=== PATIENT | male | born 1970 | race Caucasian/White ===

== ENCOUNTER 2023-10-12 15:19 | Outpatient (OUT) | payer OTHER, SELFPAY ==
--- NOTE | 2023-10-12 | XR_ITS ---
The [address] [address] Patient Name: MARIA DE JESUS MEDLEY MRN: [id number] date: 1970 Sex: M Assigned Patient Location: [facility] Current Patient Location: [facility] Accession/Order Number: [id number] Exam Date: 10/12/2023 15:30 Report Date: 10/12/2023 21:51 At the request of: MORENA YA Procedure: XR foot RT min 3V EXAM: XR foot RT min 3V HISTORY: RIGHT FOOT PAIN COMPARISON: None. TECHNIQUE: 3 views the right foot were obtained. FINDINGS: Hallux valgus is noted, with mild narrowing of the first metatarsophalangeal joint. There is no evidence of an acute fracture or dislocation, and the joint space otherwise intact throughout the foot. Small osteophytes arise from the insertion site of the Achilles tendon and the origin of the plantar fascia. No abnormal soft tissue calcification or radiopaque foreign body is identified. XR/XR foot RT min 3V IMPRESSION: There is a hallux valgus deformity at the first metatarsophalangeal joint with narrowing of the joint space. There is no evidence of an acute fracture or dislocation. The joint space otherwise intact. Osteophytes arise from the posterior calcaneus. Direct comparison with a previous study may be helpful in determining the chronicity of these findings. Electronically authenticated by: MORENA MCALLISTER Date: 10/12/2023 21:51
== END 2023-10-12 15:20 | disposition home or self-care (01) ==
LOC: RAD 15:19
PROVIDERS: PCP Internal Medicine; Visit Provider Podiatrist Foot & Ankle Surgery
DX: M79.671 Pain in right foot (principal); M20.11 Hallux valgus (acquired), right foot
CPT/HCPCS: 73630

== ENCOUNTER 2023-11-11 14:14 | Outpatient (OUT) | payer OTHER, SELFPAY ==
--- OUTSIDE RECORDS SUMMARY | 2023-11-11 14:20 | XMS_ITS | CCD ---
Author Name Unknown Address [address] [facility] [address] [place] [address] Organization [facility] Care Team Providers Care Beverage Server Name Role Phone ZACHARY RODRIGUEZ Primary Care Physician Michael, Zachary Unavailable MICHAEL, DR TREVINO Admitting Unavailable MICHAEL, DR TREVINO Attending Unavailable BALL, DR TREVINO Primary Care Unavailable MICHAEL, DR TREVINO Consulting Unavailable DAUGHERTY ., DR GONZALEZ Admitting Unavailable DAUGHERTY ., DR GONZALEZ Attending Unavailable BALL, DR TREVINO Primary Care Unavailable MICHAEL, DR TREVINO Consulting Unavailable DAUGHERTY ., DR GONZALEZ Consulting Unavailable ZIEBER, DR CHARLY Valles Consulting Unavailable BALL, DR TREVINO Primary Care Unavailable MICHAEL, DR TREVINO Admitting Unavailable BALL, DR TREVINO Attending Unavailable BALL, DR TREVINO Consulting Unavailable ZIEBER, DR CHARLY Valles Consulting Unavailable BALL, DR TREVINO Admitting Unavailable BALL, DR TREVINO Attending Unavailable BALL, DR TREVINO Primary Care Unavailable MICHAEL, DR TREVINO Consulting Unavailable ZIEBER, DR CHARLY Valles Consulting Unavailable Medications Current Medications Medication Drug Class(es) Dates Sig (Normalized) Sig (Original) citric acid 75 mg/ml / magnesium oxide 21.9 mg/ml / picosulfate sodium 0.0625 mg/ml oral solution (2 sources) Calculi Dissolution Agent, Anti-coagulant Start: 09-02-2020 take 160 mL by mouth in the evening, then take 160 mL by mouth twice daily in the evening Clenpiq 10-3.5-12 MG-GM -GM/160ML 160 ML AT 3:00 PM AND 160 ML AT 9:00 PM Orally TWICE A DAY for 1 days PLEASE CHECK ALLERGIES Sep, Active Sulfamethoxazole / Trimethoprim (2 sources) Dihydrofolate Reductase Inhibitor Antibacterial, Sulfonamide Antimicrobial Start: 03-02-2022 sulfamethoxazol e-trimethoprim Refill(s) 0 Start Date: 03/02/22 Status: Ordered tamsulosin hydrochloride 0.4 mg oral capsule (3 sources) alpha-Adrenergic Steph Start: 03-02-2022 take 1 capsule by mouth twice daily tamsulosin 0.4 mg Cap 0.4 mg = 1 cap(s), Oral, BID, # 60 cap(s), Refills(s) 6, [id number], cm, 03/02/22 13:33:00 EDT, Height/Length Dosing, 86.1, kg, 03/02/22 13:33:00 EDT, Weight Dosing Start Date: 03/02/22 Status: Ordered Start: 11-20-2021 take 1 capsule by [facility] once daily Flomax 0.4 mg Cap 0.4 mg = 1 cap(s), Oral, Daily, # 30 cap(s), Refills(s) 6, [id number] 176, cm, 11/20/21 14:51:00 EST, Height/Length Dosing, 86, kg, 11/20/21 14:51:00 EST, Weight Dosing Start Date: 11/20/21 Status: Ordered Completed/Discontinued Medications Medication Drug Class(es) Dates Sig (Normalized) Sig (Original) ciprofloxacin 500 mg oral tablet (1 source) Quinolone Antimicrobial Start: 03-16-2022 take 1 tablet by mouth once daily Cipro 500 mg Tab 500 mg = 1 tab(s), Oral, Daily, Take 1 tablet the day before the procedure and 1 tablet after the procedure, # 2 tab(s), Refills(s) 0, [id number] 176, cm, 03/02/22 13:33:00 EDT, Height/Length Dosing, 86.1, kg, 03/02/22 13:33:00 EDT,... Start Date: 03/16/22 Status: Ordered Problems Problem Classification Problem Date Documented Da te Episodic/Chronic Calculus of urinary tract (1 source) Kidney stone; Translations: [Calculus of kidney] Onset: 03-31-2022 Episodic Genitourinary symptoms and ill-defined conditions (7 sources) Increased frequency of urination; Translations: [Nocturia] 12-29-2021 Episodic Hyperplasia of prostate (11 sources) Benign prostatic hypertrophy with outflow obstruction; Translations: [Benign prostatic hyperplasia with lower urinary tract symptoms] Onset: 03-02-2022 Chronic Inflammatory conditions of male genital organs (5 sources) Chronic prostatitis; Translations: [Chronic prostatitis] Onset: 03-02-2022 Chronic Inflammatory conditions of male genital organs (4 sources) Acute prostatitis; Translations: [Acute prostatitis] 11-20-2021 Episodic Neoplasms of unspecified nature or uncertain behavior (4 sources) Neoplasm of uncertain behavior of skin; Translations: [Neoplasm of uncertain behavior of skin] 11-20-2021 Episodic Other and unspecified benign neoplasm (5 sources) 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; Translations: [SHANE LIPOMATOUS CLAUDE SKIN SUBQ RT LEG] Onset: 12-18-2022 Episodic Other circulatory disease (2 sources) Elevated blood-pressure reading without diagnosis of hypertension; Translations: [Elevated blood-pressure reading, without diagnosis of hypertension] Episodic Other diseases of bladder and urethra (1 source) Male urethral stricture; Translations: [Unspecified urethral stricture, male, unspecified site] Onset: 03-31-2022 Episodic Other diseases of bladder and urethra (1 source) Urethral stricture 03-31-2022 Episodic Other diseases of kidney and ureters (2 sources) Urinary tract obstruction; Translations: [Other obstructive and reflux uropathy] Onset: 03-02-2022 Episodic Other nutritional; endocrine; and metabolic disorders (4 sources) Overweight; Translations: [Overweight] 11-20-2021 Episodic Other nutritional; endocrine; and metabolic disorders (1 source) Overweight Episodic Other screening for suspected conditions (not mental disorders or infectious disease) (2 sources) Encounter for screening for malignant neoplasm of prostate; Translations: [ENC SCREEN MALIG NEOPLASM PROSTATE] Onset: 12-20-2022 Episodic Other skin disorders (4 sources) Localized swelling, mass and lump, right lower limb; Translations: [LOC SWELL MASS LUMP RT LOWER LIMB] Onset: 01-08-2023 Episodic Unclassified (2 sources) Asymptomatic microscopic hematuria 12-29-2021 Results Test Name Value Interpretation Reference Range Facility US MUSC_SOFT TISSUE BXon US MUSC_SOFT TISSUE BX Begin Addendum #1 COLLECTED DATE/TIME: 01/08/2023 16:30 EST Final Diagnosis Report for [facility] [place] [place] ULTRASOUND-GUIDED CORE BIOPSY RIGHT LATERAL THIGH MASS: -FRAGMENTS OF FIBROUS AND ADIPOSE TISSUE (SEE COMMENT). COMMENT: Multiple sections reveal fragments of adipose and fibrous tissue without evidence of malignancy. Some vascular prominence is present. The differential diagnosis includes a lipoma or angio-lipoma and correlation with clinical findings is advised. 01/14/[address] Rodriguez. Verified with Samantha that report was present in office (BM). Original Report EXAMINATION: US MUSC_SOFT TISSUE BX HISTORY: Structure of right thigh COMPARISON: Ultrasound extremity 12/18/2022 TECHNIQUE: After obtaining informed consent, an ultrasound-guided biopsy was performed in the usual sterile manner. FINDINGS: IMAGING: Ultrasound guidance BIOPSY NEEDLE: 18-gauge spring-loaded core biopsy needle SPECIMEN TYPE, #, LOCATION: 3 core samples; lateral right mid thigh mass within subcutaneous fat. MEDICATION: 1% buffered lidocaine for local anesthesia. COMPLICATIONS: None. LABORATORY: Pathology results are pending OTHER: Negative. IMPRESSION: Uneventful ultrasound guided biopsy of the lateral right thigh subcutaneous mass/lipoma/liposarcoma . The patient was instructed to obtain follow up care and biopsy results from the referring physician. Normal [facility] US EXT NON VASC LIMITED RTon 12-22-2022 US EXT NON VASC LIMITED RT EXAMINATION: US EXT NON VASC LIMITED RT HISTORY: Lipoma of skin and subcutaneous tissue of limbs ; chronic right lateral mid thigh lump increasing in size COMPARISON: No relevant comparison available. FINDINGS: Within lateral mid right thigh corresponding to patient's palpable lump is a 2.8 x 2.8 x 0.5 cm area of slightly heterogeneous echogenicity with imperceptible margins and trace amount of internal blood flow, most suggestive of a lipoma. IMPRESSION: 1. Patient's palpable lump is most suggestive of a lipoma, but given the slightly heterogeneous echogenicity, a liposarcoma cannot be completely excluded. Consider ultrasound-guided tissue sampling. Electronically authenticated by: CHARLY POP Date: 2022-12-22 08:45 Normal [facility] CBC AUTO DIFFon 12-15-2022 BASO # 0.1 103/ul Normal 0.0-0.1 [facility] Comment on above: Performed By: #### C BC #### [facility] [address] [place] [address] Dr. Ashley Acosta Basophils/100 WBC (Bld) 0.9 % Normal 0.2-2.0 [facility] Comment on above: Performed By: #### C BC #### [facility] [address] [place] [address] Dr. Ashley Acosta EO # 0.2 103/ul Normal 0.0-0.7 [facility] Comment on above: Performed By: #### C BC #### [facility] [address] [place] [address] Dr. Ashley Acosta Eosinophils/100 WBC (Bld) 1.8 % Normal 0.9-7.0 [facility] Comment on above: Performed By: #### C BC #### [facility] [address] [place] [address] Dr. Ashley Acosta Erythrocyte distribution width (RBC) [Ratio] 11.8 % Normal 11.0-15.0 [facility] Comment on above: Performed By: #### C BC #### [facility] [address] [place] [address] Dr. Ashley Acosta Hematocrit (Bld) [Volume fraction] 43.3 % Normal 42.0-54.0 [facility] Comment on above: Performed By: #### C BC #### [facility] [address] [place] [address] Dr. Ashley Acosta Hemoglobin (Bld) [Mass/Vol] 15.1 g/dL Normal 14.0-18.0 [facility] Comment on above: Performed By: #### C BC #### [facility] [address] [place] [address] Dr. Ashley Acosta IG # 0.04 10e3/ul Critically high 0.00-0.03 [facility] Comment on above: Performed By: #### C BC #### [facility] [address] [place] [address] Dr. Ashley Acosta IG % 0.5 % Normal 0.0-0.5 [facility] Comment on above: Performed By: #### C BC #### [facility] [address] [place] [address] Dr. Ashley Acosta LYMPH # 2.5 103/ul Normal 1.2-3.8 [facility] Comment on above: Performed By: #### C BC #### [facility] [address] [place] [address] Dr. Ashley Acosta Lymphocytes/100 WBC (Bld) 29.5 % Normal 20.5-60.0 [facility] Comment on above: Performed By: #### C BC #### [facility] [address] [place] [address] Dr. Ashley Acosta MANUAL DIFF REQ NO Normal [facility] Comment on above: Performed By: #### C BC #### [facility] [address] [place] [address] Dr. Ashley Acosta MCH (RBC) [Entitic mass] 29.9 pg Normal 25.9-34.0 [facility] Comment on above: Performed By: #### C BC #### [facility] [address] [place] [address] Dr. Ashley Acosta MCHC (RBC) [Mass/Vol] 34.9 g/dL Normal 29.9-35.2 [facility] Comment on above: Performed By: #### C BC #### [facility] [address] [place] [address] Dr. Ashley Acosta MCV (RBC) [Entitic vol] 85.7 fL Normal 80.0-94.0 [facility] Comment on above: Performed By: #### C BC #### [facility] [address] [place] [address] Dr. Ashley Acosta MONO # 0.6 103/ul Normal 0.3-0.8 [facility] Comment on above: Performed By: #### C BC #### [facility] [address] [place] [address] Dr. Ashley Acosta Monocytes/100 WBC (Bld) 7.3 % Normal 1.7-12.0 [facility] Comment on above: Performed By: #### C BC #### [facility] [address] [place] [address] Dr. Ashley Acosta NEUT # 5.1 103/ul Normal 1.4-6.5 [facility] Comment on above: Performed By: #### C BC #### [facility] [address] [address] [address] Ashley Acosta Neutrophils/100 WBC (Bld) 60.0 % Normal 43.0-75.0 [facility] Comment on above: Performed By: #### C BC #### [facility] [address] [address] [address] Ashley Acosta Platelet mean volume (Bld) [Entitic vol] 9.7 fL Normal 9.5-13.5 [facility] Comment on above: Performed By: #### C BC #### [facility] [address] [address] [address] Ashley Acosta PLT 274 103/ul Normal 150-450 [facility] Comment on above: Performed By: #### C BC #### [facility] [address] [place] [address] Dr. Ashley Acosta RBC 5.05 106/ul Normal 4.70-6.10 [facility] Comment on above: Performed By: #### C BC #### [facility] [address] [place] [address] Dr. Ashley Acosta WBC 8.5 103/ul Normal 4.0-11.0 [facility] Comment on above: Performed By: #### C BC #### [facility] [address] [place] [address] Dr. Ashley Acosta Comprehensive Metabolic Pane robin 12-15-2022 Albumin [Mass/Vol] 4.224254 g/dL 3.4-5.0 g/dL N Code42 Other Albumin/Globulin [Mass ratio] 1.3 {ratio} Normal [employer] Other Comment on above: Performed By: #### C MP, LIPID #### [facility] [address] [place] [address] Dr. Ashley Acosta ALP [Catalytic activity/Vol] 57 U/L Normal 46-116 [employer] Other Comment on above: Performed By: #### C MP, LIPID #### [facility] [address] [address] [address] Ashley Acosta ALT [Catalytic activity/Vol] 31 U/L Normal 16-63 [employer] Other Comment on above: Performed By: #### C MP, LIPID #### [facility] [address] [address] [address] Ashley Acosta Anion gap [Moles/Vol] 12.2 mmol/L Normal [employer] [facility] [employer] Other Comment on above: Performed By: #### C MP, LIPID #### [facility] [address] [address] [address] Ashley Acosta AST [Catalytic activity/Vol] 25 U/L Normal 15-37 [employer] [facility] Other Comment on above: Performed By: #### C MP, LIPID #### [facility] [address] [address] [address] Ashley Acosta Calcium [Mass/Vol] 9.3850213 mg/dL 8.5-10 .1 mg/dL [employer] Other Chloride [Moles/Vol] 101 mmol/L Normal 98-107 [employer] Other Comment on above: Performed By: #### C MP, LIPID #### [facility] [address] [address] [address] Ashley Acosta CO2 [Moles/Vol] 27.60047989 mmol/L 21.0-3 2.0 mmol/L [employer] Other Creatinine [Mass/Vol] 0.07871749 mg/dL 0.70-1.30 mg/dL [employer] Other Potassium [Moles/Vol] 3.01801792 mmol/L 3.5-5.1 mmol/L [employer] Other Protein [Mass/Vol] 7.818738 g/dL 6.4-8.2 g/dL [facility] [employer] Other Urea nitrogen [Mass/Vol] 11.1854719 mg/dL 7.0-18.0 mg/dL [employer] Other Urea nitrogen/Creatinin e [Mass ratio] 11.7 mg/mg Normal [employer] Other Comment on above: Performed By: #### C MP, LIPID #### [facility] [address] [place], [place] [address] Dr. Ashley Acosta Comprehensive Metabolic Panel see note [employer] Other Comprehensive Metabolic Panel 137 mmol/L 136-145 mmol/L [employer] Other Comprehensive Metabolic Panel 85 mg/dL 74-106 mg/dL [employer] Other Comprehensive Metabolic Panel >60 mL/min/1.73m2 >=60 mL/min/1.73m2 [employer] Other Comprehensive Metabolic Panel 0.9 mg/dL 0.2-1.0 mg/dL [employer] Other Comprehensive Metabolic Panel 3.2 g/dL [employer] Other LIPID PROFILEon 12-15-2022 CHOL-HDL RATIO NORM SEE BELOW Normal [facility] Comment on above: Result Comment: 3.3 - 4.4 LOW RISK 4.4 - 7.1 AVERAGE RISK 7.1 - 11.0 MODERATE RISK >11.0 HIGH RISK Performed By: #### C MP, LIPID #### [facility] [address] [address] [address] Ashley Acosta Cholesterol in LDL [Mass/Vol] 120.2 mg/dL Normal [facility] Comment on above: Performed By: #### C MP, LIPID #### [facility] [address] [place], [place] [address] Dr. Ashley Acosta HDL NORMAL > or = 60 mg/dl - LO W CARDIOVASCULAR RISK <40 mg/dl - HIGH CARDIOVASCULAR RISK Normal [facility] Comment on above: Performed By: #### C MP, LIPID #### [facility] [address] [address] [address] Ashley Acosta LDL CALC NORMAL SEE BELOW Normal [facility] Comment on above: Result Comment: <100 mg/dl OPTIMAL 100 - 129 mg/dl NEAR OR ABOVE OPTIMAL 130 - 159 mg/dl BORDERLINE HIGH 160 - 189 mg/dl HIGH >190 mg/dl VERY HIGH Performed By: #### C MP, LIPID #### [facility] [address] [address] [address] Ashley Acosta VLDL CALC 17.8 mg/dL Normal [facility] Comment on above: Performed By: #### C MP, LIPID #### [facility] [address] [address] [address] Ashley Acosta Lipid Panelon 12-15-2022 Cholesterol [Mass/Vol] 194 mg/dL Normal <=200 [employer] Other Comment on above: Performed By: #### C MP, LIPID #### [facility] [address] [address] [address] Ashley Acosta Cholesterol in HDL [Mass/Vol] 56 mg/dL Normal 40-60 [employer] Other Comment on above: Performed By: #### C MP, LIPID #### [facility] [address] [address] [address] Ashley Acosta Cholesterol.total/ Cholesterol in HDL [Mass ratio] 3.5 {ratio} Normal [employer] Other Comment on above: Performed By: #### C MP, LIPID #### [facility] [address] [address] [address] Ashley Acosta Triglyceride [Mass/Vol] 89 mg/dL Normal <=150 [employer] Other Comment on above: Performed By: #### C MP, LIPID #### [facility] [address] [address] [address] Ashley Acosta Lipid Panel > or = 60 mg/dl - LO W CARDIOVASCULAR RISK <40 mg/dl - HIGH CARDIOVASCULAR RISK [employer] Other Lipid Panel SEE BELOW [employer] Other Lipid Panel 120.2 mg/dL [employer] Other Lipid Panel 17.8 mg/dL [employer] Other PROF 14(COMP METB)on 023 Albumin [Mass/Vol] 4.0 g/dL Normal 3.4-5.0 [facility] Comment on above: Performed By: #### C MP, LIPID #### [facility] [address] [place] [address] Dr. Ashley Acosta Bilirubin [Mass/Vol] 0.9 mg/dL Normal 0.2-1.0 [facility] Comment on above: Performed By: #### C MP, LIPID #### [facility] [address] [place] [address] Dr. Ashley Acosta Calcium [Mass/Vol] 9.0 mg/dL Normal 8.5-10.1 [facility] Comment on above: Performed By: #### C MP, LIPID #### [facility] [address] [place] [address] Dr. Ashley Acosta CO2 [Moles/Vol] 27.5 mmol/L Normal 21.0-32.0 [facility] Comment on above: Performed By: #### C MP, LIPID #### [facility] [address] [place] [address] Dr. Ashley Acosta Creatinine [Mass/Vol] 0.94 mg/dL Normal 0.70-1.30 [facility] Comment on above: Performed By: #### C MP, LIPID #### [facility] [address] [place] [address] Dr. Ashley Acosta EGFR-AF [place]LANDER >60 Normal >=60 [facility] Comment on above: Performed By: #### C MP, LIPID #### [facility] [address] [place] [address] Dr. Ashley Acosta EGFR-NON AF [place]ER >60 Normal >=60 [facility] Comment on above: Performed By: #### C MP, LIPID #### [facility] [address] [place] [address] Dr. Ashley Acosta Globulin (S) [Mass/Vol] 3.2 g/dL Normal [facility] Comment on above: Performed By: #### C MP, LIPID #### [facility] [address] [address] [address] Ashley Acosta Glucose [Mass/Vol] 85 mg/dL Normal 74-106 [facility] Comment on above: Performed By: #### C MP, LIPID #### [facility] [address] [address] [address] Ashley Acosta Potassium [Moles/Vol] 3.7 mmol/L Normal 3.5-5.1 [facility] Comment on above: Performed By: #### C MP, LIPID #### [facility] [address] [address] [address] Ashley Acosta Protein [Mass/Vol] 7.2 g/dL Normal 6.4-8.2 [facility] Comment on above: Performed By: #### C MP, LIPID #### [facility] [address] [address] [address] Ashley Acosta Sodium [Moles/Vol] 137 mmol/L Normal 136-145 [facility] Comment on above: Performed By: #### C MP, LIPID #### [facility] [address] [address] [address] Ashley Acosta Urea nitrogen [Mass/Vol] 11.0 mg/dL Normal 7.0-18.0 [facility] Comment on above: Performed By: #### C MP, LIPID #### [facility] [address] [address] [address] Ashley Acosta Coding Summaryon 04-30-2022 Coding Summary [employer]Base 64 QcujdwobQNx4yJp+PGhlYWQ +WO0URAUoM20sgBEvmU3HL3 jFEA4UBPWWIWNQHF2JNZ5sc SU9JAxzV0YabfTs FdnsxSOzBN29ASg4CHQ8sHb qHNeomB6srFIxK0t7AgUyEM 85iG01DGjlQMIdPlO7RgTcs jsgbWFy T5mzCjUlfSRfLuu+PHRhYmx lIHdpZHRoPScxMDAlJyBzdH jlKQ5cBd6wAWJaAVBmjZbqh HNlOiBj h6rvFYVuNRvoHP2qgPrsU5F guNP6XVUjk8l2Je36yRY+PH XjYTI0qOpcNNjob432CdKtm 5epNDY4 wCNvENdwGXS2U06iz9Q2ZBC eQSHyMAY0wVY3gP3unCusuz ymW0YewQQtFeB1OGR8vEQsh T9hrMir tkwmlP3gZzh+B17SRH1FLCM ASJ1VVxs2N7YeZpbkyLA+PC 29KPFkCU52cVXatBZiz0gti Vm4XfQu ROTdBEY5dQotPRvey6EgMTA cI63pbQMgd2E3EDBmsTptuB ZaKvHduGR2eF8mPPisfaajg 2hvdzsn Rnykb4ygjx43dR11Z28fPUq wWECuSKE0ZCLkFFVbhRjyco 4vzI3rNw1+FMhxk0osy2wbk Dl8HgQo GMLljbXinGnrPCX5t8XvIo2 2J0NpkZpvw7XpZwa5tj77zH Kir5F3wYW0QRdoUBLhkK6qK WxlZnQ6 GVXdNjGenH15vSLvDYezOc6 kjLspuSrkKC9hRUWpqyfmOD HcbU7mQYYwqOZljFhwDO0hT TBpbjtm z111HsTrNES5HCKxuDIfR5R dqG3hWvVuRCXnMHVvT1VzcR QrYJegJ280GCuwKuP4IYTjx eAaZ8Og ASCtiEhaFtG5j3G2Xg8Ah7B mkfjkQZF9HHuhWWL0QrSgFr FoLbN7L5TnLxt4OGEcxXzsS D4fN8Oy SFOlqrvcniineCH0JIZiCYZ fvG37sCZzIMvqJh0zu7G1j8 59UDTeACQyjO31Co2sfRouR TBwdCBU pP6hpglok5xvdfsbLdKlGYD vUYi8RHk6PSLuqPzlRqElYN J9IaK6LOR4bTDuyT9akScsj lzgpB0u Oyc+H41diJ4mFJQ1HGQ4wph gXGUmzyQtPR50EX62I7IbYm wvdGFibGU+PGRpdiBzdHlsZ E3qQeTj e7fgj1LtGHrbS0QsPACxFCv lFia8NBPkGWT8kRQ0bF6qER ZaZMucj7G3cRP9X5TtatLvs e1ra2hf VTOyTBliP57yeAYkj9Q0CWQ mvCR0XETofZdxXeDtoA87Vc c+GKTeiAwam7LdAkeok6pgb 6rqyZo7 ZsIoZAYfjvWgtScnPWT8e4G vKu15Y96iWZejUDYzELSkPH RwNPVltChosb8piB1jZs9+P GNvbCB3 hUN1yL5hZFMzVhJ3YJgjH04 2MiWyeLHuCbwkd4nnm0tlaA p5KjAsGHRdkaDyjRgxLWQ9h 3BbLp01 V08pYYdkBVNnMJQqBQTcQMO efPowvm1xlW5gSx0+PC9jb2 pivr04dF04gRB+WJBsKMN2p WxlPSdw YRIboA1lHRttFhM8KJLuTvO pfA59tMElVQjxVj0xiEeoaX bpEM5kQQUhzwbii974TqZjv 2xkIDEw pCUkLVrkUBK6U68ib2E3MWH kVCDlDHL8ePT8aW3crWzhdi ogbGVmdDsgdmVydGljYWwtY PsnN477 IHRvcDsnPlBhdGllbnQgTmF tIHm2D0OaKib9AOLsvGrrWL 9bbZVlKBcuAz2utCebnNvqY S2kLHTn rrwxf914RqJtp3vmHJEbxND vOFguDMR0R17pj0B6JVSjXW BdBND7oSP1qU3mbSjxkrfbo GVmdDsg amRujWrkNHcqHUkiZ508MFR zqDnzCyWamiPlLVRmrJO8MJ 62DX36ePXyt8P9iCZ0L4UnX GRpbmct wacxnVI4QLRsOYHzpX72Ar2 kuZylBa2eDSXaLYU1PLPyoS RwV5KpkO8oHjIxFNCvDOOqN 3RleHQt OQdxE740PVyjQtD1PMEwxmE lE2IkRFVayOceHeS6z7G5Sm 4IM1S2XI94YW77vXFvu3V9d IL1A0Yx PNXqsixwzqgrwJA3JHJlGPT ivD63Fq6hqAytVq4oYSTwYM W7ACBsuVUxD0CbyH1dAkUqQ DAwMDAw C8NveCXbMDknC245FGruTmF 6FAHdqbRrS7KgCQYouGgdNk R9c8O1Wv5UGHe4JE64DP58q IStw0P4 oRL6C7HrZEZdamsldytpoZW 3BBQhXJVrkV15Ha2kzUvcZb 0zQDYuJRH4PSEzuMZhY2Yak L8rLwPb THRwZXSxC3NudXThHPopO27 3KBssYrB7EPYlwbRgM6FjSC BxdNinGbS3h9L2Kh6YAYEeS D04NCT5 zRH3SL86CM71V1EvBazujRP ibGU+PHRhYmxlIHdpZHRoPS lvRWZyZeCmzCaeJR5eTl1dW GVyLWNv bRqcfHJgSwUmf3gdDUMgNVr cOF1sjJyoR3MftVW2TFTmt8 o2Tq40P80oJ9NscGH+PGNvb RE7xFK4 zU0qDrTpDcV4HAugE473OaF jtPYrKjhwg9anj7audWy8Yl K3USRlggDnxDclFJJ0j0VdA f69Y86j IHdpZHRoPSIxNSUiIHZhbGl ehu4lbQ9dZc8+PPPqzRJ3aT D7aC0lWjXjNfD7WFtaP808C nRvcCIv Cbzna2qzw3watZa1UtJoQOT smdNtjInqJIK5d3XbBa42C4 CrcWcet2MiTnp3jk45kLGsp 0A2hYF5 K7UnAXLetyvfxMMijNvgBU9 mEEPhaowcXAFqmR8oFDCuO6 y2DxHzCaR3XYyiH8MkpvO2I DEwcHQg BEumGRC5C73my7G4KUMxVCR lDAS9pQG6eH8klVfgcfqxmG VmdDsgdmVydGljYWwtYWxpZ 246IHRv fVfgUXLivS0lBDHhnPGppAu bDZ6fCRErzhkdWa2DXo9BEx gzH3mKDEUYZCHGIRTQBP07N C00hYBk d9T3mVH6Q2QuBJDllxgnrpj tsKQ2WCTgZTYhyS32jYOfTV cdAl6fm7W1g040DQGiMNXem Q03Hh5i aVhzLZGqnMGVxR5xehwbs8t dvuogApAkNXYbHFf3DLr8NQ UdmWxhSxSyCQO3IhH8DTH1z TCvsK6w fUlvmhiofI1hMmh+MDMvMjQ aVLd4IjvhpWA+DMLeSAS5vN coPKjxTYZjtF7mZFVrW7f0A iAwLjA1 RGnkS6PrOIVikylfKx13iX0 eIjOrCrA0UEehQ9RxekW2CU KohJMaKLczFLW0F90wa3X0W CMwMDAw HNU8kIA9iW6jzMyoqmedyZM mdDsgdmVydGljYWwtYWxpZ2 46IHRvcDsnPjUwIFllYXJzP C05AN20 pACmg9G5sHA1X6PfZWRqill szpsknFO2LSDtWWDuzB67dQ YfFDmlHj0qs5P0u160RZEgU DUwaW47 Fm0dhHfwSKRemBUHxA2zimg ee8oheixfFeMmYQYiJXo6JD z8RRUgtIvaKqTaQOC5ZnG5Y VA1yWQt oZ3njZeeukjnlR0lNma+TUF MRTwvdGQ+PYJeJFG8zMipBV qtRNEvuA9iIJJhI3n1MtVrY iA1LXyw T4PgPXMrbvmkCi08iI7sInF oLkW8KQoyZ8DfkxT3RCHpaM DfGBcaQCQ4Y18qa8C0BQIaT DAwMDA7 oJQ5tO1tqCrnxflemOFkbDr dsfTyeFlhQIwwOLovK204KK TscTugMdOazJWIrTAvZXE9B E79TZ45 U9ApXzztjQZvhPM+PHRhYmx lIHdpZHRoPScxMDAlJyBzdH ezTX8pSs7oWJDuKTZpbWcyt HNlOiBj c5rzODWsZGyfQY1aoEiiK6O alUK2PSFsa0n3Fj28Y92aZ2 JvdXA+EKBgmZL4mLN4sR1pD zAlIiB2 UJesL249LzBfyBPqSagur6o zw5xfaYf4LrNgFRLutgJjbH zqWUR5n0DhCs98Y81rBVjtY HRoPSIy HHVnVJDoeAmkfj5njS7eFd6 +ZGEgaKB7bNI1rG7gBeWtOm K6RCiuN576FvNjmUOoYbiaT 73gK0Kh dXA+LGCjYal9BDMxrIfyJX0 kpGYsMHoaQj0pEJX2KfIaWx AcIXffS9RqOSOfatjusuubi UP1QDRj EZOroZ47Sn1ffEsfXp1tUHR nAGC6EEEiqDLoQ7TgxC5xOi QaJKQpWIXxJ4UdzWUsYBwfC 246IGxl LvC2MHGmcuXfE5LvSSJdcPb zTqF8w1A9Oj6YtJxzuADzAA 5dEwGbASg0O2TdJej1JYIjl VunII0s aGEkVGfbWw6ehJjhdLhqBZ4 jOJIpvouxm443OnMoc2axVB LqrXWuSWhqPHU5R59lh5X5J CMwMDAw DRP1eTL0bJ2lwKllcrkvgFV mdDsgdmVydGljYWwtYWxpZ2 26LYRwqZmpQiCIBtz9X6SiN ui0JUCs rQwxAL9ghMIaQAwxFr9abBj hmQsiTY0vVHGfrrbyn562Ja Ftc4fcPDVknIPlCWkaDWX9T 26hj5Z3 FSZiJCYpTOI1cWH2tE2vjIh nbjogbGVmdDsgdmVydGljYW rzEXdpC479IJSbnOsqCh4LT us0F9Jf Ezs2HSAonOaoTD1jjNOeOZe yDl9roXrjaBrxJB9pDXNend eas123UaUdt5ppLLBvuWGoF GltZXM7 K51qj6Y4HLEgGRSxLEA4xNX 3zU3uyIdmwcqayVJblAenti XbiCgqVLmtEAdyP420TIJrx DsnPlBh eWVyOjwvdGQ+QG08uu73N4M tCjutCea0JBPdECU5sIF0eL 6aVTCcQTint1N4wIG9O6Iyg lCjrv3e b2x (more content not included)... [facility] Consent Formson 04-29-2022 Consent Forms [id number] TGTIFF [facility] MAGR Intraoperative Recordon 04-29-2022 MAGR Intraoperative Record MAGR Intra-Op Record Summary Primary Physician: Carlos Phelps MD Finalized Date/Time: 04/29/22 12:51:27 Pt. Name: MARIA DE JESUS MEDLEY LUPIS Schultz/Sex: 1970 MALE Med Rec #: [id number] Physician: Carlos Phelps MD Financial #: [id number] Pt. Type: D Room/Bed: / Admit/Disch: 04/28/22 09:37:00 - 04/28/22 11:50:00 Institution: Case Times MAGR Entry 1 Patient In Room Time 04/28/22 11:20:00 Out Room Time 04/28/22 11:37:00 Anesthesia Start Time 04/28/22 11:31:00 Stop Time 04/28/22 11:37:00 Surgery Start Time 04/28/22 11:31:00 Stop Time 04/28/22 11:34:00 Last Modified By: Shelby Melvin RN 04/28/22 11:43:01 Case Attendance MAGR Entry 1 Entry 2 Entry 3 Case Attendee Carlos Phelps MD, Diane RN Musselman CST, Brandi Role Performed Surgeon - Primary Stock Letterer Scrub Personnel Time In 04/28/22 11:20:00 04/28/22 11:20:00 04/28/22 11:20:00 Time Out 04/28/22 11:37:00 04/28/22 11:37:00 04/28/22 11:37:00 Procedure Cystoscopy Retrograde Cystoscopy Retrograde Cystoscopy Retrograde Pyelogram Pyelogram Pyelogram Last Modified By: Shelby Melvin RN, Diane RN Kokinda, Diane RN 04/28/22 11:43:07 04/28/22 11:43:07 04/28/22 11:43:07 Entry 4 Entry 5 Case Attendee Sudha Tran CST, CST, Luke T RT (R) BRIAN ARRRahat Role Performed Investigation Division Lieutenant Site Leasing Agent Time In 04/28/22 11:20:00 04/28/22 11:20:00 Time Out 04/28/22 11:37:00 04/28/22 11:37:00 Procedure Cystoscopy Retrograde Cystoscopy Retrograde Pyelogram Pyelogram Last Modified By: Shelby Melvin RN, Diane RN 04/28/22 11:43:07 04/28/22 11:43:07 Surgical Procedures MAGR Pre-Care Text: A.20 Verifies operative procedure, surgical site, and laterality Im.150 Develops individualized plan of care Entry 1 Procedure Cystoscopy Retrograde Primary Procedure Yes Pyelogram Primary Surgeon Lenin VALDOVINOS, Carlos Kilgore Surgeon Comment RETROGRADE URETHROGRAM - NO CYSTOSCOPE, YES TO FLUORO, CONTRAST DYE INJECTED WITH SYRINGE Start 04/28/22 11:31:00 Stop 04/28/22 11:34:00 Anesthesia Type Local Surgical Service Urology Wound Class Clean-Contaminated Technique Details Closure Technique N/A Entire procedure No was performed via laparoscope or robotic assistance Last Modified By: Shelby Melvin RN 04/28/22 11:43:17 Post-Care Text: O.730 The patient's care is consistent with the individualized perioperative plan of care General Case Data MAGR Pre-Care Text: A.350.1 Classifies surgical wound Entry 1 Case Information OR MAGR OR 02 Case Level Level 2 Wound Class Clean-Contaminated Specialty Urology ASA Class N/A Diagnosis Preop Diagnosis URETHRAL STRICTURE Postop Same As Preop Yes Postop Diagnosis URETHRAL STRICTURE Blunt or No Is the procedure No penetrating injury considered occured prior to Emergent/Urgent? the start of the procedure: Last Modified By: Graciela Hawkins RN 04/29/22 12:24:50 Post-Care Text: O.760 Patient receives consistent and comparable care regardless of the setting Time Out MAGR Entry 1 Time out date/time 04/28/22 11:30:00 All team members Yes have introduced themselves by name and role Surgeon, Yes Surgeon reviews Yes anesthesia, nurse critical or confirm patient, unexpected steps, site, procedure operative duration, anticipated blood loss Anesthesia team No Nursing team Yes reviews any reviews sterility patient-specific (including concerns indicator results) and equipment issues/concerns Antibiotic Antibiotic N/A prophylaxis given within the last 60 minutes Last Modified By: Shelby Melvin RN 04/28/22 11:43:46 Patient Positioning MAGR Pre-Care Text: A.280 Identifies baseline musculoskeletal status Im.40 Positions the patient Im.80 Applies safety devices Entry 1 Procedure Cystoscopy Retrograde Body Position Supine Pyelogram Left Arm Position Resting at Side Right Arm Position Resting at Side Left Leg Position Extended Right Leg Position Extended Feet Uncrossed? Yes Press Points Checked Yes Positioning Device Safety Strap, Stirrups Outcome Met (O.80) Yes Last Modified By: Shelby Melvin RN 04/28/22 11:46:53 Post-Care Text: E.290 Evaluates musculoskeletal status O.80 Patient is free from signs and symptoms of injury related to positioning General Comments: POSITIONED SLIGHTLY LEFT LATERAL Skin Prep MAGR Pre-Care Text: A.30 Verifies allergies Im.270 Performs skin preparation Im.270.1 Implements protective measures to prevent skin and tissue injury due to chemical sources Entry 1 Skin Prep Syntegrity Prep Agents (Im.270) Other Prep By Shelby Melvin RN Prep Area (Im.270) Perineum, Penis and Skin Prep Agent Dry Yes scrotum Without Pooling Hair Removal Syntegrity Hair Removal Methods No hair removal performed Outcome Met (O.100) Yes Last Modified By: Shelby Melvin RN 04/28/22 10:37:21 Post-Care Text: E.10 Evaluates for signs and symptoms of physical injur (more content not included)... [facility] Provider Orderson 04-29-2022 Provider Orders [id number] TGTIFF [facility] Inpatient Patient Summaryon 04-28-2022 [place] [address] Patient Discharge Instructions Name: MARIA DE JESUS MEDLEY : 1970 Patient Address: [address] [place] [address] Primary Care Provider: Name: Zachary Rodriguez After you are discharged if you find you have any questions, please, call [phone] ext [phone] to speak to a nurse. Discharge Diagnosis: Urethral stricture Prescription Information: If you have been given a prescription for narcotics, seek immediate medical attention if you have any difficulty breathing or any sudden status changes such as confusion and sleepiness. If you or anyone you know is experiencing suicidal thoughts, mental health, alcohol and/or drug addiction problems; contact the [facility] 24/05 Crisis Hotline -Text 4HMFL to 533829. If you received any narcotics, sedation, or any other medication that causes drowsiness for the next 24 hours, unless otherwise directed: ? Do not drive a car. ? Do not operate machinery such as power tools, lawn mowers, drills, sewing machines, or stoves ? Avoid alcoholic beverages and drugs for allergies, nerves, or sleep ? Do not make important personal or business decisions or sign any legal documents [facility] would like to thank you for allowing us to assist you with your healthcare needs. The following includes patient education materials and information regarding your injury/illness. MARIA DE JESUS MEDLEY has been given the following list of follow-up instructions, prescriptions, and patient education materials: Follow-up Instructions With: Address: When: Zachary Rodriguez [address] [place] [address] Business (1) Medications During the course of your visit, your medication list was updated with the most current information. The details of those changes are reflected below: Medications to Continue That Have Not Changed Other Medications ascorbic acid (Vitamin C 500 mg oral tablet) 1 tab(s) Oral every day. tamsulosin (Flomax 0.4 mg oral capsule) 1 cap(s) Oral every day. It is important to always keep an active list of medications available so that you can share with other providers and manage your medications appropriately. As an additional courtesy, we are also providing you with your final active medications list that you can keep with you. ascorbic acid (Vitamin C 500 mg oral tablet) 1 tab(s) Oral every day. tamsulosin (Flomax 0.4 mg oral capsule) 1 cap(s) Oral every day. Take only the medications listed above. Contact your doctor prior to taking any medications not on this list. Diet & Activity Patient Activity Level: As Tolerated Patient Diet: Regular Patient Activity Restrictions: Comment: Patient education materials, if any, will display below Viruses or Bacteria What?s got you sick? Antibiotics only treat bacterial infections. Viral illnesses cannot be treated with antibiotics. When an antibiotic is not prescribed, ask your healthcare professional for tips on how to relieve symptoms and feel better. Usual Cause Illness Viruses Bacteria Antibiotic Needed Cold/Runny Nose NO Bronchitis/Chest Cold (in otherwise healthy children and adults) NO Whooping Cough Yes Flu NO Strep Throat Yes Sore Throat (except strep) NO Fluid in the middle ear (otitis media with effusion) NO Urinary Tract Infection Yes Antibiotics Aren?t Always the Answer www.cdc.gov/getsmart GET SMART Know When Antibiotics Work U.S. Department of Health and Human Services Centers for Disease Control and Prevention July 2014 [facility] MAGR Preoperative Recordon 0 04-28-2022 MAGR Preoperative Record MAGR Pre-Op Record Summary Primary Physician: Carlos Phelps MD Finalized Date/Time: 04/28/22 11:50:49 Pt. Name: MARIA DE JESUS MEDLEY LUPIS Kimbrough./Sex: 1970 MALE Med Rec #: [id number] Physician: Carlos Phelps MD Financial #: [id number] Pt. Type: D Room/Bed: / Admit/Disch: 04/28/22 09:37:00 - Institution: Pre-Op Case Times MAGR Pre-Care Text: Patient will be optimally prepared for surgery. Patient is free from s/s of injury. Provide information to patient/family related to plan of care. Verify patient allergies. Confirm identity and verify consent before the operative or invasive procedure. Entry 1 Patient Arrival Time 04/28/22 10:05:00 Preop Departure 04/28/22 11:18:00 Last Modified By: Laura Crain RN 04/28/22 11:50:48 Post-Care Text: Patient is prepared mentally and physically and is ready for surgery. The patient remains free from s/s of injury. Patient/family express understanding of plan of care and participate in decisions affecting his or her perioperrative plan of care. Allergies documented appropriately. Patient identifiers and consent correct. General Comments: Pt arrives to psw ambulatory. PT denies pain, cp, sob, cough or flu like symptoms. Pt deneis pacemaker/defibillator or sleep apnea. Finalized By: Laura Crain RN Document Signatures Signed By: Laura Crain RN 04/28/22 11:50 [facility] Patient Handouton 04-28-2022 Patient Handout [facility] XR Urography Retrogradeon XR Urography Retrograde EXAMINATION: XR Urography Retrograde HISTORY: RETROGRADE URETHROGRAM COMPARISON: CT abdomen and CT pelvis studies dated 03/19/2022. FLUOROSCOPY TIME: Fluoro time measures 27.4 seconds and 4 spot film images were obtained. TECHNIQUE: Left double-J ureteral stent placement and retrograde urethrogram were performed. FINDINGS: 2 spot film images on the left were obtained demonstrating proximal and distal portions of left double-J ureteral stent which appear unremarkable. No other details are identified. 2 spot film images related to retrograde urethrogram study were obtained. Catheter is seen within the urethra with associated contrast in the bulbous urethra and penile urethra with a small amount of contrast suggested in the prosthetic urethra, no other details are identified. Procedure was performed by Dr. Phelps. IMPRESSION: Left double-J ureteral stent placement. Retrograde urethrogram study as noted. Fluoroscopy was utilized by the surgeon during this procedure. Final Dictated by: Bernardo Dia MD Dictated DT/TM: 04/29/22 7:30 Signed (Electronic Signature): Bernardo Dia MD 04/29/22 8:22 am Technologist: [facility] Consent for Procedure/[facility] 04-01-2022 Consent for Procedure/Surgery [id number] D:127 [facility] Ambulatory Visit Summaryon 0 03-31-2022 Ambulatory Visit Summary MARIA DE JESUS MEDLEY :1970 Visit Date:03/31/2022 Ambulatory Visit Instructions Your Diagnosis BPH with urinary obstruction Chronic prostatitis Kidney stone Urethral stricture Other obstructive and reflux uropathy Your Care Team Attending Physician - Jimmy DAUGHERTY MD Primary Care Physician - ZACHARY RODRIGUEZ DO This Is Your Medications List ciprofloxacin (Cipro 500 mg Tab) sulfamethoxazole-trimet hoprim tamsulosin (tamsulosin 0.4 mg Cap) Procedures Performed Cystoscopy (03/31/2022), Appendectomy, Colonoscopy. Discharge Vitals Heart Rate (Peripheral) 85 Respiratory Rate 16 Blood Pressure 135/82 Height 176.0 cm Height 176 cm Weight 86.0 kg Weight 86 kg BMI 27.76 What to do next Scheduled Follow-Up Appointments Wednesday 3:15 PM EDT With: Jimmy DAUGHERTY MD [facility] Patient Educationon 05-31-20 22 Patient Education Urology Benign Prostatic Hyperplasia Benign prostatic hyperplasia (BPH) is an enlarged prostate gland that is caused by the normal aging process and not by cancer. The prostate is a walnut-sized gland that is involved in the production of semen. It is located in front of the rectum and below the bladder. The bladder stores urine and the urethra is the tube that carries the urine out of the body. The prostate may get bigger as a man gets older. An enlarged prostate can press on the urethra. This can make it harder to pass urine. The build-up of urine in the bladder can cause infection. Back pressure and infection may progress to bladder damage and kidney (renal) failure. What are the causes? This condition is part of a normal aging process. However, not all men develop problems from this condition. If the prostate enlarges away from the urethra, urine flow will not be blocked. If it enlarges toward the urethra and compresses it, there will be problems passing urine. What increases the risk? This condition is more likely to develop in men over the age of 50 years. What are the signs or symptoms? Symptoms of this condition include: ? Getting up often during the night to urinate. ? Needing to urinate frequently during the day. ? Difficulty starting urine flow. ? Decrease in size and strength of your urine stream. ? Leaking (dribbling) after urinating. ? Inability to pass urine. This needs immediate treatment. ? Inability to completely empty your bladder. ? Pain when you pass urine. This is more common if there is also an infection. ? Urinary tract infection (UTI). How is this diagnosed? This condition is diagnosed based on your medical history, a physical exam, and your symptoms. Tests will also be done, such as: ? A post-void bladder scan. This measures any amount of urine that may remain in your bladder after you finish urinating. ? A digital rectal exam. In a rectal exam, your health care provider checks your prostate by putting a lubricated, gloved finger into your rectum to feel the back of your prostate gland. This exam detects the size of your gland and any abnormal lumps or growths. ? An exam of your urine (urinalysis). ? A prostate specific antigen (PSA) screening. This is a blood test used to screen for prostate cancer. ? An ultrasound. This test uses sound waves to electronically produce a picture of your prostate gland. Your health care provider may refer you to a specialist in kidney and prostate diseases (urologist). How is this treated? Once symptoms begin, your health care provider will monitor your condition (active surveillance or watchful waiting). Treatment for this condition will depend on the severity of your condition. Treatment may include: ? Observation and yearly exams. This may be the only treatment needed if your condition and symptoms are mild. ? Medicines to relieve your symptoms, including: ? Medicines to shrink the prostate. ? Medicines to relax the muscle of the prostate. ? Surgery in severe cases. Surgery may include: ? Prostatectomy. In this procedure, the prostate tissue is removed completely through an open incision or with a laparoscope or robotics. ? Transurethral resection of the prostate (TURP). In this procedure, a tool is inserted through the opening at the tip of the penis (urethra). It is used to cut away tissue of the inner core of the prostate. The pieces are removed through the same opening of the penis. This removes the blockage. ? Transurethral incision (TUIP). In this procedure, small cuts are made in the prostate. This lessens the prostate's pressure on the urethra. ? Transurethral microwave thermotherapy (TUMT). This procedure uses microwaves to create heat. The heat destroys and removes a small amount of prostate tissue. ? Transurethral needle ablation (TUNA). This procedure uses radio frequencies to destroy and remove a small amount of prostate tissue. ? Interstitial laser coagulation (ILC). This procedure uses a laser to destroy and remove a small amount of prostate tissue. ? Transurethral electrovaporization (TUVP). This procedure uses electrodes to destroy and remove a small amount of prostate tissue. ? Prostatic urethral lift. This procedure inserts an implant to push the lobes of the prostate away from the urethra. Follow these instructions at home: ? Take pxhv-ndj-iyxhvov and prescription medicines only as told by your health care provider. ? Monitor your symptoms for any changes. Contact your health care provider with any changes. ? Avoid drinking large amounts of liquid before going to bed or out in public. ? Avoid or reduce how much caffeine or alcohol you drink. ? Give yourself time when you urinate. ? Keep all follow-up visits as told by your health care provider. This is important. Contact a health care provider if: ? You have unexplained back pain. ? Your symptoms do not get better with treatment. ? You d (more content not included)... [facility] Urology Office/Clinic Noteon 03-31-2022 Urology Office/Clinic Note Chief Complaint Cystoscopy HPI Staff Cystoscopy. Abx taken. History of Present Illness I have reviewed and verified the staff HPI to be accurate for this encounter. Review of Systems PHQ Score Initial Depression Screen Score: 0 ROS - Provider Constitutional: denies weight loss, denies hot flashes. Eyes: denies eye problems. Gastrointestinal: denies nausea, denies vomiting. Cardiovascular: denies chest pain or angina. Integumentary: no dryness Musculoskeletal: denies musculoskeletal symptoms. ENMT: denies otolaryngeal symptoms. Respiratory: no shortness of breath. Heme/Lymph: denies easy bleeding tendency, denies easy bruising tendency. Psychiatric: no confusion, no anxiety. Genitourinary: denies dysuria, denies hematuria, denies discharge, denies urinary frequency, denies urinary hesitancy, denies nocturia, denies incontinence, denies genital sores, denies decreased libido, and denies erectile dysfunction. Physical Exam Vitals & Measurements HR: 85(Peripheral) RR: 16 BP: 135/82 HT: 176.0 cm HT: 176 cm WT: 86.0 kg WT: 86 kg BMI: 27.76 Procedure Operative Information Anesthesia Type: Local Procedure: Local Cystoscopy Complications: None Surgical risks, benefits, details of the procedure have been explained to the patient. Full informed consent has been obtained. Intraoperative Information Prepped: Patient is brought back to the endoscopy suite. Patient is placed in _ position. Patient prepped in the usual fashion with Betadine solution. 2% Xylocaine Jelly is placed per Urethra. After waiting several minutes, the Cystoscope is introduced. The Urethra is: Tight, Pt has 2 urethral strictures in penile urethra. Unable to get scope in. Patient will need OIU done. The Prostatic Urethra is: _ The Bladder: _, Trabeculated: _ The Ureteral orifices: Show efflux of clear urine The Urethra was dilated to: _ Guatemalan with sounds. Specimens Removed: None Removal: Cystoscope is removed. The patient tolerated it well. Postoperative Information Patient is discharged home with antibiotic coverage. Follow up arranged. Assessment/Plan 1. BPH with urinary obstruction (N40.1: Benign prostatic hyperplasia with lower urinary tract symptoms) Pt continues to take Tamsulosin 0.4mg bid daily to manage BPH. Patient previously had symptoms of burning with urination. Good stream and feels empty. Pt reports he voids every 2-3 hours, and does not wait to urinate. Denies hx of kidney stones. Cysto done today was unable to be done, pt has 2 distal penile strictures. He will need Cysto/OIU. Will schedule Cysto with OIU. The procedure, risks, benefits, details, and treatment alternatives have been discussed. These include bleeding, infection, recurrent scar formation in over 50%, urinary leakage, need for indwelling catheter, need for additional procedures, among others. Full informed consent has been obtained. Will order General anesthesia. Patient to continue Tamsulosin 0.4mg bid therapy. He will call if he needs refills. Will continue to monitor. All questions and concerns were answered today. 2. Chronic prostatitis (N41.1: Chronic prostatitis) Pt has had four rounds of antibiotic therapy. 3. Kidney stone (N20.0: Calculus of kidney) Ct scan done 03/19/22 shows 3mm nonobstructing left kidney stone. No ureteral stones. Other obstructive and reflux uropathy (N13.8: Other obstructive and reflux uropathy) I have reviewed the previous health history and record for this patient with Dr. Daugherty. Will schedule Cysto/OIU> f/u in Jul with PSA. Follow-up With When Contact Information SHANIKA VALDOVINOS, LUZ Haider In 104 days 07/13/2022 EDT [facility] [address] [place] [address]- [phone] Additional Instructions: f/u in Jul w PSA Patient Education Benign Prostatic Hyperplasia Kidney Stones, Rzwb-oh-Wrvh Libertad Munoz, personally scribed for Dr. Daugherty on 03/31/2022 08:06:45. . Documentation recorded by the scribejordan, accurately reflects the services(s) I performed and decisions made by me. Authenticated by Dr. Daugherty on 03/31/2022 08:08:16. Problem List/Past Medical History Ongoing Acute prostatitis Asymptomatic microscopic hematuria BPH with urinary obstruction Chronic prostatitis Neoplasm of uncertain behavior of skin Nocturia Overweight Urinary frequency Urinary urgency Historical No qualifying data Procedure/Surgical History Cystoscopy (03/31/2022), Appendectomy, Colonoscopy. Medications Cipro 500 mg Tab, 500 mg= 1 tab(s), Oral, Daily sulfamethoxazole-trimet hoprim tamsulosin 0.4 mg Cap, 0.4 mg= 1 cap(s), Oral, BID, 6 refills Allergies No Known Medication Allergies Social History Tobacco Never (less than 100 in lifetime) Tobacco Use:. Never Smokeless Tobacco Use:., 11/20/2021 Family History Diabetes clinic: Father. Immunizations Vaccine Date Status Comments SARS-CoV-2 (COV (more content not included)... [facility] Comment on above: Result Comment: Elec tronically Signed By: SHANIKA VALDOVINOS, Jimmy Valles\.judah\Date and Time Signed: 03/31/22 08:10 EDT Reminderson 03-24-2022 Reminders - From: [place] To: EU - Clinical; Sent: 03/16/2022 11:27:10 EDT Show up: 03/24/2022 11:27:00 EDT Subject: Ct scan Due Date/Time: 03/27/2022 11:26:00 EDT Reminder/Recall Hair- Ct scan Abd/Pelvis , Order faxed, they will call pt to schedule after auth approval Pt scheduled for Cysto 03/31/22 CT done will be reviewed at cysto 03/31/22 [facility] RAD - CT Reporton 03-23-2022 RAD - CT Report [id number] D:127 [facility] CT ABD/PELVIS WO CONon 03-19 CT ABD/PELVIS WO CON EXAMINATION: CT ABD/PELVIS WO CON HISTORY: Lower urinary tract symptoms due to benign prostatic hypertrophy COMPARISON: No relevant comparison available. TECHNIQUE: Axial, Coronal, and Sagittal images were created without IV contrast. Dose reduction techniques were achieved by using automated exposure control and/or adjustment of mA and/or kV according to patient size and/or use of iterative reconstruction technique. FINDINGS: LUNG BASES: No visible pulmonary or pleural disease. LIVER: No enlargement, atrophy, abnormal density, or significant focal lesion. BILIARY: No dilatation or calcification. PANCREAS: No lesion, fluid collection, ductal dilatation, or atrophy. SPLEEN: No enlargement or focal lesion. ADRENALS: No mass or enlargement. KIDNEYS: Nonobstructing 3 mm stone within left kidney. Unremarkable right kidney and bilateral ureters. BOWEL/MESENTERY: No visible mass, obstruction, or bowel wall thickening. AORTA/VASCULAR: No aneurysm or dissection. RETROPERITONEUM: No mass or adenopathy. LYMPH NODES: No adenopathy. URINARY BLADDER: No visible focal wall thickening, lesion, or calculus. PELVIC ORGANS: Prostate contains several calcifications. No significant enlargement, 4.5 x 3.0 x 3.3 cm. ABDOMINAL WALL: No mass or hernia. BONES: No bony lesion or fracture. OTHER: Negative. IMPRESSION: 1. No CT evidence of cystitis. 2. No significant enlargement or overtly suspicious findings of the prostate. 3. Nonobstructing left nephrolithiasis. Electronically authenticated by: CHARLY POP Date: 2022-03-19 19:[address] [facility] Pre-Certification Formon Pre-Certification Form [id number] D:127 Normal [facility] Ambulatory Visit Summaryon 0 03-02-2022 Ambulatory Visit Summary MARIA DE JESUS MEDLEY :1970 Visit Date:03/02/2022 Ambulatory Visit Instructions Your Diagnosis BPH with urinary obstruction Chronic prostatitis Other obstructive and reflux uropathy Tests Performed Urnls Dip Stick Auto w/o Microscopy POC [address]004 CT Abdomen/Pelvis w/o Contrast -- Results Pending -- Please visit your patient portal for your results or contact your primary care physician. Your Care Team Attending Physician - SHANIKA VALDOVINOS, Jimmy Valles Primary Care Physician - ZACHARY RODRIGUEZ DO This Is Your Medications List tamsulosin (Flomax 0.4 mg Cap) tamsulosin (tamsulosin 0.4 mg Cap) Contact prescribing physician if questions or concerns sulfamethoxazole-trimet hoprim Procedures Performed Appendectomy, Colonoscopy. Discharge Vitals Heart Rate (Peripheral) 83 Respiratory Rate 16 Blood Pressure 123/86 Height 176 cm Height 176.0 cm Weight 86.1 kg Weight 86.1 kg BMI 27.8 What to do next Scheduled Follow-Up Appointments Wednesday 3:15 PM EDT With: SHANIKA VALDOVINOS, Jimmy Valles Where: [facility] Hair Normal [facility] Patient Educationon 03-02-20 Patient Education Infectious Disease Prostatitis Prostatitis is swelling or inflammation of the prostate gland. The prostate is a walnut-sized gland that is involved in the production of semen. It is located below a man's bladder, in front of the rectum. There are four types of prostatitis: ? Chronic nonbacterial prostatitis. This is the most common type of prostatitis. It may be associated with a viral infection or autoimmune disorder. ? Acute bacterial prostatitis. This is the least common type of prostatitis. It starts quickly and is usually associated with a bladder infection, high fever, and shaking chills. It can occur at any age. ? Chronic bacterial prostatitis. This type usually results from acute bacterial prostatitis that happens repeatedly (is recurrent) or has not been treated properly. It can occur in men of any age but is most common among middle-aged men whose prostate has begun to get larger. The symptoms are not as severe as symptoms caused by acute bacterial prostatitis. ? Prostatodynia or chronic pelvic pain syndrome (CPPS). This type is also called pelvic floor disorder. It is associated with increased muscular tone in the pelvis surrounding the prostate. What are the causes? Bacterial prostatitis is caused by infection from bacteria. Chronic nonbacterial prostatitis may be caused by: ? Urinary tract infections (UTIs). ? Nerve damage. ? A response by the body?s disease-fighting system (autoimmune response). ? Chemicals in the urine. The causes of the other types of prostatitis are usually not known. What are the signs or symptoms? Symptoms of this condition vary depending upon the type of prostatitis. If you have acute bacterial prostatitis, you may experience: ? Urinary symptoms, such as: ? Painful urination. ? Burning during urination. ? Frequent and sudden urges to urinate. ? Inability to start urinating. ? A weak or interrupted stream of urine. ? Vomiting. ? Nausea. ? Fever. ? Chills. ? Inability to empty the bladder completely. ? Pain in the: ? Muscles or joints. ? Lower back. ? Lower abdomen. If you have any of the other types of prostatitis, you may experience: ? Urinary symptoms, such as: ? Sudden urges to urinate. ? Frequent urination. ? Difficulty starting urination. ? Weak urine stream. ? Dribbling after urination. ? Discharge from the urethra. The urethra is a tube that opens at the end of the penis. ? Pain in the: ? Testicles. ? Penis or tip of the penis. ? Rectum. ? Area in front of the rectum and below the scrotum (perineum). ? Problems with sexual function. ? Painful ejaculation. ? Bloody semen. How is this diagnosed? This condition may be diagnosed based on: ? A physical and medical exam. ? Your symptoms. ? A urine test to check for bacteria. ? An exam in which a health care provider uses a finger to feel the prostate (digital rectal exam). ? A test of a sample of semen. ? Blood tests. ? Ultrasound. ? Removal of prostate tissue to be examined under a microscope (biopsy). ? Tests to check how your body handles urine (urodynamic tests). ? A test to look inside your bladder or urethra (cystoscopy). How is this treated? Treatment for this condition depends on the type of prostatitis. Treatment may involve: ? Medicines to relieve pain or inflammation. ? Medicines to help relax your muscles. ? Physical therapy. ? Heat therapy. ? Techniques to help you control certain body functions (biofeedback). ? Relaxation exercises. ? Antibiotic medicine, if your condition is caused by bacteria. ? Warm water baths (sitz baths). Sitz baths help with relaxing your pelvic floor muscles, which helps to relieve pressure on the prostate. Follow these instructions at home: ? Take izzx-vae-ijzirqv and prescription medicines only as told by your health care provider. ? If you were prescribed an antibiotic, take it as told by your health care provider. Do not stop taking the antibiotic even if you start to feel better. ? If physical therapy, biofeedback, or relaxation exercises were prescribed, do exercises as instructed. ? Take sitz baths as directed by your health care provider. For a sitz bath, sit in warm water that is deep enough to cover your hips and buttocks. ? Keep all follow-up visits as told by your health care provider. This is important. Contact a health care provider if: ? Your symptoms get worse. ? You have a fever. Get help right away if: ? You have chills. ? You feel nauseous. ? You vomit. ? You feel light-headed or feel like you are going to faint. ? You are unable to urinate. ? You have blood or blood clots in your urine. This information is not intended to replace advice given to you by your health care provider. Make sure you discuss any questions you have with your health care provider. Document Released: 10/15/2001 Document Revised: 12/31/2018 Docum (more content not included)... Normal [facility] Urology Office/Clinic Noteon 03-02-2022 Urology Office/Clinic Note Chief Complaint F/u for prostatitis HPI Staff Pt is here for f/u to prostatitis. Previous dx of BPH with urinary obstruction, chronic prostatitis and nocturia. PSA done 12/24/21 was 0.81. Pt is currently on antibiotics from his PCP for UTI and he continues taking Tamsulosin 0.4mg 1x daily. Dysuria: no Incomplete bladder emptying: no Hematuria: no Frequency: no Urgency: no Nocturia: pt does not always get up Stream: good steady flow Leaking: no Post void dripping: no Wearing pads/ Depends: no Urge incontinence: no Stress incontinence: no Incontinence without Sensory Awareness: no Abdominal pain: no Flank pain: no Sexual complaints: no History of Present Illness I have reviewed and verified the staff HPI to be accurate for this encounter. Review of Systems PHQ Score Initial Depression Screen Score: 0 ROS - Provider Constitutional: denies weight loss, denies hot flashes. Eyes: denies eye problems. Gastrointestinal: denies nausea, denies vomiting. Cardiovascular: denies chest pain or angina. Integumentary: no dryness Musculoskeletal: denies musculoskeletal symptoms. ENMT: denies otolaryngeal symptoms. Respiratory: no shortness of breath. Heme/Lymph: denies easy bleeding tendency, denies easy bruising tendency. Psychiatric: no confusion, no anxiety. Genitourinary: denies dysuria, denies hematuria, denies discharge, denies urinary frequency, denies urinary hesitancy, denies nocturia, denies incontinence, denies genital sores, denies decreased libido, and denies erectile dysfunction. Physical Exam Vitals & Measurements HR: 83(Peripheral) RR: 16 BP: 123/86 HT: 176 cm HT: 176.0 cm WT: 86.1 kg WT: 86.1 kg BMI: 27.8 General Appearance: alert, no distress, well nourished, well developed male. Flank Pain: none. Bladder: nonpalpable. Assessment/Plan 1. BPH with urinary obstruction (N40.1: Benign prostatic hyperplasia with lower urinary tract symptoms) PVR today reads-59mL. Pt continues to take Tamsulosin 0.4mg bid daily to manage BPH. Will send new refill to pt's pharmacy if needed. Today in office pt reports no bothersome urinary sx, however previously had symptoms of burning with urination. Good stream and feels empty. Pt reports he voids every 2-3 hours, and does not wait to urinate. Denies hx of kidney stones. Will schedule Cysto and CT scan of the kidneys. The risks and benefits for cystoscopy have been discussed. The risks include bleeding, infection, and irritation of the bladder and urinary channel, among others. The patient, after being informed of procedural details and after questions have been answered, wishes to proceed. Full informed consent has been obtained. Will order Local anesthesia. 2. Chronic prostatitis (N41.1: Chronic prostatitis) Pt is currently on antibiotics from his PCP for UTI. UA today reads clear with no nitrates or leukocytes. Pt has had four rounds of antibiotic therapy. Other obstructive and reflux uropathy (N13.8: Other obstructive and reflux uropathy) I have reviewed the previous health history and records of this patient with Dr. Daugherty. Follow-up With When Contact Information SHANIKA VALDOVINOS, Jimmy Valles, URL [facility] [address], [place] [address]- Additional Instructions: Will schedule Cysto. Patient Education Calorie Counting for Weight Loss Prostatitis Izzy Munoz, personally scribed for Dr. Daugherty on 03/02/2022 14:19:02. . Documentation recorded by the scribeIzzy, accurately reflects the services(s) I performed and decisions made by me. Authenticated by Dr. Daugherty on 03/02/2022 14:23:20. Problem List/Past Medical History Ongoing Acute prostatitis Asymptomatic microscopic hematuria BPH with urinary obstruction Chronic prostatitis Neoplasm of uncertain behavior of skin Nocturia Overweight Urinary frequency Urinary urgency Historical No qualifying data Procedure/Surgical History Appendectomy, Colonoscopy. Medications Flomax 0.4 mg Cap, 0.4 mg= 1 cap(s), Oral, Daily, 6 refills sulfamethoxazole-trimet hoprim Allergies No Known Medication Allergies Social History Tobacco Never (less than 100 in lifetime) Tobacco Use:. Never Smokeless Tobacco Use:., 11/20/2021 Family History Diabetes clinic: Father. Immunizations Vaccine Date Status Comments SARS-CoV-2 (COVID-19) Ad26 vaccine - Not Given Postpone due to refusal Lab Results Ambulatory Point of Care Results Bilirubin Urine Dipstick: Negative (03/02/22 13:27:00) Blood Urine Dipstick: Trace-intact (03/02/22 13:27:00) Glucose Urine Dipstick: Negative (03/02/22 13:27:00) Ketones Urine Dipstick: Negative (03/02/22 13:27:00) Leukocytes Urine Dipstick: Negative (03/02/22 13:27:00) Nitrite Urine Dipstick: Negative (03/02/22 13:27:00) Protein Urine Dipstick: Negative (03/02/22 13:27:00) Specific [place] Urine Dipstick: 1.025 (03/02/22 13:27:00) Urine Appearance Urine (more content not included)... Normal [facility] Comment on above: Result Comment: Elec tronically Signed By: Jimmy DAUGHERTY MD\.br\Date and Time Signed: 03/02/22 14:23 EDT\.br\Electronically Co-Signed By: Izzy Stearns.br\Date and Time Co-Signed: 03/02/22 14:19 EDT Lab Reportson 12-30-2021 Lab Reports [id number] D:127 Normal [facility] Patient Educationon 12-29-19 22 Patient Education Infectious Disease Prostatitis Prostatitis is swelling or inflammation of the prostate gland. The prostate is a walnut-sized gland that is involved in the production of semen. It is located below a man's bladder, in front of the rectum. There are four types of prostatitis: ? Chronic nonbacterial prostatitis. This is the most common type of prostatitis. It may be associated with a viral infection or autoimmune disorder. ? Acute bacterial prostatitis. This is the least common type of prostatitis. It starts quickly and is usually associated with a bladder infection, high fever, and shaking chills. It can occur at any age. ? Chronic bacterial prostatitis. This type usually results from acute bacterial prostatitis that happens repeatedly (is recurrent) or has not been treated properly. It can occur in men of any age but is most common among middle-aged men whose prostate has begun to get larger. The symptoms are not as severe as symptoms caused by acute bacterial prostatitis. ? Prostatodynia or chronic pelvic pain syndrome (CPPS). This type is also called pelvic floor disorder. It is associated with increased muscular tone in the pelvis surrounding the prostate. What are the causes? Bacterial prostatitis is caused by infection from bacteria. Chronic nonbacterial prostatitis may be caused by: ? Urinary tract infections (UTIs). ? Nerve damage. ? A response by the body?s disease-fighting system (autoimmune response). ? Chemicals in the urine. The causes of the other types of prostatitis are usually not known. What are the signs or symptoms? Symptoms of this condition vary depending upon the type of prostatitis. If you have acute bacterial prostatitis, you may experience: ? Urinary symptoms, such as: ? Painful urination. ? Burning during urination. ? Frequent and sudden urges to urinate. ? Inability to start urinating. ? A weak or interrupted stream of urine. ? Vomiting. ? Nausea. ? Fever. ? Chills. ? Inability to empty the bladder completely. ? Pain in the: ? Muscles or joints. ? Lower back. ? Lower abdomen. If you have any of the other types of prostatitis, you may experience: ? Urinary symptoms, such as: ? Sudden urges to urinate. ? Frequent urination. ? Difficulty starting urination. ? Weak urine stream. ? Dribbling after urination. ? Discharge from the urethra. The urethra is a tube that opens at the end of the penis. ? Pain in the: ? Testicles. ? Penis or tip of the penis. ? Rectum. ? Area in front of the rectum and below the scrotum (perineum). ? Problems with sexual function. ? Painful ejaculation. ? Bloody semen. How is this diagnosed? This condition may be diagnosed based on: ? A physical and medical exam. ? Your symptoms. ? A urine test to check for bacteria. ? An exam in which a health care provider uses a finger to feel the prostate (digital rectal exam). ? A test of a sample of semen. ? Blood tests. ? Ultrasound. ? Removal of prostate tissue to be examined under a microscope (biopsy). ? Tests to check how your body handles urine (urodynamic tests). ? A test to look inside your bladder or urethra (cystoscopy). How is this treated? Treatment for this condition depends on the type of prostatitis. Treatment may involve: ? Medicines to relieve pain or inflammation. ? Medicines to help relax your muscles. ? Physical therapy. ? Heat therapy. ? Techniques to help you control certain body functions (biofeedback). ? Relaxation exercises. ? Antibiotic medicine, if your condition is caused by bacteria. ? Warm water baths (sitz baths). Sitz baths help with relaxing your pelvic floor muscles, which helps to relieve pressure on the prostate. Follow these instructions at home: ? Take rkjv-ddb-feinzjy and prescription medicines only as told by your health care provider. ? If you were prescribed an antibiotic, take it as told by your health care provider. Do not stop taking the antibiotic even if you start to feel better. ? If physical therapy, biofeedback, or relaxation exercises were prescribed, do exercises as instructed. ? Take sitz baths as directed by your health care provider. For a sitz bath, sit in warm water that is deep enough to cover your hips and buttocks. ? Keep all follow-up visits as told by your health care provider. This is important. Contact a health care provider if: ? Your symptoms get worse. ? You have a fever. Get help right away if: ? You have chills. ? You feel nauseous. ? You vomit. ? You feel light-headed or feel like you are going to faint. ? You are unable to urinate. ? You have blood or blood clots in your urine. This information is not intended to replace advice given to you by your health care provider. Make sure you discuss any questions you have with your health care provider. Document Released: 10/15/2001 Document Revised: 12/31/2018 Docum (more content not included)... Normal [facility] Urology Office/Clinic Noteon 12-29-2021 Urology Office/Clinic Note Chief Complaint 6 wee f/u with PSA HPI Staff Pt is here for 6 week f/u with PSA. Previous dx of nocturia, urinary frequency, urgency, asymptomatic microhematuria, BPH with urinary obstruction, elevated PSA and chronic prostatitis. Current PSA done 12/24/21 is 0.81 and previous done 11/03/21 was 1.5. Pt continues taking Tamsulosin 0.4mg 1x daily and Doxycycline 100mg BID. Dysuria: no Incomplete bladder emptying: no Hematuria: no Frequency: every couple of hours but states that he drinks a large amount of water Urgency: no Nocturia: pt states he gets up 1x but it is not because the urge is waking him. He just goes since he is awake Stream: strong steady Leaking: no Post void dripping: no Wearing pads/ Depends: no Urge incontinence: no Stress incontinence: no Incontinence without Sensory Awareness: no Abdominal pain: no Flank pain: no Sexual complaints: no History of Present Illness I have reviewed and verified the staff HPI to be accurate for this encounter. Review of Systems PHQ Score Initial Depression Screen Score: 0 ROS - Provider Constitutional: denies weight loss, denies hot flashes. Eyes: denies eye problems. Gastrointestinal: denies nausea, denies vomiting. Cardiovascular: denies chest pain or angina. Integumentary: no dryness Musculoskeletal: denies musculoskeletal symptoms. ENMT: denies otolaryngeal symptoms. Respiratory: no shortness of breath. Heme/Lymph: denies easy bleeding tendency, denies easy bruising tendency. Psychiatric: no confusion, no anxiety. Genitourinary: denies dysuria, denies hematuria, denies discharge, denies urinary frequency, denies urinary hesitancy, denies nocturia, denies incontinence, denies genital sores, denies decreased libido, and denies erectile dysfunction. Physical Exam Vitals & Measurements HR: 80(Peripheral) RR: 16 BP: 137/83 HT: 176.0 cm HT: 176 cm WT: 86.0 kg WT: 86 kg BMI: 27.76 General Appearance: alert, no distress, well nourished, well developed male. Genitourinary: normal scrotum, normal testes, normal urethra, normal epididymis, normal vas deferens/spermatic cord. Flank Pain: none. Bladder: nonpalpable. Prostate: normal prostate, estimated weight 35 gms, no hard nodule observed. Assessment/Plan 1. BPH with urinary obstruction (N40.1: Benign prostatic hyperplasia with lower urinary tract symptoms) Pt continues taking Tamsulosin 0.4mg 1x daily and Doxycycline 100mg BID. Overall pt states that he is doing much better. Frequency, urgency and nocturia have improved significantly, and pt is having no other urinary issues. Discussed with pt that even though he is doing better he needs to void every 3 hours regardless if he has the urge. Discussed staying on Flomax for the next 6 months to help avoid getting another infection. In 6 months if pt feels that he would no longer like to take Flomax that can be discussed at next appt. Pt will return in 6 months w/PSA. 3. Chronic prostatitis (N41.1: Chronic prostatitis) Pt was treated by Dr. Shane Rodriguez with Bactrim ds therapy, his symptoms returned right he finished the ABX Pt's prostatitis is under control with ABX. PSA dropped almost 50% from last visit. Current PSA done 12/24/21 is 0.81 and previous done 11/03/21 was 1.5. 4. Nocturia (R35.1: Nocturia) x1, improved from 11/20/2021 visit. Follow-up With When Contact Information SHANIKA VALDOVNIOS, LUZ Haider In 6 months 06/28/2022 EDT [facility] [address], [place] [address] [phone] Additional Instructions: PSA Patient Education Prostatitis I, Odilia Shah, personally scribed for Dr. Daugherty on 12/29/2021 16:37:25. . Documentation recorded by the scribe, Odilia Shah, accurately reflects the services(s) I performed and decisions made by me. Problem List/Past Medical History Ongoing Acute prostatitis Asymptomatic microscopic hematuria BPH with urinary obstruction Chronic prostatitis Neoplasm of uncertain behavior of skin Nocturia Overweight Urinary frequency Urinary urgency Historical No qualifying data Procedure/Surgical History Appendectomy, Colonoscopy. Medications doxycycline hyclate 100 mg Cap, 100 mg= 1 cap(s), Oral, BID, 1 refills Flomax 0.4 mg Cap, 0.4 mg= 1 cap(s), Oral, Daily, 6 refills Allergies No Known Medication Allergies Social History Tobacco Never (less than 100 in lifetime) Tobacco Use:. Never Smokeless Tobacco Use:., 11/20/2021 Family History Diabetes clinic: Father. Immunizations Vaccine Date Status Comments SARS-CoV-2 (COVID-19) Ad26 vaccine - Not Given Postpone due to refusal [facility] Comment on above: Result Comment: Elec tronically Signed By: Jimmy DAUGHERTY MD\.br\Date and Time Signed: 12/29/21 16:40 EST\.br\Electronically Co-Signed By: Odilia Shah MA\.br\Date and Time Co-Signed: 12/29/21 16:37 EST Lab Reportson 11-23-2021 Lab Reports [id number] D:127 [facility] Formson 11-21-2021 Forms [id number] D:127 [facility] Physician Referralon 022 Physician Referral [id number] D:127 [facility] Ambulatory Visit Summaryon 0 11-20-2021 Ambulatory Visit Summary MARIA DE JESUS MEDLEY :1970 Visit Date:11/20/2021 Ambulatory Visit Instructions Your Diagnosis Acute prostatitis Nocturia Urinary frequency Urinary urgency Asymptomatic microscopic hematuria BPH with urinary obstruction Elevated PSA, Elevated PSA Other obstructive and reflux uropathy Tests Performed Urnls Dip Stick Auto w/o Microscopy POC 44388 Your Care Team Attending Physician - Jimmy DAUGHERTY MD Primary Care Physician - ZACHARY RODRIGUEZ DO This Is Your Medications List doxycycline (doxycycline hyclate 100 mg Cap) tamsulosin (Flomax 0.4 mg Cap) Procedures Performed Appendectomy, Colonoscopy. Discharge Vitals Heart Rate (Peripheral) 77 Blood Pressure 122/82 Height 176 cm Height 176.0 cm Weight 86 kg Weight 86.0 kg BMI 27.76 What to do next You Need to Schedule the Following Appointments Follow Up with SHANIKA VALDOVINOS, Jimmy Valles, LUZ When: In 6 weeks 01/01/2022 EST Why: 6 week f/u w/PSA Where: [facility] [address] , [place] [address] [phone] Medications What How Much When Instructions New doxycycline (doxycycline hyclate 100 mg Cap) 1 Capsules By Mouth 2 times a day Refills: 1 Pickup at [facility]/pharmacy #[id number] New tamsulosin (Flomax 0.4 mg Cap) 1 Capsules By Mouth Every day Refills: 6 Pickup at [facility]/pharmacy #[id number] Pharmacy Information [facility]/pharmacy #[id number]: [address], [place] [phone] Test Results Urnls Dip Stick Auto w/o Microscopy POC 29596 (11/20/2021) Bilirubin Urine Dipstick - Negative Blood Urine Dipstick - 3+ Large Glucose Urine Dipstick - Negative Ketones Urine Dipstick - Negative Leukocytes Urine Dipstick - 3+ Large Nitrite Urine Dipstick - Negative Protein Urine Dipstick - 2+ (100 mg/dl) Specific [place] Urine Dipstick - 1.025 Urine Appearance Urine Dipstick - Clear Urine Color Urine Dipstick - Yellow Urobilinogen Urine Dipstick - Normal 0.2-1 EU/dl pH Urine Dipstick - 6 Allergies No Known Medication Allergies Problems Ongoing - Any problem that you are currently receiving treatment for. Acute prostatitis Neoplasm of uncertain behavior of skin Overweight Education Materials Prostatitis Prostatitis is swelling or inflammation of the prostate gland. The prostate is a walnut-sized gland that is involved in the production of semen. It is located below a man's bladder, in front of the rectum. There are four types of prostatitis: ? Chronic nonbacterial prostatitis. This is the most common type of prostatitis. It may be associated with a viral infection or autoimmune disorder. ? Acute bacterial prostatitis. This is the least common type of prostatitis. It starts quickly and is usually associated with a bladder infection, high fever, and shaking chills. It can occur at any age. ? Chronic bacterial prostatitis. This type usually results from acute bacterial prostatitis that happens repeatedly (is recurrent) or has not been treated properly. It can occur in men of any age but is most common among middle-aged men whose prostate has begun to get larger. The symptoms are not as severe as symptoms caused by acute bacterial prostatitis. ? Prostatodynia or chronic pelvic pain syndrome (CPPS). This type is also called pelvic floor disorder. It is associated with increased muscular tone in the pelvis surrounding the prostate. What are the causes? Bacterial prostatitis is caused by infection from bacteria. Chronic nonbacterial prostatitis may be caused by: ? Urinary tract infections (UTIs). ? Nerve damage. ? A response by the body?s disease-fighting system (autoimmune response). ? Chemicals in the urine. The causes of the other types of prostatitis are usually not known. What are the signs or symptoms? Symptoms of this condition vary depending upon the type of prostatitis. If you have acute bacterial prostatitis, you may experience: ? Urinary symptoms, such as: ? Painful urination. ? Burning during urination. ? Frequent and sudden urges to urinate. ? Inability to start urinating. ? A weak or interrupted stream of urine. ? Vomiting. ? Nausea. ? Fever. ? Chills. ? Inability to empty the bladder completely. ? Pain in the: ? Muscles or joints. ? Lower back. ? Lower abdomen. If you have any of the other types of prostatitis, you may experience: ? Urinary symptoms, such as: ? Sudden urges to urinate. ? Frequent urination. ? Difficulty starting urination. ? Weak urine stream. ? Dribbling after urination. ? Discharge from the urethra. The urethra is a tube that opens at the end of the penis. ? Pain in the: ? Testicles. ? Penis or tip of the penis. ? Rectum. ? Area in front of the rectum and below the scrotum (perineum). ? Problems with sexual function. ? Painful ejaculation. ? Bloody semen. How is this diagnosed? This (more content not included)... [facility] Ambulatory Visit Summary MARIA DE JESUS MEDLEY :1970 Visit Date:11/20/2021 Ambulatory Visit Instructions Your Diagnosis Acute prostatitis Nocturia Urinary frequency Urinary urgency Asymptomatic microscopic hematuria BPH with urinary obstruction Elevated PSA, Elevated PSA Other obstructive and reflux uropathy Tests Performed Urnls Dip Stick Auto w/o Microscopy POC 19437 Your Care Team Attending Physician - Jimmy DAUGHERTY MD Primary Care Physician - ZACHARY RODRIGUEZ DO This Is Your Medications List doxycycline (doxycycline hyclate 100 mg Cap) tamsulosin (Flomax 0.4 mg Cap) Procedures Performed Appendectomy, Colonoscopy. Discharge Vitals Heart Rate (Peripheral) 77 Blood Pressure 122/82 Height 176 cm Height 176.0 cm Weight 86 kg Weight 86.0 kg BMI 27.76 What to do next You Need to Schedule the Following Appointments Follow Up with SHANIKA VALDOVINOS, LUZ Haider When: In 6 weeks 01/01/2022 EST Why: 6 week f/u w/PSA Where: [facility] [address] , [place] [phone] Medications What How Much When Instructions New doxycycline (doxycycline hyclate 100 mg Cap) 1 Capsules By Mouth 2 times a day Refills: 1 Pickup at [facility]/pharmacy #[id number] New tamsulosin (Flomax 0.4 mg Cap) 1 Capsules By Mouth Every day Refills: 6 Pickup at [facility]/pharmacy #[id number] Pharmacy Information [facility]/pharmacy #[id number]: [address], [place] [phone] Test Results Urnls Dip Stick Auto w/o Microscopy POC 29305 (11/20/2021) Bilirubin Urine Dipstick - Negative Blood Urine Dipstick - 3+ Large Glucose Urine Dipstick - Negative Ketones Urine Dipstick - Negative Leukocytes Urine Dipstick - 3+ Large Nitrite Urine Dipstick - Negative Protein Urine Dipstick - 2+ (100 mg/dl) Specific [place] Urine Dipstick - 1.025 Urine Appearance Urine Dipstick - Clear Urine Color Urine Dipstick - Yellow Urobilinogen Urine Dipstick - Normal 0.2-1 EU/dl pH Urine Dipstick - 6 Allergies No Known Medication Allergies Problems Ongoing - Any problem that you are currently receiving treatment for. Acute prostatitis Neoplasm of uncertain behavior of skin Overweight [employer] Prostatitis Prostatitis is swelling or inflammation of the prostate gland. The prostate is a walnut-sized gland that is involved in the production of semen. It is located below a man's bladder, in front of the rectum. There are four types of prostatitis: ? Chronic nonbacterial prostatitis. This is the most common type of prostatitis. It may be associated with a viral infection or autoimmune disorder. ? Acute bacterial prostatitis. This is the least common type of prostatitis. It starts quickly and is usually associated with a bladder infection, high fever, and shaking chills. It can occur at any age. ? Chronic bacterial prostatitis. This type usually results from acute bacterial prostatitis that happens repeatedly (is recurrent) or has not been treated properly. It can occur in men of any age but is most common among middle-aged men whose prostate has begun to get larger. The symptoms are not as severe as symptoms caused by acute bacterial prostatitis. ? Prostatodynia or chronic pelvic pain syndrome (CPPS). This type is also called pelvic floor disorder. It is associated with increased muscular tone in the pelvis surrounding the prostate. What are the causes? Bacterial prostatitis is caused by infection from bacteria. Chronic nonbacterial prostatitis may be caused by: ? Urinary tract infections (UTIs). ? Nerve damage. ? A response by the body?s disease-fighting system (autoimmune response). ? Chemicals in the urine. The causes of the other types of prostatitis are usually not known. What are the signs or symptoms? Symptoms of this condition vary depending upon the type of prostatitis. If you have acute bacterial prostatitis, you may experience: ? Urinary symptoms, such as: ? Painful urination. ? Burning during urination. ? Frequent and sudden urges to urinate. ? Inability to start urinating. ? A weak or interrupted stream of urine. ? Vomiting. ? Nausea. ? Fever. ? Chills. ? Inability to empty the bladder completely. ? Pain in the: ? Muscles or joints. ? Lower back. ? Lower abdomen. If you have any of the other types of prostatitis, you may experience: ? Urinary symptoms, such as: ? Sudden urges to urinate. ? Frequent urination. ? Difficulty starting urination. ? Weak urine stream. ? Dribbling after urination. ? Discharge from the urethra. The urethra is a tube that opens at the end of the penis. ? Pain in the: ? Testicles. ? Penis or tip of the penis. ? Rectum. ? Area in front of the rectum and below the scrotum (perineum). ? Problems with sexual function. ? Painful ejaculation. ? Bloody semen. How is this diagnosed? This (more content not included)... [facility] Patient Educationon 11-20-19 Patient Education Infectious Disease Prostatitis Prostatitis is swelling or inflammation of the prostate gland. The prostate is a walnut-sized gland that is involved in the production of semen. It is located below a man's bladder, in front of the rectum. There are four types of prostatitis: ? Chronic nonbacterial prostatitis. This is the most common type of prostatitis. It may be associated with a viral infection or autoimmune disorder. ? Acute bacterial prostatitis. This is the least common type of prostatitis. It starts quickly and is usually associated with a bladder infection, high fever, and shaking chills. It can occur at any age. ? Chronic bacterial prostatitis. This type usually results from acute bacterial prostatitis that happens repeatedly (is recurrent) or has not been treated properly. It can occur in men of any age but is most common among middle-aged men whose prostate has begun to get larger. The symptoms are not as severe as symptoms caused by acute bacterial prostatitis. ? Prostatodynia or chronic pelvic pain syndrome (CPPS). This type is also called pelvic floor disorder. It is associated with increased muscular tone in the pelvis surrounding the prostate. What are the causes? Bacterial prostatitis is caused by infection from bacteria. Chronic nonbacterial prostatitis may be caused by: ? Urinary tract infections (UTIs). ? Nerve damage. ? A response by the body?s disease-fighting system (autoimmune response). ? Chemicals in the urine. The causes of the other types of prostatitis are usually not known. What are the signs or symptoms? Symptoms of this condition vary depending upon the type of prostatitis. If you have acute bacterial prostatitis, you may experience: ? Urinary symptoms, such as: ? Painful urination. ? Burning during urination. ? Frequent and sudden urges to urinate. ? Inability to start urinating. ? A weak or interrupted stream of urine. ? Vomiting. ? Nausea. ? Fever. ? Chills. ? Inability to empty the bladder completely. ? Pain in the: ? Muscles or joints. ? Lower back. ? Lower abdomen. If you have any of the other types of prostatitis, you may experience: ? Urinary symptoms, such as: ? Sudden urges to urinate. ? Frequent urination. ? Difficulty starting urination. ? Weak urine stream. ? Dribbling after urination. ? Discharge from the urethra. The urethra is a tube that opens at the end of the penis. ? Pain in the: ? Testicles. ? Penis or tip of the penis. ? Rectum. ? Area in front of the rectum and below the scrotum (perineum). ? Problems with sexual function. ? Painful ejaculation. ? Bloody semen. How is this diagnosed? This condition may be diagnosed based on: ? A physical and medical exam. ? Your symptoms. ? A urine test to check for bacteria. ? An exam in which a health care provider uses a finger to feel the prostate (digital rectal exam). ? A test of a sample of semen. ? Blood tests. ? Ultrasound. ? Removal of prostate tissue to be examined under a microscope (biopsy). ? Tests to check how your body handles urine (urodynamic tests). ? A test to look inside your bladder or urethra (cystoscopy). How is this treated? Treatment for this condition depends on the type of prostatitis. Treatment may involve: ? Medicines to relieve pain or inflammation. ? Medicines to help relax your muscles. ? Physical therapy. ? Heat therapy. ? Techniques to help you control certain body functions (biofeedback). ? Relaxation exercises. ? Antibiotic medicine, if your condition is caused by bacteria. ? Warm water baths (sitz baths). Sitz baths help with relaxing your pelvic floor muscles, which helps to relieve pressure on the prostate. Follow these instructions at home: ? Take [id number] and prescription medicines only as told by your health care provider. ? If you were prescribed an antibiotic, take it as told by your health care provider. Do not stop taking the antibiotic even if you start to feel better. ? If physical therapy, biofeedback, or relaxation exercises were prescribed, do exercises as instructed. ? Take sitz baths as directed by your health care provider. For a sitz bath, sit in warm water that is deep enough to cover your hips and buttocks. ? Keep all follow-up visits as told by your health care provider. This is important. Contact a health care provider if: ? Your symptoms get worse. ? You have a fever. Get help right away if: ? You have chills. ? You feel nauseous. ? You vomit. ? You feel light-headed or feel like you are going to faint. ? You are unable to urinate. ? You have blood or blood clots in your urine. This information is not intended to replace advice given to you by your health care provider. Make sure you discuss any questions you have with your health care provider. Document Released: 10/15/2001 Document Revised: 12/31/2018 Docum (more content not included)... [facility] Provider Letteron 11-20-2021 Provider Letter November 20, 2021 November 20, 2021 MARIA DE JESUS MEDLEY [address] [place] [phone] MARIA DE JESUS MEDLEY 1970 To Whom It May Concern, Please excuse above patient from work. Date of appointment From: 11/20/2021 To: May Return to Work On: 11/21/2021 Restrictions: _ Comments: _ Sincerely, [facility] Urology Office/Clinic Noteon 11-20-2021 Urology Office/Clinic Note Chief Complaint Pt is here for possible prostatitis HPI Staff Maria De Jesus is a 51 y.o. male new patient here for possible prostatitis. Referred by Dr. Shane Rodriguez. Current PSA 1.5 done on 11/03/21. Previous PSA 0.49 done on 01/30/20. Pt states Dr. Rodriguez treated him with a course of tamsulosin 0.4mg qd #14 and Bactrim DS 800-160 BID #28. Pt states these helped him but since jon sx have returned. Dysuria: denies Incomplete bladder emptying: denies Hematuria: denies Frequency: yes every 15 minutes today but usually not that often Urgency: yes Nocturia: 2x a night Stream: steady stream Leaking: denies Post void dripping: denies Wearing pads/ Depends: denies Urge incontinence: denies Stress incontinence: denies Incontinence without Sensory Awareness: denies Abdominal pain: denies Flank pain: denies Sexual complaints: _ History of Present Illness I have reviewed and verified the staff HPI to be accurate for this encounter. Review of Systems PHQ Score Initial Depression Screen Score: 0 ROS - Provider Constitutional: denies weight loss, denies hot flashes. Eyes: denies eye problems. Gastrointestinal: denies nausea, denies vomiting. Cardiovascular: denies chest pain or angina. Integumentary: no dryness Musculoskeletal: denies musculoskeletal symptoms. ENMT: denies otolaryngeal symptoms. Respiratory: no shortness of breath. Heme/Lymph: denies easy bleeding tendency, denies easy bruising tendency. Psychiatric: no confusion, no anxiety. Genitourinary: denies dysuria, denies hematuria, denies discharge, mild urinary frequency, denies urinary hesitancy, mild nocturia, denies incontinence, denies genital sores, denies decreased libido, and denies erectile dysfunction.,mild urgency Physical Exam Vitals & Measurements HR: 77(Peripheral) BP: 122/82 HT: 176 cm HT: 176.0 cm WT: 86 kg WT: 86.0 kg BMI: 27.76 General Appearance: alert, no distress, well nourished, well developed male. Head: normocephalic . Eyes: normal orbit and globe. ENMT: normal examination of external ears. Chest: Lungs CTA, respirations non labored. Cardiovascular: regular rate and rhythm. Abdomen: soft, non distended, no tenderness, no mass or organomegaly, no hernia. Flank Pain: none. Bladder: nonpalpable. Penis: normal shaft, normal glans. Lymph Nodes: unremarkable palpation of the cervical area. Skin: warm, dry, no bruising. Psychiatric: cooperative, affect appropriate for age, normal judgement, euthymic mood. Assessment/Plan 2. Nocturia (R35.1: Nocturia) Mild 2x 3. Urinary frequency (R35.0: Frequency of micturition) Mild, Every 15 minutes. 4. Urinary urgency (R39.15: Urgency of urination) Mild 5. Asymptomatic microscopic hematuria (R31.21: Asymptomatic microscopic hematuria) Large blood seen on UA today 6. BPH with urinary obstruction (N40.1: Benign prostatic hyperplasia with lower urinary tract symptoms) Good stream. unsure if he empties. PSA was done 11/03/2021 1.5. will repeat PSA and JUMA after completion of ABX at next f/u. Will start Flomax 0.4mg qd. Script will be sent today. Will get PSA prior to next appt. 7. Elevated PSA, (R97.20: Elevated prostate specific antigen [PSA])Elevated PSA PSA done 11/03/2021 1.5. ? is this a prostate infection will repeat PSA prior to next appt. Ordered: PSA Total 8. Chronic prostatitis (N41.1: Chronic prostatitis) pt was treated by Dr. Shane Rodriguez with Bactrim ds therapy, his symptoms returned right he finished the ABX. Large Leuk seen on UA today.Pt will start Doxy 100mg bid #60 with 1 refill. Script will be sent today. Other obstructive and reflux uropathy (N13.8: Other obstructive and reflux uropathy) Orders: doxycycline, 100 mg = 1 cap(s), Oral, BID, # 60 cap(s), Refills(s) 1, Pharmacy: [facility]/pharmacy #[id number], 176, cm, 11/20/21 14:51:00 EST, Height/Length Dosing, 86, kg, 11/20/21 14:51:00 EST, Weight Dosing tamsulosin, 0.4 mg = 1 cap(s), Oral, Daily, # 30 cap(s), Refills(s) 6, Pharmacy: [facility]/pharmacy #[id number], 176, cm, 11/20/21 14:51:00 EST, Height/Length Dosing, 86, kg, 11/20/21 14:51:00 EST, Weight Dosing I have reviewed the previous health history for this patient with Dr. Daugherty. f/u in 6 weeks w/PSA Follow-up With When Contact Information SHANIKA VALDOVINOS, Jimmy Valles, LUZ In 6 weeks 01/01/2022 EST [facility] [address], [place] [phone] Additional Instructions: 6 week f/u w/PSA Patient Education Prostatitis I, Libertad Celeste, personally scribed for Dr. Daugherty on 11/20/2021 15:47:22. . Documentation recorded by the scribjordan alvarado, accurately reflects the services(s) I performed and decisions made by me. Authenticated by Dr. Daugherty on 11/20/2021 15:53:34. Problem List/Past Medical History Ongoing Acute prostatitis Neoplasm of uncertain behavior of skin Overweight Historical No qualifying data Procedure/Surgical History Appendectomy, Col (more content not included)... [facility] Comment on above: Result Comment: Elec tronically Signed By: Jimmy DAUGHERTY MD\.br\Date and Time Signed: 11/20/21 15:53 EST\.br\Electronically Co-Signed By: Libertad Celeste\.br\Date and Time Co-Signed: 11/20/21 15:47 EST Vital Signs Date Time Vital Sign Value Performing Clinician Facility 12-15-2022 16:30-0500 Body height 175.26 cm [facility] [employer] Other 12-15-2022 16:30-0500 Body mass index (BMI) [Ratio] 29.24 kg/m2 [facility] [employer] Other 12-15-2022 16:30-0500 Body weight 89.81 kg [facility] [employer] Other 12-15-2022 16:30-0500 Diastolic blood pressure 80 mm[Hg] [facility] [employer] Other 12-15-2022 16:30-0500 Respiratory rate 12 /min [facility] [employer] Other 12-15-2022 16:30-0500 Systolic blood pressure 130 mm[Hg] [facility] [employer] Other 03-31-2022 07:40-0400 Blood Pressure Location Jimmy DAUGHERTY [facility] 03-31-2022 07:40-0400 Diastolic blood pressure 82 mm[Hg] Jimmy DAUGHERTY [facility] 03-31-2022 07:40-0400 Heart rate 85 /min Jimmy DAUGHERTY [facility] 03-31-2022 07:40-0400 Respiratory rate 16 /min Jimmy DAUGHERTY [facility] 03-31-2022 07:40-0400 Systolic blood pressure 135 mm[Hg] Jimmy DAUGHERTY [facility] 03-02-2022 13:30-0400 Blood Pressure Location Jimmy DAUGHERTY [facility] 03-02-2022 13:30-0400 Diastolic blood pressure 86 mm[Hg] Jimmy DAUGHERTY [facility] 03-02-2022 13:30-0400 Heart rate 83 /min Jimmy DAUGHERTY [facility] 03-02-2022 13:30-0400 Respiratory rate 16 /min [facility]UGHERTY [facility] 03-02-2022 13:30-0400 Systolic blood pressure 123 mm[Hg] Jimmy DAUGHERTY [facility] Encounters Encounter Date Encounter Type Care Provider Facility Start: 01-08-2023 End: 01-08-[address] ZACHARY RODRIGUEZ Facility:[facility] Start: 12-20-2022 Encounter for genera l adult medical examination without abnormal findings DR ZACHARY RODRIGUEZ [facility] Start: 12-18-2022 End: 12-19-[address] ZACHARY RODRIGUEZ Facility:[facility] Start: 12-16-2022 End: 12-16-2022 ambulatory Zachary Rodriguez Other [employer] Other Start: 12-16-2022 Telephone encounter Zachary Rodriguez [facility] Start: 12-15-2022 End: 12-16-[address] ZACHARY RODRIGUEZ [facility] [employer] Other Start: 12-15-2022 End: 12-16-2022 Encounter for general adult medical examination without abnormal findings Zachary Rodriguez [facility] Start: 12-15-2022 Periodic preventive med est patient 40-64yrs Zachary Rodriguez [facility] Start: 03-31-2022 End: 03-31-2022 Patient encounter procedure Jimmy DAUGHERTY [facility] Start: 03-19-2022 End: 03-20-[address] JIMMY DAUGHERTY . Facility:[facility] Start: 03-02-2022 End: 03-02-2022 Patient encounter procedure Jimmy DAUGHERTY [facility] Procedures Date Procedure Procedure Detail Performing Clinician Start: 12-15-[address] GONSALEZ IN [place] Comment on above: Performed By: #### P [facility] #### [facility] [address] [place] [address] Dr. Ashley Acosta Start: 03-31-2022 Cystoscopy Jimmy REESE Appendectomy Jimmy DAUGHERTY Colonoscopy Jimmy DAUGHERTY Immunizations Immunization Date Immunization Notes Care Provider Sharad lim NEGATED: Highlighted row has not occurred!12-29-2021 SARS-CoV-2 (COVID-19) Ad26 vaccine, recombinant Jimmy DAUGHERTY [facility] Payers Date Payer Category Payer Unknown [id number] 2.16.84 [id number] 1970 Unknown [id number] 2.16.84 [id number] 1970 Unknown [id number] 2.16.84 [id number] 1970 Unknown [id number] 2.16.84 [id number] 1957 Unknown [id number]. [id number] 1957 Unknown [id number] Unknown [id number] Social History Date Type Detail Facility Start: 11-20-2021 Tobacco smoking status Never s moked tobacco (finding) [facility] Tobacco smoking status Never [facility] Sex Assigned At Male [facility] 12-15-2022 Note Date & Type Note Facility 12-15-2022 Evaluation note Encounter Date Diagnosis Assessment Notes Dec, Wellness examination (ICD-10 - Z00.00) Healthy diet and exercise. Reviewed age-appropriat e preventive testing recommended. Dec, Nocturia (ICD-10 - R35.1) Dec, Benign prostatic hyperplasia with lower urinary tract symptoms (ICD-10 - N40.1) Yearly PSA Dec, Overweight (BMI 25.0-29.9) (ICD-10 - E66.3) This patient has been instructed on a low-fat, high-fiber diet. They are instructed to reduce calories, portion sizes and snacks. It is recommended that they exercise for 30 minutes, 3-5 times weekly. Dec, Lipoma of right lower extremity (ICD-10 - D17.23) Dec, Screening PSA (prostate specific antigen) (ICD-10 - Z12.5) Yearly JUMA and PSA [employer] Other History and physical note 04-29-2022 Note Date & Type Note Facility 04-29-2022 Note [id number] [facility] Clinical Note 04-28-2022 Note Date & Type Note Facility 04-28-2022 Note [facility] SURGERY Clinical Discharge Summary PERSON INFORMATION Name MARIA DE JESUS MEDLEY Age 52 Years 1970 Sex MALE Language German PCP Zachary Rodriguez Marital Status Med Service Ambulatory Surgery Acct# Arrival 04/28/2022 09:37:00 Visit Reason SURGERY - RETROGRADE URETHROGRAM - NO CYSTOSCOPE, NO FLUORO, NO CONTRAST DYE - JUST LOOKING PER RAGINI Bustos LOS 012 00:13 Address: [address] [place] [address] Comment: PROVIDER INFORMATION VITALS INFORMATION Vital Sign Triage Latest Temp Oral Temp Temporal Temp Intravascular Temp Axillary Temp Rectal 02 Sat 99 % 99 % Respiratory Rate Peripheral Pulse Rate Apical Heart Rate Blood Pressure / 100 mmHg / 100 mmHg Comment: MEDICAL INFORMATION Allergy Info: No known allergies Prescriptions Given: ascorbic acid (Vitamin C 500 mg oral tablet) 1 tab(s) Oral every day. tamsulosin (Flomax 0.4 mg oral capsule) 1 cap(s) Oral every day. Medication List: Medications to Continue That Have Not Changed Other Medications ascorbic acid (Vitamin C 500 mg oral tablet) 1 tab(s) Oral every day. tamsulosin (Flomax 0.4 mg oral capsule) 1 cap(s) Oral every day. Medications to Continue That Have Not Changed Other Medications ascorbic acid (Vitamin C 500 mg oral tablet) 1 tab(s) Oral every day. tamsulosin (Flomax 0.4 mg oral capsule) 1 cap(s) Oral every day. Medications to Continue That Have Not Changed Other Medications ascorbic acid (Vitamin C 500 mg oral tablet) 1 tab(s) Oral every day. tamsulosin (Flomax 0.4 mg oral capsule) 1 cap(s) Oral every day. Comment: Lab and Radiology Results Laboratory or Other Results This Visit (last charted value for your 04/28/2022 visit) No Laboratory or Other Results This Visit DIET & ACTIVITY Patient Activity Level: Patient Diet: Patient Activity Restrictions: DISCHARGE INFORMATION Discharge Disposition: Discharge Location: DEPART REASON INCOMPLETE INFORMATION PATIENT EDUCATION INFORMATION Instructions: Follow up: With: Address: When: Zachary Rodriguez [address] [place] [address] [facility] (1) DIAGNOSIS Urethral stricture Comment: PHYS DOC NOTES [facility] Discharge instructions 03-31-2022 Note Date & Type Note Facility 03-31-2022 Hospital Discharge instructions Patient Education 03/31/2022 07:56:55 Benign Prostatic Hyperplasia Benign Prostatic Hyperplasia Benign prostatic hyperplasia (BPH) is an enlarged prostate gland that is caused by the normal aging process and not by cancer. The prostate is a walnut-sized gland that is involved in the production of semen. It is located in front of the rectum and below the bladder. The bladder stores urine and the urethra is the tube that carries the urine out of the body. The prostate may get bigger as a man gets older. An enlarged prostate can press on the urethra. This can make it harder to pass urine. The build-up of urine in the bladder can cause infection. Back pressure and infection may progress to bladder damage and kidney (renal) failure. What are the causes? This condition is part of a normal aging process. However, not all men develop problems from this condition. If the prostate enlarges away from the urethra, urine flow will not be blocked. If it enlarges toward the urethra and compresses it, there will be problems passing urine. What increases the risk? This condition is more likely to develop in men over the age of 50 years. What are the signs or symptoms? Symptoms of this condition include: Getting up often during the night to urinate. Needing to urinate frequently during the day. Difficulty starting urine flow. Decrease in size and strength of your urine stream. Leaking (dribbling) after urinating. Inability to pass urine. This needs immediate treatment. Inability to completely empty your bladder. Pain when you pass urine. This is more common if there is also an infection. Urinary tract infection (UTI). How is this diagnosed? This condition is diagnosed based on your medical history, a physical exam, and your symptoms. Tests will also be done, such as: A post-void bladder scan. This measures any amount of urine that may remain in your bladder after you finish urinating. A digital rectal exam. In a rectal exam, your health care provider checks your prostate by putting a lubricated, gloved finger into your rectum to feel the back of your prostate gland. This exam detects the size of your gland and any abnormal lumps or growths. An exam of your urine (urinalysis). A prostate specific antigen (PSA) screening. This is a blood test used to screen for prostate cancer. An ultrasound. This test uses sound waves to electronically produce a picture of your prostate gland. Your health care provider may refer you to a specialist in kidney and prostate diseases (urologist). How is this treated? Once symptoms begin, your health care provider will monitor your condition (active surveillance or watchful waiting). Treatment for this condition will depend on the severity of your condition. Treatment may include: Observation and yearly exams. This may be the only treatment needed if your condition and symptoms are mild. Medicines to relieve your symptoms, including: ?Medicines to shrink the prostate. ?Medicines to relax the muscle of the prostate. Surgery in severe cases. Surgery may include: ?Prostatectomy. In this procedure, the prostate tissue is removed completely through an open incision or with a laparoscope or robotics. ?Transurethral resection of the prostate (TURP). In this procedure, a tool is inserted through the opening at the tip of the penis (urethra). It is used to cut away tissue of the inner core of the prostate. The pieces are removed through the same opening of the penis. This removes the blockage. ?Transurethral incision (TUIP). In this procedure, small cuts are made in the prostate. This lessens the prostate's pressure on the urethra. ?Transurethral microwave thermotherapy (TUMT). This procedure uses microwaves to create heat. The heat destroys and removes a small amount of prostate tissue. ?Transurethral needle ablation (TUNA). This procedure uses radio frequencies to destroy and remove a small amount of prostate tissue. ?Interstitial laser coagulation (ILC). This procedure uses a laser to destroy and remove a small amount of prostate tissue. ?Transurethral electrovaporization (TUVP). This procedure uses electrodes to destroy and remove a small amount of prostate tissue. ?Prostatic urethral lift. This procedure inserts an implant to push the lobes of the prostate away from the urethra. Follow these instructions at home: Take unyd-dcw-nlhlngh and prescription medicines only as told by your health care provider. Monitor your symptoms for any changes. Contact your health care provider with any changes. Avoid drinking large amounts of liquid before going to bed or out in public. Avoid or reduce how much caffeine or alcohol you drink. Give yourself time when you urinate. Keep all follow-up visits as told by your health care provider. This is important. Contact a health care provider if: You have unexplained back pain. Your symptoms do not get better with treatment. You develop side effects from the medicine you are taking. Your urine becomes very dark or has a bad smell. Your lower abdomen becomes distended and you have trouble passing your urine. Get help right away if: You have a fever or chills. You suddenly cannot urinate. You feel lightheaded, or very dizzy, or you faint. There are large amounts of blood or clots in the urine. Your urinary problems become hard to manage. You develop moderate to severe low back or flank pain. The flank is the side of your body between the ribs and the hip. These symptoms may represent a serious problem that is an emergency. Do not wait to see if the symptoms will go away. Get medical help right away. Call your local emergency services (911 in the [place] Do not drive yourself to the hospital. Summary Benign prostatic hyperplasia (BPH) is an enlarged prostate that is caused by the normal aging process and not by cancer. An enlarged prostate can press on the urethra. This can make it hard to pass urine. This condition is part of a normal aging process and is more likely to develop in men over the age of 50 years. Get help right away if you suddenly cannot urinate. This information is not intended to replace advice given to you by your health care provider. Make sure you discuss any questions you have with your health care provider. Document Released: 10/18/2006 Document Revised: 09/12/2019 Document Reviewed: 11/22/2017 [employer] Patient Education 2020 [email or web address] 03/31/2022 07:56:52 Kidney Stones, Azij-rm-Eqqm Kidney Stones Kidney stones are rock-like masses that form inside of the kidneys. Kidneys are organs that make pee (urine). A kidney stone may move into other parts of the urinary tract, including: The tubes that connect the kidneys to the bladder (ureters). The bladder. The tube that carries urine out of the body (urethra). Kidney stones can cause very bad pain and can block the flow of pee. The stone usually leaves your body (passes) through your pee. You may need to have a doctor take out the stone. What are the causes? Kidney stones may be caused by: A condition in which certain glands make too much parathyroid hormone (primary hyperparathyroidism). A buildup of a type of crystals in the bladder made of a chemical called uric acid. The body makes uric acid when you eat certain foods. Narrowing (stricture) of one or both of the ureters. A kidney blockage that you were born with. Past surgery on the kidney or the ureters, such as gastric bypass surgery. What increases the risk? You are more likely to develop this condition if: You have had a kidney stone in the past. You have a family history of kidney stones. You do not drink enough water. You eat a diet that is high in protein, salt (sodium), or sugar. You are overweight or very overweight (obese). What are the signs or symptoms? Symptoms of a kidney stone may include: Pain in the side of the belly, right below the ribs (flank pain). Pain usually spreads (radiates) to the groin. Needing to pee often or right away (urgently). Pain when going pee (urinating). Blood in your pee (hematuria). Feeling like you may vomit (nauseous). Vomiting. Fever and chills. How is this treated? Treatment depends on the size, location, and makeup of the kidney stones. The stones will often pass out of the body through peeing. You may need to: Drink more fluid to help pass the stone. In some cases, you may be given fluids through an IV tube put into one of your veins at the hospital. Take medicine for pain. Make changes in your diet to help keep kidney stones from coming back. Sometimes, medical procedures are needed to remove a kidney stone. This may involve: A procedure to break up kidney stones using a beam of light (laser) or shock waves. Surgery to remove the kidney stones. Follow these instructions at home: Medicines Take gkgu-azy-pqrmrkv and prescription medicines only as told by your doctor. Ask your doctor if the medicine prescribed to you requires you to avoid driving or using heavy machinery. Eating and drinking Drink enough fluid to keep your pee pale yellow. You may be told to drink at least 8 10 glasses of water each day. This will help you pass the stone. If told by your doctor, change your diet. This may include: ?Limiting how much salt you eat. ?Eating more fruits and vegetables. ?Limiting how much meat, poultry, fish, and eggs you eat. Follow instructions from your doctor about eating or drinking restrictions. General instructions Collect pee samples as told by your doctor. You may need to collect a pee sample: ?24 hours after a stone comes out. ?8 12 weeks after a stone comes out, and every 6 12 months after that. Strain your pee every time you pee (urinate), for as long as told. Use the strainer that your doctor recommends. Do not throw out the stone. Keep it so that it can be tested by your doctor. Keep all follow-up visits as told by your doctor. This is important. You may need follow-up tests. How is this prevented? To prevent another kidney stone: Drink enough fluid to keep your pee pale yellow. This is the best way to prevent kidney stones. Eat healthy foods. Avoid certain foods as told by your doctor. You may be told to eat less protein. Stay at a healthy weight. Where to find more information National Kidney Foundation (NKF): www.kidney.org [facility] (UCF): www.urologyhealth.org Contact a doctor if: You have pain that gets worse or does not get better with medicine. Get help right away if: You have a fever or chills. You get very bad pain. You get new pain in your belly (abdomen). You pass out (faint). You cannot pee. Summary Kidney stones are rock-like masses that form inside of the kidneys. Kidney stones can cause very bad pain and can block the flow of pee. The stones will often pass out of the body through peeing. Drink enough fluid to keep your pee pale yellow. This information is not intended to replace advice given to you by your health care provider. Make sure you discuss any questions you have with your health care provider. Document Released: 04/05/2009 Document Revised: 03/05/2020 Document Reviewed: 03/05/2020 [employer] Patient Education 2019 [email or web address] Follow Up Care 03/16/2022 11:12:01 With:SHANIKA VALDOVINOS, Jimmy Valles, URL Address: [facility] [address] , [place] [address]- [phone] When:07/13/2022 Comments:f/u in Jul PSA [facility] Hospital Discharge instructions 03-02-2022 Note Date & Type Note Facility 03-02-2022 Hospital Discharg e instructions Patient Education 03/02/2022 14:01:14 Calorie Counting for Weight Loss Calorie Counting for Weight Loss Calories are units of energy. Your body needs a certain amount of calories from food to keep you going throughout the day. When you eat more calories than your body needs, your body stores the extra calories as fat. When you eat fewer calories than your body needs, your body zhang fat to get the energy it needs. Calorie counting means keeping track of how many calories you eat and drink each day. Calorie counting can be helpful if you need to lose weight. If you make sure to eat fewer calories than your body needs, you should lose weight. Ask your health care provider what a healthy weight is for you. For calorie counting to work, you will need to eat the right number of calories in a day in order to lose a healthy amount of weight per week. A dietitian can help you determine how many calories you need in a day and will give you suggestions on how to reach your calorie goal. A healthy amount of weight to lose per week is usually 1 2 lb (0.5 0.9 kg). This usually means that your daily calorie intake should be reduced by 500 750 calories. Eating 1,200 1,500 calories per day can help most women lose weight. Eating 1,500 1,800 calories per day can help most men lose weight. What is my plan? My goal is to have calories per day. If I have this many calories per day, I should lose around pounds per week. What do I need to know about calorie counting? In order to meet your daily calorie goal, you will need to: Find out how many calories are in each food you would like to eat. Try to do this before you eat. Decide how much of the food you plan to eat. Write down what you ate and how many calories it had. Doing this is called keeping a food log. To successfully lose weight, it is important to balance calorie counting with a healthy lifestyle that includes regular activity. Aim for 150 minutes of moderate exercise (such as walking) or 75 minutes of vigorous exercise (such as running) each week. Where do I find calorie information? The number of calories in a food can be found on a Nutrition Facts label. If a food does not have a Nutrition Facts label, try to look up the calories online or ask your dietitian for help. Remember that calories are listed per serving. If you choose to have more than one serving of a food, you will have to multiply the calories per serving by the amount of servings you plan to eat. For example, the label on a package of bread might say that a serving size is 1 slice and that there are 90 calories in a serving. If you eat 1 slice, you will have eaten 90 calories. If you eat 2 slices, you will have eaten 180 calories. How do I keep a food log? Immediately after each meal, record the following information in your food log: What you ate. Don't forget to include toppings, sauces, and other extras on the food. How much you ate. This can be measured in cups, ounces, or number of items. How many calories each food and drink had. The total number of calories in the meal. Keep your food log near you, such as in a small notebook in your pocket, or use a mobile anushka or website. Some programs will calculate calories for you and show you how many calories you have left for the day to meet your goal. What are some calorie counting tips? Use your calories on foods and drinks that will fill you up and not leave you hungry: ?Some examples of foods that fill you up are nuts and nut butters, vegetables, lean proteins, and high-fiber foods like whole grains. High-fiber foods are foods with more than 5 g fiber per serving. ?Drinks such as sodas, specialty coffee drinks, alcohol, and juices have a lot of calories, yet do not fill you up. Eat nutritious foods and avoid empty calories. Empty calories are calories you get from foods or beverages that do not have many vitamins or protein, such as candy, sweets, and soda. It is better to have a nutritious high-calorie food (such as an avocado) than a food with few nutrients (such as a bag of chips). Know how many calories are in the foods you eat most often. This will help you calculate calorie counts faster. Pay attention to calories in drinks. Low-calorie drinks include water and unsweetened drinks. Pay attention to nutrition labels for low fat or fat free foods. These foods sometimes have the same amount of calories or more calories than the full fat versions. They also often have added sugar, starch, or salt, to make up for flavor that was removed with the fat. Find a way of tracking calories that works for you. Get creative. Try different apps or programs if writing down calories does not work for you. What are some portion control tips? Know how many calories are in a serving. This will help you know how many servings of a certain food you can have. Use a measuring cup to measure serving sizes. You could also try weighing out portions on a kitchen scale. With time, you will be able to estimate serving sizes for some foods. Take some time to put servings of different foods on your favorite plates, bowls, and cups so you know what a serving looks like. Try not to eat straight from a bag or box. Doing this can lead to overeating. Put the amount you would like to eat in a cup or on a plate to make sure you are eating the right portion. Use smaller plates, glasses, and bowls to prevent overeating. Try not to multitask (for example, watch TV or use your computer) while eating. If it is time to eat, sit down at a table and enjoy your food. This will help you to know when you are full. It will also help you to be aware of what you are eating and how much you are eating. What are tips for following this plan? Reading food labels Check the calorie count compared to the serving size. The serving size may be smaller than what you are used to eating. Check the source of the calories. Make sure the food you are eating is high in vitamins and protein and low in saturated and trans fats. Shopping Read nutrition labels while you shop. This will help you make healthy decisions before you decide to purchase your food. Make a grocery list and stick to it. Cooking Try to cook your favorite foods in a healthier way. For example, try baking instead of frying. Use low-fat dairy products. Meal planning Use more fruits and vegetables. Half of your plate should be fruits and vegetables. Include lean proteins like poultry and fish. How do I count calories when eating out? Ask for smaller portion sizes. Consider sharing an entree and sides instead of getting your own entree. If you get your own entree, eat only half. Ask for a box at the beginning of your meal and put the rest of your entree in it so you are not tempted to eat it. If calories are listed on the menu, choose the lower calorie options. Choose dishes that include vegetables, fruits, whole grains, low-fat dairy products, and lean protein. Choose items that are boiled, broiled, grilled, or steamed. Stay away from items that are buttered, battered, fried, or served with cream sauce. Items labeled crispy are usually fried, unless stated otherwise. Choose water, low-fat milk, unsweetened iced tea, or other drinks without added sugar. If you want an alcoholic beverage, choose a lower calorie option such as a glass of wine or light beer. Ask for dressings, sauces, and syrups on the side. These are usually high in calories, so you should limit the amount you eat. If you want a salad, choose a garden salad and ask for grilled meats. Avoid extra toppings like beckett, cheese, or fried items. Ask for the dressing on the side, or ask for olive oil and vinegar or lemon to use as dressing. Estimate how many servings of a food you are given. For example, a serving of cooked rice is cup or about the size of half a baseball. Knowing serving sizes will help you be aware of how much food you are eating at restaurants. The list below tells you how big or small some common portion sizes are based on everyday objects: ?1 oz 4 stacked dice. ?3 oz 1 deck of cards. ?1 tsp 1 . ?1 Tbsp a ping-pong ball. ?2 Tbsp 1 ping-pong ball. ? cup baseball. ?1 cup 1 baseball. Summary Calorie counting means keeping track of how many calories you eat and drink each day. If you eat fewer calories than your body needs, you should lose weight. A healthy amount of weight to lose per week is usually 1 2 lb (0.5 0.9 kg). This usually means reducing your daily calorie intake by 500 750 calories. The number of calories in a food can be found on a Nutrition Facts label. If a food does not have a Nutrition Facts label, try to look up the calories online or ask your dietitian for help. Use your calories on foods and drinks that will fill you up, and not on foods and drinks that will leave you hungry. Use smaller plates, glasses, and bowls to prevent overeating. This information is not intended to replace advice given to you by your health care provider. Make sure you discuss any questions you have with your health care provider. Document Released: 10/18/2006 Document Revised: 07/07/2019 Document Reviewed: 09/17/2017 [employer] Patient Education 2020 [email or web address]. 03/02/2022 14:01:11 Prostatitis Prostatitis Prostatitis is swelling or inflammation of the prostate gland. The prostate is a walnut-sized gland that is involved in the production of semen. It is located below a man's bladder, in front of the rectum. There are four types of prostatitis: Chronic nonbacterial prostatitis. This is the most common type of prostatitis. It may be associated with a viral infection or autoimmune disorder. Acute bacterial prostatitis. This is the least common type of prostatitis. It starts quickly and is usually associated with a bladder infection, high fever, and shaking chills. It can occur at any age. Chronic bacterial prostatitis. This type usually results from acute bacterial prostatitis that happens repeatedly (is recurrent) or has not been treated properly. It can occur in men of any age but is most common among middle-aged men whose prostate has begun to get larger. The symptoms are not as severe as symptoms caused by acute bacterial prostatitis. Prostatodynia or chronic pelvic pain syndrome (CPPS). This type is also called pelvic floor disorder. It is associated with increased muscular tone in the pelvis surrounding the prostate. What are the causes? Bacterial prostatitis is caused by infection from bacteria. Chronic nonbacterial prostatitis may be caused by: Urinary tract infections (UTIs). Nerve damage. A response by the body s disease-fighting system (autoimmune response). Chemicals in the urine. The causes of the other types of prostatitis are usually not known. What are the signs or symptoms? Symptoms of this condition vary depending upon the type of prostatitis. If you have acute bacterial prostatitis, you may experience: Urinary symptoms, such as: ?Painful urination. ?Burning during urination. ?Frequent and sudden urges to urinate. ?Inability to start urinating. ?A weak or interrupted stream of urine. Vomiting. Nausea. Fever. Chills. Inability to empty the bladder completely. Pain in the: ?Muscles or joints. ?Lower back. ?Lower abdomen. If you have any of the other types of prostatitis, you may experience: Urinary symptoms, such as: ?Sudden urges to urinate. ?Frequent urination. ?Difficulty starting urination. ?Weak urine stream. ?Dribbling after urination. Discharge from the urethra. The urethra is a tube that opens at the end of the penis. Pain in the: ?Testicles. ?Penis or tip of the penis. ?Rectum. ?Area in front of the rectum and below the scrotum (perineum). Problems with sexual function. Painful ejaculation. Bloody semen. How is this diagnosed? This condition may be diagnosed based on: A physical and medical exam. Your symptoms. A urine test to check for bacteria. An exam in which a health care provider uses a finger to feel the prostate (digital rectal exam). A test of a sample of semen. Blood tests. Ultrasound. Removal of prostate tissue to be examined under a microscope (biopsy). Tests to check how your body handles urine (urodynamic tests). A test to look inside your bladder or urethra (cystoscopy). How is this treated? Treatment for this condition depends on the type of prostatitis. Treatment may involve: Medicines to relieve pain or inflammation. Medicines to help relax your muscles. Physical therapy. Heat therapy. Techniques to help you control certain body functions (biofeedback). Relaxation exercises. Antibiotic medicine, if your condition is caused by bacteria. Warm water baths (sitz baths). Sitz baths help with relaxing your pelvic floor muscles, which helps to relieve pressure on the prostate. Follow these instructions at home: Take [id number]-izbveca and prescription medicines only as told by your health care provider. If you were prescribed an antibiotic, take it as told by your health care provider. Do not stop taking the antibiotic even if you start to feel better. If physical therapy, biofeedback, or relaxation exercises were prescribed, do exercises as instructed. Take sitz baths as directed by your health care provider. For a sitz bath, sit in warm water that is deep enough to cover your hips and buttocks. Keep all follow-up visits as told by your health care provider. This is important. Contact a health care provider if: Your symptoms get worse. You have a fever. Get help right away if: You have chills. You feel nauseous. You vomit. You feel light-headed or feel like you are going to faint. You are unable to urinate. You have blood or blood clots in your urine. This information is not intended to replace advice given to you by your health care provider. Make sure you discuss any questions you have with your health care provider. Document Released: 10/15/2001 Document Revised: 12/31/2018 Document Reviewed: 07/08/2017 [employer] Patient Education 2020 [email or web address]. Follow Up Care 02/04/2022 15:37:59 With:Jimmy DAUGHERTY MD, URL Address: [facility] [address] , [place] [address]- When: Unknown Comments:Will schedule Cysto. [facility] Evaluation + Plan note Note Date & Type Note Facility Evaluation + Plan note Future Appointments Appointment Date:07/13/2022 03:15:00 PM Scheduled Provider:Jimmy DAUGHERTY MD Location:[facility] Appointment Type:URO Office Visit [facility] Evaluation note Note Date & Type Note Facility Evaluation note No Information [facility] Other History general Narrative - Reported Note Date & Type Note Facility History general Narrative - Reported Type Medical History Elevated blood press ure (not hypertension) Medical History Overweight Medical History 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 Medical History Acute prostatitis with hematuria Surgical History COLONOSCOPY 2019 Hospitalization History SEE SURGICAL HX [employer] Other Hospital course Narrative Note Date & Type Note Facility Hospital course Narrative No data available for this section [facility] Summary Purpose Family History No Family History Records FoundNo Family History Records FoundNo Family History Records Found Advance Directives No Advanced Directives Records FoundNo Advanced Directives Records FoundNo Advanced Directives Records Found Additional Source Comments (unrecognized sect ion and content) No Status Records FoundNo Status Records FoundNo Status Records Found INFORMATION SOURCE (unrecogn ized section and content) DATE CREATED AUTHOR 04/14/2022 [facility] DATE CREATED AUTHOR AUTHOR'S ORGANIZ ATION [facility]20[facility] DATE CREATED AUTHOR AUTHOR'S ORGANIZ ATION 01/18/2023 [facility] pital REASON FOR VISIT (unrecogniz ed section and content) [facility] Results FOR RECORDS PERTAINING TO PATIENTS WHO ARE OR HAVE BEEN ENROLLED IN A CHEMICAL DEPENDENCY/SUBSTANCEABUSE PROGRAM, SOME INFORMATION MAY BE OMITTED. This clinical summary was aggregated from multiple sources. Caution should be exercised in using it in the provision of clinical care. This summary normalizes information from multiple sources, and as a consequence, information in this document may materially change the coding, format and clinical context of patient data. In addition, data may be omitted in some cases. CLINICAL DECISIONS SHOULD BE BASED ON THE PRIMARY CLINICAL RECORDS. [employer] provides no warranty or guarantee of the accuracy or completeness of information in this document.
--- NOTE | 2023-11-11 14:26 | ECG_ITS ---
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
--- NOTE | 2023-11-11 15:03 | PM.PRESUREVA ---
History of Present Illness History of Present Illness Chief complaint: right foot hallux valgus Narrative: Patient presents for preadmission testing. The patient reports right foot pain for many years with a bunion deformity which has been worse over the past year or so. He states he does quite a bit of walking and notices the pain is worse after activities. He currently does not take any medications to help with his discomfort. He denies numbness, tingling, weakness, or any other complaints. Review of Systems ROS Narrative REVIEW OF SYSTEMS: Negative except as stated in HPI, ten or more systems reviewed. Constitutional: No fever , chills, weakness ENT: No sore throat or epistaxis Cardiovascular: No edema, chest pain, palpitations, or activity intolerance Respiratory: No shortness of breath, cough, or wheezing Gastrointestinal: No abdominal pain, constipation, diarrhea, or vomiting Genitourinary: No dysuria or hematuria Neurological: No numbness, tingling, weakness, or headache Psychiatric: No mood changes PFSH [facility] Medical History (Updated 11/11/23 @ 15:07 by Georgette Izaguirre NP) Right foot pain ?M79.671 - Pain in right foot (ICD-10) Hallux rigidus ?M20.20 - Hallux rigidus, unspecified foot (ICD-10) Hallux valgus ?M20.10 - Hallux valgus (acquired), unspecified foot (ICD-10) H/O reduction of closed fracture ?Z87.81 - Personal history of (healed) traumatic fracture (ICD-10) Urethral stricture ?N35.919 - Unspecified urethral stricture, male, unspecified site (ICD-10) Kidney stones ?N20.0 - Calculus of kidney (ICD-10) Prostatitis ?N41.9 - Inflammatory disease of prostate, unspecified (ICD-10) COVID-19 ?U07.1 - COVID-19 (ICD-10) Surgical History (Updated 11/11/23 @ 14:44 by Georgette Izaguirre NP) History of colonoscopy ?Z98.890 - Other specified postprocedural states (ICD-10) History of appendectomy ?Z90.49 - Acquired absence of other specified parts of digestive tract (ICD-10) Family History (Updated 11/11/23 @ 14:44 by Georgette Izaguirre NP) Other Family history of hypertension Family history of myocardial infarction Social History (Updated 11/11/23 @ 14:39 by Georgette Izaguirre NP) Within the past year, how often did you have a drink containing alcohol: 2-3 times a week Smoking status: Never smoker Non-prescribed substance use: denies use Previous occupational history: Factory Work Highest level of school completed/degree received: high school graduate Meds Home Medications and Allergies Allergies Allergy/AdvReac Type Severity Reaction Status Date / Time No Known Drug Allergies Allergy Verified 11/11/23 14:38 Exam Narrative Exam Narrative: Constitutional: Awake, alert, comfortable, well-appearing, nontoxic, interactive, vital signs as charted Head: Normocephalic, atraumatic Neck: Supple, normal appearance, normal range of motion, no meningeal signs, no lymphadenopathy Respiratory: No respiratory distress, breath sounds clear Cardiovascular: Regular rate and rhythm, strong and regular heart tones Musculoskeletal: Right foot with obvious hallux valgus deformity, tenderness over the 1st metatarsal head, good capillary refill, sensation intact Skin: No rashes or induration, no lesions, only visible skin inspected Neuro: No neurological deficits, normal sensation Psychiatric: Oriented ?3, normal affect Assessment and Plan Assessment and Plan (1) Hallux valgus: (2) Hallux rigidus: (3) Right foot pain: Plan Right 1st MPJ fusion with bone graft as needed scheduled with Dr. Palomino 11/25/2023.
== END 2023-11-11 14:15 | disposition home or self-care (01) ==
LOC: PST 14:17
PROVIDERS: PCP Internal Medicine; Visit Provider Podiatrist Foot & Ankle Surgery
DX: Z01.810 Encounter for preprocedural cardiovascular examination (principal); Z01.818 Encounter for other preprocedural examination; M20.11 Hallux valgus (acquired), right foot
CPT/HCPCS: 93005; G0463

== ENCOUNTER 2023-11-16 15:21 | Outpatient (OUT) | payer OTHER, SELFPAY ==
--- NOTE | 2023-11-16 | XR_ITS ---
The [address] [address] Patient Name: MARIA DE JESUS MEDLEY MRN: [id number] date: 1970 Sex: M Assigned Patient Location: [facility] Current Patient Location: [facility] Accession/Order Number: [id number] Exam Date: 11/16/2023 15:29 Report Date: 11/16/2023 15:55 At the request of: MORENA YA Procedure: XR ankle RT min 3V PROCEDURE: XR ankle RT min 3V COMPARISON: Foot x-ray 10/12/2023. HISTORY: RIGHT ANKLE PAIN FINDINGS: BONES:Stable remote healed diaphyseal fractures of the mid to distal tibia and distal fibula. No acute fracture or dislocation. Mild degenerative changes most significant along the medial tibiotalar joint with marginal osteophyte formation. Mild enthesopathic spurring of the calcaneus SOFT TISSUES:Negative. No visible soft tissue swelling. EFFUSION:None visible. OTHER: Negative. XR/XR ankle RT min 3V IMPRESSION: Degenerative and posttraumatic changes Electronically authenticated by: ARMANDO ALEXANDER Date: 11/16/2023 15:55
--- OUTSIDE RECORDS SUMMARY | 2023-11-16 15:27 | XMS_ITS | CCD ---
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 [facility]/pharmacy #[id number] New tamsulosin (Flomax 0.4 mg Cap) 1 Capsules By Mouth Every day Refills: 6 Pickup at [facility]/pharmacy #[id number] Pharmacy Information [facility]/pharmacy #[id number]: [address], [place] [phone] Test Results Urnls Dip Stick Auto w/o Microscopy POC 56020 (11/20/2021) Bilirubin Urine Dipstick - Negative Blood Urine Dipstick - 3+ Large Glucose Urine Dipstick - Negative Ketones Urine Dipstick - Negative Leukocytes Urine Dipstick - 3+ Large Nitrite Urine Dipstick - Negative Protein Urine Dipstick - 2+ (100 mg/dl) Specific [place] Urine Dipstick - 1.025 Urine Appearance Urine [...] diagnosed? This (more content not included)... Normal [facility] Ambulatory Visit Summary MARIA DE JESUS MEDLEY :1970 Visit Date:11/20/2021 Ambulatory Visit Instructions Your Diagnosis Acute prostatitis Nocturia Urinary frequency Urinary urgency Asymptomatic microscopic hematuria BPH with urinary obstruction Elevated PSA, Elevated PSA Other obstructive and reflux uropathy Tests Performed Urnls Dip Stick Auto w/o Microscopy POC 28258 Your Care Team Attending Physician - Jimmy [...] w/PSA Where: [facility] [address] , [place] [address]- [phone] Medications What How Much When Instructions New doxycycline (doxycycline hyclate 100 mg Cap) 1 Capsules By Mouth 2 times a day Refills: 1 Pickup at [facility]/pharmacy #6139 New tamsulosin (Flomax 0.4 mg Cap) 1 Capsules By Mouth Every day Refills: 6 Pickup at [facility]/pharmacy #6129 Pharmacy Information [facility]/pharmacy #[id number]: [address], [place] [phone] Test Results Urnls Dip Stick Auto w/o Microscopy POC 26666 (11/20/2021) Bilirubin Urine Dipstick - Negative Blood Urine Dipstick - 3+ Large Glucose Urine Dipstick - Negative Ketones Urine Dipstick - Negative Leukocytes Urine Dipstick - 3+ Large Nitrite Urine Dipstick - Negative Protein Urine Dipstick - 2+ (100 mg/dl) Specific [place] Urine Dipstick - 1.025 Urine Appearance Urine [...] diagnosed? This (more content not included)... Normal [facility] Patient Educationon 11-20-19 Patient Education Infectious Disease [...] Follow these instructions at home: ? Take otla-jpz-rmdlfjq and prescription medicines only as told by [...] 12/31/2018 Docum (more content not included)... Normal [facility] Provider Letteron 11-20-2021 Provider Letter November 20, 2021 November 20, 2021 MARIA DE JESUS MEDLEY [address] [place] [id number] MARIA DE JESUS MEDLEY 1970 To Whom It May Concern, Please excuse above patient from work. Date of appointment From: 11/20/2021 To: May Return to Work On: 11/21/2021 Restrictions: _ Comments: _ Sincerely, Normal [facility] Urology Office/Clinic Noteon 11-20-2021 Urology Office/Clinic Note [...] BID, # 60 cap(s), Refills(s) 1, Pharmacy: [facility]/pharmacy #[id number], 176, cm, 11/20/21 14:51:00 EST, Height/Length Dosing, 86, kg, 11/20/21 14:51:00 EST, Weight Dosing tamsulosin, 0.4 mg = 1 cap(s), Oral, Daily, # 30 cap(s), Refills(s) 6, Pharmacy: [facility]/pharmacy #[id number], 176, cm, 11/20/21 14:51:00 EST, Height/Length Dosing, 86, kg, 11/20/21 14:51:00 EST, Weight Dosing I have reviewed the previous health history for this patient with Dr. Daugherty. f/u in 6 weeks w/PSA Follow-up With When Contact Information SHANIKA VALDOVINOS, Jimmy Valles, LUZ In 6 weeks 01/01/2022 EST [facility] [address], [place] [phone] Additional Instructions: 6 week f/u w/PSA Patient Education Prostatitis I, Libertad Celeste, personally scribed for Dr. Daugherty on 11/20/2021 15:47:22. . Documentation recorded by the scribjordan alvarado, accurately reflects the services(s) I performed and decisions made by me. Authenticated by Dr. Duagherty on 11/20/2021 15:53:34. Problem List/Past Medical History Ongoing Acute prostatitis Neoplasm of uncertain behavior of skin Overweight Historical No qualifying data Procedure/Surgical History Appendectomy, Col (more content not included)... Normal [facility] Comment on above: Result Comment: Elec tronically Signed By: Jimmy DAUGHERTY MD\.br\Date and Time Signed: 11/20/21 15:53 EST\.br\Electronically Co-Signed By: Libertad Celeste\.br\Date and Time Co-Signed: 11/20/21 15:47 EST Vital Signs Date Time Vital Sign Value Performing Clinician Facility 12-15-2022 16:30-0500 Body height 175.26 cm 79 [facility] Other [facility] Other 12-15-2022 16:30-0500 Body mass index (BMI) [Ratio] 29.24 kg/m2 [facility] Other [facility] Other 12-15-2022 16:30-0500 Body weight 89.81 kg 79 [facility] Other [facility] Other 12-15-2022 16:30-0500 Diastolic blood pressure 80 mm[Hg] 79 [facility] Other [facility] Other 12-15-2022 16:30-0500 Respiratory rate 12 /min [facility] Other [facility] Other 12-15-2022 16:30-0500 Systolic blood pressure 130 mm[Hg] 79 [facility] Other [facility] Other 03-31-2022 07:40-0400 Blood Pressure Location Jimmy DAUGHERTY [facility] 03-31-2022 07:40-0400 Diastolic blood pressure 82 mm[Hg] Jimmy DAUGHERTY [facility] 03-31-2022 07:40-0400 Heart rate 85 /min Jimmy DAUGHERTY [facility] 03-31-2022 07:40-0400 Respiratory rate 16 /min Jimmy DAUGHERTY [facility] 03-31-2022 07:40-0400 Systolic blood pressure 135 mm[Hg] Jimmy DAUGHERTY [facility] 03-02-2022 13:30-0400 Blood Pressure Location Jimmy DAUGHERTY [facility] 03-02-2022 13:30-0400 Diastolic blood pressure 86 mm[Hg] Jimmy DAUGHERTY [facility] 03-02-2022 13:30-0400 Heart rate 83 /min Jimmy DAUGHERTY [facility] 03-02-2022 13:30-0400 Respiratory rate 16 /min Jimmy DAUGHERTY [facility] 03-02-2022 13:30-0400 Systolic blood pressure 123 mm[Hg] Jimmy DAUGHERTY [facility] Encounters Encounter Date Encounter Type Care Provider Facility Start: 01-08-2023 End: 01-08-[address] ZACHARY RODRIGUEZ Facility:[facility] Start: 12-20-2022 Encounter for genera l adult medical examination without abnormal findings DR ZACHARY RODRIGUEZ [facility] Start: 12-18-2022 End: 12-19-[address] ZACHARY RODRIGUEZ Facility:[facility] Start: 12-16-2022 End: 12-16-2022 ambulatory Zachary Rodriguez Other [facility] Other Start: 12-16-2022 Telephone encounter Zachary Rodriguez [facility] Start: 12-15-2022 End: 12-16-[address] ZACHARY RODRIGUEZ [facility] Other Start: 12-15-2022 End: 12-16-2022 Encounter for general adult medical examination without abnormal findings Zachary Rodriguez [facility] Start: 12-15-2022 Periodic preventive med est patient 40-64yrs Zachary Rodriguez [facility] Start: 03-31-2022 End: 03-31-2022 Patient encounter procedure Jimmy DAUGHERTY [facility] Start: 03-19-2022 End: 03-20-[address] JIMMY DAUGHERTY . Facility:[facility] Start: 03-02-2022 End: 03-02-2022 Patient encounter procedure Jimmy DAUGHERTY [facility] Procedures Date Procedure Procedure Detail Performing Clinician Start: 12-15-[address] GONSALEZ [place] [employer] Comment on above: Performed By: #### P [facility] #### [facility] [address] [place] [address] Dr. Ashley Acosta Start: 03-31-2022 Cystoscopy Jimmy REESE Appendectomy Jimmy DAUGHERTY Colonoscopy Jimmy DAUGHERTY Immunizations Immunization Date Immunization Notes Care Provider Sharad lim NEGATED: Highlighted row has not occurred!12-29-2021 SARS-CoV-2 (COVID-19) Ad26 vaccine, recombinant Jimmy DAUGHERTY [facility] Payers Date Payer Category Payer Unknown [id number] 2.16.84 [id number] 1970 Unknown [id number] 2.16.84 [id number] 1970 Unknown [id number] 2.16.84 [id number] 1970 Unknown [id number] 2.16.84 [id number] 1957 Unknown [id number] 1957 Unknown [id number] Unknown [id number] Social History Date Type Detail Facility Start: 11-20-2021 Tobacco smoking status Never s moked tobacco (finding) [facility] Tobacco smoking status Never [facility] Sex Assigned At Male [facility] 12-15-2022 Note Date & Type [...] (ICD-10 - Z12.5) Yearly JUMA and PSA [facility] Other History and physical note 04-29-2022 Note Date & Type Note Facility 04-29-2022 Note [id number] [facility] Clinical Note 04-28-2022 Note Date & Type Note Facility 04-28-2022 Note [facility] SURGERY Clinical Discharge Summary PERSON INFORMATION Name MARIA DE JESUS MEDLEY Age 52 Years 1970 Sex MALE Language Japanese PCP Zachary Rodriguez Marital Status Med Service Ambulatory Surgery Acct# Arrival 04/28/2022 09:37:00 Visit Reason SURGERY - RETROGRADE URETHROGRAM - NO CYSTOSCOPE, NO FLUORO, NO CONTRAST DYE - JUST LOOKING PER RAGINI Bustos LOS 012 00:13 Address: [address] [place] [address] Comment: PROVIDER INFORMATION VITALS INFORMATION Vital Sign [...] Follow up: With: Address: When: Zachary Rodriguez [address] [place] [address] [facility] (1) DIAGNOSIS Urethral stricture Comment: PHYS DOC NOTES [facility] Discharge instructions 03-31-2022 Note Date & [...] urethra. Follow these instructions at home: Take floe-zvd-qormumg and prescription medicines only as told by [...] 10/18/2006 Document Revised: 09/12/2019 Document Reviewed: 11/22/2017 [employer] Patient Education 2020 5o9. 03/31/2022 07:56:52 Kidney Stones, Inbl-wf-Btfd Kidney Stones Kidney stones are rock-like masses [...] Follow these instructions at home: Medicines Take jrhv-oxn-pdduilh and prescription medicines only as told by [...] 04/05/2009 Document Revised: 03/05/2020 Document Reviewed: 03/05/2020 [employer] Patient Education 2019 5o9. Follow Up Care 03/16/2022 11:12:01 With:SHANIKA VALDOVINOS, Jimmy Valles, URL Address: [facility] [address] , [place] [address]- [phone] When:07/13/2022 Comments:f/u in Jul PSA [facility] Discharge instructions 03-02-2022 Note [...] 10/18/2006 Document Revised: 07/07/2019 Document Reviewed: 09/17/2017 [employer] Patient Education 2020 5o9. 03/02/2022 14:01:11 Prostatitis Prostatitis Prostatitis is swelling [...] prostate. Follow these instructions at home: Take yrke-bfk-kaoscpo and prescription medicines only as told by [...] 10/15/2001 Document Revised: 12/31/2018 Document Reviewed: 07/08/2017 [facility] Patient Education 2020 5o9. Follow Up Care 02/04/2022 15:37:59 With:Jimmy DAUGHERTY MD, URL Address: [facility] [address] , [place] [address]- When: Unknown Comments:Will schedule Cysto. [facility] Evaluation + Plan note Note Date & Type Note Facility Evaluation + Plan note Future Appointments Appointment Date:07/13/2022 03:15:00 PM Scheduled Provider:Jimmy DAUGHERTY MD Location:[facility] Appointment Type:URO Office Visit [facility] Evaluation note Note Date & Type Note Facility Evaluation note No Information [facility] Headroom Other History general Narrative - Reported Note Date & Type Note Facility History general Narrative - Reported Type Medical History Elevated blood press ure (not hypertension) Medical History Overweight Medical History 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 Medical History Acute prostatitis with hematuria Surgical History COLONOSCOPY 2019 Hospitalization History SEE SURGICAL HX [facility] Other Hospital course Narrative Note Date & Type Note Facility Hospital course Narrative No data available for this section [facility] Summary Purpose Family History No Family History Records FoundNo Family History Records FoundNo Family History Records Found Advance Directives No Advanced Directives Records FoundNo Advanced Directives Records FoundNo Advanced Directives Records Found Additional Source Comments (unrecognized sect ion and content) No Status Records FoundNo Status Records FoundNo Status Records Found INFORMATION SOURCE (unrecogn ized section and content) DATE CREATED AUTHOR 04/14/2022 [facility] DATE CREATED AUTHOR AUTHOR'S ORGANIZ ATION 05/01/2022 [facility] DATE CREATED AUTHOR AUTHOR'S ORGANIZ ATION 01/18/2023 [facility] pital REASON FOR VISIT (unrecogniz ed [...] BE BASED ON THE PRIMARY CLINICAL RECORDS. [employer] provides no warranty or guarantee of the accuracy or completeness of information in this document.
== END 2023-11-16 15:22 | disposition home or self-care (01) ==
LOC: RAD 15:22
PROVIDERS: PCP Internal Medicine; Visit Provider Podiatrist Foot & Ankle Surgery
DX: G89.29 Other chronic pain (principal); M25.571 Pain in right ankle and joints of right foot
CPT/HCPCS: 73610

== ENCOUNTER 2023-11-25 06:03 | Day surgery (SDC) | payer OTHER, SELFPAY ==
[2023-11-11 14:59] VITALS: BP 154/80; PULSE 74; RESP 14; TEMP 36.5; O2SAT 97; BMI 29.4
[2023-11-25] VITALS (8 sets, daily range): BP systolic 121–149; BP diastolic 45–85; PULSE 81–100; RESP 13–20; TEMP 36.4; O2SAT 92–99; BMI 28.7
--- NOTE | 2023-11-25 | FL_ITS ---
[address] [address] Patient Name: MARIA DE JESUS MEDLEY MRN: [id number] date: 1970 Sex: M Assigned Patient Location: [facility] Current Patient Location: Accession/Order Number: [id number] Exam Date: 11/25/2023 08:10 Report Date: 11/26/2023 13:48 At the request of: MORENA YA Procedure: FL fluoroscopy <1hr NON-READ EXAM: FL fluoroscopy <1hr NON-READ HISTORY: TECHNIQUE: FINDINGS: Please see Operative Report. Electronically authenticated by: RADIOLOGIST NO Date: 11/26/2023 13:48
--- OUTSIDE RECORDS SUMMARY | 2023-11-25 06:06 | XMS_ITS | CCD ---
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 Education Prostatitis I, Odilia Shah, personally scribed for Dr. Daugherty on 12/29/2021 16:37:25. . Documentation recorded by the Odilia patel, accurately reflects the services(s) I performed and [...] - Not Given Postpone due to refusal [facility] Comment on above: Result Comment: Elec tronically Signed By: Jimmy DAUGHERTY MD\.br\Date and Time Signed: 12/29/21 16:40 EST\.br\Electronically Co-Signed By: Odilia Shah MA\.br\Date and Time Co-Signed: 12/29/21 16:37 EST Lab Report[facility] 11-23-2021 Lab Reports [id number] D:127 [facility] Formson 11-21-2021 Forms [id number] D:127 [facility] Physician Referralon 022 Physician Referral [id number] D:127 [facility] Ambulatory Visit Summaryon 0 11-20-2021 Ambulatory Visit Summary NEO MEDLEYD :1970 Visit Date:11/20/2021 Ambulatory Visit Instructions Your Diagnosis Acute prostatitis Nocturia Urinary frequency Urinary urgency Asymptomatic microscopic hematuria BPH with urinary obstruction Elevated PSA, Elevated PSA Other obstructive and reflux uropathy Tests Performed Urnls Dip Stick Auto w/o Microscopy POC 51043 Your Care Team Attending Physician - Jimmy [...] w/PSA Where: [facility] [address] , [place] [address]- [phone] Medications What How Much When Instructions New doxycycline (doxycycline hyclate 100 mg Cap) 1 Capsules By Mouth 2 times a day Refills: 1 Pickup at [facility]/pharmacy #[id number] New tamsulosin (Flomax 0.4 mg Cap) 1 Capsules By Mouth Every day Refills: 6 Pickup at [facility]/pharmacy #[id number] Pharmacy Information [facility]/pharmacy #[id number]: [address] [place], [place] [phone] Test Results Urnls Dip Stick Auto w/o Microscopy POC 75508 (11/20/2021) Bilirubin Urine Dipstick - Negative Blood Urine Dipstick - 3+ Large Glucose Urine Dipstick - Negative Ketones Urine Dipstick - Negative Leukocytes Urine Dipstick - 3+ Large Nitrite Urine Dipstick - Negative Protein Urine Dipstick - 2+ (100 mg/dl) Specific [place] Urine Dipstick - 1.025 Urine Appearance Urine [...] diagnosed? This (more content not included)... Normal [facility] Ambulatory Visit Summary MARIA DE JESUS MEDLEY :1970 Visit Date:11/20/2021 Ambulatory Visit Instructions Your Diagnosis Acute prostatitis Nocturia Urinary frequency Urinary urgency Asymptomatic microscopic hematuria BPH with urinary obstruction Elevated PSA, Elevated PSA Other obstructive and reflux uropathy Tests Performed Urnls Dip Stick Auto w/o Microscopy POC 53330 Your Care Team Attending Physician - SHANIKA [...] w/PSA Where: [facility] [address] , [place] [address]- [phone] Medications What How Much When Instructions New doxycycline (doxycycline hyclate 100 mg Cap) 1 Capsules By Mouth 2 times a day Refills: 1 Pickup at [facility]/pharmacy #[id number] New tamsulosin (Flomax 0.4 mg Cap) 1 Capsules By Mouth Every day Refills: 6 Pickup at [facility]/pharmacy #[id number] Pharmacy Information [facility]/pharmacy #[id number]: [address] [place], [place] [phone] Test Results Urnls Dip Stick Auto w/o Microscopy POC 87339 (11/20/2021) Bilirubin Urine Dipstick - Negative Blood Urine Dipstick - 3+ Large Glucose Urine Dipstick - Negative Ketones Urine Dipstick - Negative Leukocytes Urine Dipstick - 3+ Large Nitrite Urine Dipstick - Negative Protein Urine Dipstick - 2+ (100 mg/dl) Specific [place] Urine Dipstick - 1.025 Urine Appearance Urine [...] diagnosed? This (more content not included)... Normal [facility] Patient Educationon 11-20-19 Patient Education [...] Follow these instructions at home: ? Take mciy-zov-twlyzck and prescription medicines only as told by [...] 12/31/2018 Docum (more content not included)... Normal [facility] Provider Letteron 11-20-2021 Provider Letter November 20, 2021 November 20, 2021 MARIA DE JESUS MEDLEY [address] [place] [id number] MARIA DE JESUS MEDLEY 1970 To Whom It May Concern, Please excuse above patient from work. Date of appointment From: 11/20/2021 To: May Return to Work On: 11/21/2021 Restrictions: _ Comments: _ Sincerely, Normal [facility] Urology Office/Clinic Noteon 11-20-2021 Urology [...] BID, # 60 cap(s), Refills(s) 1, Pharmacy: [facility]/pharmacy #[id number], 176, cm, 11/20/21 14:51:00 EST, Height/Length Dosing, 86, kg, 11/20/21 14:51:00 EST, Weight Dosing tamsulosin, 0.4 mg = 1 cap(s), Oral, Daily, # 30 cap(s), Refills(s) 6, Pharmacy: [facility]/pharmacy #[id number], 176, cm, 11/20/21 14:51:00 EST, Height/Length Dosing, 86, kg, 11/20/21 14:51:00 EST, Weight Dosing I have reviewed the previous health history for this patient with Dr. Daugherty. f/u in 6 weeks w/PSA Follow-up With When Contact Information SHANIKA VALDOVINOS, Jimmy Valles, LUZ In 6 weeks 01/01/2022 EST [facility] [address], [place] [phone] Additional Instructions: 6 week f/u w/PSA Patient Education Prostatitis I, Libertad Celeste, personally scribed for Dr. Daugherty on 11/20/2021 15:47:22. . Documentation recorded by the jordan patel, accurately reflects the services(s) I performed and decisions made by me. Authenticated by Dr. Daugherty on 11/20/2021 15:53:34. Problem List/Past Medical History Ongoing Acute prostatitis Neoplasm of uncertain behavior of skin Overweight Historical No qualifying data Procedure/Surgical History Appendectomy, Col (more content not included)... Normal [facility] Comment on above: Result Comment: Elec tronically Signed By: Jimmy DAUGHERTY MD\.br\Date and Time Signed: 11/20/21 15:53 EST\.br\Electronically Co-Signed By: Libertad Celeste\.br\Date and Time Co-Signed: 11/20/21 15:47 EST Vital Signs Date Time Vital Sign Value Performing Clinician Facility 12-15-2022 16:30-0500 Body height 175.26 cm [facility] Other [facility] Other 12-15-2022 16:30-0500 Body mass index (BMI) [Ratio] 29.24 kg/m2 [facility] Other [facility] Other 12-15-2022 16:30-0500 Body weight 89.81 kg [facility] Other [facility] Other 12-15-2022 16:30-0500 Diastolic blood pressure 80 mm[Hg] [facility] Other [facility] Other 12-15-2022 16:30-0500 Respiratory rate 12 /min [facility] Other [facility] Other 12-15-2022 16:30-0500 Systolic blood pressure 130 mm[Hg] [facility] Other [facility] Other 03-31-2022 07:40-0400 Blood Pressure Location Jimmy DAUGHERTY [facility] [place] 03-31-2022 07:40-0400 Diastolic blood pressure 82 mm[Hg] Jimmy DAUGHERTY [facility] [place] 03-31-2022 07:40-0400 Heart rate 85 /min Jimmy DAUGHERTY [facility] [place] 03-31-2022 07:40-0400 Respiratory rate 16 /min Jimmy DAUGHERTY [facility] [place] 03-31-2022 07:40-0400 Systolic blood pressure 135 mm[Hg] Jimmy DAUGHERTY [facility] [place] 03-02-2022 13:30-0400 Blood Pressure Location Jimmy DAUGHERTY [facility] [place] 03-02-2022 13:30-0400 Diastolic blood pressure 86 mm[Hg] Jimmy DAUGHERTY [facility] [place] 03-02-2022 13:30-0400 Heart rate 83 /min Jimmy DAUGHERTY [facility] [place] 03-02-2022 13:30-0400 Respiratory rate 16 /min [facility] DAUGHERTY [facility] 03-02-2022 13:30-0400 Systolic blood pressure 123 mm[Hg] Jimmy DAUGHERTY [facility] Encounters Encounter Date Encounter Type Care Provider Facility Start: 01-08-2023 End: 01-08-[address] ZACHARY RODRIGUEZ Facility:[facility] Start: 12-20-2022 Encounter for genera l adult medical examination without abnormal findings DR ZACHARY RODRIGUEZ [facility] Start: 12-18-2022 End: 12-19-[address] ZACHARY RODRIGUEZ Facility:[facility] Start: 12-16-2022 End: 12-16-2022 ambulatory Zachary Rodriguez Other [facility] Other Start: 12-16-2022 Telephone encounter Zachary Rodriguez [facility] Start: 12-15-2022 End: 12-16-[address] ZACHARY RODRIGUEZ [facility] Other Start: 12-15-2022 End: 12-16-2022 Encounter for general adult medical examination without abnormal findings Zachary Rodriguez [facility] Start: 12-15-2022 Periodic preventive med est patient 40-64yrs Zachary Rodriguez [facility] Start: 03-31-2022 End: 03-31-2022 Patient encounter procedure Jimmy DAUGHERTY [facility] Start: 03-19-2022 End: 03-20-[address] JIMMY DAUGHERTY . Facility:[facility] Start: 03-02-2022 End: 03-02-2022 Patient encounter procedure Jimmy DAUGHERTY [facility] Procedures Date Procedure Procedure Detail Performing Clinician Start: 12-15-[address] GONSALEZ [place] Comment on above: Performed By: #### P [facility] #### [facility] [address] [place] [address] Dr. Ashley Acosta Start: 03-31-2022 Cystoscopy Jimmy REESE Appendectomy Jimmy DAUGHERTY Colonoscopy Jimmy DAUGHERTY Immunizations Immunization Date Immunization Notes Care Provider Sharad lim NEGATED: Highlighted row has not occurred!12-29-2021 SARS-CoV-2 (COVID-19) Ad26 vaccine, recombinant Jimmy DAUGHERTY [facility] Payers Date Payer Category Payer Unknown [id number] 2.16.84 [id number] 1970 Unknown [id number] 2.16.84 [id number] 1970 Unknown [id number] 2.16.84 [id number] 1970 Unknown [id number] 2.16.84 [id number] 1957 Unknown [id number] 2. [id number] 1957 Unknown [id number] Unknown [id number] Social History Date Type Detail Facility Start: 11-20-2021 Tobacco smoking status Never s moked tobacco (finding) [facility] Tobacco smoking status Never [facility] Sex Assigned At Male [facility] Evaluation note 12-15-2022 Note Date & Type [...] (ICD-10 - Z12.5) Yearly JUMA and PSA [facility] Other History and physical note 04-29-2022 Note Date & Type Note Facility 04-29-2022 Note [id number] [facility] Clinical Note 04-28-2022 Note Date & Type Note Facility 04-28-2022 Note [facility] SURGERY Clinical Discharge Summary PERSON INFORMATION Name MARIA DE JESUS MEDLEY Age 52 Years 1970 Sex MALE Language [place] PCP Zachary Rodriguez Marital Status Med Service Ambulatory Surgery Acct# Arrival 04/28/2022 09:37:00 Visit Reason SURGERY - RETROGRADE URETHROGRAM - NO CYSTOSCOPE, NO FLUORO, NO CONTRAST DYE - JUST LOOKING PER RAGINI Bustos LOS 012 00:13 Address: [address] [place] [address] Comment: PROVIDER INFORMATION VITALS INFORMATION Vital Sign [...] Follow up: With: Address: When: Zachary Rodriguez [address] [place] [address] [facility] (1) DIAGNOSIS Urethral stricture Comment: PHYS DOC NOTES [facility] Discharge instructions 03-31-2022 Note Date & [...] urethra. Follow these instructions at home: Take iyjr-xle-mpdcygv and prescription medicines only as told by [...] 10/18/2006 Document Revised: 09/12/2019 Document Reviewed: 11/22/2017 [employer] Patient Education 2020 [employer]. 03/31/2022 07:56:52 Kidney Stones, Fjik-vm-Fiqr Kidney Stones Kidney stones are rock-like masses [...] Follow these instructions at home: Medicines Take bitv-umd-romiqxx and prescription medicines only as told by [...] 04/05/2009 Document Revised: 03/05/2020 Document Reviewed: 03/05/2020 [employer] Patient Education 2019 [employer]. Follow Up Care 03/16/2022 11:12:01 With:SHANIKA VALDOVINOS, Jimmy Valles, URL Address: [facility] [address] , [place] [address]- [phone] When:07/13/2022 Comments:f/u in Jul PSA [facility] Discharge instructions 03-02-2022 Note Date & [...] 10/18/2006 Document Revised: 07/07/2019 Document Reviewed: 09/17/2017 [employer] Patient Education 2020 [employer]. 03/02/2022 14:01:11 Prostatitis Prostatitis Prostatitis is swelling [...] prostate. Follow these instructions at home: Take cvvz-zot-sqyhogy and prescription medicines only as told by [...] 10/15/2001 Document Revised: 12/31/2018 Document Reviewed: 07/08/2017 [employer] Patient Education 2020 [employer]. Follow Up Care 02/04/2022 15:37:59 With:Jimmy DAUGHERTY MD, URL Address: [facility] [address] , [place] [address]- When: Unknown Comments:Will schedule Cysto. [facility] Evaluation + Plan note Note Date & Type Note Facility Evaluation + Plan note Future Appointments Appointment Date:07/13/2022 03:15:00 PM Scheduled Provider:Jimmy DAUGHERTY MD Location:[facility] Appointment Type:URO Office Visit [facility] Evaluation note Note Date & Type Note Facility Evaluation note No Information [facility] [employer] Other History general Narrative - Reported Note Date & Type Note Facility History general Narrative - Reported Type Medical History Elevated blood press ure (not hypertension) Medical History Overweight Medical History 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 Medical History Acute prostatitis with hematuria Surgical History COLONOSCOPY 2019 Hospitalization History SEE SURGICAL HX [place] [facility] [facility] Other Hospital course Narrative Note Date & Type Note Facility Hospital course Narrative No data available for this section [facility] Summary Purpose Family History No Family History Records FoundNo Family History Records FoundNo Family History Records Found Advance Directives No Advanced Directives Records FoundNo Advanced Directives Records FoundNo Advanced Directives Records Found Additional Source Comments (unrecognized sect ion and content) No Status Records FoundNo Status Records FoundNo Status Records Found INFORMATION SOURCE (unrecogn ized section and content) DATE CREATED AUTHOR 04/14/2022 [facility] DATE CREATED AUTHOR AUTHOR'S ORGANIZ ATION 05/01/2022 [facility] DATE CREATED AUTHOR AUTHOR'S ORGANIZ ATION 01/18/2023 [facility] REASON FOR VISIT (unrecogniz ed section [...] BE BASED ON THE PRIMARY CLINICAL RECORDS. [employer] provides no warranty or guarantee of the accuracy or completeness of information in this document.
[2023-11-25 06:21] LABS: Basophils Absolute Auto 0.1 10^3/uL (0.0-0.1); Basophils Percent Auto 0.7 % (0.2-2.0); Eosinophils Absolute Auto 0.1 10^3/uL (0.0-0.7); Eosinophils Percent Auto 1.1 % (0.9-7.0); Hemoglobin 15.6 g/dL (14.0-18.0); Immature Granulocytes Abs Auto 0.03 10^3/uL (0.00-0.03); Immature Granulocytes Pct Auto 0.4 % (0.0-0.5); Lymphocytes Absolute Auto 2.4 10^3/uL (1.2-3.8); Mean Corpuscular HGB Conc 33.9 g/dL (29.9-35.2); Mean Corpuscular Hemoglobin 29.7 pg (25.9-34.0); Mean Corpuscular Volume 87.5 fL (80.0-94.0); Mean Platelet Volume 9.3 fL (9.5-13.5); Monocytes Absolute Auto 0.7 10^3/uL (0.3-0.8); Monocytes Percent Auto 9.1 % (1.7-12.0); Neutrophils Percent Auto 55.7 % (43.0-75.0); Platelet Count 289 10^3/uL (150-450); Red Blood Count 5.26 10^6/uL (4.70-6.10); Red Cell Distribution Width 11.4 % (11.0-15.0); White Blood Count 7.1 10^3/uL (4.0-11.0)
[2023-11-25 06:33] LABS: Glucometer 106 mg/dL (74-106)
[2023-11-25] MEDS: LACTATED RINGER'S SOLUTION 1,000 ML 50 ML IV ×2 (06:45→08:25)
[2023-11-25] MEDS: CEFAZOLIN SODIUM/DEXTROSE,ISO 2 GM/50 ML PIGGYBACK IV (07:39)
--- NOTE | 2023-11-25 08:03 | PC.NURSE ---
11/25/2022 (0722) Final timeout completed. Patient supine. Right leg draped in sterile technique per Dr. Murphy. O2 applied at 2l/min via nc. Patient placed on monitor. 0725- Right saphenous block initiated. 0727- Right saphenous block completed. Patient tolerated it well. 0729- Pain positioned on left side and right leg draped in sterile technique. Right poplilteal block initiated. 0731- Right popliteal block completed. Patient tolerated it well. See posted vital signs.
--- NOTE | 2023-11-25 08:52 | P.ORON_ITS ---
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 First metatarsal phalangeal joint fusion 2. ankle arthroscopy 3. ankle arthrotomy with anterior tibial cheilectomy 4. application of short leg splint 5. Intraoperative fluoroscopy with stress examination *All procedures were performed on the RIGHT foot INDICATION FOR PROCEDURE: patient is a 53-year-old male who presents to my office primarily for painful right bunion which has been worsening over the last year despite nonsurgical treatment which included shoe modification, NSAIDs, activity modification. In addition he relates to ankle pain primarily over the central and lateral aspects which is exacerbated with dorsiflexion. Radiographs revealed osteophyte from the anterior tibia. Due to failure to respond to nonsurgical care patient wished to proceed with surgical intervention and I recommended the above procedures. Patient education was provided and all questions were answered to satisfaction. I discussed all potential risks and benefits. INTRAOPERATIVE FINDINGS: Ankle arthroscopy revealed mild to moderate arthritic changes to the central aspect of the tibiotalar joint with a large osteophyte noted on the lateral aspect of the tibia but extended across to the medial aspect. Chronic synovitis was also noted on arthroscopy and went placed through range of motion there was obvious impingement from both soft tissue and bone. arthrotomy was performed due to the size of the osteophyte and once removed the ankle had fluid range of motion without impingement from soft tissue or bone. 1st metatarsophalangeal joint had synovitis with moderate arthritic changes to the lateral 1st metatarsal head and significant valgus deformity of the great toe which was abutting the 2nd toe. Bone quality was within normal limits PROCEDURE IN DETAIL: Patient was identified in pre op and consent was reviewed. Correct side and site were identified and marked. Pre-op antibiotics were started. Patient was brought to OR suite and place on table in a supine position. General anesthesia was administered. A tourniquet was applied. Operative extremity was prepped and drap ed in usual sterile fashion. Formal time-out was performed and the foot/ankle were exsanguinated and tourniquet inflated. Standard anterior medial ankle portal was created with a scalpel. Blunt diss ection was performed then the trochar and cannula were inserted with the ankle held in maximum dorsiflexion. Inspection of the ankle demonstrated significant acute and chronic synovitis with impingement. A needle was inserted into the anterior lateral ankle in standard safe zone and was identified then removed. A second 1 cm incision was created over anterior lateral ankle followed by blunt dissection to ensure the intermediate dorsal cutaneous nerve was protected. A 3.5 mm aggressive shaver was inserted into this portal and used to resect all soft tissue impingement and synovitic tissue. however due to the size of the osteophyte decision was made to perform arthrotomy so the medial portal was extended proximally by 2 cm. Comminution sharp and blunt dissection gained access to the anterior tibia. Under fluoroscopic guidance osteotomes and rongeurs were used to remove the osteophyte which was passed the back table and sent as specimen. Then a rasp was used to contour the anterior distal tibia. The ankle was then stressed and was notably stable in anterior drawer as well as varus and valgus. Range of motion under fluoroscopy revealed no osseous impingement from the distal tibia to the talar neck. Surgical site was irrigated with copious saline Incision created over dorsal aspect of the 1st MPJ. Bleeders coagulated. EHL protected throughout the procedure. Capsulotomy performed and McGlammry elevator inserted into 1st MPJ. Guide Pin place in 1st metatarsal head. Conical reamers used on 1st metatarsal head to remove cartilage and subchondral bone. Guide pin removed. Conical reamers used on proximal phalanx in a similar manner. 2.0 mm drill used to on each side of the joint. The site was irrigated. 1 cc of bone allograft was then packed into the fusion site. A stab incision was placed on the medial aspect of the hallux and blunt dissection down to the proximal phalanx base was performed. A guide wire was then used to pin the MPJ in a rectus position under fluoroscopic guidance. Position was checked both on the table and under fluoroscopy. A saw was used to contour the dorsal aspect of the 1st metatarsal and proximal phalanx to accommodate plate fixation. A 3.[address] was [address] over the fusion site and temporarily fixed. Then commercial airline pilot holes were drilled for locking 3.5 mm screws which were measured and placed according to the manufactor's standard directions. Again position was checked under fluoroscopy as well as on the table. Temporary fixation was removed and additional screws were placed. A 4.0 mm cannulated headed screw was inserted over the previously placed guide wire accordingly. Again position of the great toe and hardware placement were checked on the table and under fluoroscopy. sagittal saw was used to resect the medial eminence which had not been resected from the reamers. A rasp was used to contour the medial aspect of the 1st metatarsal head. The surgical site was irrigated with copious amounts of sterile saline. The incisions were then closed in layers. The tourniquet was deflated and a prompt hyperemic response was noted. A dry sterile dressing consisting of Xeroform on the incisions followed by 4 x 4 gauze, ABDs, and Kerlix were applied. Multiple layers of cast padding were then applied to ensure all bony prominences were well-padded. A plaster posterior splint was then applied which was held in place by Vazquez wraps. Capillary refill time to all digits was evaluated and had appropriate response. POSTOPERATIVE PLAN: Discharge home under family's care Post op instructions provided verbally and written prescription(s) were placed in chart [facility] operative foot/ankle x1 wk Follow-up in 1 week Implants: Vilex 1st MTPJ plate & 4.0 mm interfrag screw Anesthesia: regional and General-LMA Surgeon: Jose Palomino Mesh Cutter: Gordon Talbert Estimated blood loss (mL): 10 Pathology: other (ankle osteophyte) Condition: stable Disposition: PACU
--- NOTE | 2023-11-25 10:27 | XR_ITS ---
The [address] [address] Patient Name: MARIA DE JESUS MEDLEY MRN: [id number] date: 1970 Sex: M Assigned Patient Location: [facility] Current Patient Location: [facility] Accession/Order Number: [id number] Exam Date: 11/25/2023 11:10 Report Date: 11/25/2023 11:28 At the request of: ERNIE ARCE Procedure: XR foot RT min 3V PROCEDURE: XR ankle RT min 3V, XR foot RT min 3V COMPARISON: None. HISTORY: Postop x-ray FINDINGS: BONES:Contour deformity of the distal tibia and fibular diaphyses, remote healed fracture. Interval reduction in hallux valgus with first metatarsal-phalangeal joint fusion utilizing a dorsal plate and screws. Anatomic alignment with no acute fracture, dislocation or mechanical failure SOFT TISSUES:Postoperative swelling and subcutaneous emphysema dorsal foot and ankle. EFFUSION:None visible. OTHER: Negative. XR/XR foot RT min 3V IMPRESSION: First metatarsal-phalangeal joint fusion Electronically authenticated by: ARMANDO ALEXANDER Date: 11/25/2023 11:28
--- NOTE | 2023-11-25 10:27 | XR_ITS ---
The [address] [address] Patient Name: MARIA DE JESUS MEDLEY MRN: [id number] date: 1970 Sex: M Assigned Patient Location: [facility] Current Patient Location: [facility] Accession/Order Number: [id number] Exam Date: 11/25/2023 11:10 Report Date: 11/25/2023 11:28 At the request of: ERNIE ARCE Procedure: XR ankle RT min 3V PROCEDURE: XR ankle RT min 3V, XR foot RT min 3V COMPARISON: None. HISTORY: Postop x-ray FINDINGS: BONES:Contour deformity of the distal tibia and fibular diaphyses, remote healed fracture. Interval reduction in hallux valgus with first metatarsal-phalangeal joint fusion utilizing a dorsal plate and screws. Anatomic alignment with no acute fracture, dislocation or mechanical failure SOFT TISSUES:Postoperative swelling and subcutaneous emphysema dorsal foot and ankle. EFFUSION:None visible. OTHER: Negative. XR/XR ankle RT min 3V IMPRESSION: First metatarsal-phalangeal joint fusion Electronically authenticated by: ARMANDO ALEXANDER Date: 11/25/2023 11:28
[2023-11-25 10:49] LABS: Glucometer 134 mg/dL (74-106)
== END 2023-11-25 11:35 | disposition home or self-care (01) ==
PROVIDERS: Anesthesiology; PCP Internal Medicine; Visit Provider Podiatrist Foot & Ankle Surgery
PROC: (CPT 1464; principal; 2023-11-25 07:30)
DX: M20.11 Hallux valgus (acquired), right foot (principal); M25.771 Osteophyte, right ankle; Z86.16 Personal history of COVID-19; Z87.442 Personal history of urinary calculi; Z90.49 Acquired absence of other specified parts of digestive tract; M20.21 Hallux rigidus, right foot; L84 Corns and callosities
CPT/HCPCS: 20900; 27625; 28750; 29898; 36415; 64445; 64450; 73610; 73630; 76000; 76942; 82948; 85025; 88305; 88311; C1713; J0690; J1100; J1170; J1885; J2250; J2405; J2704; J2795; J3010

== ENCOUNTER 2023-12-14 10:45 | Outpatient (OUT) | payer OTHER, SELFPAY ==
--- NOTE | 2023-12-14 | XR_ITS ---
The [address] [address] Patient Name: MARIA DE JESUS MEDLEY MRN: [id number] date: 1970 Sex: M Assigned Patient Location: [facility] Current Patient Location: [facility] Accession/Order Number: [id number] Exam Date: 12/14/2023 11:01 Report Date: 12/14/2023 12:17 At the request of: MORENA YA Procedure: XR foot RT min 3V PROCEDURE: XR foot RT min 3V DATE: 12/14/2023 10:01 AM LINE SERVICER COMPARISONS: 11/25/2023 CLINICAL INDICATION: RIGHT FOOT PAIN FINDINGS: There is no evidence of fractures or other acute osseous abnormalities. Evidence of postop fusion of the first metatarsal phalangeal joint. Similar findings are seen on 11/25/2023. Fusion hardware appears to be intact There is a small spur off the posterior inferior os calcis. There is some mild interphalangeal degenerative changes best seen distal second interphalangeal joint. No evidence of erosive osseous lesion or destructive osseous process. XR/XR foot RT min 3V IMPRESSION: Right foot radiographs show no evidence of acute abnormalities. Stable postop changes. Electronically authenticated by: CIERA HITCHCOCK Date: 12/14/2023 12:17
--- OUTSIDE RECORDS SUMMARY | 2023-12-14 10:48 | XMS_ITS | CCD ---
Author Name Unknown Address [address] [place] [address] Organization [facility] Care Team Providers Care Health Insurance Adjuster Name Role Phone ZACHARY RODRIGUEZ Primary Care Physician Zachary Rodriguez Unavailable MICHAEL, DR SHARMA Admitting Unavailable MICHAEL, DR SHARMA Attending Unavailable MICHAEL, DR SHARMA Primary Care Unavailable MICHAEL, DR SHARMA Consulting Unavailable DAUGHERTY ., DR GONZALEZ Admitting Unavailable DAUGHERTY ., DR GONZALEZ Attending Unavailable BALL, DR SHARMA Primary Care Unavailable MICHAEL, DR SHARMA Consulting Unavailable DAUGHERTY ., DR GONZALEZ Consulting Unavailable DONN, DR CHARLY Valles Consulting Unavailable MICHAEL, DR SHARMA Primary Care Unavailable MICHAEL, DR SHARMA Admitting Unavailable MICHAEL, DR SHARMA Attending Unavailable BALL, DR SHARMA Consulting Unavailable DONN, DR CHARLY Valles Consulting Unavailable MICHAEL, DR SHARMA Admitting Unavailable MICHAEL, DR SHARMA Attending Unavailable MICHAEL, DR SHARMA Primary Care Unavailable MICHAEL, DR SHARMA Consulting Unavailable DONN, DR CHARLY Valles Consulting Keron Rodriguez, DO Sharma Primary Care Provider DARA Palomino Attending Provider Zachary Rodriguez Primary Care Jose Cornelius Attending Jose Cornelius Admitting Unavailable Medications Current Medications Medication Drug Class(es) [...] BID, # 60 cap(s), Refills(s) 6, [id number] 176, cm, 03/02/22 13:33:00 EDT, Height/Length Dosing, 86.1, kg, 03/02/22 13:33:00 EDT, Weight Dosing Start Date: 03/02/22 Status: Ordered Start: 11-20-2021 take 1 capsule by [facility] once daily Flomax 0.4 mg Cap 0.4 mg = 1 cap(s), Oral, Daily, # 30 cap(s), Refills(s) 6, Pharmacy: [facility]/pharmacy #[id number], 176, cm, 11/20/21 14:51:00 EST, Height/Length [...] procedure, # 2 tab(s), Refills(s) 0, Pharmacy: [facility]/pharmacy #[id number], 176, cm, 03/02/22 13:33:00 EDT, Height/Length [...] conditions (not mental disorders or infectious disease) (3 sources) Encounter for screening for malignant neoplasm of prostate; Translations: [Patient encounter status] Onset: 12-20-2022 Episodic Other skin disorders (4 sources) Localized swelling, mass and lump, right lower limb; Translations: [LOC SWELL MASS LUMP RT LOWER LIMB] Onset: 01-08-2023 Episodic Unclassified (2 sources) Asymptomatic microscopic hematuria 12-29-2021 Results Test Name Value Interpretation Reference Range Facility Jose Antonio 11-25-2023 L Specimen: [id number] Received: 11/25/23 Status: JONO Villa Num: [id number] Spec Type: Surgical Subm Dr: Jose Palomino DPM, MS Tissues: A Bone Fragments - Other than Path Fracture (RT TIBIAL OSTEOPHYTE) Procedures: HE, Gross/Micro L3, Decalcification Age/ Patient Sex Location Account Attending Physician Maria De Jesus Medley M 53/M LABELL [id number] Jose Palomino DPM, MS SPEC NUM: [id number] RECD: 11/25/23 STATUS: JONO BEJARANOWhitley NUM: [id number] STANISLAV: 11/25/[address]: Jose Palomino DPM, MS ENTERED: 11/25/23 [facility] DR: Jared Arndt SPEC TYPE: Surgical DEPT: STEFANO NICOLAS ORDERED: HE, Gross/Micro L3, Decalcification ORDERED: HE, Gross/Micro L3, Decalcification Pathological Diagnosis Right tibial osteophyte, resection: Features consistent with osteophyte. Clinical Information Right foot hallux valgus Gross Description Received in formalin labeled with the patient's name, date of and right tibial osteophyte is a 2.5 x 2.2 x 0.6 cm aggregate of pink-yepez bony fragments, with no areas of softening identified. [employer] Professional sections are submitted in one cassette labeled A1. CPT Codes 03090, 62496 Specimen: [id number] Received: 11/25/23 Status: JONO Villa Num: [id number] Spec Type: Surgical Subm Dr: Jose Palomino,DPM, MS Tissues: A Bone Fragments - Other than Path Fracture (RT TIBIAL OSTEOPHYTE) Procedures: HE, Gross/Micro L3, Decalcification Patient: Maria De Jesus Medley [id number] (Continued) Signed (signature on file) Isacc Beard MD 11/27/23 1132 [facility]_SOFT TISSUE BXon [facility]_SOFT TISSUE BX Begin Addendum #1 COLLECTED DATE/TIME: 01/08/2023 16:30 EST Final Diagnosis Report for [facility] [place] ULTRASOUND-GUIDED CORE BIOPSY RIGHT LATERAL THIGH [...] results from the referring physician. Normal [facility] US EXT NON VASC LIMITED RTon [...] CHARLY POP Date: 2022-12-22 08:45 Normal [facility] CBC AUTO DIFFon 12-15-2022 BASO # 0.1 103/ul Normal 0.0-0.1 [facility] Comment on above: Performed By: #### C BC #### [facility] [address] [place] [address] Dr. Ashley Acosta Basophils/100 WBC (Bld) 0.9 % Normal 0.2-2.0 [facility] Comment on above: Performed By: #### C BC #### [facility] [address] [address] [address] Ashley Acosta EO # 0.2 103/ul Normal 0.0-0.7 [facility] Comment on above: Performed By: #### C BC #### [facility] [address] [address] [address] Ashley Acosta Eosinophils/100 WBC (Bld) 1.8 % Normal 0.9-7.0 [facility] Comment on above: Performed By: #### C BC #### [facility] [address] [place] [address] Dr. Ashley Acosta Erythrocyte distribution width (RBC) [Ratio] 11.8 % Normal 11.0-15.0 [facility] Comment on above: Performed By: #### C BC #### [facility] [address] [place] [address] Dr. Ashley Acosta Hematocrit (Bld) [Volume fraction] 43.3 % Normal 42.0-54.0 [facility] Comment on above: Performed By: #### C BC #### [facility] [address] [place] [address] Dr. Ashley Acosta Hemoglobin (Bld) [Mass/Vol] 15.1 g/dL Normal 14.0-18.0 [facility] Comment on above: Performed By: #### C BC #### [facility] [address] [place] [address] Dr. Ashley Acosta IG # 0.04 10e3/ul Critically high 0.00-0.03 [facility] Comment on above: Performed By: #### C BC #### [facility] [address] [place] [address] Dr. Ashley Acosta IG % 0.5 % Normal 0.0-0.5 [facility] Comment on above: Performed By: #### C BC #### [facility] [address] [place] [address] Dr. Ashley Acosta LYMPH # 2.5 103/ul Normal 1.2-3.8 [facility] Comment on above: Performed By: #### C BC #### [facility] [address] [place] [address] Dr. Ashley Acosta Lymphocytes/100 WBC (Bld) 29.5 % Normal 20.5-60.0 [facility] Comment on above: Performed By: #### C BC #### [facility] [address] [place] [address] Dr. Ashley Acosta MANUAL DIFF REQ NO Normal [facility] Comment on above: Performed By: #### C BC #### [facility] [address] [address] [address] Ashley Acosta MCH (RBC) [Entitic mass] 29.9 pg Normal 25.9-34.0 [facility] Comment on above: Performed By: #### C BC #### [facility] [address] [address] [address] Ashley Acosta MCHC (RBC) [Mass/Vol] 34.9 g/dL Normal 29.9-35.2 [facility] Comment on above: Performed By: #### C BC #### [facility] [address] [address] [address] Ashley Acosta MCV (RBC) [Entitic vol] 85.7 fL Normal 80.0-94.0 [facility] Comment on above: Performed By: #### C BC #### [facility] [address] [place] [address] Dr. Ashley Acosta MONO # 0.6 103/ul Normal 0.3-0.8 [facility] Comment on above: Performed By: #### C BC #### [facility] [address] [place] [address] Dr. Ashley Acosta Monocytes/100 WBC (Bld) 7.3 % Normal 1.7-12.0 [facility] Comment on above: Performed By: #### C BC #### [facility] [address] [place] [address] Dr. Ashley Acosta NEUT # 5.1 103/ul Normal 1.4-6.5 [facility] Comment on above: Performed By: #### C BC #### [facility] [address] [place] [address] Dr. Ashley Acosta Neutrophils/100 WBC (Bld) 60.0 % Normal 43.0-75.0 [facility] Comment on above: Performed By: #### C BC #### [facility] [address] [place] [address] Dr. Ashley Acosta Platelet mean volume (Bld) [Entitic vol] 9.7 fL Normal 9.5-13.5 [facility] Comment on above: Performed By: #### C BC #### [facility] [address] [address] [address] Ashley Acosta PLT 274 103/ul Normal 150-450 [facility] Comment on above: Performed By: #### C BC #### [facility] [address] [address] [address] Ashley Acosta RBC 5.05 106/ul Normal 4.70-6.10 [facility] Comment on above: Performed By: #### C BC #### [facility] [address] [address] [address] Ashley Acosta WBC 8.5 103/ul Normal 4.0-11.0 [facility] Comment on above: Performed By: #### C BC #### [facility] [address] [place] [address] Dr. Ashley Acosta Comprehensive Metabolic Pane jose antonio 12-15-2022 Albumin [Mass/Vol] 4.021412 g/dL 3.4-5.0 g/dL N [place] Other Albumin/Globulin [Mass ratio] 1.3 {ratio} [employer] Other Comment on above: Performed By: #### C MP, LIPID #### [facility] [address] [place] [address] Dr. Ashley Acosta ALP [Catalytic activity/Vol] 57 U/L Normal 46-116 [employer] Other Comment on above: Performed By: #### C MP, LIPID #### [facility] [address] [address] [address] Ashley Acosta ALT [Catalytic activity/Vol] 31 U/L Normal 16-63 [employer] Other Comment on above: Performed By: #### C MP, LIPID #### [facility] [address] [place] [address] Dr. Ashley Acosta Anion gap [Moles/Vol] 12.2 mmol/L Normal [employer] Other Comment on above: Performed By: #### C MP, LIPID #### [facility] [address] [address] [address] Ashley Acosta AST [Catalytic activity/Vol] 25 U/L Normal 15-37 [employer] Other Comment on above: Performed By: #### C MP, LIPID #### [facility] [address] [address] [address] Ashley Acosta Calcium [Mass/Vol] 9.9210890 mg/dL 8.5-10 .1 mg/dL [employer] Other Chloride [Moles/Vol] 101 mmol/L Normal 98-107 [employer] Other Comment on above: Performed By: #### C MP, LIPID #### [facility] [id number] [address] Ashley Acosta CO2 [Moles/Vol] 27.16634277 mmol/L 21.0-3 2.0 mmol/L [employer] Other Creatinine [Mass/Vol] 0.28992768 mg/dL 0.70-1.30 mg/dL [employer] Other Potassium [Moles/Vol] 3.99085920 mmol/L 3.5-5.1 mmol/L [employer] Other Protein [Mass/Vol] 7.660875 g/dL 6.4-8.2 g/dL [facility] [employer] Other Urea nitrogen [Mass/Vol] 11.1292777 mg/dL 7.0-18.0 mg/dL [employer] Other Urea nitrogen/Creatinin e [Mass ratio] 11.7 mg/mg Normal [employer] Other Comment on above: Performed By: #### C MP, LIPID #### [facility] [address] [address] [address] Ashley Acosta Comprehensive Metabolic Panel see note [employer] Other Comprehensive Metabolic Panel 137 mmol/L 136-145 mmol/L [employer] Other Comprehensive Metabolic Panel 85 mg/dL 74-106 mg/dL [employer] Other Comprehensive Metabolic Panel >60 mL/min/1.73m2 >=60 mL/min/1.73m2 [employer] Other Comprehensive Metabolic Panel 0.9 mg/dL 0.2-1.0 mg/dL [employer] Other Comprehensive Metabolic Panel 3.2 g/dL [employer] Other LIPID PROFILEon 12-15-2022 CHOL-HDL RATIO NORM SEE BELOW Normal [facility] Comment on above: Result Comment: 3.3 - 4.4 LOW RISK 4.4 - 7.1 AVERAGE RISK 7.1 - 11.0 MODERATE RISK >11.0 HIGH RISK Performed By: #### C MP, LIPID #### [facility] [address] [place] [address] Dr. Ashley Acosta Cholesterol in LDL [Mass/Vol] 120.2 mg/dL Normal [facility] Comment on above: Performed By: #### C MP, LIPID #### [facility] [address] [place] [address] Dr. Ashley Acosta HDL NORMAL > or = 60 mg/dl - LO W CARDIOVASCULAR RISK <40 mg/dl - HIGH CARDIOVASCULAR RISK Normal [facility] Comment on above: Performed By: #### C MP, LIPID #### [facility] [address] [place] [address] Dr. Ashley Acosta LDL CALC NORMAL SEE BELOW Normal [facility] Comment on above: Result Comment: <100 mg/dl OPTIMAL 100 - 129 mg/dl NEAR OR ABOVE OPTIMAL 130 - 159 mg/dl BORDERLINE HIGH 160 - 189 mg/dl HIGH >190 mg/dl VERY HIGH Performed By: #### C MP, LIPID #### [facility] [address] [place] [address] Dr. Ashley Acosta VLDL CALC 17.8 mg/dL Normal [facility] Comment on above: Performed By: #### C MP, LIPID #### [facility] [address] [address] [address] Ashley Acosta Lipid Panelon 12-15-2022 Cholesterol [Mass/Vol] 194 mg/dL Normal <=[address] [facility] [employer] Other Comment on above: Performed By: #### C MP, LIPID #### [facility] [address] [address] [address] Ashley Acosta Cholesterol in HDL [Mass/Vol] 56 mg/dL Normal 40-[address] [facility] [employer] Other Comment on above: Performed By: #### C MP, LIPID #### [facility] [address] [address] [address] Ashley Acosta Cholesterol.total/ Cholesterol in HDL [Mass ratio] 3.5 {ratio} Normal [facility] [employer] Other Comment on above: Performed By: #### C MP, LIPID #### [facility] [address] [address] [address] Ashley Acosta Triglyceride [Mass/Vol] 89 mg/dL Normal <=150 [employer] Other Comment on above: Performed By: #### C MP, LIPID #### [facility] [address] [place] [address] Dr. Ashley Acosta Lipid Panel > or = 60 mg/dl - LO W CARDIOVASCULAR RISK <40 mg/dl - HIGH CARDIOVASCULAR RISK [employer] [facility] [employer] Other Lipid Panel SEE BELOW [employer] Other Lipid Panel 120.2 mg/dL [employer] Other Lipid Panel 17.8 mg/dL [employer] Other PROF 14(COMP METB)on 023 Albumin [Mass/Vol] 4.0 g/dL Normal 3.4-5.0 [facility] Comment on above: Performed By: #### C MP, LIPID #### [facility] [address] [place] [address] Dr. Ashley Acosta Bilirubin [Mass/Vol] 0.9 mg/dL Normal 0.2-1.0 [facility] Comment on above: Performed By: #### C MP, LIPID #### [facility] [address] [address] [address] Ashley Acosta Calcium [Mass/Vol] 9.0 mg/dL Normal 8.5-10.1 [facility] Comment on above: Performed By: #### C MP, LIPID #### [facility] [address] [address] [address] Ashley Acosta CO2 [Moles/Vol] 27.5 mmol/L Normal 21.0-32.0 [facility] [place] Comment on above: Performed By: #### C MP, LIPID #### [facility] [address] [address] [address] Ashley Acosta Creatinine [Mass/Vol] 0.94 mg/dL Normal 0.70-1.30 [facility] Comment on above: Performed By: #### C MP, LIPID #### [facility] [address] [place] [address] Dr. Ashley Acosta EGFR-AF SOUTH AFRICAN >60 Normal >=60 [facility] [place] Comment on above: Performed By: #### C MP, LIPID #### [facility] [address] [place] [address] Dr. Ashley Acosta EGFR-NON AF [place] AFRICAN >60 Normal >=60 [facility] Comment on above: Performed By: #### C MP, LIPID #### [facility] [address] [address] [address] Ashley Acosta Globulin (S) [Mass/Vol] 3.2 g/dL Normal [facility] Comment on above: Performed By: #### C MP, LIPID #### [facility] [address] [address] [address] Ashley Acosta Glucose [Mass/Vol] 85 mg/dL Normal 74-106 [facility] Comment on above: Performed By: #### C MP, LIPID #### [facility] [address] [address] [address] Ashley Acosta Potassium [Moles/Vol] 3.7 mmol/L Normal 3.5-5.1 [facility] Comment on above: Performed By: #### C MP, LIPID #### [facility] [address] [place], [place] [address] Dr. Ashley Acosta Protein [Mass/Vol] 7.2 g/dL Normal 6.4-8.2 [facility] Comment on above: Performed By: #### C MP, LIPID #### [facility] [id number] [address] Ashley Acosta Sodium [Moles/Vol] 137 mmol/L Normal 136-145 [facility] Comment on above: Performed By: #### C MP, LIPID #### [facility] [id number] [address] Ashley Acosta Urea nitrogen [Mass/Vol] 11.0 mg/dL Normal 7.0-18.0 [facility] Comment on above: Performed By: #### C MP, LIPID #### [facility] [address] [address] [address] Ashley Acosta Coding Summaryon 04-30-2022 Coding Summary [employer]Base 64 NqbrwgmwBLf8gQx+PGhlYWQ +QC5TCVUeA52ssVDqgN2VS5 vPLP6IKDODAKTSCR8VYX7hm PF8SWwbG7MuduMm VujstDXnZZ18KVl7XYM8qGm uFHihaL3coCCuX9w2MsXkCD 99aF32AUxfCINeJiF8WgXrs jsgbWFy W1owYbOctURxVue+PHRhYmx lIHdpZHRoPScxMDAlJyBzdH veMP9lPx1fOQWsQGGepZeuo HNlOiBj p1gjBQLeCExeQT6pwCebJ7G uvPO9GRFye8u9Fq14kUR+PH TxFZM1tXxiYEevo492GzKof 9xzFBE3 uQScALbzHMR4Z22pu9D3MMK aOZFyMAW4iPU4zV8qzSwaqg xhH4HbxNOoOiW2BWO5lWYna L9huLsh vokrpB1fYck+F41ZRB2VKAB MGV8RQcf1V5WoWqslrVZ+PC 05LAWcEH27pJPomIKzd7rhf Hb1BbUp JAKjDQL3gGjoMIetq6MfXPP hO60ikZMmq0U0SIUlcGvixR AxZbSsqSI0fC1dVIhnydyeo 2hvdzsn Pyuww4wpwh70iW99B31qWJz gPTQeIVB4OYXiIJUpjYikxp 1rxF6pAc4+VSndo1gpb3oyn Nv4XlDc GXEpmrCyjQetACP5f4FwOo7 2M9IriIxjx5GvWwq4hx86wU Ent5G1fYK4TMmfJXOuzM5pP WxlZnQ6 JRExRlFvwD49wAMzKUyxJw2 xiSionHivTL0pZULalakiFJ PfeE5fTXVyjUBhpDrmZM6dM TBpbjtm c547BlQlLVQ2VCOmjONgE5J zfI7jIcGvOKVnNSLcU8PaxF QrVXvfQ841VDpwHkT3WZRnt iMkG2Sk TUSbqUjkTkO1v7P9Pn0Lb4X qkpjiSQQ0QAfnKNI1RnBcMe HtLiL7S7SkSaq5FBBbgXweX W6rT5Yk BBIbtbshtenuhPR6SPIpKUV zeP18kWVtNDuxVw7cn8J9s2 45AOJpJIHhiR72Rn4epEraL TBwdCBU oP0plpixd6ppeegvPuEpITL nLWz9YLx5SQVmaIygIkDxAV E4IuT4YSB1bJGjbD7qiRwih jkzeF1k Oyc+O08wwD9cPGP5YOO2rrc oULKpbgLjJY57HM14E0ZbRt wvdGFibGU+PGRpdiBzdHlsZ H1wPtOf o9zur8HsYEyrE0WhNVYcHRa tGyt7WFFmHOB8mIB0tP4cFR JuOFaoc2W2jAI3F2VordDjp s9vj2sj XINcXGrfK58gwJUhj0P3HTE voLX6UXZejLoiRjFpoE10Fq c+WLQncJqot2ZcGduen5knz 4cqfLr0 OvPvVRHzfqJmjAnkZGS6t9H sXz02G21dFSmkBTKxYYXvNQ JmOTUheYhqqb0iuC4iCb7+P GNvbCB3 rOP1iR0uORSgFjW1PEpsI89 2KwLrpSRtSduqy7eln9ajjB k5DdOxSSWkmqCakSrsRVA1s 0UnHe13 X20fWThmDXEwNHMrHIMuOXF jwJpslx5msM4wMa4+PC9jb2 phel24pI80dPW+ZSIpGEM1o WxlPSdw EGLlnY5cDRqeCoH5CRLcJyP riH12jCTlVGyeDu6nvEmraD zoBZ7hJFZbqmqrm257FbYml 2xkIDEw uHZmWVtaLNC0B72mr8J9BQJ rDVSpIFH8cWZ1vJ8bhFzeee ogbGVmdDsgdmVydGljYWwtY FjgM621 IHRvcDsnPlBhdGllbnQgTmF tGZi9V0XjSpf6AEMwdIfrQS 9hnCLkUXgwAy5pgSlhfFisT P6nLSSg spwkq732DiWlr8beJOGegTY eNWolXZT4N69ck5U5XMNcYR NaKXU1uYV7jQ2qxBuhbsfps GVmdDsg myAkpQanRJhlFUxeU444VEA euUchKcEibtZxNPVanLJ4ZI 49ZB99wTBdb0J8fED5X8OwE GRpbmct aqmboLW3KNYxUXMtkF87Ur5 tcLahTl7dHAEwBIM2ZSUqaJ XhW4IxvM0mTgMxNPFgSTPhK 3RleHQt UMbnJ528CFimEmE6EIRkckK yX5FsQNLlaDfcNoZ4q9S2Rk 1OU2B5WC76KK27rAPog2O1l QA1T2Ls RZDaibhznvnaxLX3AVRaUOL vsF96Aj1vsQezEl7vLLEbYU C8EHRihQRmJ5VvcR2iZkLmD DAwMDAw I9DeqAPyRLicM633RKhcCiP 2UNRsbvMqC6RqPACnvQlqZs T8v9M6Au2CLIk4ZQ14FF82e PLkv6T7 cIY5X2GjMZBghrlswhmxxTO 2YBGyGEXcfL06Kx3qpNglCs 4gOZSpBJY5CXUxdQCsD0Qoz W2uBqFd IYWhMXClH8JryTRxMNuuX77 5OMkpWhY6RUAdjwGpD1EyNT HbvYggSkN1y6W9Bj4SCGTtR T32FHH4 gYM6NS74LO78M4LzGapajMV ibGU+PHRhYmxlIHdpZHRoPS mdBDVyDcEruThkYG8jUh5eU GVyLWNv oUyexRYcFaEaa1vxWDWsPFl rHN4cfHfxO8GkySH4CFVxt2 s4Xi57Q46cP3LfkPQ+PGNvb IJ4pTJ5 eK8iDjJsEwH0CRdtO740PtB rcKBhPicng6xmb4cxmGm8Gq H7LNNkdnVnrApbQUE2i5HvO v32A47e IHdpZHRoPSIxNSUiIHZhbGl qpw4qrH0hSa8+REJgdBD9oY Q5sI3mBdUwTlO2RAmvL332I nRvcCIv Rgsiq5wpe5knhUx8RuYpMZS kxjTdlLauKFR3s0IiTj82Q7 KptLkxb7UaKrg1mh24tTJfg 0X2wSJ4 X2HaQWUscvlnnJHzfYnmIU1 xDDVcuhftAYNdjA9yYVGmY5 z2XnIuNaP5GXqmR6BiamQ9W DEwcHQg RLlwZJM1T53uu6N7LGUmMSQ eFVB0vXF7iZ0gvRcnegquiQ VmdDsgdmVydGljYWwtYWxpZ 246IHRv wZpmGOXxgW9cDKQxgXHpyZm oOS9sXOEccmjhWu6ISt1FIy zxD0yUCTGDKNHAJQVTPY54L K27bFGf c9V3mRL1T6DxEDPmcrfagze ukMN3ABRxOMNdqO97nPLiAA ypHt3ax5M2g055TOAbIKHwr J17Rw4b iQzvWCBfoEWEqY0alyrvu8y grwbkNiXjSSCrGMd9UYe5XM IkxOkpYhVlIJI7LfP3NGU4n DNtaR3k sErskvnxeP6oZya+MDMvMjQ rUMv4QtwwbXS+UGEsKWW7wE ayWVomHBDbsW8lLNDeY7w4I iAwLjA1 FXlaP0WfAAYancbzBx17pL4 fWqPqZbF3HIdqP6ZdgdJ0NA GvaVWdCZwvFDO7C71ca8V3T CMwMDAw NKP3tRI7vZ9scWzoowgtgXL mdDsgdmVydGljYWwtYWxpZ2 46IHRvcDsnPjUwIFllYXJzP A35WE51 fFWcu2S6lZA5K7OvDVOcmxu mbodyzAK6SZFaXYWamF05fX MlEBekZj2hk5B3k409EFYqX DUwaW47 Ge9snBegATFfoIMPeR2isym qc0aomwutBrJoCOUzAOi4DI w1KMLefWcaFuQiSTI5GpO1Y WE1mNOr bN3pmLgbwazgyT1sPgj+TUF MRTwvdGQ+YRHjZFW8tCstYD osPJWgqH7pHUWwK1e3JjGlE yP5HMsn Q7PaYBGahqbmEm38qB4zFkR mZoT5BSiaY0EkliN3WLDymX WrWFchEVQ4U38dq8Z4MATmD DAwMDA7 nJS5tQ4wjRwvuszaqTPmyGr yinNibKtiILkoYXqiU050EX UcqAkfHzVyxQJPbHTcDKV3Q G25SB78 I7UxDuycfSKlsWP+PHRhYmx lIHdpZHRoPScxMDAlJyBzdH ptTV7gFn1hEPDcIYKnuLeli HNlOiBj r5ueTNPbOYmmCH7omBtmO4F wnHK8SHXmx1s7Qx72P81eE0 JvdXA+SLUibRT3bAM4pJ0gD zAlIiB2 WLkqW688PlQucHKaNfbuu6c vn3dxwKk6AiDzWKCcooUirG qyMUL4y9WgMm57F73nNXbiR HRoPSIy MQRiOFZtrSzqpl9puL9xYp9 +QHDnlSA5kOT2fC1bNhBzDg R6RMptU784OnFosLDyCcqtN 15oD2Sr dXA+USKoKcf0BQPoiWbuZU6 ovKKsMQwjGk4xKLC5QbLeZv XkCNmzM1YlSPOetubgcxnwj CN6YHNt FQHlaG45Mg4uiLbbPl8zFER yUPV9MMBebRYkE7OaoB1sEs BzVJCoACFlA5AizALhERdxZ 246IGxl IfL2UDIvbaRxV4QeUKCssBk lQbD4y1I0Cq6RqKowkROtNT 7zBmLrGUr6J4CfPra7GITml CrkPN8t jJWiNBowHn7arAcotKxcYW1 xERHhsofig458FjRik6ceDG GxzNPvMJkkHZV1S77rx2D3F CMwMDAw BYI4fPB8gU5qjFfneotnwXB mdDsgdmVydGljYWwtYWxpZ2 56YJSgsYjoOnZFVnt9R8YoR ud1TLFr nDbdMU1xcIOsNNupGn3thPr szVthUG6sUBEdodand790Zk Wcu7ksEDQviAVoLAvrLLD2M 05pg7P1 QAYuVTNoJGI6jPK2yX8siSx nbjogbGVmdDsgdmVydGljYW zbYGucF449ZBSwdBabMd0XI wh5G1Tc Qlx8TUFpyNlsFV5elCKkWBl jZy2xeKpvdYuaSR9hJSSfsi qlz578UdItr0bgWJAegDRwV GltZXM7 V86ee6C2HZDhGSBsXRQ7kXM 8qB4zvBuzncqszXXsqMzkzv LgbIscNQxxPSzvE538FTLwc DsnPlBh eWVyOjwvdGQ+XS73gh02D5G eHssbVnc7ZAWwZIJ8wXA3eW 0wNHDmOXyxj9C2vNY3N8Btg rHzph5a b2x (more content not included)... [facility] Consent Formson 04-29-2022 Consent Forms [id number] TGTIFF [facility] MAGR Intraoperative Recordon 04-29-2022 [facility] [place] Intraoperative Record MAGR Intra-Op Record Summary Primary Physician: Carlos Phelps MD Finalized Date/Time: 04/29/22 12:51:27 Pt. Name: MARIA DE JESUS MEDLEY/Sex: 1970 MALE Med Rec #: [id number] Physician: Carlos Phelps MD Financial #: [id number] Pt. Type: D Room/Bed: / Admit/Disch: 04/28/22 [...] 1 Entry 2 Entry 3 Case Attendee Lenin VALDOVINOS, Shelby Goss RN, CST, Brandi Role Performed Surgeon - Primary Tube Turner Scrub Personnel Time In 04/28/22 11:20:00 04/28/22 11:20:00 04/28/22 11:20:00 Time Out 04/28/22 11:37:00 04/28/22 11:37:00 04/28/22 11:37:00 Procedure Cystoscopy Retrograde Cystoscopy Retrograde Cystoscopy Retrograde Pyelogram Pyelogram Pyelogram Last Modified By: Shelby Melvin RN, Diane RN Kokinda, Diane RN 04/28/22 11:43:07 04/28/22 11:43:07 04/28/22 11:43:07 Entry 4 Entry 5 Case Attendee Sudha Tran CST, CST, Luke T RT (R) CSFA ARRT Role Performed Pail Bailer Horticultural Farmworker Time In 04/28/22 11:20:00 04/28/22 11:20:00 Time [...] of physical injur (more content not included)... [facility] Provider Orderson 04-29-2022 Provider Orders [id number]#1.00O TGTIFF [facility] Inpatient Patient Summaryon 04-28-2022 [place] [address] Patient Discharge Instructions Name: MARIA DE JESUS MEDLEY : 1970 Patient Address: [address] [place] [address] Primary Care Provider: Name: Zachary Rodriguez After you are discharged if you find you have any questions, please, call [phone] ext [phone] to speak to a nurse. Discharge Diagnosis: Urethral stricture Prescription Information: If you have been given a prescription for narcotics, seek immediate medical attention if you have any difficulty breathing or any sudden status changes such as confusion and sleepiness. If you or anyone you know is experiencing suicidal thoughts, mental health, alcohol and/or drug addiction problems; contact the [facility] 24/05 Crisis Hotline -Text 1FOYF pg [phone]. If you received any narcotics, sedation, or [...] business decisions or sign any legal documents [facility] would like to thank you for allowing us to assist you with your healthcare needs. The following includes patient education materials and information regarding your injury/illness. MARIA DE JESUS MEDLEY has been given the following list of follow-up instructions, prescriptions, and patient education materials: Follow-up Instructions With: Address: When: Zachary Rodriguez [facility] [place], [place] [id number] Business (1) Medications During the course of [...] for Disease Control and Prevention July 2014 [facility] 0 04-28-2022 MAGR Preoperative Record MAGR Pre-Op Record Summary Primary Physician: Carlos Phelps MD Finalized Date/Time: 04/28/22 11:50:49 Pt. Name: MARIA DE JESUS MEDLEY /Sex: 1970 MALE Med Rec #: [id number] Physician: Carlos Phelps MD Financial #: [id number] Pt. Type: D Room/Bed: / Admit/Disch: 04/28/22 [...] Signed By: Laura Crain RN 04/28/22 11:50 Normal [facility] Patient Handouton 04-28-2022 Patient Handout Normal [facility] XR Urography Retrogradeon XR Urography Retrograde [...] Bernardo Dia MD 04/29/22 8:22 am Technologist: [facility] Consent for Procedure/Surger yon 04-01-2022 Consent for Procedure/Surgery [id number] D:127 [facility] Ambulatory Visit Summaryon 0 03-31-2022 [...] Jimmy DAUGHERTY MD Where: [facility] Patient Educationon 03-31-20 Patient Education Urology Benign Prostatic Hyperplasia Benign [...] Follow these instructions at home: ? Take btoc-xer-jauzubd and prescription medicines only as told by [...] You d (more content not included)... Normal [facility] Urology Office/Clinic Noteon 03-31-2022 Urology Office/Clinic [...] urine The Urethra was dilated to: _ Bahraini with sounds. Specimens Removed: None Removal: Cystoscope [...] days 07/13/2022 EDT [facility] [address], [place] [phone] Additional Instructions: f/u in Jul w PSA Patient Education Benign Prostatic Hyperplasia Kidney Stones, Vwsi-af-Vcef Libertad Munoz, personally scribed for Dr. Daugherty on 03/31/2022 08:06:45. . Documentation recorded by the scribe, jordan Celeste, accurately reflects the services(s) I performed and [...] Comments SARS-CoV-2 (COV (more content not included)... [facility] Comment on above: Result Comment: Elec tronically Signed By: SHANIKA VALDOVINOS, Jimmy Miller\Date and Time Signed: 03/31/22 08:10 EDT Reminderson 03-24-2022 Reminders - From: Libertad Celeste To: [facility] - Clinical; Sent: 03/16/2022 11:27:10 EDT Show up: 03/24/2022 11:27:00 EDT Subject: Ct scan Due Date/Time: 03/27/2022 11:26:00 EDT Reminder/Recall [place]- Ct scan Abd/Pelvis , Order faxed, they will call pt to schedule after auth approval Pt scheduled for Cysto 03/31/22 CT done will be reviewed at cysto 03/31/22 [facility] RAD - CT Reporton 03-23-2022 RAD - CT Report [id number] D:127 [facility] CT ABD/PELVIS WO CONon 03-19 [...] by: CHARLY POP Date: 2022-03-19 19:21 Normal [facility] Pre-Certification Formon Pre-Certification Form [id number] D:127 Normal [facility] Ambulatory Visit Summaryon 0 03-02-2022 Ambulatory Visit Summary MARIA DE JESUS MEDLEY :1970 Visit Date:03/02/2022 Ambulatory Visit Instructions Your Diagnosis BPH with urinary obstruction Chronic prostatitis Other obstructive and reflux uropathy Tests Performed Urnls Dip Stick Auto w/o Microscopy POC [address]32 CT Abdomen/Pelvis w/o Contrast -- Results Pending -- Please visit your patient portal for your results or contact your primary care physician. Your Care Team Attending Physician - Jimmy DAUGHERTY MD Primary Care Physician - ZACHARY RODRIGUEZ DO This Is Your Medications List tamsulosin (Flomax 0.4 mg Cap) tamsulosin (tamsulosin 0.4 mg Cap) Contact prescribing physician if questions or concerns sulfamethoxazole-trimet hopri Procedures Performed Appendectomy, Colonoscopy. Discharge Vitals Heart Rate (Peripheral) 83 Respiratory Rate 16 Blood Pressure 123/86 Height 176 cm Height 176.0 cm Weight 86.1 kg Weight 86.1 kg BMI 27.8 What to do next Scheduled Follow-Up Appointments Wednesday 3:15 PM EDT With: Jimmy DAUGHERTY MD Where: [facility] Patient Educationon 03-02-20 22 Patient Education Infectious Disease Prostatitis Prostatitis [...] Follow these instructions at home: ? Take cqyo-suc-wkjmopt and prescription medicines only as told by [...] 12/31/2018 Docum (more content not included)... Normal [facility] Urology Office/Clinic Noteon 03-02-2022 Urology Office/Clinic Note [...] When Contact Information SHANIKA VALDOVINOS, Jimmy Valles, UR [facility] [address], [place] [address]- Additional Instructions: Will schedule Cysto. Patient Education Calorie Counting for Weight Loss Prostatitis Izzy Munoz, personally scribed for Dr. Daugherty on 03/02/2022 14:19:02. . Documentation recorded by the Izzy patel, accurately reflects the services(s) I performed [...] Protein Urine Dipstick: Negative (03/02/22 13:27:00) Specific Eden Urine Dipstick: 1.025 (03/02/22 13:27:00) Urine Appearance Urine (more content not included)... Normal [facility] Comment on above: Result Comment: Elec tronically Signed By: Jimmy DAUGHERTY MD\.br\Date and Time Signed: 03/02/22 14:23 EDT\.br\Electronically Co-Signed By: Izzy Stearns\.br\Date and Time Co-Signed: 03/02/22 14:19 EDT Lab Reportson 12-30-2021 Lab Reports [id number] D:127 Normal [facility] Patient Educationon 12-29-19 Patient Education Infectious Disease Prostatitis Prostatitis is [...] Follow these instructions at home: ? Take wskh-htc-wxyinhz and prescription medicines only as told by [...] Docum (more content not included)... Normal [facility] Urology Office/Clinic Noteon 12-29-2021 Urology Office/Clinic [...] months 06/28/2022 EDT [facility] [address] [place] [address] [phone] Additional Instructions: PSA Patient Education Prostatitis I, [...] - Not Given Postpone due to refusal [facility] Comment on above: Result Comment: Elec tronically Signed By: Jimmy DAUGHERTY MD\.br\Date and Time Signed: 12/29/21 16:40 EST\.br\Electronically Co-Signed By: Odilia Shah MA\.br\Date and Time Co-Signed: 12/29/21 16:37 EST [facility] 11-23-2021 Lab Reports [id number] D:127 [facility] Formson 11-21-2021 Forms [id number] D:127 [facility] Physician Referralon 022 Physician Referral [id number] D:127 [facility] Ambulatory Visit Summaryon 0 11-20-2021 Ambulatory Visit Summary MARIA DE JESUS MEDLEY :1970 Visit Date:11/20/2021 Ambulatory Visit Instructions Your Diagnosis Acute prostatitis Nocturia Urinary frequency Urinary urgency Asymptomatic microscopic hematuria BPH with urinary obstruction Elevated PSA, Elevated PSA Other obstructive and reflux uropathy Tests Performed Urnls Dip Stick Auto w/o Microscopy POC 47088 Your Care Team Attending Physician - Jimmy [...] Schedule the Following Appointments Follow Up with Jimmy DAUGHERTY MD, URL When: In 6 weeks 01/01/2022 EST Why: 6 week f/u w/PSA Where: [facility] [address], [place] [phone] Medications What How Much When Instructions New doxycycline (doxycycline hyclate 100 mg Cap) 1 Capsules By Mouth 2 times a day Refills: 1 Pickup at [facility]/pharmacy #[id number] New tamsulosin (Flomax 0.4 mg Cap) 1 Capsules By Mouth Every day [facility]ills: 6 [id number] Information [facility] #[id number]: [address] [place], [place] [phone] Test Results Urnls Dip Stick Auto w/o Microscopy POC 32619 (11/20/2021) Bilirubin Urine Dipstick - Negative Blood Urine Dipstick - 3+ Large Glucose Urine Dipstick - Negative Ketones Urine Dipstick - Negative Leukocytes Urine Dipstick - 3+ Large Nitrite Urine Dipstick - Negative Protein Urine Dipstick - 2+ (100 mg/dl) Specific Eden Urine Dipstick - 1.025 Urine Appearance Urine [...] diagnosed? This (more content not included)... Normal [facility] Ambulatory Visit Summary MARIA DE JESUS MEDLEY :1970 Visit Date:11/20/2021 Ambulatory Visit Instructions Your Diagnosis Acute prostatitis Nocturia Urinary frequency Urinary urgency Asymptomatic microscopic hematuria BPH with urinary obstruction Elevated PSA, Elevated PSA Other obstructive and reflux uropathy Tests Performed Urnls Dip Stick Auto w/o Microscopy POC 88763 Your Care Team Attending Physician - SHANIKA [...] f/u w/PSA Where: [facility] [address], [place] [phone] Medications What How Much When Instructions New doxycycline (doxycycline hyclate 100 mg Cap) 1 Capsules By Mouth 2 times a day Refills: 1 Pickup at [facility]/pharmacy #[id number] New tamsulosin (Flomax 0.4 mg Cap) 1 Capsules By Mouth Every day Refills: 6 Pickup at [facility]/pharmacy #[id number] Pharmacy Information [facility]/pharmacy #[id number]: [address], [place] [phone] Test Results Urnls Dip Stick Auto w/o Microscopy POC 90255 (11/20/2021) Bilirubin Urine Dipstick - Negative Blood Urine Dipstick - 3+ Large Glucose Urine Dipstick - Negative Ketones Urine Dipstick - Negative Leukocytes Urine Dipstick - 3+ Large Nitrite Urine Dipstick - Negative Protein Urine Dipstick - 2+ (100 mg/dl) Specific Eden Urine Dipstick - 1.025 Urine Appearance Urine [...] diagnosed? This (more content not included)... Normal [facility] Patient Educationon 11-20-19 Patient Education [...] Follow these instructions at home: ? Take qysv-huq-xhintlt and prescription medicines only as told by [...] Revised: 12/31/2018 Docum (more content not included)... [facility] Provider Letteron 11-20-2021 Provider Letter November 20, 2021 November 20, 2021 HOLLI MED[address]D [address] [place] [phone] HOLLI MEDLEYD 1970 To Whom It May Concern, Please excuse above patient from work. Date of appointment From: 11/20/2021 To: May Return to Work On: 11/21/2021 Restrictions: _ Comments: _ Sincerely, Normal [facility] Urology Office/Clinic Noteon 11-20-2021 Urology [...] prostatitis) pt was treated by Dr. Shane Rodrgiuez with Bactrim ds therapy, his symptoms returned right he finished the ABX. Large Leuk seen on UA today.Pt will start Doxy 100mg bid #60 with 1 refill. Script will be sent today. Other obstructive and reflux uropathy (N13.8: Other obstructive and reflux uropathy) Orders: doxycycline, 100 mg = 1 cap(s), Oral, BID, # 60 cap(s), Refills(s) 1, Pharmacy: [facility]/pharmacy #[id number], 176, cm, 11/20/21 14:51:00 EST, Height/Length Dosing, 86, kg, 11/20/21 14:51:00 EST, Weight Dosing tamsulosin, 0.4 mg = 1 cap(s), Oral, Daily, # 30 cap(s), Refills(s) 6, Pharmacy: [facility]/pharmacy #[id number], 176, cm, 11/20/21 14:51:00 EST, Height/Length Dosing, 86, kg, 11/20/21 14:51:00 EST, Weight Dosing I have reviewed the previous health history for this patient with Dr. Daugherty. f/u in 6 weeks w/PSA Follow-up With When Contact Information SHANIKA VALDOVINOS, Jimmy Valles, URL In 6 weeks 01/01/2022 EST [facility] [address], [place] [phone] Additional Instructions: 6 week f/u w/PSA Patient Education Prostatitis ILibertad, personally scribed for Dr. Duagherty on 11/20/2021 15:47:22. . Documentation recorded by the jordan patel, accurately reflects the services(s) I performed and decisions made by me. Authenticated by Dr. Daugherty on 11/20/2021 15:53:34. Problem List/Past Medical History Ongoing Acute prostatitis Neoplasm of uncertain behavior of skin Overweight Historical No qualifying data Procedure/Surgical History Appendectomy, Col (more content not included)... Normal [facility] Comment on above: Result Comment: Elec tronically Signed By: Jimmy DAUGHERTY MD\.br\Date and Time Signed: 11/20/21 15:53 EST\.br\Electronically Co-Signed By: Libertad Celeste.br\Date and Time Co-Signed: 11/20/21 15:47 EST Vital Signs Date Time Vital Sign Value Performing Clinician Facility 12-15-2022 16:30-0500 Body height 175.26 cm Zachary [facility] Other [facility] Other 12-15-2022 16:30-0500 Body mass index (BMI) [Ratio] 29.24 kg/m2 Zachary [facility] Other 12-15-2022 16:30-0500 Body weight 89.81 kg Zachary [employer] Other [facility] Other 12-15-2022 16:30-0500 Diastolic blood pressure 80 mm[Hg] Zachary [employer] [facility] Other 12-15-2022 16:30-0500 Respiratory rate 12 /min Zachary [employer] Other [facility] Other 12-15-2022 16:30-0500 Systolic blood pressure 130 mm[Hg] Zachary [employer] [facility] Other 03-31-2022 07:40-0400 Blood Pressure Location Jimmy DAUGHERTY [facility] 03-31-2022 07:40-0400 Diastolic blood pressure 82 mm[Hg] Jimmy DAUGHERTY [facility] 03-31-2022 07:40-0400 Heart rate 85 /min Jimmy DAUGHERTY [facility] 03-31-2022 07:40-0400 Respiratory rate 16 /min Jimmy DAUGHERTY [facility] 03-31-2022 07:40-0400 Systolic blood pressure 135 mm[Hg] Jimmy DAUGHERTY [facility] 03-02-2022 13:30-0400 Blood Pressure Location Jimmy DAUGHERTY [facility] 03-02-2022 13:30-0400 Diastolic blood pressure 86 mm[Hg] Jimmy DAUGHERTY [facility] 03-02-2022 13:30-0400 Heart rate 83 /min Jimmy DAUGHERTY [facility] 03-02-2022 13:30-0400 Respiratory rate 16 /min Jimmycorazon DAUGHERTY [facility] 03-02-2022 13:30-0400 Systolic blood pressure 123 mm[Hg] Jimmy DAUGHERTY [facility] En[facility]ters Encounter Date Encounter Type Care Provider Facility Start: 11-25-2023 End: 11-25-2023 ambulatory Zachary Rodriguez Facility:[facility] Start: 11-25-2023 End: 11-25-2023 ambulatory DO Zachary Rodriguez Work Phone: [facility] Work Phone: Start: 11-25-2023 End: 11-25-2023 Departed Referred DO Zachary Rodriguez Work Phone: [facility] Start: 01-08-2023 End: 01-08-[address] ZACHARY RODRIGUEZ Facility:[facility] Start: 12-20-2022 Encounter for genera l adult medical examination without abnormal findings DR ZACHARY RODRIGUEZ [facility] Start: 12-18-2022 End: 12-19-[address] ZACHARY RODRIGUEZ Facility:[facility] Start: 12-16-2022 End: 12-16-2022 ambulatory Zachary Rodriguez Other [facility] Other Start: 12-16-2022 Telephone encounter Zachary Rodriguez [facility] Start: 12-15-2022 End: 12-16-[address] ZACHARY RODRIGUEZ [facility] [employer] Other Start: 12-15-2022 End: 12-16-2022 Encounter for general adult medical examination without abnormal findings Zachary Rodriguez [facility] Start: 12-15-2022 Periodic preventive med est patient 40-64yrs Zachary Rodriguez [facility] Start: 03-31-2022 End: 03-31-2022 Patient encounter procedure Jimmy DAUGHERTY [facility] Start: 03-19-2022 End: 03-20-[address] JIMMY DAUGHERTY . Facility:[facility] Start: 03-02-2022 End: 03-02-2022 Patient encounter procedure Jimmy DAUGHERTY [facility] Procedures Date Procedure Procedure Detail Performing Clinician Start: 12-15-[address] GONSALEZ IN [place] Comment on above: Performed By: #### P [facility] #### [facility] [address] [place] [address] Dr. Ashley Acosta Start: 03-31-2022 Cystoscopy Jimmy REESE Appendectomy Jimmy DAUGHERTY Colonoscopy Jimmy DAUGHERTY Immunizations Immunization Date Immunization Notes Care Provider Fa cility NEGATED: Highlighted row has not occurred!12-29-2021 SARS-CoV-2 (COVID-19) Ad26 vaccine, recombinant Jimmy DAUGHERTY [facility] Payers Date Payer Category Payer Self-pay [id number] 1970 Unknown [id number] 2.16.84 [id number] 1970 Unknown [id number] 2.16.84 [id number] 1970 Unknown [id number] 2.16.84 [id number] 1970 Unknown [id number] 2.16.84 [id number] 1957 Unknown [id number] 2. [id number] 1957 Unknown [id number] Unknown [id number] Unknown [id number] 2.16.8 [id number] Social History Date Type Detail Facility Start: 11-20-2021 Tobacco smoking status Never s moked tobacco (finding) [facility] Tobacco smoking status Never [facility] Sex Assigned At Male [facility] Start: 1970 Sex Assigned At Male [facility] Evaluation note 12-15-2022 Note Date & Type [...] (ICD-10 - Z12.5) Yearly JUMA and PSA [facility] Other History and physical note 04-29-2022 Note Date & Type Note Facility 04-29-2022 Note [id number] [facility] Clinical Note 04-28-2022 Note Date & Type Note Facility 04-28-2022 Note [facility] SURGERY Clinical Discharge Summary PERSON INFORMATION Name MARIA DE JESUS MEDLEY Age 52 Years 1970 Sex MALE Language Urdu PCP Zachary Rodriguez Marital Status Med Service Ambulatory Surgery Acct# Arrival 04/28/2022 09:37:00 Visit Reason SURGERY - RETROGRADE URETHROGRAM - NO CYSTOSCOPE, NO FLUORO, NO CONTRAST DYE - JUST LOOKING PER RAGINI [facility] LOS 012 00:13 Address: [address] [place] [address] Comment: PROVIDER INFORMATION VITALS INFORMATION Vital Sign [...] Instructions: Follow up: With: Address: When: Zachary iMchael [address] [place] [address] inTarvo (1) DIAGNOSIS Urethral stricture Comment: PHYS DOC NOTES [facility] Discharge instructions 03-31-2022 Note Date & [...] urethra. Follow these instructions at home: Take exhu-gwr-ytwjezn and prescription medicines only as told by [...] 10/18/2006 Document Revised: 09/12/2019 Document Reviewed: 11/22/2017 [employer] Patient Education 2020 [employer]. 03/31/2022 07:56:52 Kidney Stones, Mtkh-jt-Nlmh Kidney Stones Kidney stones are rock-like masses [...] Follow these instructions at home: Medicines Take bnzk-hoh-gcodzfv and prescription medicines only as told by [...] 04/05/2009 Document Revised: 03/05/2020 Document Reviewed: 03/05/2020 [employer] Patient Education 2019 [employer]. Follow Up Care 03/16/2022 11:12:01 With:SHANIKA VALDOVINOS, Jimmy Valles, URL Address: [facility] [address] [place] [address]- [phone] When:07/13/2022 Comments:f/u in Jul PSA [facility] Discharge instructions 03-02-2022 Note Date & [...] 10/18/2006 Document Revised: 07/07/2019 Document Reviewed: 09/17/2017 [employer] Patient Education 2020 [employer]. 03/02/2022 14:01:11 Prostatitis Prostatitis Prostatitis is swelling [...] prostate. Follow these instructions at home: Take bvmq-lgz-zxwnyyl and prescription medicines only as told by [...] 10/15/2001 Document Revised: 12/31/2018 Document Reviewed: 07/08/2017 [employer] Patient Education 2020 [employer]. Follow Up Care 02/04/2022 15:37:59 With:Jimmy DAUGHERTY MD, URL Address: [facility] [address] , [place] [address]- When: Unknown Comments:Will schedule Cysto. [facility] Evaluation + Plan note Note Date & Type Note Facility Evaluation + Plan note Future Appointments Appointment Date:07/13/2022 03:15:00 PM Scheduled Provider:Jimmy DAUGHERTY MD Location:[facility] Appointment Type:URO Office Visit [facility] Evaluation note Note Date & Type Note Facility Evaluation note No Information [facility] [employer] Other Evaluation note Note Date & Type Note Facility Evaluation note No assessment information availa [facility] Work Phone: History general Narrative - Reported Note Date & Type Note Facility History general Narrative - Reported Type Medical History Elevated blood press ure (not hypertension) Medical History Overweight Medical History 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 Medical History Acute prostatitis with hematuria Surgical History COLONOSCOPY 2019 Hospitalization History SEE SURGICAL HX [facility] [employer] Other Hospital course Narrative Note Date & Type Note Facility Hospital course Narrative No data available for this section [facility] Summary Purpose Family History No Family History Records Found Relationship Condition Age at Onset Recorded Date/T bekah Not Specified No pertinent family history Unknown Advance Directives No Advanced Directives Records Found Advance Directive Response Recorded Date/ Time Advance Directives No September 4:10pm Additional Source Comments (unrecognized sect ion and content) No Status Records FoundNo Status Records FoundNo Status Records FoundNo Status Records Found INFORMATION SOURCE (unrecogn ized section and content) DATE CREATED AUTHOR 04/14/2022 [facility] DATE CREATED AUTHOR AUTHOR'S ORGANIZ ATION 05/01/2022 [facility] DATE CREATED AUTHOR AUTHOR'S ORGANIZ ATION 01/18/2023 [facility] [place] [facility] DATE CREATED AUTHOR AUTHOR'S ORGANIZ ATION 11/28/2023 [facility] REASON FOR VISIT (unrecogniz ed section and content) [facility]Lab Results Care Teams (unrecognized sec tion and content) Team Status: Active Member Role Status Dates Zachary Rodriguez DO Primary Care Provider Active Team Status: Inactive Member Role Status Dates Zachary Rodriguez DO Primary Care Provider Active Start: November 25, 2023 End: November 25, 2023 Jose Palomino DPM MS Attending Provider Active Start: November 25, 2023 End: November 25, 2023 Goals (unrecognized section and content) Goals may be documented in a n alternate section FOR RECORDS PERTAINING TO PATIENTS WHO ARE [...] BE BASED ON THE PRIMARY CLINICAL RECORDS. [employer] [facility]. provides no warranty or guarantee of the accuracy or completeness of information in this document.
== END 2023-12-14 10:46 | disposition home or self-care (01) ==
LOC: RAD 10:46
PROVIDERS: PCP Internal Medicine; Visit Provider Podiatrist Foot & Ankle Surgery
DX: M79.671 Pain in right foot (principal)
CPT/HCPCS: 73630

== ENCOUNTER 2024-01-05 09:10 | Outpatient (OUT) | payer OTHER, SELFPAY ==
--- NOTE | 2024-01-05 | XR_ITS ---
[address] [address] Patient Name: MARIA DE JESUS MEDLEY MRN: [id number] date: 1970 Sex: M Assigned Patient Location: Current Patient Location: Accession/Order Number: [id number] Exam Date: 01/05/2024 09:20 Report Date: 01/05/2024 10:10 At the request of: MORENA YA Procedure: XR foot RT min 3V PROCEDURE: XR foot RT min 3V COMPARISON: 12/14/2023 HISTORY: RIGHT FOOT PAIN FINDINGS: BONES:No acute fracture or dislocation. Stable fusion first metatarsal-phalangeal joint with a dorsal plate and multiple screws. SOFT TISSUES:Negative. No visible soft tissue swelling. EFFUSION:None visible. OTHER: Negative. XR/XR foot RT min 3V IMPRESSION: Stable fusion first metatarsal-phalangeal Electronically authenticated by: ARMANDO ALEXANDER Date: 01/05/2024 10:10
--- OUTSIDE RECORDS SUMMARY | 2024-01-05 09:27 | XMS_ITS | CCD ---
Author Name Unknown Address [address] [place] [address] Organization [facility] Care Team Providers Care Mower Mechanic Name Role Phone ZACHARY RODRIGUEZ Primary Care [...] Keron Rodriguez, DO Sharma Primary Care Provider [phone] DARA Palomino Attending Provider [phone] Zachary Rodriguez Primary Care Jose Cornelius Attending [...] BID, # 60 cap(s), Refills(s) 6, [id number], cm, 03/02/22 13:33:00 EDT, Height/Length Dosing, 86.1, kg, 03/02/22 13:33:00 EDT, Weight Dosing Start Date: 03/02/22 Status: Ordered Start: 11-20-2021 take 1 capsule by [facility] once daily Flomax 0.4 mg Cap 0.4 mg = 1 cap(s), Oral, Daily, # 30 cap(s), Refills(s) 6, Pharmacy: [facility]/pharmacy #[id number], 176, cm, 11/20/21 14:51:00 EST, [...] procedure, # 2 tab(s), Refills(s) 0, Pharmacy: [facility]/pharm[facility] #[id number], 176, cm, 03/02/22 13:33:00 EDT, Height/Length [...] [id number] Received: 11/25/23 Status: JONO Villa Num: [id number] Spec Type: Surgical Subm Dr: Jose Palomino DPM, MS Tissues: A Bone Fragments - Other than Path Fracture (RT TIBIAL OSTEOPHYTE) Procedures: HE, Gross/Micro L3, Decalcification Age/ Patient Sex Location Account Attending Physician Maria De Jesus Medley M 53/M LABELL [id number] Jose Palomino DPM, MS SPEC NUM: [id number] RECD: 11/25/23 STATUS: JONO BEJARANOWhitley NUM: [id number] STANISLAV: 11/25/[address]: Jose Palomino DPM, MS ENTERED: 11/25/[address] [facility] [address]: Jared Arndt SPEC TYPE: Surgical DEPT: [...] fragments, with no areas of softening identified. Network Technician sections are submitted in one cassette labeled A1. CPT Codes 75658, 36852 Specimen: [id number] Received: 11/25/23 Status: JONO Villa Num: [id number] Spec Type: Surgical Subm Dr: Jose Palomino,DPM, MS Tissues: A Bone Fragments - Other than Path Fracture (RT TIBIAL OSTEOPHYTE) Procedures: HE, Gross/Micro L3, Decalcification Patient: Maria De Jesus Medley [id number] (Continued) Signed (signature on file) Iascc Beard MD 11/27/23 1132 [facility]_SOFT TISSUE BXon [facility]_SOFT TISSUE BX Begin Addendum #1 COLLECTED DATE/TIME: 01/08/2023 16:30 EST Final Diagnosis Report for [place] ULTRASOUND-GUIDED CORE BIOPSY RIGHT LATERAL THIGH [...] results from the referring physician. Normal [facility] US EXT NON VASC LIMITED RTon 12-22-2022 [...] CHARLY POP Date: 2022-12-22 08:45 Normal [facility] CBC AUTO DIFFon 12-15-2022 BASO # 0.1 103/ul Normal 0.0-0.1 [facility] Comment on above: Performed By: #### C BC #### [facility] [address] [place] [address] Dr. Ashley Acosta Basophils/100 WBC (Bld) 0.9 % Normal 0.2-2.0 [facility] Comment on above: Performed By: #### C BC #### [facility] [address] [address] [address] Ashley Acosta EO # 0.2 103/ul Normal 0.0-0.7 [facility] Comment on above: Performed By: #### C BC #### [facility] [address] [address] [address] Ashley Acosta Eosinophils/100 WBC (Bld) 1.8 % Normal 0.9-7.0 [facility] Comment on above: Performed By: #### C BC #### [facility] [address] [place] [address] Dr. Ashley Acosta Erythrocyte distribution width (RBC) [Ratio] 11.8 % Normal 11.0-15.0 [facility] Comment on above: Performed By: #### C BC #### [facility] [address] [place] [address] Dr. Ashley Acosta Hematocrit (Bld) [Volume fraction] 43.3 % Normal 42.0-54.0 [facility] Comment on above: Performed By: #### C BC #### [facility] [address] [place] [address] Dr. Ashley Acosta Hemoglobin (Bld) [Mass/Vol] 15.1 g/dL Normal 14.0-18.0 [facility] Comment on above: Performed By: #### C BC #### [facility] [address] [place] [address] Dr. Ashley Acosta IG # 0.04 10e3/ul Critically high 0.00-0.03 [facility] Comment on above: Performed By: #### C BC #### [facility] [address] [place] [address] Dr. Ashley Acosta IG % 0.5 % Normal 0.0-0.5 [facility] Comment on above: Performed By: #### C BC #### [facility] [address] [place] [address] Dr. Ashley Acosta LYMPH # 2.5 103/ul Normal 1.2-3.8 [facility] Comment on above: Performed By: #### C BC #### [facility] [address] [place] [address] Dr. Ashley Acosta Lymphocytes/100 WBC (Bld) 29.5 % Normal 20.5-60.0 [facility] Comment on above: Performed By: #### C BC #### [facility] [address] [place] [address] Dr. Ashley Acosta MANUAL DIFF REQ NO Normal [facility] Comment on above: Performed By: #### C BC #### [facility] [address] [address] [address] Ashley Acosta MCH (RBC) [Entitic mass] 29.9 pg Normal 25.9-34.0 [facility] Comment on above: Performed By: #### C BC #### [facility] [address] [address] [address] Ashley Acosta MCHC (RBC) [Mass/Vol] 34.9 g/dL Normal 29.9-35.2 [facility] Comment on above: Performed By: #### C BC #### [facility] [address] [address] [address] Ashley Acosta MCV (RBC) [Entitic vol] 85.7 fL Normal 80.0-94.0 [facility] Comment on above: Performed By: #### C BC #### [facility] [address] [place] [address] Dr. Ashley Acosta MONO # 0.6 103/ul Normal 0.3-0.8 [facility] Comment on above: Performed By: #### C BC #### [facility] [address] [place] [address] Dr. Ashley Acosta Monocytes/100 WBC (Bld) 7.3 % Normal 1.7-12.0 [facility] Comment on above: Performed By: #### C BC #### [facility] [address] [place] [address] Dr. Ashley Acosta NEUT # 5.1 103/ul Normal 1.4-6.5 [facility] Comment on above: Performed By: #### C BC #### [facility] [address] [place] [address] Dr. Ashley Acosta Neutrophils/100 WBC (Bld) 60.0 % Normal 43.0-75.0 [facility] Comment on above: Performed By: #### C BC #### [facility] [address] [place] [address] Dr. Ashley Acosta Platelet mean volume (Bld) [Entitic vol] 9.7 fL Normal 9.5-13.5 [facility] Comment on above: Performed By: #### C BC #### [facility] [address] [address] [address] Ashley Acosta PLT 274 103/ul Normal 150-450 [facility] Comment on above: Performed By: #### C BC #### [facility] [address] [address] [address] Ashley Acosta RBC 5.05 106/ul Normal 4.70-6.10 [facility] Comment on above: Performed By: #### C BC #### [facility] [address] [address] [address] Ashley Acosta WBC 8.5 103/ul Normal 4.0-11.0 [facility] Comment on above: Performed By: #### C BC #### [facility] [address] [place] [address] Dr. Ashley Acosta Comprehensive Metabolic Pane jose antonio 12-15-2022 Albumin [Mass/Vol] 4.432318 g/dL 3.4-5.0 g/dL N [employer] Other Albumin/Globulin [Mass ratio] 1.3 {ratio} [employer] Other Comment on above: Performed By: #### C MP, LIPID #### [facility] [address] [place] [address] Dr. Ashley Acosta ALP [Catalytic activity/Vol] 57 U/L Normal 46-116 [employer] Other Comment on above: Performed By: #### C MP, LIPID #### [facility] [address] [address] [address] Ashley Acosta ALT [Catalytic activity/Vol] 31 U/L Normal 16-63 [employer] Other Comment on above: Performed By: #### C MP, LIPID #### [facility] [address] [place] [address] Dr. sAhley Acosta Anion gap [Moles/Vol] 12.2 mmol/L Normal [employer] Other Comment on above: Performed By: #### C MP, LIPID #### [facility] [address] [address] [address] Ashley Acosta AST [Catalytic activity/Vol] 25 U/L Normal 15-37 [employer] Other Comment on above: Performed By: #### C MP, LIPID #### [facility] [address] [address] [address] Ashley Acosta Calcium [Mass/Vol] 9.7722749 mg/dL 8.5-10 .1 mg/dL [employer] Other Chloride [Moles/Vol] 101 mmol/L Normal 98-107 [employer] Other Comment on above: Performed By: #### C MP, LIPID #### [facility] [id number] Ashley Acosta CO2 [Moles/Vol] 27.23737770 mmol/L 21.0-3 2.0 mmol/L [employer] Other Creatinine [Mass/Vol] 0.48151401 mg/dL 0.70-1.30 mg/dL [employer] Other Potassium [Moles/Vol] 3.45636698 mmol/L 3.5-5.1 mmol/L [employer] Other Protein [Mass/Vol] 7.772990 g/dL 6.4-8.2 g/dL [facility] [employer] Other Urea nitrogen [Mass/Vol] 11.6867859 mg/dL 7.0-18.0 mg/dL [employer] Other Urea nitrogen/Creatinin e [Mass ratio] 11.7 mg/mg Normal [employer] Other Comment on above: Performed By: #### C MP, LIPID #### [facility] [address] [address] [address] Ashley Acosta Comprehensive Metabolic Panel see note [employer] Other Comprehensive Metabolic Panel 137 mmol/L 136-145 mmol/L [employer] Other Comprehensive Metabolic Panel 85 mg/dL 74-106 mg/dL [employer] Other Comprehensive Metabolic Panel >60 mL/min/1.73m2 >=60 mL/min/1.73m2 [employer] Other Comprehensive Metabolic Panel 0.9 mg/dL 0.2-1.0 mg/dL [employer] Other Comprehensive Metabolic Panel 3.2 g/dL [employer] Other LIPID PROFILEon 12-15-2022 CHOL-HDL RATIO NORM SEE BELOW Normal [facility] Comment on above: Result Comment: 3.3 - 4.4 LOW RISK 4.4 - 7.1 AVERAGE RISK 7.1 - 11.0 MODERATE RISK >11.0 HIGH RISK Performed By: #### C MP, LIPID #### [facility] [address] [place] [address] Dr. Ashley Acosta Cholesterol in LDL [Mass/Vol] 120.2 mg/dL Normal [facility] Comment on above: Performed By: #### C MP, LIPID #### [facility] [address] [place] [address] Dr. Ashley Acosta HDL NORMAL > or = 60 mg/dl - LO W CARDIOVASCULAR RISK <40 mg/dl - HIGH CARDIOVASCULAR RISK Normal [facility] Comment on above: Performed By: #### C MP, LIPID #### [facility] [address] [place] [address] Dr. Ashley Acosta LDL CALC NORMAL SEE BELOW Normal [facility] Comment on above: Result Comment: <100 mg/dl OPTIMAL 100 - 129 mg/dl NEAR OR ABOVE OPTIMAL 130 - 159 mg/dl BORDERLINE HIGH 160 - 189 mg/dl HIGH >190 mg/dl VERY HIGH Performed By: #### C MP, LIPID #### [facility] [address] [place] [address] Dr. Ashley Acosta VLDL CALC 17.8 mg/dL Normal [facility] Comment on above: Performed By: #### C MP, LIPID #### [facility] [address] [address] [address] Ashley Acosta Lipid Panelon 12-15-2022 Cholesterol [Mass/Vol] 194 mg/dL Normal <=200 [facility] [employer] Other Comment on above: Performed By: #### C MP, LIPID #### [facility] [address] [address] [address] Ashley Acosta Cholesterol in HDL [Mass/Vol] 56 mg/dL Normal 40-60 [facility] [employer] Other Comment on above: Performed By: #### C MP, LIPID #### [facility] [address] [address] [address] Ashley Acosta Cholesterol.total/ Cholesterol in HDL [Mass ratio] 3.5 {ratio} Normal [facility] [employer] Other Comment on above: Performed By: #### C MP, LIPID #### [facility] [address] [address] [address] Ashley Acosta Triglyceride [Mass/Vol] 89 mg/dL Normal <=150 [employer] Other Comment on above: Performed By: #### C MP, LIPID #### [facility] [address] [place] [address] Dr. Ashley Acosta Lipid Panel > or = 60 mg/dl - LO W CARDIOVASCULAR RISK <40 mg/dl - HIGH CARDIOVASCULAR RISK [facility] [employer] Other Lipid Panel SEE BELOW [employer] Other Lipid Panel 120.2 mg/dL [employer] Other Lipid Panel 17.8 mg/dL [employer] Other PROF 14(COMP METB)on 023 Albumin [Mass/Vol] 4.0 g/dL Normal 3.4-5.0 [facility] Comment on above: Performed By: #### C MP, LIPID #### [facility] [address] [place] [address] Dr. Ashley Acosta Bilirubin [Mass/Vol] 0.9 mg/dL Normal 0.2-1.0 [facility] Comment on above: Performed By: #### C MP, LIPID #### [facility] [address] [address] [address] Ashley Acosta Calcium [Mass/Vol] 9.0 mg/dL Normal 8.5-10.1 [facility] Comment on above: Performed By: #### C MP, LIPID #### [facility] [address] [address] [address] Ashley Acosta CO2 [Moles/Vol] 27.5 mmol/L Normal 21.0-32.0 [facility] Comment on above: Performed By: #### C MP, LIPID #### [facility] [address] [address] [address] Ashley Acosta Creatinine [Mass/Vol] 0.94 mg/dL Normal 0.70-1.30 [facility] Comment on above: Performed By: #### C MP, LIPID #### [facility] [address] [place] [address] Dr. Ashley Acosta EGFR-AF CUBAN >60 Normal >=60 [facility] Comment on above: Performed By: #### C MP, LIPID #### [facility] [address] [place] [address] Dr. Ashley Acosta EGFR-NON AF CUBAN >60 Normal >=60 [facility] Comment on above: Performed By: #### C MP, LIPID #### [facility] [address] [address] [address] Ashley Acosta Globulin (S) [Mass/Vol] 3.2 g/dL Normal [facility] Comment on above: Performed By: #### C MP, LIPID #### [facility] [address] [address] [address] Ashley Acosta Glucose [Mass/Vol] 85 mg/dL Normal 74-106 [facility] Comment on above: Performed By: #### C MP, LIPID #### [facility] [address] [address] [address] Ashley Acosta Potassium [Moles/Vol] 3.7 mmol/L Normal 3.5-5.1 [facility] Comment on above: Performed By: #### C MP, LIPID #### [facility] [address] [place], [place] [address] Dr. Ashley Acosta Protein [Mass/Vol] 7.2 g/dL Normal 6.4-8.2 [facility] Comment on above: Performed By: #### C MP, LIPID #### [facility] [id number] Ashley Acosta Sodium [Moles/Vol] 137 mmol/L Normal 136-145 [facility] Comment on above: Performed By: #### C MP, LIPID #### [facility] [id number] Ashley Acosta Urea nitrogen [Mass/Vol] 11.0 mg/dL Normal 7.0-18.0 [facility] Comment on above: Performed By: #### C MP, LIPID #### [facility] [address] [address] [address] Ashley Acosta Coding Summaryon 04-30-2022 Coding Summary [employer] 64 IxidxlocUHm8yEr+PGhlYWQ +AH7UXZXaA20bfJAmyG0BF4 nJHD2ZLAHWXMYCVI9MWO9nc KY3JXzhD5YsykVn XaepnNRxFE49UNe7IRM4sSs gDDluaV3glDRjJ9g6PpAoSR 64mX33RCveTZBhGuB3KhRbr jsgbWFy O4rpJfZlxUHgZpl+PHRhYmx lIHdpZHRoPScxMDAlJyBzdH tiIW3lUk9vXBJwBVRnwCumy HNlOiBj p2woIMZpUZffCA1tyBuzP9K lyKB1MFAvv0i5Vj50cRD+PH DvSJL3dUcwKMudk742TlLmb 0bfDQZ3 pWWpZHuaZDT1S26hk3G1IMB sJUBqDBU0iKI7qH7giHtiih syF8NnbZRxBjJ5UMX3uDYoo V4rkUot jacgvY4yHek+E87KPV8TEOV HZW8BZru3Y1XxPbghtNR+PC 63DSBuWQ56wXXliJMxl2nwp Do3JvOi FWKcVPB4zOqjVZhjb9NfHEQ zQ96qvAObd0L4GZSdpUhvuT QlXtLisGF2kG9pYItsshmgt 2hvdzsn Mtbai7lyid48mS16F71cLNu rXWWmOIY9RIUbIVMvmUwlgs 6vgH3tIj0+QWdur1ouj9mmf Pl9XpAd GVPfajJhdGerGTX9b3HeLw9 1W5IegEfgj4AjZgs7ux31aM Qsz7U0sKD6WDppRZEanY6uD WxlZnQ6 GCCuOeWmaE66hKLtTKwuNs0 qzVdcsUbrGC6jQHTrfjmtQM MtsZ2wIMZonDHcsCdgZO5yE TBpbjtm w679QlZrVIL6LAOakUFdB9P wdV4qLmCnNVPyJZYdB4AumT NyDRosE559FNjmRuS3FLMol dGxR9Tv QPEorGarYuC1z8G8Un0Xe5U ztlpoMTY5GOdgTDA7VsPoSg HbKmF0K6GaTmk2RHYvoTkfG Y0iV8Me EKNhndtpjgcrpTV4YTHzWMQ isI92fSDyXZddOd9zk9D5j2 18UOGsWQKrgQ96Bk5icGsdF TBwdCBU qO3jyfdmu3bhluwhOmHjUPG pQYl0SAr4OSDxmCwaRmJaKT E4JmY5MXS1nMCzmG7xaKhhn nxlkI2z Oyc+Q65ilG2hNHQ3PHN9hkw eAIDeypFkLA07ZQ98J6QdGr wvdGFibGU+PGRpdiBzdHlsZ B3nQcBe c3nzs4KqNAyhI0LiBHZvFWa bPvk8DOTiEZS3pKQ2wJ4bRP HvBGvnj5R0hDH5I2HhwjWko g2hf0wb CKJlSXzkI34jnBYdb0O2UUW vsGO8SJKssQfpOqGamI36Zu c+NDAlgHidg0OmBygzp1etm 0kvhLv2 UsEmYQXmbiXdhDnfCEM7e0G rMg18M86zHTcyHVUaCXTyUL EvMRPahAekdo1cpC4kPu5+P GNvbCB3 bJZ2yG8qYAOrEjI1ECpkO15 8TfBbnFPuFbuez9wmq5jgqA c9UrNkPTFplaNqyOkqBHG7z 0OqKo17 M84oEItvTYQwPSYkPAKaKIB vdXcips2vrB4fAh0+PC9jb2 nmbk82sU33rGU+YUCgYGU5m WxlPSdw FBVsoV5tUPscTsA0QXWyTzH gwD31kABwSXgsPo0faBxotL oxXR5xMBHsmgsho260GfZfr 2xkIDEw pIHeTBsaSKN2I46hc3F3BHI mHIIyEYW3bCB0pC8szIztik ogbGVmdDsgdmVydGljYWwtY BchJ433 IHRvcDsnPlBhdGllbnQgTmF pOMw9Y2WgFub8VXFfiVdpII 2lzIRaLCbgMd0uvPakrWjbC Y1rHWKs utcrc252CnSmv1wxWSZajSL oRRwnPWK8Y18ti0M0VVMqOH ZkRHS4dPI2jD1voBrqxzzpm GVmdDsg voRrkAynMUvaRUgdR734NKO tkXsfDhRudwMrPEJyrBG2MD 82NF33hLBsw4P2mPC2M8VeC GRpbmct middcSL2CTSaSKRdfK12Hz8 krOkgBa6qKMTiXVO9JQRlqE LiT1KwwF9dKqKuYCAyCLQwH 3RleHQt RFxfL327LKflMcK9YXNmbwB vH7TiAZNybGzoZfS9l1N0Qk 4VE6P4YX50NC08aCZrx2D8v VP0O6Nf QIMlkbukudbyeID9KUTfKBM czQ86Pk1ytMoyEh5vDQCqLI S5ITIdwIOlH2WcuF3mKfHrG DAwMDAw E9AqrHVgUOahR984FXhvSjU 7NPSzuwHoH0YqBXZxaPcnGy Z0w2F5Ic9PCOf6CG29CG47e GNvi3L4 oWY0Y7SdHIQyquzntgqhiDO 3CYKwEEEnvT79Xd1niBvfJx 4eKQKuPSW8VSAqdZVdD7Vab J8aXiDu KJUkRIJvB4LsuKIoNZdpC12 9ZMkcGjD9ICGdjwGnY7PlGI FsmCcvWgG0j3T0Wb7CQMLrQ G76WYD4 rZE9QI29KI89W9LxVetgvHI ibGU+PHRhYmxlIHdpZHRoPS jcAKXmDbIyyYhpNL7kHy6vE GVyLWNv dBppaTVqDeSuu0tzUGIhKKb yYH7wgXwsG7BlhJM9LTEjy9 i6Eq97T88lU7ZzjZH+PGNvb CJ0zJZ3 kP8yVpBnCkL9AEdqP271KoK lwFRyXukwo5lfr0ddpUn3Jt K5IEYfttAnlWlmJPS5z5WnE p26X58n IHdpZHRoPSIxNSUiIHZhbGl fvv5bvL9lVn2+OKRkwRF0gR H0qV6fCcNbKqF9ZXseM377F nRvcCIv Anhff1xmz7zsrHz6AoAaBHT pllKghQhkBDX0x1BfZb54N7 BfvDebx4DyHrs0gp02fRTxe 7T1wYL0 O0RhVBRyefglvKSkzMvyFK5 zKZGxrqzdGLThdW6bMVJvH8 o3YrGgJuL4XHrqE2PzerR9Q DEwcHQg YFyaAIR3Q02by2L6LGRfERB lRZX7dGE2vX9qnTsitqkefC VmdDsgdmVydGljYWwtYWxpZ 246IHRv nAjxARCznT6pIHWkxUPmdJo cDB3dZFNnvpksMy9AEs8IJh cyA4gHTLUWBOHEDIWKAP60Q T26wVWu h6Q3xMY5Z8YpWHJyfbcvmon zzFV0CYRqBJHfnN86gRKcDH xpXw6st9N1x344WTIbGKMky R32Yh1q tJzfHCQzbVKCsB2jjccha5s xqyujWwXiDQFaXHj2XWk5OX XzxGraNfPrXXA6BlL8VWB2x DWipH1j kWplkooahK6fCca+MDMvMjQ qKSt9AuffsIC+WWZlFDQ7hW gqJJksRFZeaA7hIMIjI6e4R iAwLjA1 FShqY8FhWJKzapgtXf20qN5 iArYlPqY7ULheU9IflkZ8DX RygDAjRPihLCT7R15qt4U9Q CMwMDAw XXR2mUD3bK6saWevfkwulCM mdDsgdmVydGljYWwtYWxpZ2 46IHRvcDsnPjUwIFllYXJzP B96HE91 uVYgy6H9rOP1U0VmTDPafur umuljkVG1UGIoJBKbjE03qV VwSNaxTv4ww2K1w852XTEtZ DUwaW47 Zo5atZgpKXArhGURuB4pmfx jc6jqiymyRwFfIMZxYIs9WD h9FDTqoIhrUpRzCAZ7RqT7N FR6sUId xW1hhApoacyijB7sVkc+TUF MRTwvdGQ+CVGrMPD5rEbhXU spUZOgsR7dYDHrI2u5TuPkM rG7ULky Z9QoGJYovchcMl77oV2zHcU tVpP1JFlxA1BiojM3WGHmlM CfALlgFZS5K11ee4I8ESHbR DAwMDA7 xYP3lO9ovZisrfjqjPZvnVa cwaVczJhwFShgYKqrX633ZD GepGjoInWtdSSInJXcAKE4E I00SA37 X6ZtOawfcYXcgRE+PHRhYmx lIHdpZHRoPScxMDAlJyBzdH piVU0iCs2zTISoROLxtGkbo HNlOiBj j6mkFTBsSAnsTM4jiSypN3H jnEG2SHVzi6z7El89D47nB8 JvdXA+YNJjnIY3bQE2zA7mX zAlIiB2 MXxoH530DsIslZIaLtesi0m np9rjdFi2SoJoKYRihePuuY smIXE2d8MsTe66P15uQGkoT HRoPSIy MFKgBLGwoElvpx0nsH3jEt1 +TRMsvVN2oFE7wO1nBnMdZr U0HKxaC391HfDpsCFmHckvA 20sQ6He dXA+GVYeVnd8EDPdpYecEK8 reNJlFUfnJc2wZSO4FyAoYs HvYLoeN5KlQXEtsmtaclefu IL8ALMd GYEjjL75De5nwFvcFa1yBMH wZQU5VWSctHStZ0WahP0sDe PmVETkOUGzV1QvjAEjRVksJ 246IGxl SeA0NNTtsuFuL3KqUYEqcXi cVaZ3s5C7Tt8XaYaodSDyNE 5xHeUiIKd5J8EwXyu6PWPqo EtgNJ2l qLZjTDkkOi8mbKtypVoiBI4 mKZNmvvtjp963YoAzv1hiXD KymIFqZEthIIJ1C57ge8M5S CMwMDAw WTC1nUP9sU2euNdazydylCI mdDsgdmVydGljYWwtYWxpZ2 98XMYquWfxHkRGSjw2V8GoN zj8HBWz xOxuUB1slOJdYTltBr0lkYs onFlbFK5lXSFgdyofc196Ga Imc5hcZMXfvUKzGKwmRQK1B 34ot3L8 GANmCNPwUNX2zXS4kX1koTr nbjogbGVmdDsgdmVydGljYW muIFzkG245MPYrqDhcCb3FY lk0Q5Dm Pdb4TMTmrFryKX8miXUoATo kHz6pwOmkoPyxQU1pCIPpxn lbs661RuCkk8oxXRAfjFAkU GltZXM7 R35jn0D3CTKjXGSnPUC9yPQ 5hZ6udExicebgaLLjeMmhom HqdHmkZHmrNKjfC192ITYno DsnPlBh eWVyOjwvdGQ+LX31ch84F0M zDaddAzm2TCCbSIH0wTI2hG 4zNWBoQRlvm9I6vBY0C7Xkk bKnks5d b2x (more content not included)... [facility] Consent Formson 04-29-2022 Consent Forms [id number] TGTIFF [facility] MAGR Intraoperative Recordon 04-29-2022 [facility] [place] Intraoperative Record MAGR Intra-Op Record Summary Primary Physician: Carlos Phelps MD Finalized Date/Time: 04/29/22 12:51:27 Pt. Name: MARIA DE JESUS MEDLEY/Sex: 1970 MALE Med Rec #: [id number] Physician: Carlos Phelps MD Financial #: [id number] Pt. Type: D Room/Bed: / Admit/Disch: 04/28/22 [...] CST, Brandi Role Performed Surgeon - Primary [employer] Advanced Operator Maintainer Scrub Personnel Time In 04/28/22 11:20:00 04/28/22 11:20:00 04/28/22 11:20:00 Time Out 04/28/22 11:37:00 04/28/22 11:37:00 04/28/22 11:37:00 Procedure Cystoscopy Retrograde Cystoscopy Retrograde Cystoscopy Retrograde Pyelogram Pyelogram Pyelogram Last Modified By: Shelby Melvin RN, Diane RN Kokinda, Diane RN 04/28/22 11:43:07 04/28/22 11:43:07 04/28/22 11:43:07 Entry 4 Entry 5 Case Attendee Sudha Tran CST, CST, Luke T RT (R) CSFA ARRT Role Performed Floating Operator Gel Coat Sprayer Time In 04/28/22 11:20:00 04/28/22 11:20:00 Time [...] of physical injur (more content not included)... [facility] Provider Orderson 04-29-2022 Provider Orders [id number] TGTIFF [facility] Inpatient Patient Summaryon 04-28-2022 Inpatient [place] [address] Patient Discharge Instructions Name: MARIA DE JESUS MEDLEY : 1970 Patient Address: [address] [place] [address] Primary Care Provider: Name: Zachary Rodriguez After you are discharged if you find you have any questions, please, call [phone] ext [phone] to speak to a nurse. Discharge Diagnosis: Urethral stricture Prescription Information: If you have been given a prescription for narcotics, seek immediate medical attention if you have any difficulty breathing or any sudden status changes such as confusion and sleepiness. If you or anyone you know is experiencing suicidal thoughts, mental health, alcohol and/or drug addiction problems; contact the [facility] 24/05 Crisis Hotline -Text 6VDCK nr 182974. If you received any narcotics, sedation, or [...] business decisions or sign any legal documents [facility] would like to thank you for allowing us to assist you with your healthcare needs. The following includes patient education materials and information regarding your injury/illness. MARIA DE JESUS MEDLEY has been given the following list of follow-up instructions, prescriptions, and patient education materials: Follow-up Instructions With: Address: When: Zachary Rodriguez [facility] [place], [place] [id number] Business (1) Medications During the course of [...] for Disease Control and Prevention July 2014 [facility]-28-[facility] MAGR Preoperative Record MAGR Pre-Op Record Summary Primary Physician: Carlos Phelps MD Finalized Date/Time: 04/28/22 11:50:49 Pt. Name: MARIA DE JESUS MEDLEY /Sex: 1970 MALE Med Rec #: [id number] Physician: Carlos Phelps MD Financial #: [id number] Pt. Type: D Room/Bed: / Admit/Disch: 04/28/22 [...] By: Laura Crain RN 04/28/22 11:50 Normal [facility] Patient Handouton 04-28-2022 Patient Handout Normal [facility] XR Urography Retrogradeon XR Urography Retrograde [...] Bernardo Dia MD 04/29/22 8:22 am Technologist: [facility] Consent for Procedure/Surger yon 04-01-2022 Consent for Procedure/Surgery [id number] D:127 [facility] Ambulatory Visit Summaryon 0 03-31-2022 Ambulatory Visit [...] Jimmy DAUGHERTY MD Where: [facility] Patient Educationon 03-31-20 Patient Education [...] Follow these instructions at home: ? Take cngr-cqm-ponhsuj and prescription medicines only as told by [...] You d (more content not included)... Normal [facility] Urology Office/Clinic Noteon 03-31-2022 Urology Office/Clinic [...] urine The Urethra was dilated to: _ Spanish with sounds. Specimens Removed: None Removal: Cystoscope [...] [facility] [address], [place] [address] [phone] Additional Instructions: f/u in Jul w PSA Patient Education Benign Prostatic Hyperplasia Kidney Stones, Ekzy-uk-Xmnb Libertad Munoz, personally scribed for Dr. Daugherty [...] Comments SARS-CoV-2 (COV (more content not included)... [facility] Comment on above: Result Comment: Elec tronically Signed By: SHANIKA VALDOVINOS, Jimmy Miller\Date and Time Signed: 03/31/22 08:10 EDT Reminderson 03-24-2022 Reminders - From: Libertad Ceelste To: EU - Clinical; Sent: 03/16/2022 11:27:10 EDT Show up: 03/24/2022 11:27:00 EDT Subject: Ct scan Due Date/Time: 03/27/2022 11:26:00 EDT Reminder/Recall [place]- Ct scan Abd/Pelvis , Order faxed, they will call pt to schedule after auth approval Pt scheduled for Cysto 03/31/22 CT done will be reviewed at cysto 03/31/22 [facility] RAD - CT Reporton 03-23-2022 RAD - CT Report [id number] D:127 [facility] CT ABD/PELVIS WO CONon 03-19 CT ABD/PELVIS [...] by: CHARLY POP Date: 2022-03-19 19:21 Normal [facility] Pre-Certification Formon Pre-Certification Form [id number] D:127 Normal [facility] Ambulatory Visit Summaryon 0 03-02-2022 Ambulatory Visit Summary MARIA DE JESUS MEDLEY :1970 Visit Date:03/02/2022 Ambulatory Visit Instructions Your Diagnosis 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 Take nqhe-dpt-olyjeyt and prescription medicines only as told by [...] Docum (more content not included)... Normal [facility] Urology Office/Clinic Noteon 03-02-2022 Urology [...] [facility] [address], [place] [address]- Additional Instructions: Will schedule Cysto. Patient Education [...] Protein Urine Dipstick: Negative (03/02/22 13:27:00) Specific Kelly Urine Dipstick: 1.025 (03/02/22 13:27:00) Urine Appearance Urine (more content not included)... Normal [facility] Comment on above: Result Comment: Elec tronically Signed By: Jimmy DAUGHERTY MD\.br\Date and Time Signed: 03/02/22 14:23 EDT\.br\Electronically Co-Signed By: Izzy Steanrs\.br\Date and Time Co-Signed: 03/02/22 14:19 EDT Lab Reportson 12-30-2021 Lab Reports [id number] D:127 Normal [facility] Patient Educationon 12-29-19 Patient Education Infectious [...] Follow these instructions at home: ? Take zzvp-nyk-ybixnlx and prescription medicines only as told by [...] Docum (more content not included)... Normal [facility] Urology Office/Clinic Noteon 12-29-2021 Urology [...] 06/28/2022 EDT [facility] [address] [place] [phone] Additional Instructions: PSA Patient Education Prostatitis I, [...] - Not Given Postpone due to refusal [facility] Comment on above: Result Comment: Elec tronically Signed By: Jimmy DAUGHERTY MD\.br\Date and Time Signed: 12/29/21 16:40 EST\.br\Electronically Co-Signed By: Odilia Shah MA\.br\Date and Time Co-Signed: 12/29/21 16:37 EST Lab Reportson 11-23-2021 Lab Reports [id number] D:127 [facility] Formson 11-21-2021 Forms [id number] D:127 [facility] Physician Referralon 022 Physician Referral [id number] D:127 [facility] Ambulatory Visit Summaryon 0 11-20-2021 Ambulatory Visit Summary MARIA DE JESUS MEDLEY :1970 Visit Date:11/20/2021 Ambulatory Visit Instructions Your Diagnosis Acute prostatitis Nocturia Urinary frequency Urinary urgency Asymptomatic microscopic hematuria BPH with urinary obstruction Elevated PSA, Elevated PSA Other obstructive and reflux uropathy Tests Performed Urnls Dip Stick Auto w/o Microscopy POC 09370 Your Care Team Attending Physician - Jimmy [...] Where: [facility] [address], [place] [address]- [phone] Medications What How Much When Instructions New doxycycline (doxycycline hyclate 100 mg Cap) 1 Capsules By Mouth 2 times a day Refills: 1 Pickup at [facility]/pharmacy #[id number] New tamsulosin (Flomax 0.4 mg Cap) 1 Capsules By Mouth Every day [facility]ills: [facility] Information [facility] #[id number]: [address], [place] [phone] Test Results Urnls Dip Stick Auto w/o Microscopy POC 32942 (11/20/2021) Bilirubin Urine Dipstick - Negative Blood Urine Dipstick - 3+ Large Glucose Urine Dipstick - Negative Ketones Urine Dipstick - Negative Leukocytes Urine Dipstick - 3+ Large Nitrite Urine Dipstick - Negative Protein Urine Dipstick - 2+ (100 mg/dl) Specific Kelly Urine Dipstick - 1.025 Urine Appearance Urine [...] diagnosed? This (more content not included)... Normal [facility] Ambulatory Visit Summary MARIA DE JESUS MEDLEY :1970 Visit Date:11/20/2021 Ambulatory Visit Instructions Your Diagnosis Acute prostatitis Nocturia Urinary frequency Urinary urgency Asymptomatic microscopic hematuria BPH with urinary obstruction Elevated PSA, Elevated PSA Other obstructive and reflux uropathy Tests Performed Urnls Dip Stick Auto w/o Microscopy POC 82382 Your Care Team Attending Physician - SHANIKA [...] w/PSA Where: [facility] [address], [place] [phone] Medications What How Much When Instructions New doxycycline (doxycycline hyclate 100 mg Cap) 1 Capsules By Mouth 2 times a day Refills: 1 Pickup at [facility]/pharmacy #6177 New tamsulosin (Flomax 0.4 mg Cap) 1 Capsules By Mouth Every day Refills: 6 Pickup at [facility]/pharmacy #6177 Pharmacy Information [facility]/pharmacy #6177: [address], [place] [phone] Test Results Urnls Dip Stick Auto w/o Microscopy POC 38038 (11/20/2021) Bilirubin Urine Dipstick - Negative Blood Urine Dipstick - 3+ Large Glucose Urine Dipstick - Negative Ketones Urine Dipstick - Negative Leukocytes Urine Dipstick - 3+ Large Nitrite Urine Dipstick - Negative Protein Urine Dipstick - 2+ (100 mg/dl) Specific Kelly Urine Dipstick - 1.025 Urine Appearance Urine [...] diagnosed? This (more content not included)... Normal [facility] Patient Educationon 11-20-19 Patient Education Infectious [...] Follow these instructions at home: ? Take jais-tiq-iieesiw and prescription medicines only as told by [...] Revised: 12/31/2018 Docum (more content not included)... [facility] Provider Letteron 11-20-2021 Provider Letter November 20, 2021 November 20, 2021 NEO MEDLEYD [address] [place] [phone] NEO MEDLEYD 1970 To Whom It May Concern, Please excuse above patient from work. Date of appointment From: 11/20/2021 To: May Return to Work On: 11/21/2021 Restrictions: _ Comments: _ Sincerely, Normal [facility] Urology Office/Clinic Noteon 11-20-2021 Urology Office/Clinic [...] BID, # 60 cap(s), Refills(s) 1, Pharmacy: [facility]/pharmacy #[id number], 176, cm, 11/20/21 14:51:00 EST, Height/Length Dosing, 86, kg, 11/20/21 14:51:00 EST, Weight Dosing tamsulosin, 0.4 mg = 1 cap(s), Oral, Daily, # 30 cap(s), Refills(s) 6, Pharmacy: [facility]/pharmacy #[id number], 176, cm, 11/20/21 14:51:00 EST, Height/Length Dosing, 86, kg, 11/20/21 14:51:00 EST, Weight Dosing I have reviewed the previous health history for this patient with Dr. Daugherty. f/u in 6 weeks w/PSA Follow-up With When Contact Information SHANIKA VALDOVINOS, Jimmy Valles, URL In 6 weeks 01/01/2022 EST [facility] [address], [place] [phone] Additional Instructions: 6 week f/u w/PSA Patient Education Prostatitis ILibertad, personally scribed for Dr. Daugherty on 11/20/2021 15:47:22. . Documentation recorded by the jordan patel, accurately reflects the services(s) I performed and decisions made by me. Authenticated by Dr. Daugherty on 11/20/2021 15:53:34. Problem List/Past Medical History Ongoing Acute prostatitis Neoplasm of uncertain behavior of skin Overweight Historical No qualifying data Procedure/Surgical History Appendectomy, Col (more content not included)... Normal [facility] Comment on above: Result Comment: Elec tronically Signed By: Jimmy DAUGHERTY MD\.br\Date and Time Signed: 11/20/21 15:53 EST\.br\Electronically Co-Signed By: Libertad Celeste.br\Date and Time Co-Signed: 11/20/21 15:47 EST Vital Signs Date Time Vital Sign Value Performing Clinician Facility 12-15-2022 16:30-0500 Body height 175.26 cm Zachary [employer] Other [employer] Other 12-15-2022 16:30-0500 Body mass index (BMI) [Ratio] 29.24 kg/m2 Zachary [employer] Other [employer] Other 12-15-2022 16:30-0500 Body weight 89.81 kg Zachary [employer] Other [employer] Other 12-15-2022 16:30-0500 Diastolic blood pressure 80 mm[Hg] Zachary [employer] Other [employer] Other 12-15-2022 16:30-0500 Respiratory rate 12 /min Zachary [employer] Other [employer] Other 12-15-2022 16:30-0500 Systolic blood pressure 130 mm[Hg] Zachary [employer] Other [employer] Other 03-31-2022 07:40-0400 Blood Pressure Location Jimmy DAUGHERTY [facility] 03-31-2022 07:40-0400 Diastolic blood pressure 82 mm[Hg] Jimmy DAUGHERTY [facility] 03-31-2022 07:40-0400 Heart rate 85 /min Jimmy DAUGHERTY [facility] 03-31-2022 07:40-0400 Respiratory rate 16 /min Jimmy DAUGHERTY [facility] 03-31-2022 07:40-0400 Systolic blood pressure 135 mm[Hg] Jimmy DAUGHERTY [facility] 03-02-2022 13:30-0400 Blood Pressure Location Jimmy DAUGHERTY [facility] 03-02-2022 13:30-0400 Diastolic blood pressure 86 mm[Hg] Jimmy DAUGHERTY [facility] 03-02-2022 13:30-0400 Heart rate 83 /min Jimmy DAUGHERTY [facility] 03-02-2022 13:30-0400 Respiratory rate 16 /min Jimmycorazon DAUGHERTY [facility] 03-02-2022 13:30-0400 Systolic blood pressure 123 mm[Hg] Jimmy DAUGHERTY [facility] En[facility]ters Encounter Date Encounter Type Care Provider Facility Start: 11-25-2023 End: 11-25-2023 ambulatory Zachary Rodriguez Facility:[facility] Start: 11-25-2023 End: 11-25-2023 ambulatory DO Zachary Rodriguez Work Phone: [facility] Work Phone: Start: 11-25-2023 End: 11-25-2023 Departed Referred DO Zachary Rodriguez Work Phone: [facility] [place] [facility] Start: 01-08-2023 End: 01-08-[address] ZACHARY RODRIGUEZ Facility:[facility] Start: 12-20-2022 Encounter for genera l adult medical examination without abnormal findings DR ZACHARY RODRIGUEZ [facility] Start: 12-18-2022 End: 12-19-[address] ZACHARY RODRIGUEZ Facility:[facility] Start: 12-16-2022 End: 12-16-2022 ambulatory Zachary Rodriguez Other [employer] Other Start: 12-16-2022 Telephone encounter Zachary Rodriguez [facility] Start: 12-15-2022 End: 12-16-[address] ZACHARY RODRIGUEZ [facility] [employer] Other Start: 12-15-2022 End: 12-16-2022 Encounter for general adult medical examination without abnormal findings Zachary Rodriguez [facility] Start: 12-15-2022 Periodic preventive med est patient 40-64yrs Zachary Rodriguez [facility] Start: 03-31-2022 End: 03-31-2022 Patient encounter procedure Jimmy DAUGHERTY [facility] Start: 03-19-2022 End: 03-20-[address] JIMMY DAUGHERTY . Facility:[facility] Start: 03-02-2022 End: 03-02-2022 Patient encounter procedure Jimmy DAUGHERTY [facility] Procedures Date Procedure Procedure Detail Performing Clinician Start: 12-15-[address] GONSALEZ IN [place] Comment on above: Performed By: #### P [facility] #### [facility] [address] [place] [address] Dr. Ashley Acosta Start: 03-31-2022 Cystoscopy Jimmy REESE Appendectomy Jimmy DAUGHERTY Colonoscopy Jimmy DAUGHERTY Immunizations Immunization Date Immunization Notes Care Provider Fa cility NEGATED: Highlighted row has not occurred!12-29-2021 SARS-CoV-2 (COVID-19) Ad26 vaccine, recombinant Jimmy DAUGHERTY [facility] Payers Date Payer Category Payer Self-pay [id number] 1970 Unknown [id number] 2.16.84 [id number] 1970 Unknown [id number] 2.16.84 [id number] 1970 Unknown [id number] 2.16.84 [id number] 1970 Unknown [id number] 2.16.84 [id number] 1957 Unknown [id number] 2. [id number] 1957 Unknown [id number] Unknown [id number] Unknown [id number] 2.16.8 [id number] Social History Date Type Detail Facility Start: 11-20-2021 Tobacco smoking status Never s moked tobacco (finding) [facility] Tobacco smoking status Never [facility] Sex Assigned At Male [facility] Start: 1970 Sex Assigned At Male F [facility] Evaluation note 12-15-2022 Note Date & Type [...] (ICD-10 - Z12.5) Yearly JUMA and PSA [employer] Other History and physical note 04-29-2022 Note Date & Type Note Facility 04-29-2022 Note [id number] [facility] Clinical Note 04-28-2022 Note Date & Type Note Facility 04-28-2022 Note [facility] SURGERY Clinical Discharge Summary PERSON INFORMATION Name MARIA DE JESUS MEDLEY Age 52 Years 1970 Sex MALE Language Yoruba PCP Zachary Rodriguez Marital Status Med Service Ambulatory Surgery Acct# Arrival 04/28/2022 09:37:00 Visit Reason SURGERY - RETROGRADE URETHROGRAM - NO CYSTOSCOPE, NO FLUORO, NO CONTRAST DYE - JUST LOOKING PER R[facility] LOS 012 00:13 Address: [address] [place] [address] Comment: PROVIDER INFORMATION VITALS INFORMATION Vital Sign [...] Instructions: Follow up: With: Address: When: Zachary Michael [address] [place] [address] [place] (1) DIAGNOSIS Urethral stricture Comment: PHYS DOC NOTES [facility] Discharge instructions 03-31-2022 Note Date & Type [...] urethra. Follow these instructions at home: Take tace-dsd-kolaicg and prescription medicines only as told by [...] 10/18/2006 Document Revised: 09/12/2019 Document Reviewed: 11/22/2017 [employer] Patient Education 2020 [employer]. 03/31/2022 07:56:52 Kidney Stones, Octl-fq-Nyqw Kidney Stones Kidney stones are rock-like masses [...] Follow these instructions at home: Medicines Take vbyq-nnm-aokqvlb and prescription medicines only as told by [...] 04/05/2009 Document Revised: 03/05/2020 Document Reviewed: 03/05/2020 [employer] Patient Education 2019 [employer]. Follow Up Care 03/16/2022 11:12:01 With:SHANIKA VALDOVINOS, iJmmy Valles, URL Address: [facility] [address] [place] [address]- [phone] When:07/13/2022 Comments:f/u in Jul PSA [facility] Discharge instructions 03-02-2022 Note Date & [...] 10/18/2006 Document Revised: 07/07/2019 Document Reviewed: 09/17/2017 [employer] Patient Education 2020 [employer]. 03/02/2022 14:01:11 Prostatitis Prostatitis Prostatitis is swelling [...] prostate. Follow these instructions at home: Take qkre-dtp-djiqjug and prescription medicines only as told by [...] 10/15/2001 Document Revised: 12/31/2018 Document Reviewed: 07/08/2017 [employer] Patient Education 2020 [employer]. Follow Up Care 02/04/2022 15:37:59 With:Jimmy DAUGHERTY MD, URL Address: [facility] [address] , [place] [address]- When: Unknown Comments:Will schedule Cysto. [facility] Evaluation + Plan note Note Date & Type Note Facility Evaluation + Plan note Future Appointments Appointment Date:07/13/2022 03:15:00 PM Scheduled Provider:Jimmy DAUGHERTY MD Location:[facility] Appointment Type:URO Office Visit [facility] Evaluation note Note Date & Type Note Facility Evaluation note No Information [facility] [email or web address] Other Evaluation note Note Date & Type Note Facility Evaluation note No assessment information availa [facility] Work Phone: History general Narrative - Reported Note Date & Type Note Facility History general Narrative - Reported Type Medical History Elevated blood press ure (not hypertension) Medical History Overweight Medical History 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 Medical History Acute prostatitis with hematuria Surgical History COLONOSCOPY 2019 Hospitalization History SEE SURGICAL HX [facility] [employer] Other Hospital course Narrative Note Date & Type Note Facility Hospital course Narrative No data available for this section [facility] Summary Purpose Family History No [...] section and content) DATE CREATED AUTHOR 04/14/2022 [facility] DATE CREATED AUTHOR AUTHOR'S ORGANIZ ATION 05/01/2022 [facility] DATE CREATED AUTHOR AUTHOR'S ORGANIZ ATION 01/18/2023 [facility] [place] [facility] DATE CREATED AUTHOR AUTHOR'S ORGANIZ ATION 11/28/2023 [facility] REASON FOR VISIT (unrecogniz ed section and [...] BE BASED ON THE PRIMARY CLINICAL RECORDS. [employer] [facility]. provides no warranty or guarantee of the accuracy or completeness of information in this document.
== END 2024-01-05 09:11 | disposition home or self-care (01) ==
LOC: EC 09:10
PROVIDERS: PCP Internal Medicine; Visit Provider Podiatrist Foot & Ankle Surgery
DX: M20.11 Hallux valgus (acquired), right foot (principal)
CPT/HCPCS: 73630

== ENCOUNTER 2024-01-25 14:08 | Outpatient (OUT) | payer OTHER, SELFPAY ==
[2024-01-25 14:25] LABS: Basophils Absolute Auto 0.1 10^3/uL (0.0-0.1); Basophils Percent Auto 0.9 % (0.2-2.0); Eosinophils Percent Auto 0.3 % (0.9-7.0); Hematocrit 45.5 % (42.0-54.0); Hemoglobin 15.4 g/dL (14.0-18.0); Immature Granulocytes Abs Auto 0.05 10^3/uL (0.00-0.03); Immature Granulocytes Pct Auto 0.6 % (0.0-0.5); Lymphocytes Absolute Auto 1.7 10^3/uL (1.2-3.8); Lymphocytes Percent Auto 18.2 % (20.5-60.0); Mean Corpuscular HGB Conc 33.8 g/dL (29.9-35.2); Mean Corpuscular Hemoglobin 29.8 pg (25.9-34.0); Mean Platelet Volume 9.8 fL (9.5-13.5); Monocytes Absolute Auto 0.6 10^3/uL (0.3-0.8); Monocytes Percent Auto 7.1 % (1.7-12.0); Neutrophils Absolute Auto 6.6 10^3/uL (1.4-6.5); Neutrophils Percent Auto 72.9 % (43.0-75.0); Platelet Count 271 10^3/uL (150-450); Red Blood Count 5.17 10^6/uL (4.70-6.10); Red Cell Distribution Width 11.5 % (11.0-15.0); White Blood Count 9.1 10^3/uL (4.0-11.0)
--- OUTSIDE RECORDS SUMMARY | 2024-01-25 14:32 | XMS_ITS | CCD ---
Author Organization [facility] Care Team Providers Care Laboratory Mechanic Helper Name Role Phone ZACHARY RODRIGUEZ Primary Care Physician [phone] Zachary Rodriguez Unavailable MICHAEL, DR SHARMA Admitting Unavailable BALL, DR SHARMA Attending Unavailable BALL, DR SHARMA Primary Care Unavailable BALL, DR SHARMA Consulting Unavailable DAUGHERTY ., DR GONZALEZ Admitting Unavailable DAUGHERTY ., DR GONZALEZ Attending Unavailable BALL, DR SHARMA Primary Care Unavailable BALL, DR SHARMA Consulting Unavailable DAUGHERTY ., DR GONZALEZ Consulting Unavailable ZIEBER, DR CHARLY Valles Consulting Unavailable MICHAEL, DR SHARMA Primary Care Unavailable MICHAEL, DR SHARMA Admitting Unavailable BALL, DR SHARMA Attending Unavailable BALL, DR SHARMA Consulting Unavailable ZILENNIEER, DR CHARLY Valles Consulting Unavailable BALL, DR SHARMA Admitting Unavailable BALL, DR SHARMA Attending Unavailable BALL, DR SHARMA Primary Care Unavailable BALL, DR SHARMA Consulting Unavailable DONN, DR CHARLY Valles Consulting Unavailable Michael, DO Sharma Primary Care Provider [phone] DARA Palomino Attending Provider Zachary Rodriguez Primary [...] BID, # 60 cap(s), Refills(s) 6, [id number] 176, cm, 03/02/22 13:33:00 EDT, Height/Length Dosing, 86.1, kg, 03/02/22 13:33:00 EDT, Weight Dosing Start Date: 03/02/22 Status: Ordered Start: 11-20-2021 take 1 capsule by [facility] once daily Flomax 0.4 mg Cap 0.4 mg = 1 cap(s), Oral, Daily, # 30 cap(s), Refills(s) 6, [id number], 176, cm, 11/20/21 14:51:00 EST, Height/Length [...] procedure, # 2 tab(s), Refills(s) 0, [id number], 176, cm, 03/02/22 13:33:00 EDT, Height/Length [...] Test Name Value Interpretation Reference Range Facility [facility] 11-25-2023 L Specimen: [id number] Received: 11/25/23 Status: JONO Villa Num: [id number] Spec Type: Surgical Subm Dr: Jose Palomino,DPM, MS Tissues: A Bone Fragments - Other than Path Fracture (RT TIBIAL OSTEOPHYTE) Procedures: HE, Gross/Micro L3, Decalcification Age/ Patient Sex Location Account Attending Physician AaronMaria De Jesus M 53/M LABELL [id number] Jose Palomino DPM, MS SPEC NUM: [id number] RECD: 11/25/23 STATUS: JONO REQ NUM: [id number] STANISLAV: 11/25/23 [facility] DR: Jose Palomino DPM, MS ENTERED: 11/25/[address] [facility] [address]: Jared Arndt SPEC TYPE: Surgical DEPT: [...] fragments, with no areas of softening identified. Software Development Leader sections are submitted in one cassette labeled A1. CPT Codes 15760, 71562 Specimen: [id number] Received: 11/25/23 Status: SOURahat Req Num: [id number] Spec Type: Surgical Subm Dr: Jose Palomino DPM, MS Tissues: A Bone Fragments - Other than Path Fracture (RT TIBIAL OSTEOPHYTE) Procedures: HE, Gross/Micro L3, Decalcification Patient: Maria De Jesus Medley [id number] (Continued) Signed (signature on file) Isacc Beard MD 11/27/23 1132 [facility]_SOFT TISSUE BXon [facility]_SOFT TISSUE BX Begin Addendum #1 COLLECTED DATE/TIME: 01/08/2023 16:30 EST Final Diagnosis Report for [facility], [place], [place] ULTRASOUND-GUIDED CORE BIOPSY RIGHT LATERAL THIGH [...] Samantha that report was present in office (). Original Report EXAMINATION: US MUSC_SOFT TISSUE BX [...] results from the referring physician. Normal [facility] US EXT NON VASC LIMITED RTon [...] CHARLY POP Date: 2022-12-22 08:45 Normal [facility] CBC AUTO DIFFon 12-15-2022 BASO # 0.1 103/ul Normal 0.0-0.1 [facility] Comment on above: Performed By: #### C BC #### [facility] [address] [place] [address] Dr. Ashley Acosta Basophils/100 WBC (Bld) 0.9 % Normal 0.2-2.0 [facility] Comment on above: Performed By: #### C BC #### [facility] [address] [address] [address] Ashley Acosta EO # 0.2 103/ul Normal 0.0-0.7 [facility] Comment on above: Performed By: #### C BC #### [facility] [address] [place] [address] Dr. Ashley Acosta Eosinophils/100 WBC (Bld) 1.8 % Normal 0.9-7.0 [facility] Comment on above: Performed By: #### C BC #### [facility] [address] [place] [address] Dr. Ashley Acosta Erythrocyte distribution width (RBC) [Ratio] 11.8 % Normal 11.0-15.0 [facility] Comment on above: Performed By: #### C BC #### [facility] [address] [place] [address] Dr. Ashley Acosta Hematocrit (Bld) [Volume fraction] 43.3 % Normal 42.0-54.0 [facility] Comment on above: Performed By: #### C BC #### [facility] [address] [place] [address] Dr. Ashley Acosta Hemoglobin (Bld) [Mass/Vol] 15.1 g/dL Normal 14.0-18.0 [facility] Comment on above: Performed By: #### C BC #### [facility] [address] [place] [address] Dr. Ashley Acosta IG # 0.04 10e3/ul Critically high 0.00-0.03 [facility] Comment on above: Performed By: #### C BC #### [facility] [address] [place] [address] Dr. Ashley Acosta IG % 0.5 % Normal 0.0-0.5 [facility] Comment on above: Performed By: #### C BC #### [facility] [address] [place] [address] Dr. Ashley Acosta LYMPH # 2.5 103/ul Normal 1.2-3.8 [facility] Comment on above: Performed By: #### C BC #### [facility] [address] [place] [address] Dr. Ashley Acosta Lymphocytes/100 WBC (Bld) 29.5 % Normal 20.5-60.0 [facility] Comment on above: Performed By: #### C BC #### [facility] [address] [place] [address] Dr. Ashley Acosta MANUAL DIFF REQ NO Normal [facility] Comment on above: Performed By: #### C BC #### [facility] [address] [address] [address] Ashley Acosta MCH (RBC) [Entitic mass] 29.9 pg Normal 25.9-34.0 [facility] Comment on above: Performed By: #### C BC #### [facility] [address] [place] [address] Dr. Ashley Acosta MCHC (RBC) [Mass/Vol] 34.9 g/dL Normal 29.9-35.2 [facility] Comment on above: Performed By: #### C BC #### [facility] [address] [place] [address] Dr. Ashley Acosta MCV (RBC) [Entitic vol] 85.7 fL Normal 80.0-94.0 [facility] Comment on above: Performed By: #### C BC #### [facility] [address] [place] [address] Dr. Ashley Acosta MONO # 0.6 103/ul Normal 0.3-0.8 [facility] Comment on above: Performed By: #### C BC #### [facility] [address] [place] [address] Dr. Ashley Acosta Monocytes/100 WBC (Bld) 7.3 % Normal 1.7-12.0 [facility] Comment on above: Performed By: #### C BC #### [facility] [address] [place] [address] Dr. Ashley Acosta NEUT # 5.1 103/ul Normal 1.4-6.5 [facility] Comment on above: Performed By: #### C BC #### [facility] [address] [place] [address] Dr. Ashley Acosta Neutrophils/100 WBC (Bld) 60.0 % Normal 43.0-75.0 [facility] Comment on above: Performed By: #### C BC #### [facility] [address] [place] [address] Dr. Ashley Acosta Platelet mean volume (Bld) [Entitic vol] 9.7 fL Normal 9.5-13.5 [facility] Comment on above: Performed By: #### C BC #### [facility] [address] [address] [address] Ashley Acosta PLT 274 103/ul Normal 150-450 [facility] Comment on above: Performed By: #### C BC #### [facility] [address] [address] [address] Ashley Acosta RBC 5.05 106/ul Normal 4.70-6.10 [facility] Comment on above: Performed By: #### C BC #### [facility] [address] [address] [address] Ashley Acosta WBC 8.5 103/ul Normal 4.0-11.0 [facility] Comment on above: Performed By: #### C BC #### [facility] [address] [place] [address] Dr. Ashley Acosta Comprehensive Metabolic Pane [facility] 12-15-2022 Albumin [Mass/Vol] 4.316121 g/dL 3.4-5.0 g/dL N [facility] Other Albumin/Globulin [Mass ratio] 1.3 {ratio} [employer] Other Comment on above: Performed By: #### C MP, LIPID #### [facility] [address] [place] [address] Dr. Ashley Acosta ALP [Catalytic activity/Vol] 57 U/L Normal 46-116 [facility] Other Comment on above: Performed By: #### C MP, LIPID #### [facility] [address] [address] [address] Ashley Acosta ALT [Catalytic activity/Vol] 31 U/L Normal 16-63 [facility] Other Comment on above: Performed By: #### C MP, LIPID #### [facility] [address] [place] [address] Dr. Ashley Acosta Anion gap [Moles/Vol] 12.2 mmol/L Normal [facility] Other Comment on above: Performed By: #### C MP, LIPID #### [facility] [address] [place] [address] Dr. Ashley Acosta AST [Catalytic activity/Vol] 25 U/L Normal 15-37 [facility] Other Comment on above: Performed By: #### C MP, LIPID #### [facility] [address] [place] [address] Dr. Ashley Acosta Calcium [Mass/Vol] 9.4835229 mg/dL 8.5-10 .1 mg/dL [facility] Other Chloride [Moles/Vol] 101 mmol/L Normal 98-107 [facility] Other Comment on above: Performed By: #### C MP, LIPID #### [facility] [address] [address] [address] Ashley Acosta CO2 [Moles/Vol] 27.21641337 mmol/L 21.0-3 2.0 mmol/L [facility] Other Creatinine [Mass/Vol] 0.13090304 mg/dL 0.70-1.30 mg/dL [facility] Other Potassium [Moles/Vol] 3.46673992 mmol/L 3.5-5.1 mmol/L [facility] Other Protein [Mass/Vol] 7.959390 g/dL 6.4-8.2 g/dL N [facility] Other Urea nitrogen [Mass/Vol] 11.4603977 mg/dL 7.0-18.0 mg/dL [facility] Other Urea nitrogen/Creatinin e [Mass ratio] 11.7 mg/mg Normal [facility] Other Comment on above: Performed By: #### C MP, LIPID #### [facility] [id number] Ashley Acosta Comprehensive Metabolic Panel see note [facility] Other Comprehensive Metabolic Panel 137 mmol/L 136-145 mmol/L [facility] Other Comprehensive Metabolic Panel 85 mg/dL 74-106 mg/dL [facility] Other Comprehensive Metabolic Panel >60 mL/min/1.73m2 >=60 mL/min/1.73m2 [facility] Other Comprehensive Metabolic Panel 0.9 mg/dL 0.2-1.0 mg/dL [facility] Other Comprehensive Metabolic Panel 3.2 g/dL [facility] Other LIPID PROFILEon 12-15-2022 CHOL-HDL RATIO NORM SEE BELOW Normal [facility] Comment on above: Result Comment: 3.3 - 4.4 LOW RISK 4.4 - 7.1 AVERAGE RISK 7.1 - 11.0 MODERATE RISK >11.0 HIGH RISK Performed By: #### C MP, LIPID #### [facility] [address] [place] [address] Dr. Ashley Acosta Cholesterol in LDL [Mass/Vol] 120.2 mg/dL Normal [facility] Comment on above: Performed By: #### C MP, LIPID #### [facility] [address] [place] [address] Dr. Ashley Acosta HDL NORMAL > or = 60 mg/dl - LO W CARDIOVASCULAR RISK <40 mg/dl - HIGH CARDIOVASCULAR RISK Normal [facility] Comment on above: Performed By: #### C MP, LIPID #### [facility] [address] [place] [address] Dr. Ashley Acosta LDL CALC NORMAL SEE BELOW Normal [facility] Comment on above: Result Comment: <100 mg/dl OPTIMAL 100 - 129 mg/dl NEAR OR ABOVE OPTIMAL 130 - 159 mg/dl BORDERLINE HIGH 160 - 189 mg/dl HIGH >190 mg/dl VERY HIGH Performed By: #### C MP, LIPID #### [facility] [address] [address] [address] Ashley Acosta VLDL CALC 17.8 mg/dL Normal [facility] Comment on above: Performed By: #### C MP, LIPID #### [facility] [address] [address] [address] Ashley Acosta Lipid Panelon 12-15-2022 Cholesterol [Mass/Vol] 194 mg/dL Normal <=200 [facility] Other Comment on above: Performed By: #### C MP, LIPID #### [facility] [address] [address] [address] Ashley Acosta Cholesterol in HDL [Mass/Vol] 56 mg/dL Normal 40-60 [facility] Other Comment on above: Performed By: #### C MP, LIPID #### [facility] [address] [address] [address] Ashley Acosta Cholesterol.total/ Cholesterol in HDL [Mass ratio] 3.5 {ratio} Normal [facility] Other Comment on above: Performed By: #### C MP, LIPID #### [facility] [address] [address] [address] Ashley Acosta Triglyceride [Mass/Vol] 89 mg/dL Normal <=150 [facility] Other Comment on above: Performed By: #### C MP, LIPID #### [facility] [address] [place] [address] Dr. Ashley Acosta Lipid Panel > or = 60 mg/dl - LO W CARDIOVASCULAR RISK <40 mg/dl - HIGH CARDIOVASCULAR RISK [facility] Other Lipid Panel SEE BELOW [facility] Other Lipid Panel 120.2 mg/dL [facility] Other Lipid Panel 17.8 mg/dL [facility] Other PROF 14(COMP METB)on 023 Albumin [Mass/Vol] 4.0 g/dL Normal 3.4-5.0 [facility] Comment on above: Performed By: #### C MP, LIPID #### [facility] [address] [address] [address] Ashley Acosta Bilirubin [Mass/Vol] 0.9 mg/dL Normal 0.2-1.0 [facility] Comment on above: Performed By: #### C MP, LIPID #### [facility] [address] [address] [address] Ashley Acosta Calcium [Mass/Vol] 9.0 mg/dL Normal 8.5-10.1 [facility] Comment on above: Performed By: #### C MP, LIPID #### [facility] [address] [address] [address] Ashley Acosta CO2 [Moles/Vol] 27.5 mmol/L Normal 21.0-32.0 [facility] Comment on above: Performed By: #### C MP, LIPID #### [facility] [address] [address] [address] Ashley Acosta Creatinine [Mass/Vol] 0.94 mg/dL Normal 0.70-1.30 [facility] Comment on above: Performed By: #### C MP, LIPID #### [facility] [address] [place] [address] Dr. Ashley Acosta EGFR-AF PERUVIAN >60 Normal >=60 [facility] Comment on above: Performed By: #### C MP, LIPID #### [facility] [address] [place] [address] Dr. Ashley Acosta EGFR-NON AF PERUVIAN >60 Normal >=60 [facility] Comment on above: Performed By: #### C MP, LIPID #### [facility] [address] [place] [address] Dr. Ashley Acosta Globulin (S) [Mass/Vol] 3.2 g/dL Normal [facility] Comment on above: Performed By: #### C MP, LIPID #### [facility] [address] [place] [address] Dr. Ashley Acosta Glucose [Mass/Vol] 85 mg/dL Normal 74-106 [facility] Comment on above: Performed By: #### C MP, LIPID #### [facility] [address] [address] [address] Ashley Acosta Potassium [Moles/Vol] 3.7 mmol/L Normal 3.5-5.1 [facility] Comment on above: Performed By: #### C MP, LIPID #### [facility] [address] [address] [address] Ashley Acosta Protein [Mass/Vol] 7.2 g/dL Normal 6.4-8.2 [facility] Comment on above: Performed By: #### C MP, LIPID #### [facility] [address] [address] [address] Ashley Acosta Sodium [Moles/Vol] 137 mmol/L Normal 136-145 [facility] Comment on above: Performed By: #### C MP, LIPID #### [facility] [id number] Ashley Acosta Urea nitrogen [Mass/Vol] 11.0 mg/dL Normal 7.0-18.0 [facility] Comment on above: Performed By: #### C MP, LIPID #### [facility] [address] [address] [address] Ashley Acosta Coding Summaryon 04-30-2022 Coding Summary [employer]Base 64 QccndppiIWa0cFr+PGhlYWQ +KP3KIFFaE42yaUNkzX1RN6 nRBQ5LEDZTZVTRZA3ZML9yl HL9VRdrT6GnzuPg WqlqnWHxSY89CKg1BUG8cEw pPUybaL2tgBCsV0d2SvLgXI 87oA30XFryEODyUeW2QrWny jsgbWFy Y9ibQcLnlASiQew+PHRhYmx lIHdpZHRoPScxMDAlJyBzdH rkAG6gMq9pQGZvUILhbSuet HNlOiBj n8znHBYfTLjbGJ0ytAhkO6J soJV2IJArk5h8Lj06mOZ+PH MoQTK0bWwhQTayr697RdHlt 4voXCB3 vKQcAWbuSLU8U73rq8Q0SYG mPSYxECV0cBA3pS8kuPikbr ibM9SicVHlSgE3NDQ1eYRbw V7dyLib hnuzaM5oFgv+B91VIK5GQKN IMY9BGem7F4KtHgisvMA+PC 52RJFkLF59pAKufXGiv0uuz Xg0MnIb DLUkFAZ8dNarMZrdq8JzVRU cM45ckNUky7A3AMLyxOudiQ ViSxRblRA9aJ0tUZnaksoeg 2hvdzsn Ugliu5psof78aY09Z21mSKn xBGRdZKM8KXTqVFOxaOzwzb 4wsC0qXr9+UUkpx4awn8lrp Is8DwQz LVOyriJiaTxgTGA3a1QhSh2 5C0WnoSexy8YdJhh6fv33pL Mfk3D2jXF0JTltUUNdwF8lU WxlZnQ6 KEGeEqTakZ29hJQwGXpuCq2 xnFybgXisIE4jFPWltbdsDY VudR6jSVXphGNjlSahAY9cN TBpbjtm a026GuRpDUI6APJuhIXgZ1M szH8fNwWwUANwSKGcN0RlbT MoPOczT885RKsqYlE1CWRvw bWfW6Ku FIOgsEjqUpJ3v2C4Hk6Vw7H jocyeFKS4PIyvGKQ2TzWsUf RuQfO0M2CmAkc9UNUiyXewH L9mP2Jb PLFcisakluehgCQ4VDBmRBR anF01aJEzYGiwPt5fi9T7f0 80BOIkSCHewR86Uh6tbLtvJ TBwdCBU rX5ldbpkr4jtrlihFcKoIMR yTAq2XYh6YWQuzFhoXhUoHP N3PsU8WOJ3qPTkvR2txNuts spynU0t Oyc+J42vuQ4xJSX5CLX4tvw sWBIlhlWaVJ36JI16X6QvWj wvdGFibGU+PGRpdiBzdHlsZ X9eBoDq i2pbg0RbQVcvN4TzNXEdCIm pWnc6SOKiTNO9hSM5fA9yGO EnUItrh3P0lED7F9FsgfFpf m9na6pl QYIsKUasG68dnSYwd8O1YGX xyXL4TSXzwDixTwMhlW13Yn c+QRYikJxqn2RhAwilv0cqj 5fdcSo0 OlNdAEIugmAiqTxbFZR2x0F pQv97C51aEJfiKCYfVLTzCZ VqBPFcxXihft7utZ6xWk0+P GNvbCB3 gDZ8fS7yINSyRaP3PFgbI71 1DsZrgMNpSvzxk7cqj1shmG r0KhPnRPRgtvXnjAtsTNL7q 6LrVz61 Q25nUWcaOFObHGMvZVQzTQK zdLqfsm4fvI9yPj8+PC9jb2 bhgh79tG53wGH+SIKfXOR3v WxlPSdw ZJHziH3bZDtsUjQ3EYClDkA gjV06wVKdNSgmIq0gcBqlsC bxGQ6gRCEwzyzcu148NaPti 2xkIDEw jBGiMMifOIV3I97iw9R4PTT nQJYpMUI8dVK6mI5qnQhuea ogbGVmdDsgdmVydGljYWwtY DunT756 IHRvcDsnPlBhdGllbnQgTmF tOSw0X5TaEsh4LYVxvBkvDI 5uaLNaZBjtAo3meIzifXpzL X9oNCBv ljudt983VaZgp9yjHTMhmXH kUCbyZUS0Y05wy5I8YEPrGS DeDDB7sHV4jV2cnBlsafayx GVmdDsg lqRcuLnoFItcLQzhZ629LNZ pjXdsTrPumfXxXPYflEB8GD 35OI49oVQza7F3lHR9N3UdN GRpbmct bwlrlKY6YVLhORYntD79Rk8 bwEzdJz8dNEIgWQN3MMDsoX MkS0DdqL7yWwEnKRKxMXZfD 3RleHQt RIqpS280VDtiDlC2IBEyuaC iL9SySQDvnYgaBlU5g5W3Xf 3WD9L3KV00MC25oBFqi3B6s LZ6G2Dx CRCxllvglhtybRF1XUJuLOT grJ40Tf3mjTgrKx5mEBMiYJ Z7LNCdzVNqS2HdcV5tDvRiS DAwMDAw Z4BotMSpLZxiS354FGmdCcU 7BVSgipByT7XuFDPbeVzjQe K3f8T2Ve1MSCi1PB47KC71n IEwu4B8 cAL3H5CtMFWupaoddcfpsUV 4OVLwWHVrlQ89Vy6mvQcqTs 6iGLUzITH8VKJjjISrA0Cin P6tOqMp OMNuKGLqP8LjsHFzPWskT19 3HMueApA3YMGyvxQtC6HwID DunZxhQdZ2m0M7Bs2QJCGjA S80URS5 eTT6OH20VI43T0WaThezyYF ibGU+PHRhYmxlIHdpZHRoPS zxXHTwHsAgxIfcQA6mOn6lC GVyLWNv vDlmaIRfDhBww3soRPSuGYu dOY5hqGdkD7IpsRL7HINmq0 w9Ru87L88xK5KxyIV+PGNvb XE0hZH7 dY0bJyXhXoS7YPrzM832UjV zwDIrWtsin8wiz7tdoMr3Uq B7WRDhwyBxpSvdLGD4q1KpQ m57N19i IHdpZHRoPSIxNSUiIHZhbGl evq1iuL0hBu5+UDCjwLK5cJ T3sV5uMsDrHgV4VRqsH791M nRvcCIv Wzqwa7liu0icaFn8SpLaYUQ onaYybPjcUTG2n1JpWu69P3 TicUlhy3XbGyx0pi44aFRzr 4D4cUC7 L0ThGLFptsnbgJGplGvkLP2 mQXUvibcrWOAnyN3tLFXqI7 b3NiVoSnJ2CBrvH1AyxxQ1K DEwcHQg ATbjRPV7L87ek6E3JHTvVVM jUGX9jHJ5mT1jxUmbdghbsF VmdDsgdmVydGljYWwtYWxpZ 246IHRv eFccKMCfiS7pIOVjgASrnQu lHT6zBPSlttluKq9EMj3KQg rxG2yWMARHHVVNUCSIXY63X Q40gYTq u6O9yQA9Z9MdSTYarnsjvlf maUG6ETKxWZEfeF17eLHxKP adAx2ds0B5n582JWYvCKMim J50Qh2q wZvaUWVzkREMdZ1vnxapo3e ccgfmIoAsMDGwKUu0RDh7DF WtaFdzPfNuPYC7RmW2NEI9b OSuaE9n yAioffkunK9yPjo+MDMvMjQ dNOx4CcyrkQS+CCJoRFB7fF csKPmoWCCuqN5cBRVeW9h4M iAwLjA1 FGauF9LjFPYtrqccBa93vH8 nDqHkGtW5PLviW9QttdJ3IT AbeOSrSYetAUR4D49uj4T4M CMwMDAw CLR9kFK9sM1nhQuhpmsheQY mdDsgdmVydGljYWwtYWxpZ2 46IHRvcDsnPjUwIFllYXJzP D35ZG68 eYFll7R2fTV2H3UcEYDicgr wuznlfEZ4TDOeOZAnbS55zW EqYDpgRn3mc1B3v135FKDkD DUwaW47 Lr1gnZaiQLPkzODMuY2vptq sj8ebxszzEvIsUWIfPIv5RK w1MJFuwEpyZrQzMPL3JkE2H YM7bGCl uT3fiWttggcchX6vFzc+TUF MRTwvdGQ+EWIiGDY2uHacZC zjESNqpK8vMEBoM3k1WuWqA lS0EIov A4MlGKNbxsrcGy21bT7sOnC tQsO6TOceA4BugyT2HCPqwE BiABruXZY9P96di5J1EUUbX DAwMDA7 oKO9wQ0okObwgmtmoUXyuVu lpqNpzQwbRTyqMYycY484HB CutPdnUtTabLQPjTTzKVL8F C75PF49 D9VxMlyilCVduPZ+PHRhYmx lIHdpZHRoPScxMDAlJyBzdH qbXN4rHp9eWXJxBHGtcLfvk HNlOiBj o1twJKGlKXpjZP3olLvzX3P flKR5XMEid0d2Qt87C91xO2 JvdXA+PCYnlIK2nOB7gD4uS zAlIiB2 HMmkJ730PpCzhYTxEsicl8s pt8igaXq6UpDuAQIzqvLwoX glPDB7t5UhAb46Q45rMRxyX HRoPSIy GCCgJWBhwQfgzc3fzU6oNs2 +EPHsgJN2tHO1vC7wKbTdKb G6OHqtU979RcAjdRTgDcwdI 43gM9Pb dXA+SPMlOyb6ATQhiRylQQ7 udBTqHHelPx0hJYA1RmWuRj ScUKbzZ8KwDCSivtcshgkxu NY0TWYq UPBetD04Ca5tgWhbJy2rBPN mYGH1QLYdqUPlZ8WihY3iHn NpFGZhLOTwZ8EukNIkAFozK 246IGxl TcE0PEHlhmVvY1ChKVEdrUm cIkF4j0N6Lw2YfQvtwBZdTW 3lBcGsMKo8F4AhAwo1PNQar VziOJ5z dJMtEHyxLe9poNbmjAtfEX2 dWKJddgwsd687CbXmv8orJA SftMFuVTdrYFS6I74wf4F1C CMwMDAw QQK0fGC0lX9toKwmliptjPD mdDsgdmVydGljYWwtYWxpZ2 13MJUsqYhcGeYHYjk9Q5RyU qy6GZIp hQzzDA2jsIAtOJljZw7ggSf omJvpLC3iMSFdtyfoy944Du Rov4bfEOYuyDErPCbbCDY1L 36oi0I5 XYKfMRVvIJL6rBI4xG2bcIl nbjogbGVmdDsgdmVydGljYW ylRPjeG605PQPqeTnbJc9UU vu5J4Ua Hlq2EMFgaSybMT0pbIBoKOp aGv6syRpoqKvuHU1qFGTxue tlw287LdAsi5vtMMVilMKiP GltZXM7 P68yo6Q1YVIfBQDuVGH8zPL 3vB6yuPqyesqerQXwrRxgik MlfVbqZZuaLOjaS838LGPyt DsnPlBh eWVyOjwvdGQ+SW39jq03I2C qGkbzLpk4WDZoGGB1rEP1nU 6hUEYzUNfat1H3oHJ5V9Vzf jTwcu3v b2x (more content not included)... [facility] Consent Formson 04-29-2022 Consent Forms [id number] TGTIFF [facility] MAGR Intraoperative Recordon 04-29-2022 MAGR Intraoperative Record MAGR Intra-Op Record Summary Primary Physician: Carlos Phelps MD Finalized Date/Time: 04/29/22 12:51:27 Pt. Name: MARIA DE JESUS MEDLEY/Sex: 1970 MALE Med Rec #: [id number] Physician: Carlos Phelps MD Financial #: [id number] Pt. Type: D Room/Bed: / Admit/Disch: 04/28/22 [...] CST, Brandi Role Performed Surgeon - Primary Radiologist Chief Of Breast Imaging Scrub Personnel Time In 04/28/22 11:20:00 04/28/22 11:20:00 04/28/22 11:20:00 Time Out 04/28/22 11:37:00 04/28/22 11:37:00 04/28/22 11:37:00 Procedure Cystoscopy Retrograde Cystoscopy Retrograde Cystoscopy Retrograde Pyelogram Pyelogram Pyelogram Last Modified By: Shelby Melvin RN, Diane RN Kokinda, Diane RN 04/28/22 11:43:07 04/28/22 11:43:07 04/28/22 11:43:07 Entry 4 Entry 5 Case Attendee Sudha Tran CST, CST, Luke T RT (R) CSFA ARRT Role Performed Quarter Backer Skating Rink Manager Time In 04/28/22 11:20:00 04/28/22 11:20:00 Time Out 04/28/22 11:37:00 04/28/22 11:37:00 Procedure Cystoscopy Retrograde Cystoscopy Retrograde Pyelogram Pyelogram Last Modified By: Shelby Melvin RN, Diane RN 04/28/22 11:43:07 04/28/22 11:43:07 Surgical Procedures MAGR Pre-Care Text: A.20 Verifies operative procedure, surgical site, and laterality Im.150 Develops individualized plan of care Entry 1 Procedure Cystoscopy Retrograde Primary Procedure Yes Pyelogram Primary Surgeon Carlos Phelps MD Surgeon Comment RETROGRADE URETHROGRAM - NO CYSTOSCOPE, [...] Met (O.100) Yes Last Modified By: Shelby Mlevin RN 04/28/22 10:37:21 Post-Care Text: E.10 Evaluates for signs and symptoms of physical injur (more content not included)... [facility] Provider Orderson 04-29-2022 Provider Orders [id number] TGTIFF [facility] Inpatient Patient Summaryon 04-28-2022 Inpatient [place] [address] Patient Discharge Instructions Name: MARIA DE JESUS MEDLEY : 1970 Patient Address: [address] [place] [address] Primary Care Provider: Name: Zachary Rodriguez After you are discharged if you find you have any questions, please, call [phone] ext [phone] to speak to a nurse. Discharge Diagnosis: Urethral stricture Prescription Information: If you have been given a prescription for narcotics, seek immediate medical attention if you have any difficulty breathing or any sudden status changes such as confusion and sleepiness. If you or anyone you know is experiencing suicidal thoughts, mental health, alcohol and/or drug addiction problems; contact the [facility] 24/05 Crisis Hotline -Text 3CQQX ar 124436. If you received any narcotics, sedation, or [...] business decisions or sign any legal documents [facility] would like to thank you for allowing us to assist you with your healthcare needs. The following includes patient education materials and information regarding your injury/illness. MARIA DE JESUS MEDLEY has been given the following list of follow-up instructions, prescriptions, and patient education materials: Follow-up Instructions With: Address: When: Zachary Rodriguez [address] [place] [address] Business (1) Medications During the course of [...] for Disease Control and Prevention July [facility] 04-28-2022 MAGR Preoperative Record MAGR Pre-Op Record Summary Primary Physician: Carlos Phelps MD Finalized Date/Time: 04/28/22 11:50:49 Pt. Name: MARIA DE JESUS MEDLEY/Sex: 1970 MALE Med Rec #: [id number] Physician: Carlos Phelps MD Financial #: [id number] Pt. Type: D Room/Bed: / Admit/Disch: 04/28/22 [...] consent correct. General Comments: Pt arrives to w ambulatory. PT denies pain, cp, sob, cough or flu like symptoms. Pt deneis pacemaker/defibillator or sleep apnea. Finalized By: Laura Crain RN Document Signatures Signed By: Laura Crain RN 04/28/22 11:50 Normal [facility] Patient Handouton 04-28-2022 Patient Handout Normal [facility] XR Urography Retrogradeon XR Urography Retrograde EXAMINATION: [...] Bernardo Dia MD 04/29/22 8:22 am Technologist: [facility] Consent for Procedure/Surger yon 04-01-2022 Consent for Procedure/Surgery [id number] D:127 [facility] Ambulatory Visit Summaryon 0 03-31-2022 Ambulatory Visit [...] Jimmy DAUGHERTY MD Where: [facility] Patient Educationon 03-31-20 Patient Education Urology Benign [...] Follow these instructions at home: ? Take dozg-baz-cvvpelj and prescription medicines only as told by [...] You d (more content not included)... Normal [facility] Urology Office/Clinic Noteon 03-31-2022 Urology Office/Clinic Note [...] urine The Urethra was dilated to: _ Cambodian with sounds. Specimens Removed: None Removal: Cystoscope [...] When Contact Information SHANIKA VALDOVINOS, Jimmy Valles, URJordan In 104 days 07/13/2022 EDT [facility] [address], [place] [address]- [phone] Additional Instructions: f/u in Jul w PSA Patient Education Benign Prostatic Hyperplasia Kidney Stones, Hpna-sx-Ffeq ILibertad, personally scribed for Dr. Daugherty on 03/31/2022 [...] (more content not included)... [facility] Comment on above: Result Comment: Elec tronically [...] reviewed at cysto 03/31/22 [facility] RAD - CT Reporton 03-23-2022 RAD - CT Report [id number] D:127 [facility] CT ABD/PELVIS WO CONon 03-19 CT ABD/PELVIS [...] by: CHARLY POP Date: 2022-03-19 19:21 Normal [facility] Pre-Certification Formon Pre-Certification Form [id number] D:127 Normal [facility] Ambulatory Visit Summaryon 0 03-02-2022 Ambulatory Visit Summary MARIA DE JESUS MEDLEY :1970 Visit Date:03/02/2022 Ambulatory Visit Instructions Your Diagnosis BPH with urinary obstruction Chronic prostatitis Other obstructive and reflux uropathy Tests Performed Urnls Dip Stick Auto w/o Microscopy POC [address] CT Abdomen/Pelvis w/o Contrast -- Results Pending -- Please visit your patient portal for your results or contact your primary care physician. Your Care Team Attending Physician - Jimmy DAUGHERTY MD Primary Care Physician - ZACHARY RODRIGUEZ DO This Is Your Medications List tamsulosin (Flomax 0.4 mg Cap) tamsulosin (tamsulosin 0.4 mg Cap) Contact prescribing physician if questions or concerns sulfamethoxazole-trimet [facility] Procedures Performed Appendectomy, Colonoscopy. Discharge Vitals Heart Rate (Peripheral) 83 Respiratory Rate 16 Blood Pressure 123/86 Height 176 cm Height 176.0 cm Weight 86.1 kg Weight 86.1 kg BMI 27.8 What to do next Scheduled Follow-Up Appointments Wednesday 3:15 PM EDT With: Jimmy DAUGHERTY MD Where: [facility] Patient Educationon 03-02-20 22 Patient Education Infectious [...] Follow these instructions at home: ? Take kvep-gfm-vkigwws and prescription medicines only as told by [...] [facility] Urology Office/Clinic Noteon 03-02-2022 Urology Office/Clinic [...] URL [facility] [address], [place] [address]- Additional Instructions: Will schedule Cysto. Patient Education Calorie Counting for Weight Loss Prostatitis Izzy Munoz, personally scribed for Dr. Daugherty on 03/02/2022 14:19:02. . Documentation recorded by the scribIzzy alvarado, accurately reflects the services(s) I performed [...] Protein Urine Dipstick: Negative (03/02/22 13:27:00) Specific [place] Urine Dipstick: 1.025 (03/02/22 13:27:00) Urine Appearance Urine (more content not included)... Normal [facility] Comment on above: Result Comment: Elec tronically Signed By: Jimmy DAUGHERTY MD\.br\Date and Time Signed: 03/02/22 14:23 EDT\.br\Electronically Co-Signed By: Izzy Stearns\.br\Date and Time Co-Signed: 03/02/22 14:19 EDT Lab Reportson 12-30-2021 Lab Reports [id number] [facility] [id number]#1.00C D:127 Normal [facility] Patient Educationon 12-29-19 22 Patient Education Infectious [...] Follow these instructions at home: ? Take stqq-ocg-vlmpgse and prescription medicines only as told by [...] months 06/28/2022 EDT [facility] [address] [place] [address] [phone] Additional Instructions: PSA Patient Education Prostatitis I, [...] Postpone due to refusal [facility] Comment on above: Result Comment: Elec tronically Signed By: Jimmy DAUGHERTY MD\.br\Date and Time Signed: 12/29/21 16:40 EST\.br\Electronically Co-Signed By: Odilia Shah MA\.br\Date and Time Co-Signed: 12/29/21 16:37 EST [facility] Report[facility] 11-23-2021 Lab Reports [id number] D:127 [facility] Formson 11-21-2021 Forms [id number] D:127 [facility] Physician Referralon 022 Physician Referral [id number] D:127 [facility] Ambulatory Visit Summaryon 0 11-20-2021 Ambulatory Visit Summary MARIA DE JESUS MEDLEY :1970 Visit Date:11/20/2021 Ambulatory Visit Instructions Your Diagnosis Acute prostatitis Nocturia Urinary frequency Urinary urgency Asymptomatic microscopic hematuria BPH with urinary obstruction Elevated PSA, Elevated PSA Other obstructive and reflux uropathy Tests Performed Urnls Dip Stick Auto w/o Microscopy POC 94455 Your Care Team Attending Physician - Jimmy [...] Where: [facility] [address], [place] [phone] Medications What How Much When Instructions New doxycycline (doxycycline hyclate 100 mg Cap) 1 Capsules By Mouth 2 times a day Refills: 1 Pickup at [facility]/pharmacy #[id number] New tamsulosin (Flomax 0.4 mg Cap) 1 Capsules By Mouth Every day Refills: 6 [id number] Information [facility][id number]: [address], [place] [phone] Test Results Urnls Dip Stick Auto w/o Microscopy POC 70375 (11/20/2021) Bilirubin Urine Dipstick - Negative Blood Urine Dipstick - 3+ Large Glucose Urine Dipstick - Negative Ketones Urine Dipstick - Negative Leukocytes Urine Dipstick - 3+ Large Nitrite Urine Dipstick - Negative Protein Urine Dipstick - 2+ (100 mg/dl) Specific [place] Urine Dipstick - 1.025 Urine Appearance Urine [...] diagnosed? This (more content not included)... Normal [facility] Ambulatory Visit Summary MARIA DE JESUS MEDLEY :1970 Visit Date:11/20/2021 Ambulatory Visit Instructions Your Diagnosis Acute prostatitis Nocturia Urinary frequency Urinary urgency Asymptomatic microscopic hematuria BPH with urinary obstruction Elevated PSA, Elevated PSA Other obstructive and reflux uropathy Tests Performed Urnls Dip Stick Auto w/o Microscopy POC 19128 Your Care Team Attending Physician - SHANIKA [...] w/PSA Where: [facility] [address], [place] [address] [phone] Medications What How Much When Instructions New doxycycline (doxycycline hyclate 100 mg Cap) 1 Capsules By Mouth 2 times a day Refills: 1 Pickup at [facility]/pharmacy #[id number] New tamsulosin (Flomax 0.4 mg Cap) 1 Capsules By Mouth Every day Refills: 6 Pickup at [facility]/pharmacy #[id number] Pharmacy Information [facility] #[id number]: [address], [place] [phone] Test Results Urnls Dip Stick Auto w/o Microscopy POC 06430 (11/20/2021) Bilirubin Urine Dipstick - Negative Blood Urine Dipstick - 3+ Large Glucose Urine Dipstick - Negative Ketones Urine Dipstick - Negative Leukocytes Urine Dipstick - 3+ Large Nitrite Urine Dipstick - Negative Protein Urine Dipstick - 2+ (100 mg/dl) Specific [place] Urine Dipstick - 1.025 Urine Appearance Urine [...] diagnosed? This (more content not included)... Normal [facility] Patient Educationon 11-20-19 Patient Education Infectious Disease [...] Follow these instructions at home: ? Take eets-nts-moawuft and prescription medicines only as told by [...] Revised: 12/31/2018 Docum (more content not included)... [facility] Provider Letteron 11-20-2021 Provider Letter November 20, 2021 November 20, 2021 MARIA DE JESUS MEDLEY [address] [place] [phone] MARIA DE JESUS MEDLEY 1970 To Whom It May Concern, Please excuse above patient from work. Date of appointment From: 11/20/2021 To: May Return to Work On: 11/21/2021 Restrictions: _ Comments: _ Sincerely, [facility] Urology Office/Clinic Noteon 11-20-2021 Urology Office/Clinic Note [...] # 60 cap(s), Refills(s) 1, Pharmacy: [facility]/pharmacy #[id number], 176, cm, 11/20/21 14:51:00 EST, Height/Length Dosing, 86, kg, 11/20/21 14:51:00 EST, Weight Dosing tamsulosin, 0.4 mg = 1 cap(s), Oral, Daily, # 30 cap(s), Refills(s) 6, Pharmacy: [facility]/pharmacy #[id number], 176, cm, 11/20/21 14:51:00 EST, Height/Length Dosing, 86, kg, 11/20/21 14:51:00 EST, Weight Dosing I have reviewed the previous health history for this patient with Dr. Daugherty. f/u in 6 weeks w/PSA Follow-up With When Contact Information SHANIKA VALDOVINOS, LUZ Haider In 6 weeks 01/01/2022 EST [facility] [address], [place] [phone] Additional Instructions: 6 week f/u w/PSA Patient Education Prostatitis Libertad Munoz, personally scribed for Dr. Daugherty on 11/20/2021 15:47:22. . Documentation recorded by the jeanibjordan alvarado, accurately reflects the services(s) I performed and decisions made by me. Authenticated by Dr. Daugherty on 11/20/2021 15:53:34. Problem List/Past Medical History Ongoing Acute prostatitis Neoplasm of uncertain behavior of skin Overweight Historical No qualifying data Procedure/Surgical History Appendectomy, Col (more content not included)... Normal [facility] Comment on above: Result Comment: Elec tronically Signed By: SHANIKA VALDOVINOS, Jimmy Valles\.br\Date and Time Signed: 11/20/21 15:53 EST\.br\Electronically Co-Signed By: Libertad Celeste\.br\Date and Time Co-Signed: 11/20/21 15:47 EST Vital Signs Date Time Vital Sign Value Performing Clinician Facility 12-15-2022 16:30-0500 Body height 175.26 cm Zachary boosk Other [facility] Other 12-15-2022 16:30-0500 Body mass index (BMI) [Ratio] 29.24 kg/m2 Zachary Ball Other [facility] Other 12-15-2022 16:30-0500 Body weight 89.81 kg Zachary Ball Other [facility] Other 12-15-2022 16:30-0500 Diastolic blood pressure 80 mm[Hg] Zachary boosk Other [facility] Other 12-15-2022 16:30-0500 Respiratory rate 12 /min Zachary boosk Other [facility] Other 12-15-2022 16:30-0500 Systolic blood pressure 130 mm[Hg] Zachary boosk Other [facility] Other 03-31-2022 07:40-0400 Blood Pressure Location [facility] 03-31-2022 07:40-0400 Diastolic blood pressure 82 mm[Hg] [facility] 03-31-2022 07:40-0400 Heart rate 85 /min Jimmy [employer] [facility] 03-31-2022 07:40-0400 Respiratory rate 16 /min Jimmy DAUGHERTY [facility] 03-31-2022 07:40-0400 Systolic blood pressure 135 mm[Hg] Jimmy DAUGHERTY [facility] 03-02-2022 13:30-0400 Blood Pressure Location Jimmy DAUGHERTY [facility] [place] 03-02-2022 13:30-0400 Diastolic blood pressure 86 mm[Hg] Jimmy DAUGHERTY [facility] 03-02-2022 13:30-0400 Heart rate 83 /min Jimmy DAUGHERTY [facility] 03-02-2022 13:30-0400 Respiratory rate 16 /min Jimmy DAUGHERTY [facility] 03-02-2022 13:30-0400 Systolic blood pressure 123 mm[Hg] Jimmy DAUGHERTY [facility] En[facility] Encounter Date Encounter Type Care Provider Facility Start: 11-25-2023 End: 11-25-2023 ambulatory Zachary Ball Facility:[facility] Start: 11-25-2023 End: 11-25-2023 ambulatory DO Zachary Rodriguez Work Phone: [facility] Work Phone: Start: 11-25-2023 End: 11-25-2023 Departed Referred DO Zachary Rodriguez Work Phone: [facility] Start: 01-08-2023 End: 01-08-[address] ZACHARY RODRIGUEZ Facility:[facility] Start: 12-20-2022 Encounter for genera l adult medical examination without abnormal findings DR ZACHARY RODRIGUEZ [facility] Start: 12-18-2022 End: 12-19-[address] ZACHARY RODRIGUEZ Facility:[facility] Start: 12-16-2022 End: 12-16-2022 ambulatory Zachray Rodriguez Other [facility] Other Start: 12-16-2022 Telephone encounter Zachary Rodriguez [facility] Start: 12-15-2022 End: 12-16-[address] ZACHARY RODRIGUEZ [facility] Other Start: 12-15-2022 End: 12-16-2022 Encounter for general adult medical examination without abnormal findings Zachary Rodriguez [facility] Start: 12-15-2022 Periodic preventive med est patient 40-64yrs Zach[address] Rodriguez [facility] Start: 03-31-2022 End: 03-31-2022 Patient encounter procedure Jimmy DAUGHERTY [facility] Start: 03-19-2022 End: 03-20-[address] JIMMY DAUGHERTY . Facility:[facility] Start: 03-02-2022 End: 03-02-2022 Patient encounter procedure Jimmy DAUGHERTY [facility] Procedures Date Procedure Procedure Detail Performing Clinician Start: 12-15-[address] SUNSHINE RODRIGUEZ Comment on above: Performed By: #### [facility] #### [facility] [address] [place] [address] Dr. Ashley Acosta Start: 03-31-2022 Cystoscopy Jimmy REESE Appendectomy Jimmy DAUGHERTY Colonoscopy Jimmy DAUGHERTY Immunizations Immunization Date Immunization Notes Care Provider Fa cilikianna NEGATED: Highlighted row has not occurred!12-29-2021 SARS-CoV-2 (COVID-19) Ad26 vaccine, recombinant Jimmy DAUGHERTY [facility] Payers Date Payer Category Payer Self-pay [id number] 1970 Unknown [id number] 2.16.84 [id number] 1970 Unknown [id number] 2.16.84 [id number] 1970 Unknown [id number] 2.16.84 [id number] 1970 Unknown [id number] 2.16.84 [id number] 1957 Unknown [id number] 2. [id number] 1957 Unknown [id number] Unknown [id number] Unknown [id number] 2.16.8 [id number] Social History Date Type Detail Facility Start: 11-20-2021 Tobacco smoking status Never s moked tobacco (finding) [facility] Tobacco smoking status Never [facility] Sex Assigned At Male [facility] Start: 1970 Sex Assigned At Male [facility] Evaluation note 12-15-2022 Note Date & Type [...] (ICD-10 - Z12.5) Yearly JUMA and PSA [facility] Other History and physical note 04-29-2022 Note Date & Type Note Facility 04-29-2022 Note [id number] [facility] Clinical Note 04-28-2022 Note Date & Type Note Facility 04-28-2022 Note [facility] SURGERY Clinical Discharge Summary PERSON INFORMATION Name MARIA DE JESUS MEDLEY Age 52 Years 1970 Sex MALE Language Swedish PCP Zachary Rodriguez Marital Status Med Service Ambulatory Surgery Acct# Arrival 04/28/2022 09:37:00 Visit Reason SURGERY - RETROGRADE URETHROGRAM - NO CYSTOSCOPE, NO FLUORO, NO CONTRAST DYE - JUST LOOKING PER [facility] LOS 012 00:13 Address: [address] [place] [address] Comment: PROVIDER INFORMATION VITALS INFORMATION Vital Sign [...] Follow up: With: Address: When: Zachary Rodriguez [address] [place] [address] Business (1) DIAGNOSIS Urethral stricture Comment: PHYS DOC NOTES [facility] Discharge instructions 03-31-2022 Note Date & Type [...] urethra. Follow these instructions at home: Take hvya-amu-zdxiixn and prescription medicines only as told by [...] 10/18/2006 Document Revised: 09/12/2019 Document Reviewed: 11/22/2017 [employer] Patient Education 2020 [employer]. 03/31/2022 07:56:52 Kidney Stones, Wubf-ao-Awxo Kidney Stones Kidney stones are rock-like masses [...] Follow these instructions at home: Medicines Take ubqs-eqs-ftskftt and prescription medicines only as told by [...] 04/05/2009 Document Revised: 03/05/2020 Document Reviewed: 03/05/2020 ElseAgendize Patient Education 2019 [employer]. Follow Up Care 03/16/2022 11:12:01 With:SHANIKA VALDOVINOS, Jimmy Valles, URL Address: [facility] [address] , [place] [address]- [phone] When:07/13/2022 Comments:f/u in Jul PSA [facility] Discharge instructions 03-02-2022 Note Date & [...] 10/18/2006 Document Revised: 07/07/2019 Document Reviewed: 09/17/2017 [employer] Patient Education 2020 [employer]. 03/02/2022 14:01:11 Prostatitis Prostatitis Prostatitis is swelling [...] prostate. Follow these instructions at home: Take jagk-bia-dqqdihy and prescription medicines only as told by [...] 10/15/2001 Document Revised: 12/31/2018 Document Reviewed: 07/08/2017 [employer] Patient Education 2020 [employer]. Follow Up Care 02/04/2022 15:37:59 With:Jimmy DAUGHERTY MD, URL Address: [facility] [address] , [place] [address]- When: Unknown Comments:Will schedule Cysto. [facility] Evaluation + Plan note Note Date & Type Note Facility Evaluation + Plan note Future Appointments Appointment Date:07/13/2022 03:15:00 PM Scheduled Provider:Jimmy DAUGHERTY MD Location:[facility] Appointment Type:URO Office Visit [facility] Evaluation note Note Date & Type Note Facility Evaluation note No Information [facility] Other Evaluation note Note Date & Type Note Facility Evaluation note No assessment information availa ble [facility] Work Phone: History general Narrative - Reported Note Date & Type Note Facility History general Narrative - Reported Type Medical History Elevated blood press ure (not hypertension) Medical History Overweight Medical History 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 Medical History Acute prostatitis with hematuria Surgical History COLONOSCOPY 2019 Hospitalization History SEE SURGICAL HX [facility] Other Hospital course Narrative Note Date & Type Note Facility Hospital course Narrative No data available for this section [facility] Summary Purpose Family History No Family History [...] CREATED AUTHOR AUTHOR'S ORGANIZ ATION 01/18/2023 [facility] DATE CREATED AUTHOR AUTHOR'S ORGANIZ ATION 11/28/2023 [facility] REASON FOR VISIT (unrecogniz ed section and [...] BE BASED ON THE PRIMARY CLINICAL RECORDS. [facility]. provides no warranty or guarantee of the accuracy or completeness of information in this document.
[2024-01-25 15:08] LABS: Alanine Aminotransferase 33 U/L (16-63); Albumin Globulin Ratio 1.2; Alkaline Phosphatase 54 U/L (46-116); Anion Gap 15.7; Aspartate Amino Transferase 22 U/L (15-37); BUN Creatinine Ratio 11.5; Calcium 9.1 mg/dL (8.5-10.1); Carbon Dioxide 25.6 mmol/L (21.0-32.0); Chloride 103 mmol/L (98-107); Chol HDL Ratio 3.6; Cholesterol 214 mg/dL (<=200); Estimated GFR (African America >60 (>=60); Estimated GFR (Non-African Ame >60 (>=60); Globulin 3.3 g/dL; Glucose 91 mg/dL (74-106); HDL Cholesterol 60 mg/dL (40-60); Potassium 4.3 mmol/L (3.5-5.1); Sodium 140 mmol/L (136-145); Total Protein 7.3 g/dL (6.4-8.2); Triglycerides 96 mg/dL (<=150); VLDL CHOLESTEROL 19.2 mg/dL
[2024-01-25 15:28] LABS: Prostate Specific Antigen Scrn 0.49 ng/mL (<=4.00)
== END 2024-01-25 14:09 | disposition home or self-care (01) ==
LOC: LAB 14:09
PROVIDERS: PCP Internal Medicine; Visit Provider Internal Medicine
DX: Z00.00 Encounter for general adult medical examination without abnormal findings (principal)
CPT/HCPCS: 36415; 80053; 80061; 85025; G0103

== ENCOUNTER 2024-02-08 09:09 | Outpatient (OUT) | payer OTHER, SELFPAY ==
--- NOTE | 2024-02-08 | XR_ITS ---
The [address] [address] Patient Name: MARIA DE JESUS MEDLEY MRN: [id number] date: 1970 Sex: M Assigned Patient Location: Current Patient Location: Accession/Order Number: [id number] Exam Date: 02/08/2024 09:14 Report Date: 02/08/2024 10:45 At the request of: MORENA YA Procedure: XR foot RT min 3V PROCEDURE: XR foot RT min 3V COMPARISON: 01/05/2024 HISTORY: RIGHT FOOT PAIN FINDINGS: BONES:Stable fusion first metatarsal-phalangeal joint with a dorsal plate and screws. No acute fracture, dislocation or mechanical failure. Mild degenerative changes with marginal osteophyte formation. Mild enthesopathic spurring of the calcaneus at the Achilles and plantar insertions SOFT TISSUES:Negative. No visible soft tissue swelling. EFFUSION:None visible. OTHER: Negative. XR/XR foot RT min 3V IMPRESSION: Stable first metatarsal-phalangeal joint fusion Electronically authenticated by: ARMANDO ALEXANDER Date: 02/08/2024 10:45
== END 2024-02-08 09:10 | disposition home or self-care (01) ==
LOC: EC 09:09
PROVIDERS: PCP Internal Medicine; Visit Provider Podiatrist Foot & Ankle Surgery
DX: M20.11 Hallux valgus (acquired), right foot (principal)
CPT/HCPCS: 73630

== ENCOUNTER 2024-03-07 15:26 | Outpatient (OUT) | payer OTHER, SELFPAY ==
--- NOTE | 2024-03-07 | XR_ITS ---
The [address] [address] Patient Name: MARIA DE JESUS MEDLEY MRN: [id number] date: 1970 Sex: M Assigned Patient Location: Current Patient Location: Accession/Order Number: [id number] Exam Date: 03/07/2024 15:27 Report Date: 03/08/2024 07:38 At the request of: MORENA YA Procedure: XR foot RT min 3V PROCEDURE: XR foot RT min 3V COMPARISON: 02/08/2024 HISTORY: RIGHT FOOT PAIN FINDINGS: BONES:Stable fusion first metatarsal-phalangeal joint with dorsal plate and multiple screws. No acute fracture or dislocation. Mild enthesopathic spurring of the calcaneus at the Achilles and plantar insertions SOFT TISSUES:Negative. No visible soft tissue swelling. EFFUSION:None visible. OTHER: Negative. XR/XR foot RT min 3V IMPRESSION: Stable first metatarsal-phalangeal joint fusion Electronically authenticated by: ARMANDO ALEXANDER Date: 03/08/2024 07:38
== END 2024-03-07 15:27 | disposition home or self-care (01) ==
LOC: EC 15:26
PROVIDERS: PCP Internal Medicine; Visit Provider Podiatrist Foot & Ankle Surgery
DX: M20.21 Hallux rigidus, right foot (principal)
CPT/HCPCS: 73630

== ENCOUNTER 2024-06-07 15:28 | Outpatient (OUT) | payer OTHER, SELFPAY ==
--- NOTE | 2024-06-07 | XR_ITS ---
[address] [address] Patient Name: MARIA DE JESUS MEDLEY MRN: [id number] date: 1970 Sex: M Assigned Patient Location: Current Patient Location: Accession/Order Number: [id number] Exam Date: 06/07/2024 15:28 Report Date: 06/12/2024 07:32 At the request of: MORENA YA Procedure: XR foot RT min 3V PROCEDURE: XR foot RT min 3V COMPARISON: None. HISTORY: RIGHT FOOT PAIN FINDINGS: BONES:Stable fusion first metatarsal-phalangeal joint with a plate and screws. No acute fracture, dislocation or mechanical failure. Moderate enthesopathic spurring of the calcaneus. SOFT TISSUES:Negative. No visible soft tissue swelling. EFFUSION:None visible. OTHER: Negative. XR/XR foot RT min 3V IMPRESSION: Stable first metatarsal-phalangeal joint fusion Electronically authenticated by: ARMANDO ALEXANDER Date: 06/12/2024 07:32
--- OUTSIDE RECORDS SUMMARY | 2024-06-07 15:39 | XMS_ITS | CCD ---
Author Organization [facility] Care Team Providers Care Hair Dresser Name Role Phone ZACHARY RODRIGUEZ Primary Care Physician Zachary Rodriguez Unavailable MICHAEL, DR TREVINO Admitting Unavailable BALL, DR TREVINO Attending Unavailable BALL, DR TREVINO Primary Care Unavailable MICHAEL, DR TREVINO Consulting Unavailable DAUGHERTY ., DR GONZALEZ Admitting Unavailable DAUGHERTY ., DR GONZALEZ Attending Unavailable BALL, DR TREVINO Primary Care Unavailable BALL, DR TREVINO Consulting Unavailable DAUGHERTY ., DR GONZALEZ Consulting Unavailable ZIEBER, DR CHARLY Valles Consulting Unavailable BALL, DR TREVINO Primary Care Unavailable BALL, DR TREVINO Admitting Unavailable BALL, DR TREVINO Attending Unavailable BALL, DR TREVINO Consulting Unavailable ZIEBER, DR CHARLY Valles Consulting Unavailable BALL, DR TREVINO Admitting Unavailable BALL, DR TREVINO Attending Unavailable BALL, DR TREVINO Primary Care Unavailable BALL, DR TREVINO Consulting Unavailable ZIMARKY, DR CHARLY Valles Consulting DO Zachary Pradhan Primary Care Provider [phone] DARA Palomino Attending Provider Zachary Rodriguez Primary Care Jose Cornelius Attending Jose Cornelius Admitting DO Zachary Pradhan Primary Care Provider [phone] DARA Palomino Attending Provider [phone] Medications Current Medications Medication Drug Class(es) Dates Sig (Normalized) Sig (Original) cholecalciferol 0.025 mg oral capsule (1 source) Vitamin D Start: 01-25-2024 take 25 ug by mouth once daily Cholecalciferol (Vitamin D3) Active 25 MCG PO Daily January 25, 2024 12:00am Sulfamethoxazole / Trimethoprim (2 sources) Dihydrofolate Reductase Inhibitor Antibacterial, Sulfonamide Antimicrobial Start: 03-02-2022 sulfamethoxazole-tr imethoprim Refill(s) 0 Start Date: 03/02/22 Status: Ordered tamsulosin hydrochloride 0.4 mg oral capsule (3 sources) alpha-Adrenergic Steph Start: 03-02-2022 take 1 capsule by mouth twice daily tamsulosin 0.4 mg Cap 0.4 mg = 1 cap(s), Oral, BID, # 60 cap(s), Refills(s) 6, [id number] 176, cm, 03/02/22 13:33:00 EDT, Height/Length Dosing, 86.1, kg, 03/02/22 13:33:00 EDT, Weight Dosing Start Date: 03/02/22 Status: Ordered Start: 11-20-2021 take 1 capsule by [facility] once daily Flomax 0.4 mg Cap 0.4 mg = 1 cap(s), Oral, Daily, # 30 cap(s), Refills(s) 6, [id number], 176, cm, 11/20/21 14:51:00 [...] procedure, # 2 tab(s), Refills(s) 0, [id number], 176, cm, 03/02/22 13:33:00 EDT, Height/Length Dosing, 86.1, kg, 03/02/22 13:33:00 EDT,... Start Date: 03/16/22 Status: Ordered citric acid 75 mg/ml / magnesium oxide 21.9 mg/ml / picosulfate sodium 0.0625 mg/ml oral solution (3 sources) Calculi Dissolution Agent, Anti-coagulant Start: 01-06-2024 End: 01-25-2024 take 1 mL by mouth twice daily Sod Picosulf-Mag Ox-Citric Ac (Clenpiq) 10 mg-3.5 gram- 12 gram/160 mL solution Discontinued 160 ML PO Twice daily January 06, 2024 1:00am January 25, 2024 1:36pm Start: 09-02-2020 take 160 mL by mouth in the evening, then take 160 mL by mouth twice daily in the evening Clenpiq 10-3.5-12 MG-GM -GM/160ML 160 ML AT 3:00 PM AND 160 ML AT 9:00 PM Orally TWICE A DAY for 1 days PLEASE CHECK ALLERGIES Sep, Active Problems Problem Classification Problem Date Documented Da te Episodic/Chronic Calculus of urinary tract (1 source) Kidney stone; Translations: [Calculus of kidney] Onset: 03-31-2022 Episodic Genitourinary symptoms and ill-defined conditions (7 sources) Increased frequency of urination; Translations: [Nocturia] 12-29-2021 Episodic Hyperplasia of prostate (13 sources) Benign prostatic hypertrophy with outflow obstruction; [...] SUBQ RT LEG] Onset: 12-18-2022 Episodic Other and unspecified benign neoplasm (1 source) Lipoma of right lower limb; Translations: [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] 01-06-2024 Episodic Other circulatory disease (2 sources) Elevated [...] Episodic Other nutritional; endocrine; and metabolic disorders (5 sources) Overweight; Translations: [Overweight] 11-20-2021 Episodic Other nutritional; endocrine; and metabolic disorders (1 source) Overweight Episodic Other screening for suspected conditions (not mental disorders or infectious disease) (5 sources) Encounter for screening for malignant neoplasm of prostate; Translations: [Patient encounter status] Onset: 12-20-2022 Episodic Other skin disorders (4 sources) Localized swelling, mass and lump, right lower limb; Translations: [LOC SWELL MASS LUMP RT LOWER LIMB] Onset: 01-08-2023 Episodic Unclassified (2 sources) Asymptomatic microscopic hematuria 12-29-2021 Results Test Name Value Interpretation Reference Range Facility [facility] 11-25-2023 L Specimen: [id number] Received: 11/25/23 Status: JONO Villa Num: [id number] Spec Type: Surgical Subm Dr: Jose Palomino DPM, MS Tissues: A Bone Fragments - Other than Path Fracture (RT TIBIAL OSTEOPHYTE) Procedures: HE, Gross/Micro L3, Decalcification Age/ Patient Sex Location Account Attending Physician Maria De Jesus Medley 53/M LABELL [id number] Jose Palomino DPM, MS SPEC NUM: [id number] RECD: 11/25/23 STATUS: JONO VILLA NUM: [id number] STANISLAV: 11/25/[address]: Jose Palomino DPM, MS ENTERED: 11/25/[address] [facility] [address]: Hair,Jared SPEC TYPE: Surgical DEPT: STEFANO NICOLAS ORDERED: [...] fragments, with no areas of softening identified. Sofa Back Upholsterer sections are submitted in one cassette labeled A1. CPT Codes 09249, 99641 Specimen: [id number] Received: 11/25/23 Status: JONO Villa Num: [id number] Spec Type: Surgical Subm Dr: Jose Palomino,DARA, MS Tissues: A Bone Fragments - Other than Path Fracture (RT TIBIAL OSTEOPHYTE) Procedures: Lorraine ULLOA/Amanda L3, Decalcification Patient: Maria De Jesus Medley [id number] (Continued) Signed (signature on file) Isacc Beard MD 11/27/23 1130 [facility] MUSC_SOFT TISSUE BXon US MUSC_SOFT TISSUE BX Begin Addendum #1 COLLECTED DATE/TIME: 01/08/2023 16:30 EST Final Diagnosis Report for [facility], [place], [place] ULTRASOUND-GUIDED CORE BIOPSY RIGHT LATERAL THIGH [...] results from the referring physician. Normal [facility] US EXT NON VASC LIMITED RTon 12-22-2022 [...] CHARLY POP Date: 2022-12-22 08:45 Normal [facility] CBC AUTO DIFFon 02-14-2023 BASO # 0.1 103/ul Normal 0.0-0.1 [facility] Comment on above: Performed By: #### C BC #### [facility] [address] [place] [address] Dr. Ashley Acosta Basophils/100 WBC (Bld) 0.9 % Normal 0.2-2.0 [facility] Comment on above: Performed By: #### C BC #### [facility] [address] [place] [address] Dr. Ashley Acosta EO # 0.2 103/ul Normal 0.0-0.7 [facility] Comment on above: Performed By: #### C BC #### [facility] [address] [place] [address] Dr. Ashley Acosta Eosinophils/100 WBC (Bld) 1.8 % Normal 0.9-7.0 [facility] Comment on above: Performed By: #### C BC #### [facility] [address] [place] [address] Dr. Ashley Acosta Erythrocyte distribution width (RBC) [Ratio] 11.8 % Normal 11.0-15.0 [facility] Comment on above: Performed By: #### C BC #### [facility] [address] [place] [address] Dr. Ashley Acosta Hematocrit (Bld) [Volume fraction] 43.3 % Normal 42.0-54.0 [facility] Comment on above: Performed By: #### C BC #### [facility] [address] [place] [address] Dr. Ashley Acosta Hemoglobin (Bld) [Mass/Vol] 15.1 g/dL Normal 14.0-18.0 [facility] Comment on above: Performed By: #### C BC #### [facility] [address] [place] [address] Dr. Ashley Acosta IG # 0.04 10e3/ul Critically high 0.00-0.03 [facility] Comment on above: Performed By: #### C BC #### [facility] [address] [place] [address] Dr. Ashley Acosta IG % 0.5 % Normal 0.0-0.5 [facility] Comment on above: Performed By: #### C BC #### [facility] [address] [place] [address] Dr. Ashley Acosta LYMPH # 2.5 103/ul Normal 1.2-3.8 [facility] Comment on above: Performed By: #### C BC #### [facility] [address] [place] [address] Dr. Ashley Acosta Lymphocytes/100 WBC (Bld) 29.5 % Normal 20.5-60.0 [facility] Comment on above: Performed By: #### C BC #### [facility] [address] [place] [address] Dr. Ashley Acosta MANUAL DIFF REQ NO Normal [facility] Comment on above: Performed By: #### C BC #### [facility] [address] [place] [address] Dr. Ashley Acosta MCH (RBC) [Entitic mass] 29.9 pg Normal 25.9-34.0 [facility] Comment on above: Performed By: #### C BC #### [facility] [address] [place] [address] Dr. Ashley Acosta MCHC (RBC) [Mass/Vol] 34.9 g/dL Normal 29.9-35.2 [facility] Comment on above: Performed By: #### C BC #### [facility] [address] [place] [address] Dr. Ashley Acosta MCV (RBC) [Entitic vol] 85.7 fL Normal 80.0-94.0 [facility] Comment on above: Performed By: #### C BC #### [facility] [address] [place] [address] Dr. Ashley Acosta MONO # 0.6 103/ul Normal 0.3-0.8 [facility] Comment on above: Performed By: #### C BC #### [facility] [address] [place] [address] Dr. Ashley Acosta Monocytes/100 WBC (Bld) 7.3 % Normal 1.7-12.0 [facility] Comment on above: Performed By: #### C BC #### [facility] [address] [address] [address] Ashley Acosta NEUT # 5.1 103/ul Normal 1.4-6.5 [facility] Comment on above: Performed By: #### C BC #### [facility] [address] [address] [address] Ashley Acosta Neutrophils/100 WBC (Bld) 60.0 % Normal 43.0-75.0 [facility] Comment on above: Performed By: #### C BC #### [facility] [address] [address] [address] Ashley Acosta Platelet mean volume (Bld) [Entitic vol] 9.7 fL Normal 9.5-13.5 [facility] Comment on above: Performed By: #### C BC #### [facility] [address] [place] [address] Dr. Ashley Acosta PLT 274 103/ul Normal 150-450 [facility] Comment on above: Performed By: #### C BC #### [facility] [address] [place] [address] Dr. Ashley Acosta RBC 5.05 106/ul Normal 4.70-6.10 [facility] Comment on above: Performed By: #### C BC #### [facility] [address] [place] [address] Dr. Ashley Acosta WBC 8.5 103/ul Normal 4.0-11.0 [facility] Comment on above: Performed By: #### C BC #### [facility] [address] [place] [address] Dr. Ashley Acosta Comprehensive Metabolic Pane robin 12-15-2022 Albumin [Mass/Vol] 4.665306 g/dL 3.4-5.0 g/dL [facility] [employer] Other Albumin/Globulin [Mass ratio] 1.3 {ratio} Normal [employer] Other Comment on above: Performed By: #### C MP, LIPID #### [facility] [address] [address] [address] Ashley Acosta ALP [Catalytic activity/Vol] 57 U/L Normal 46-116 [employer] [facility] [employer] Other Comment on above: Performed By: #### C MP, LIPID #### [facility] [address] [address] [address] Ashley Acosta ALT [Catalytic activity/Vol] 31 U/L Normal 16-63 [employer] [facility] [employer] Other Comment on above: Performed By: #### C MP, LIPID #### [facility] [address] [address] [address] Ashley Acosta Anion gap [Moles/Vol] 12.2 mmol/L Normal [facility] [employer] Other Comment on above: Performed By: #### C MP, LIPID #### [facility] [address] [address] [address] Ashley Acosta AST [Catalytic activity/Vol] 25 U/L Normal 15-37 [employer] [facility] [employer] Other Comment on above: Performed By: #### C MP, LIPID #### [facility] [address] [address] [address] Ashley Acosta Calcium [Mass/Vol] 9.6256399 mg/dL 8.5-10 .1 mg/dL [employer] [facility] [employer] Other Chloride [Moles/Vol] 101 mmol/L Normal 98-107 [employer] [facility] [employer] Other Comment on above: Performed By: #### C MP, LIPID #### [facility] [address] [address] [address] Ashley Acosta CO2 [Moles/Vol] 27.43951734 mmol/L 21.0-3 2.0 mmol/L [employer] Other Creatinine [Mass/Vol] 0.96151142 mg/dL 0.70-1.30 mg/dL [employer] Other Potassium [Moles/Vol] 3.10119309 mmol/L 3.5-5.1 mmol/L [employer] Other Protein [Mass/Vol] 7.967306 g/dL 6.4-8.2 g/dL [facility] [employer] [facility] Other Urea nitrogen [Mass/Vol] 11.3651481 mg/dL 7.0-18.0 mg/dL [employer] Other Urea nitrogen/Creatinin e [Mass ratio] 11.7 mg/mg Normal [employer] Other Comment on above: Performed By: #### C MP, LIPID #### [facility] [address] [place] [address] Dr. Ashley Acosta Comprehensive Metabolic Panel see note [employer] Other Comprehensive Metabolic Panel 137 mmol/L 136-145 mmol/L [employer] Other Comprehensive Metabolic Panel 85 mg/dL 74-106 mg/dL [employer] Other Comprehensive Metabolic Panel >60 mL/min/1.73m2 >=60 mL/min/1.73m2 [employer] Other Comprehensive Metabolic Panel 0.9 mg/dL 0.2-1.0 mg/dL [employer] Other Comprehensive Metabolic Panel 3.2 g/dL [employer] Other LIPID PROFILEon 12-15-2022 CHOL-HDL RATIO NORM SEE BELOW Normal [facility] Comment on above: Result Comment: 3.3 - 4.4 LOW RISK 4.4 - 7.1 AVERAGE RISK 7.1 - 11.0 MODERATE RISK >11.0 HIGH RISK Performed By: #### C MP, LIPID #### [facility] [address] [address] [address] Ashley Acosta Cholesterol in LDL [Mass/Vol] 120.2 mg/dL Normal [facility] Comment on above: Performed By: #### C MP, LIPID #### [facility] [address] [place], [place] [address] Dr. Ashley Acosta HDL NORMAL > or = 60 mg/dl - LO W CARDIOVASCULAR RISK <40 mg/dl - HIGH CARDIOVASCULAR RISK Normal [facility] Comment on above: Performed By: #### C MP, LIPID #### [facility] [address] [address] [address] Ashley Acosta LDL CALC NORMAL SEE BELOW Normal [facility] Comment on above: Result Comment: <100 mg/dl OPTIMAL 100 - 129 mg/dl NEAR OR ABOVE OPTIMAL 130 - 159 mg/dl BORDERLINE HIGH 160 - 189 mg/dl HIGH >190 mg/dl VERY HIGH Performed By: #### C MP, LIPID #### [facility] [address] [address] [address] Ashley Acosta VLDL CALC 17.8 mg/dL Normal [facility] Comment on above: Performed By: #### C MP, LIPID #### [facility] [address] [address] [address] Ashley Acosta Lipid Panelon 12-15-2022 Cholesterol [Mass/Vol] 194 mg/dL Normal <=200 [employer] Other Comment on above: Performed By: #### C MP, LIPID #### [facility] [address] [address] [address] Ashley Acosta Cholesterol in HDL [Mass/Vol] 56 mg/dL Normal 40-60 [employer] Other Comment on above: Performed By: #### C MP, LIPID #### [facility] [address] [address] [address] Ashley Acosta Cholesterol.total/ Cholesterol in HDL [Mass ratio] 3.5 {ratio} Normal [employer] Other Comment on above: Performed By: #### C MP, LIPID #### [facility] [address] [address] [address] Ashley Acosta Triglyceride [Mass/Vol] 89 mg/dL Normal <=150 [employer] Other Comment on above: Performed By: #### C MP, LIPID #### [facility] [address] [address] [address] Ashley Acosta Lipid Panel > or = 60 mg/dl - LO W CARDIOVASCULAR RISK <40 mg/dl - HIGH CARDIOVASCULAR RISK [employer] [facility] [employer] Other Lipid Panel SEE BELOW [employer] Other Lipid Panel 120.2 mg/dL [employer] Other Lipid Panel 17.8 mg/dL [employer] Other PROF 14(COMP METB)on 023 Albumin [Mass/Vol] 4.0 g/dL Normal 3.4-5.0 [facility] Comment on above: Performed By: #### C MP, LIPID #### [facility] [address] [place] [address] Dr. Ashley Acosta Bilirubin [Mass/Vol] 0.9 mg/dL Normal 0.2-1.0 [facility] Comment on above: Performed By: #### C MP, LIPID #### [facility] [address] [place] [address] Dr. Ashley Acosta Calcium [Mass/Vol] 9.0 mg/dL Normal 8.5-10.1 [facility] Comment on above: Performed By: #### C MP, LIPID #### [facility] [address] [place] [address] Dr. Ashley Acosta CO2 [Moles/Vol] 27.5 mmol/L Normal 21.0-32.0 [facility] Comment on above: Performed By: #### C MP, LIPID #### [facility] [address] [place] [address] Dr. Ashley Acosta Creatinine [Mass/Vol] 0.94 mg/dL Normal 0.70-1.30 [facility] Comment on above: Performed By: #### C MP, LIPID #### [facility] [address] [place] [address] Dr. Ashley Acosta EGFR-AF MOZAMBICAN >60 Normal >=60 [facility] Comment on above: Performed By: #### C MP, LIPID #### [facility] [address] [place] [address] Dr. Ashley Acosta EGFR-NON AF MOZAMBICAN >60 Normal >=60 [facility] Comment on above: Performed By: #### C MP, LIPID #### [facility] [address] [address] [address] Ashley Acosta Globulin (S) [Mass/Vol] 3.2 g/dL Normal [facility] Comment on above: Performed By: #### C MP, LIPID #### [facility] [address] [address] [address] Ashley Acosta Glucose [Mass/Vol] 85 mg/dL Normal 74-106 [facility] Comment on above: Performed By: #### C MP, LIPID #### [facility] [address] [address] [address] Ashley Acosta Potassium [Moles/Vol] 3.7 mmol/L Normal 3.5-5.1 [facility] Comment on above: Performed By: #### C MP, LIPID #### [facility] [address] [address] [address] Ashley Acosta Protein [Mass/Vol] 7.2 g/dL Normal 6.4-8.2 [facility] Comment on above: Performed By: #### C MP, LIPID #### [facility] [address] [address] [address] Ashley Acosta Sodium [Moles/Vol] 137 mmol/L Normal 136-145 [facility] Comment on above: Performed By: #### C MP, LIPID #### [facility] [address] [address] [address] Ashley Acosta Urea nitrogen [Mass/Vol] 11.0 mg/dL Normal 7.0-18.0 [facility] Comment on above: Performed By: #### C MP, LIPID #### [facility] [address] [address] [address] Ashley Acosta Coding Summaryon 04-30-2022 Coding Summary [employer] 64 OejvbdbuTNd8hLw+PGhlYWQ +VA4QSRIfG47mhFLweE3RS0 cADU1EMNTGBFNAYP4QXF5jj VH4KBceE5EffkUv YewmoVRwAT07ZRd1YTG0sMy xFToffM9xuBCbR3v7KnQkEH 51aG56SBevZLFkDeD7ZoJxi jsgbWFy O3slTpIdxSOaLjm+PHRhYmx lIHdpZHRoPScxMDAlJyBzdH mjTD7mDr1nIZEeBBYdzBmur HNlOiBj u8utUIMdTTjuZX5caOglK9D mwGG1PEHjx3w6Sr33hGV+PH JkFXM4lHjcLJqpy571ZsFoi 5qhGOG4 jKSpWEjeJCS0H59fd5T2OBN rBDFbAFW9qBE3fY8zrDbrlo wwC7PxxWKgKjY7CNK8oDQcs F2upCbn jjbeuX6mOua+U80SDU6RCYP KSB6LMwe4N3OkKondxBH+PC 18QLOmGI15iXHeoFRic0gqs Sr8ErXb JCPiCWQ9mOcvBMtcx8GvIFG eB17agNGbx2K2HPJlqLzblR BwQiXmqVP6wH7mITtwplmon 2hvdzsn Uzfgx5icgd69vG18F46rVAp bNHHlSXF0ZMZdJZJrwAjrjs 2qhN0sYu9+HAmyb8dhk1eqa Tm1HrLa LYGnkkNphFhdALH6e2FaIq3 4A1BlcGyhr4TwEiy4fm76gO Mlr9L5sMO3CSjeWPEfmH4eI WxlZnQ6 FTLrOkBgoF82cJDpQKsrZi6 nfJsunPmkWP9pRJNkxftjEM MwwO9cWODvaJWhgPvmMV7yG TBpbjtm b961MtBvDUQ6BCBatUMbR8H xhF6qDtZnWRZjLGCuL5AraS IoZJayN403VZhnLwA1NRLxu pLcZ4Yq ZGKyoHduBaX5p9G1Im5Pm5W lngeaBAS2UYnbEGJ4LfOqZj KiKiA0K6LuLhj3DCXetUjlE K6tA1Ia QLJdxfagtvhtfRY2RZYbQHD kaR04eITbYNejFr4yv0D2u4 72MTInCEPtuA59Lg7kqWnqI TBwdCBU kD2hszlam7wqkuxsPqTtVYO tTQh7NRq8ANKigRtuEqJvTM L4WnW6ZDP9pYCfpZ9gcBuui tyymD6w Oyc+E24qiC6tQHY5VFS5ogm fRKQybpDeZR32BY34U5IxYq wvdGFibGU+PGRpdiBzdHlsZ Y7iRgLn i1shg4IjGOkqU1YpNYMsNTg oJer4MKWzDRI7pGZ0wI3mMC JaBKufc4Q2oKC5G6UzjjItt b0tt3is FPWnBUsxP22kuDQph3H1NID zzFU5URLjyRxuEkZvgH32Lw c+QSZpmYxzr3ViHlydf8xxx 4vycIp8 VyIbQUAtxnDboAndEVX3f5H dNx98C79yCOxxFGVsTAHkQO ZdYNMbfZomev1xxI1sKq9+P GNvbCB3 gWI7rD4dKZJvRcF8JArzH80 7OlMadTTvXvzbp3xco8oqoM b5BlLaFWCwurLcdSfzSBM2z 1UeRi58 V11fTFlkYETeFQRgWIAzZPL bfJlsdj6evP6wFn2+PC9jb2 rkqm36rT32gIC+FLJvQOX7r WxlPSdw ZIAvwQ2lYRgdMuC8GYUjJzX ntD65aZYoSRyzMa4rxNdgnV cwQI0xJZDnfjazl758HdBoq 2xkIDEw qKTlORyuFFS4R44bw8E1CNX tGASsEVL9hCT5wF5gbDbliw ogbGVmdDsgdmVydGljYWwtY ItyB843 IHRvcDsnPlBhdGllbnQgTmF dZJg1Y7CmWsx5WHMfcGkbZE 8wkFJjJDekWa5wiWfdxRucR W5zQHCo ghrzv089BrDld6vhYHSepSR sZJnpRUS5F32mw9E7BTEwNK BwHPF4gPT8cL3woYhzoxcnq GVmdDsg mkXzzKbeLCvfTEdyA189ZMM hqMmaSzItakWqEABvbBJ3UF 68BM23wRLef8U6pAA4O6UwO GRpbmct wravsTA0IAVhPAKikL37Gu7 lcOkjHm1tLGBaFNF1LHDrcB WnP3KkpP3aVsAvIGBcBJIfY 3RleHQt WNnbO093ZPsoUiA7NXSncjQ mP1EaMVKdgUpzIzB2x8L0Cf 2SP1X4GE24IW86sUXst1H2d TM9X5Ew NOOrohhsysnqpME0OOFeXDN nbO52Yi6nfEqkUn1rEICbHG V3TIJfuMPzS8UxdC3vJbOkP DAwMDAw W0PgtHUjCAcdF589UUspVxO 2COKggiCjO4DkHFNwmZqgSg J2p9X5Iy3BSDm8WD10RV24s QDhf3L5 lLU3O5RhMJOxwxdkfxbxdRP 9RWFfMZIolY59Fv9reBrvVy 3yQAKkUQV4KCFrkNTfW3Dks B1fWqOl ZPChJXNxZ1TsmCJiJLcwX36 9VAemTrK3OEBbzvFuQ7PnIM CpoYrsYnC2q1U8Ui4WTUQkO R97QCQ8 qQD9FK87ER37H2GoRgmspDV ibGU+PHRhYmxlIHdpZHRoPS hyRKDdZaLwmXzbMA0eIh8uX GVyLWNv jWehoVXbNxYmk8gfNDLfXOh kXD2chGxoJ4NyaPA3TBVdb2 d7Eg68X01zW5RrxXG+PGNvb XH3cDR6 eD5hMpPoBmK2ZPcxF445VoK pjAHvHszzn8tfr3rzuGy7Lo U8BKXfhyTnjOcbNZV3g1NuI w03O67o IHdpZHRoPSIxNSUiIHZhbGl pqh0vpV2zLr4+ZOAosZT4fK N7mC6eQnMsDpR0ILrgL877R nRvcCIv Toemt3vyr4zeoFk4BtXyGMI xznJilBthOEH3c6MsLa83E1 JhcRpbr3CxYfh6pd64jVMit 6D7aHK9 E9VkQZLymgvktJRobGdgIY3 qREPahlfrFJUuyQ8rKALlL2 o6KpZxXyL4GSkgK7ZjteA9Y DEwcHQg NFsaPOC0M02vy7P8VUYtKTJ bZHU3bSW5jX6uqRqlzsdeeV VmdDsgdmVydGljYWwtYWxpZ 246IHRv cHepIZAeyU2iIOBosFWuaKx sHA5ePIXclxzoIi1SFh6NZa taR5pQJUBUVJEPFAUUYF75W O67zPGh s6I9vMF2U0PrKZMidnwnteo rwDG6RNLsGYYvmP85iZOkJZ bvDz6yy1S2u392RTAbKFSye V42Ya9o aRbtMTWmtSAFtO7ijdokn6v qezprSuKyTCFkVNh5OUn1BI QppVplVtMtFIT8DyT8FDY4a ECtcJ3i hPxmyammiG1lDvr+MDMvMjQ eKIy1XljvlYC+YLOvTJM5cW rqMZxjJXFaoV3wQBHbR8q6P iAwLjA1 NAndT1OcVRRwqzvnKd80mX4 oLeHbCeZ7HDilL2KylsS7AB VlbNIfATfqJKB7T44cb5X7J CMwMDAw ELD9xCF0qL7moSueaufteEI mdDsgdmVydGljYWwtYWxpZ2 46IHRvcDsnPjUwIFllYXJzP S97DN66 wSIcq1H9rCC6C3TdRZTqjlc gbjqozJP4PWSgNRTqaA23vN SdXJhsSo7bn5G8j248BNTpI DUwaW47 Od0ymTxyWJKkgXEPlS8urhn mb9cxrmukLhLqATUnBOf3XG z2QKWrzPskSeIpEAE9FdJ2N HJ2zXNh yR9vyTltvzoyjZ9fYgq+TUF MRTwvdGQ+SORyCZG4iCxwDF czOCXmpA5wTEBxQ7z1IeKnR xG5ATvm F6XfUAKwjjhfAa62kK1tWlG tQsW2KDbmB9MltyR5BOAocM LrFRtyUPL5S39qe1K2KHVqE DAwMDA7 mGF5kQ2vdVwrfdprlAWluCd yooTejArgLSskKEvdI044XM ThqRhuDxHeyJGSoRFqCDA8A B19OQ30 K2TuHtknpUFosPT+PHRhYmx lIHdpZHRoPScxMDAlJyBzdH dfEJ6ePl2eLTIqBAUsqXcri HNlOiBj c7vnPSHyRUwsUC2gfOrzI9Z dgVR7NNTjk1u1Mb03O40fF9 JvdXA+KSRksBK0bIG3tJ0gO zAlIiB2 BVgfT204RzBgoSNaIiaie4b km0rrpKv9VgFmDOYzsxVooL owABC6o7VwFe19J72qEFrfO HRoPSIy KIPhLLRelTnwca1rsP9tNt1 +WCCliMS0pJB6kD1cRdCuWv Y1JWviJ555JpCkcPHsAauqB 11oU5Mh dXA+RJImQbn0SWShjZezOM9 leKBoXXjwTw6jTGQ6ZxEaTa LwBSlpB5McESUxedndnoorr TG2QVLb BDXpvQ26Ry0arSofFr1sUPX cKOX4TYFtbNOlF6AuaU1jDr IePSCjYSYaK1CwpUXxTVwrF 246IGxl ZiI5VCSaryBvD0TwKDBjmHx qIqK0f3W2Rx5LzCmllXZuOG 7uIzBnTSp7K3KtHgs0QENhr FtnES9y xFQfHJmzSh7faHkhmNtcQT9 fAVTyyjipr306ZmKur9uzXH LkzLXkRWytWWM5E59it9Q5N CMwMDAw WDI1fSB4vI1rsMqpcyokeRV mdDsgdmVydGljYWwtYWxpZ2 94ZFSwaOlvCbDXMox2Q6LjG fa2JYYz gVamQL3niLCuMGmvEj1vfPg viPtrME8cQJDncwhhv384Wy Wni4ksGFQkiBNbNEhwJTX3C 48gd7Q5 FBTyEMUnHIT1rFP6eH8kzPn nbjogbGVmdDsgdmVydGljYW stHDkfG116OXXgbMueWm8LR nh0Q4Jb Izr0XZBaeHqhAX5niOLpNQr yTk9qmLgbwPkwVY2aTHMdvj vku575NtOge3fvUZWcjQBrE GltZXM7 M96wn4Z4JHIjBHOxBIM6kQB 2kK6kcDgjorgsaIMziGprfd LozUmoYIfrBQwvS000GUNzs DsnPlBh eWVyOjwvdGQ+ML53au48I0K fBgqkYtg5DFHpANL6xNA9sY 0eBKJqLWuec0C0rLM3N5Boe jAvzm0d b2x (more content not included)... [facility] Consent Formson 04-29-2022 Consent Forms [id number] TGTIFF [facility] MAGR Intraoperative Recordon 04-29-2022 MAGR Intraoperative Record MAGR Intra-Op Record Summary Primary Physician: Carlos Phelps MD Finalized Date/Time: 04/29/22 12:51:27 Pt. Name: MARIA DE JESUS MEDLEY LUPIS Schultz/Sex: 1970 MALE Med Rec #: [id number] Physician: Carlos Phelps MD Financial #: [id number] Pt. Type: D Room/Bed: / Admit/Disch: 04/28/22 [...] CST, Brandi Role Performed Surgeon - Primary Taproom Attendant Scrub Personnel Time In 04/28/22 11:20:00 04/28/22 11:20:00 04/28/22 11:20:00 Time Out 04/28/22 11:37:00 04/28/22 11:37:00 04/28/22 11:37:00 Procedure Cystoscopy Retrograde Cystoscopy Retrograde Cystoscopy Retrograde Pyelogram Pyelogram Pyelogram Last Modified By: Shelby Melvin RN, Diane RN Kokinda, Diane RN 04/28/22 11:43:07 04/28/22 11:43:07 04/28/22 11:43:07 Entry 4 Entry 5 Case Attendee Sudha Tran CST, CST, Luke T RT (R) CSFA ARRT Role Performed Burner Hand Nitroglycerin Supervisor Time In 04/28/22 11:20:00 04/28/22 11:20:00 Time [...] Syntegrity Prep Agents (Im.270) Other Prep By Sehlby Melvin RN Prep Area (Im.270) Perineum, Penis and Skin Prep Agent Dry Yes scrotum Without Pooling Hair Removal Syntegrity Hair Removal Methods No hair removal performed Outcome Met (O.100) Yes Last Modified By: Shelby Melvin RN 04/28/22 10:37:21 Post-Care Text: E.10 Evaluates for signs and symptoms of physical injur (more content not included)... [facility] Provider Orderson 04-29-2022 Provider Orders [id number]#1.00O TGTIFF [facility] Inpatient Patient Summaryon 04-28-2022 Inpatient [place] [address] Patient Discharge Instructions Name: MARIA DE JESUS MEDLEY : 1970 Patient Address: [address] [place] [address] Primary Care Provider: Name: Zachary Rodriguez After you are discharged if you find you have any questions, please, call [phone] ext [phone] to speak to a nurse. Discharge Diagnosis: Urethral stricture Prescription Information: If you have been given a prescription for narcotics, seek immediate medical attention if you have any difficulty breathing or any sudden status changes such as confusion and sleepiness. If you or anyone you know is experiencing suicidal thoughts, mental health, alcohol and/or drug addiction problems; contact the [facility] 24/05 Crisis Hotline -Text 4HWOF pf 806585. If you received any narcotics, sedation, or [...] business decisions or sign any legal documents [facility] would like to thank you for allowing us to assist you with your healthcare needs. The following includes patient education materials and information regarding your injury/illness. MARIA DE JESUS MEDLEY has been given the following list of follow-up instructions, prescriptions, and patient education materials: Follow-up Instructions With: Address: When: Zachary Rodriguez [address] [place] [address] Business (1) Medications During the course of [...] for Disease Control and Prevention July 2014 [facility] MAGR Preoperative Recordon 0 04-28-2022 MAGR Preoperative Record MAGR Pre-Op Record Summary Primary Physician: Carlos Phelps MD Finalized Date/Time: 04/28/22 11:50:49 Pt. Name: MARIA DE JESUS MEDLEY LUPIS Kimbrough./Sex: 1970 MALE Med Rec #: [id number] Physician: Carlos Phelps MD Financial #: [id number] Pt. Type: D Room/Bed: / Admit/Disch: 04/28/22 [...] Signed By: Laura Crain RN 04/28/22 11:50 [facility] Patient Handouton 04-28-2022 Patient Handout [facility] XR Urography Retrogradeon XR Urography [...] Bernardo Dia MD 04/29/22 8:22 am Technologist: [facility] Consent for Procedure/Surger yon 04-01-2022 Consent for Procedure/Surgery [id number]#1.00C D:127 [facility] Ambulatory Visit Summaryon 0 03-31-2022 Ambulatory Visit Summary GALINDONEO SOTOD :1970 Visit Date:03/31/2022 Ambulatory Visit Instructions Your Diagnosis BPH with urinary obstruction Chronic prostatitis Kidney stone Urethral stricture Other obstructive and reflux uropathy Your Care Team Attending Physician - SHANIKA [...] Jimmy DAUGHERTY MD Where: [facility] Hair Olivo [facility] Patient Educationon 03-31-20 22 Patient Education Urology Benign Prostatic Hyperplasia [...] Follow these instructions at home: ? Take jirv-lly-tggmyos and prescription medicines only as told by [...] You d (more content not included)... Normal [facility] Urology Office/Clinic Noteon 03-31-2022 Urology Office/Clinic [...] urine The Urethra was dilated to: _ Citizen Of [place] with sounds. Specimens Removed: None Removal: Cystoscope [...] [facility] [address], [place] [phone] Additional Instructions: f/u in Jul w PSA Patient Education Benign Prostatic Hyperplasia Kidney Stones, Rlrl-oi-Ktti I, Libertad Celeste, personally scribed for Dr. Daugherty on 03/31/2022 08:06:45. . Documentation recorded by the jordan patel, [...] Comments SARS-CoV-2 (COV (more content not included)... [facility] Comment on above: Result Comment: Elec tronically Signed By: SHANIKA VALDOVINOS, Jimmy Valles\.judah\Date and Time Signed: 03/31/22 08:10 EDT Reminderson 03-24-2022 Reminders - From: Libertad Celeste To: EU - Clinical; Sent: 03/16/2022 11:27:10 EDT Show up: 03/24/2022 11:27:00 EDT Subject: Ct scan Due Date/Time: 03/27/2022 11:26:00 EDT Reminder/Recall [facility]- Ct scan Abd/Pelvis , Order faxed, they will call pt to schedule after auth approval Pt scheduled for Cysto 03/31/22 CT done will be reviewed at cysto 03/31/22 [facility] RAD - CT Reporton 03-23-2022 RAD - CT Report [id number] D:[address] [facility] [address] ABD/PELVIS WO CONon 03-19 CT [...] by: CHARLY POP Date: 2022-03-19 19:21 Normal [facility] Pre-Certification Formon Pre-Certification Form [id number] D:127 Normal [facility] Ambulatory Visit Summaryon 0 03-02-2022 Ambulatory Visit Summary MARIA DE JESUS MEDLEY :1970 Visit Date:03/02/2022 Ambulatory Visit Instructions Your Diagnosis BPH with urinary obstruction Chronic prostatitis Other obstructive and reflux uropathy Tests Performed Urnls Dip Stick Auto w/o Microscopy POC [address]165 CT Abdomen/Pelvis w/o Contrast -- Results Pending [...] Jimmy DAUGHERTY MD Where: [facility] Patient Educationon 03-02-20 Patient Education Infectious [...] Follow these instructions at home: ? Take relh-dey-vxhrezp and prescription medicines only as told by [...] 12/31/2018 Docum (more content not included)... Normal [facility] Urology Office/Clinic Noteon 03-02-2022 Urology Office/Clinic [...] [facility] [address], [place] [address]- Additional Instructions: Will schedule Cysto. Patient Education [...] Protein Urine Dipstick: Negative (03/02/22 13:27:00) Specific Glen Urine Dipstick: 1.025 (03/02/22 13:27:00) Urine Appearance Urine (more content not included)... Normal [facility] Comment on above: Result Comment: Elec tronically Signed By: SHANIKA VALDOVINOS, Jimmy Valles\.br\Date and Time Signed: 03/02/22 14:23 EDT\.br\Electronically Co-Signed By: Izzy Stearns\.br\Date and Time Co-Signed: 03/02/22 14:19 EDT Lab Reportson 12-30-2021 Lab Reports [id number] D:127 Normal [facility] Patient Educationon 12-29-19 Patient Education Infectious [...] Follow these instructions at home: ? Take qbkx-bem-fiipsui and prescription medicines only as told by [...] 12/31/2018 Docum (more content not included)... Normal [facility] Urology Office/Clinic Noteon 12-29-2021 Urology Office/Clinic [...] EDT [facility] [address], [place] [address]- [phone] Additional Instructions: PSA Patient Education Prostatitis I, [...] - Not Given Postpone due to refusal [facility] Comment on above: Result Comment: Elec tronically Signed By: Jimmy DAUGHERTY MD\.br\Date and Time Signed: 12/29/21 16:40 EST\.br\Electronically Co-Signed By: Odilia Shah MA\.br\Date and Time Co-Signed: 12/29/21 16:37 EST Lab Reportson 11-23-2021 Lab Reports [id number] D:127 [facility] Formson 11-21-2021 Forms [id number] D:127 [facility] Physician Referralon 022 Physician Referral [id number] D:127 [facility] Ambulatory Visit Summaryon 0 11-20-2021 Ambulatory Visit Summary MARIA DE JESUS MEDLEY :1970 Visit Date:11/20/2021 Ambulatory Visit Instructions Your Diagnosis Acute prostatitis Nocturia Urinary frequency Urinary urgency Asymptomatic microscopic hematuria BPH with urinary obstruction Elevated PSA, Elevated PSA Other obstructive and reflux uropathy Tests Performed Urnls Dip Stick Auto w/o Microscopy POC 03213 Your Care Team Attending Physician - SHANIKA [...] w/PSA Where: [facility] [address], [place] [address]- [phone] Medications What How Much When Instructions New doxycycline (doxycycline hyclate 100 mg Cap) 1 Capsules By Mouth 2 times a day Refills: 1 Pickup at [facility]/pharmacy #6177 New tamsulosin (Flomax 0.4 mg Cap) 1 Capsules By Mouth Every day Refills: 6 Pickup at [facility]/pharmacy #6177 Pharmacy Information [facility] #[id number]: [address], [place] [phone] Test Results Urnls Dip Stick Auto w/o Microscopy POC 59708 (11/20/2021) Bilirubin Urine Dipstick - Negative Blood Urine Dipstick - 3+ Large Glucose Urine Dipstick - Negative Ketones Urine Dipstick - Negative Leukocytes Urine Dipstick - 3+ Large Nitrite Urine Dipstick - Negative Protein Urine Dipstick - 2+ (100 mg/dl) Specific Glen Urine Dipstick - 1.025 Urine Appearance Urine [...] diagnosed? This (more content not included)... Normal [facility] Ambulatory Visit Summary MARIA DE JESUS MEDLEY :1970 Visit Date:11/20/2021 Ambulatory Visit Instructions Your Diagnosis Acute prostatitis Nocturia Urinary frequency Urinary urgency Asymptomatic microscopic hematuria BPH with urinary obstruction Elevated PSA, Elevated PSA Other obstructive and reflux uropathy Tests Performed Urnls Dip Stick Auto w/o Microscopy POC 03498 Your Care Team Attending Physician - SHANIKA [...] w/PSA Where: [facility] [address] , [place] [address] [phone] Medications What How Much When Instructions New doxycycline (doxycycline hyclate 100 mg Cap) 1 Capsules By Mouth 2 times a day Refills: 1 Pickup at [facility]/pharmacy #6177 New tamsulosin (Flomax 0.4 mg Cap) 1 Capsules By Mouth Every day Refills: 6 Pickup at [facility]/pharmacy #6104 Pharmacy Information [facility]/pharmacy #6104: [address], [place] [phone] Test Results Urnls Dip Stick Auto w/o Microscopy POC 92342 (11/20/2021) Bilirubin Urine Dipstick - Negative Blood Urine Dipstick - 3+ Large Glucose Urine Dipstick - Negative Ketones Urine Dipstick - Negative Leukocytes Urine Dipstick - 3+ Large Nitrite Urine Dipstick - Negative Protein Urine Dipstick - 2+ (100 mg/dl) Specific Glen Urine Dipstick - 1.025 Urine Appearance Urine [...] diagnosed? This (more content not included)... Normal [facility] Patient Educationon 11-20-19 Patient Education Infectious [...] Follow these instructions at home: ? Take mxgi-qxl-oqykwwt and prescription medicines only as told by [...] 12/31/2018 Docum (more content not included)... Normal [facility] Provider Letteron 11-20-2021 Provider Letter November 20, 2021 November 20, [address] [place] [id number] MAIRA DE JESUS MEDLEY 1970 To Whom It May Concern, Please excuse above patient from work. Date of appointment From: 11/20/2021 To: May Return to Work On: 11/21/2021 Restrictions: _ Comments: _ Sincerely, Normal [facility] Urology Office/Clinic Noteon 11-20-2021 Urology Office/Clinic [...] BID, # 60 cap(s), Refills(s) 1, Pharmacy: [facility]pharmacy #[id number], 176, cm, 11/20/21 14:51:00 EST, Height/Length Dosing, 86, kg, 11/20/21 14:51:00 EST, Weight Dosing tamsulosin, 0.4 mg = 1 cap(s), Oral, Daily, # 30 cap(s), Refills(s) 6, Pharmacy: [facility]/pharmacy #[id number], 176, cm, 11/20/21 14:51:00 EST, Height/Length Dosing, 86, kg, 11/20/21 14:51:00 EST, Weight Dosing I have reviewed the previous health history for this patient with Dr. Daugherty. f/u in 6 weeks w/PSA Follow-up With When Contact Information SHANIKA VALDOVINOS, LUZ Haider In 6 weeks 01/01/2022 EST [facility] [address], [place] [phone] Additional Instructions: 6 week f/u w/PSA Patient Education Prostatitis ILibertad, personally scribed for Dr. Daugherty on 11/20/2021 15:47:22. . Documentation recorded by the scribe, jordan Celeste, accurately reflects the services(s) I performed and decisions made by me. Authenticated by Dr. Daugherty on 11/20/2021 15:53:34. Problem List/Past Medical History Ongoing Acute prostatitis Neoplasm of uncertain behavior of skin Overweight Historical No qualifying data Procedure/Surgical History Appendectomy, Col (more content not included)... Normal [facility] Comment on above: Result Comment: Elec tronically Signed By: Jimmy DAUGHERTY MD\.br\Date and Time Signed: 11/20/21 15:53 EST\.br\Electronically Co-Signed By: Libertad Celeste\.br\Date and Time Co-Signed: 11/20/21 15:47 EST Vital Signs Date Time Vital Sign Value Performing Clinician Facility 01-25-2024 13:39-0400 Body height 175.26 cm DO Zachary Ball Work Phone: [facility] 01-25-2024 13:39-0400 Body mass index (BMI) [Ratio] 28.9 kg/m2 DO Zachary Ball Work Phone: [facility] 01-25-2024 13:39-0400 Body weight 88.9 kg DO Zachary Ball Work Phone: [facility] 01-25-2024 13:39-0400 Diastolic blood pressure 83 mm[Hg] DO Zachary Ball Work Phone: [facility] 01-25-2024 13:39-0400 Respiratory rate 12 /min DO Zachary Ball Work Phone: [facility] 01-25-2024 13:39-0400 Systolic blood pressure 128 mm[Hg] DO Zachary Ball Work Phone: [facility] 12-15-2022 16:30-0500 Body height 175.26 cm Zachary Ball Other [facility] Other 12-15-2022 16:30-0500 Body mass index (BMI) [Ratio] 29.24 kg/m2 Zachary Ball Other [employer] [facility] Other 12-15-2022 16:30-0500 Body weight 89.81 kg Zachary Ball Other [employer] [facility] Other 12-15-2022 16:30-0500 Diastolic blood pressure 80 mm[Hg] Zachary Ball Other [employer] [facility] Other 12-15-2022 16:30-0500 Respiratory rate 12 /min Zachary Ball Other [facility] Other 12-15-2022 16:30-0500 Systolic blood pressure 130 mm[Hg] Zachary Ball Other [employer] [facility] [facility] Other 03-31-2022 07:40-0400 Blood Pressure Location [facility] 03-31-2022 07:40-0400 Diastolic blood pressure 82 mm[Hg] [facility]Ubequity [facility] 03-31-2022 07:40-0400 Heart rate 85 /min Jimmy DAUGHERTY [facility] Shaulis 03-31-2022 07:40-0400 Respiratory rate 16 /min Jimmy DAUGHERTY [facility] Shaulis 05-31-2022 07:40-0400 Systolic blood pressure 135 mm[Hg] Jimmy DAUGHERTY [facility] [place] 03-02-2022 13:30-0400 Blood Pressure Location Jimmy DAUGHERTY [facility] 03-02-2022 13:30-0400 Diastolic blood pressure 86 mm[Hg] Jimmy DAUGHERTY [facility] 03-02-2022 13:30-0400 Heart rate 83 /min Jimmy DAUGHERTY [facility] 03-02-2022 13:30-0400 Respiratory rate 16 /min Jimmy DAUGHERTY [facility] 03-02-2022 13:30-0400 Systolic blood pressure 123 mm[Hg] Jimmy DAUGHERTY [facility] Encounters Encounter Date Encounter Type Care Provider Facility Start: 01-25-2024 End: 01-25-2024 ambulatory DO Zachary Rodriguez Work Phone: [facility] Work Phone: Start: 01-25-2024 End: 01-25-2024 Encounter for general adult medical examination without abnormal findings DO Zachary Ball Work Phone: [facility] Start: 01-25-2024 End: 01-25-2024 Patient encounter procedure DO Zachary Ball Work Phone: [facility] Work Phone: Start: 11-25-2023 End: 01-25-2024 ambulatory Zachary Ball Facility:[facility] Start: 11-25-2023 End: 11-25-2023 ambulatory DO Zachary Rodriguez Work Phone: [facility] Work Phone: Start: 11-25-2023 End: 11-25-2023 Departed Referred DO Zachary Rodriguez Work Phone: [facility] Start: 01-08-2023 End: 01-08-[address] ZACHARY RODRIGUEZ Facility:[facility] Start: 12-20-2022 Encounter for genera l adult medical examination without abnormal findings DR ZACHARY RODRIGUEZ [facility] Start: 12-18-2022 End: 12-19-[address] ZACHARY RODRIGUEZ Facility:[facility] Start: 12-16-2022 End: 12-16-2022 ambulatory Zachary Rodriguez Other [employer] [facility] [employer] Other Start: 12-16-2022 Telephone encounter Zachary Rodriguez [facility] Start: 12-15-2022 End: 12-16-[address] ZACHARY RODRIGUEZ [facility] Other Start: 12-15-2022 End: 12-16-2022 Encounter for general adult medical examination without abnormal findings Zachary Rodriguez [facility] Start: 12-15-2022 Periodic preventive med est patient 40-64yrs Zachary Rodriguez [facility] Start: 03-31-2022 End: 03-31-2022 Patient encounter procedure Jimmy DAUGHERTY [facility] Start: 03-19-2022 End: 03-20-[address] JIMMY DAUGHERTY . Facility:[facility] Start: 03-02-2022 End: 03-02-2022 Patient encounter procedure Jimmy DAUGHERTY [facility] Procedures Date Procedure Procedure Detail Performing Clinician Start: 12-15-[address] SUNSHINE RODRIGUEZ Comment on above: Performed By: #### [facility] #### [facility] [address] [address] [address] Ashley Acosta Start: 03-31-2022 Cystoscopy Jimmy REESE Appendectomy Jimmy DAUGHERTY Colonoscopy Jimmy DAUGHERTY Plan of Treatment Date Care Activity Detail Author Comprehensive metabo lic 2000 panel - Serum or Plasma [facility] Immunizations Immunization Date Immunization Notes Care Provider Fa cility NEGATED: Highlighted row has not occurred!12-29-2021 SARS-CoV-2 (COVID-19) Ad26 vaccine, recombinant Jimmy DAUGHERTY [facility] Payers Date Payer Category Payer Self-pay [id number] 1970 Unknown [id number] 2.16.84 [id number] 1970 Unknown [id number] 2.16.84 [id number] 1970 Unknown [id number] 2.16.84 [id number] 1970 Unknown [id number] 2.16.84 [id number] 1957 Unknown [id number] 2. [id number] 1957 Unknown [id number] Unknown [id number] Unknown [id number] 2.16.8 [id number] Unknown Regular Insurance [id number] Social History Date Type Detail Facility Start: 11-20-2021 Tobacco smoking status Never s moked tobacco (finding) [facility] Tobacco smoking status Never [facility] Hair Sex Assigned At Male [facility] [employer] Start: 1970 Sex Assigned At Male [facility] Start: 01-06-2024 [facility] Clinical Notes 03-02-2022 to 12-15-2022 Note Date & Type Note Facility [...] (ICD-10 - Z12.5) Yearly JUMA and PSA [employer] [facility] Other 06-29-2022 Note [id number]06-28-2022 [facility] SURGERY Clinical Discharge Summary PERSON INFORMATION Name MARIA DE JESUS MEDLEY Age 52 Years 1970 Sex MALE Language Estonian PCP Zachary Rodriguez Marital Status Med Service Ambulatory Surgery Acct# Arrival 04/28/2022 09:37:00 Visit Reason SURGERY - RETROGRADE URETHROGRAM - NO CYSTOSCOPE, NO FLUORO, NO CONTRAST DYE - JUST LOOKING PER RAGINI Acuity LOS 012 00:13 Address: [address] [place] [address] Comment: PROVIDER INFORMATION VITALS INFORMATION Vital Sign [...] Follow up: With: Address: When: Zachary Rodriguez [address] [place] [address] Business (1) DIAGNOSIS Urethral stricture Comment: [facility]05-31-2022 Hospital Discharge instructions Patient Education 03/31/2022 07:56:55 Benign Prostatic Hyperplasia Benign Prostatic Hyperplasia Benign prostatic hyperplasia (BPH) is an enlarged prostate gland that is caused by the normal agingprocess and not by cancer. The prostate is [...] urethra. Follow these instructions at home: Take gsfo-yal-clthpkb and prescription medicines only as told by [...] 10/18/2006 Document Revised: 09/12/2019 Document Reviewed: 11/22/2017 [employer] Patient Education 2020 [employer]. 03/31/2022 07:56:52 Kidney Stones, Axau-dy-Ibsu Kidney Stones Kidney stones are rock-like masses [...] Follow these instructions at home: Medicines Take swmp-eie-ghtpvbe and prescription medicines only as told by [...] 04/05/2009 Document Revised: 03/05/2020 Document Reviewed: 03/05/2020 [employer] Patient Education 2020 [employer]. Follow Up Care 03/16/2022 11:12:01 With:SHANIKA VALDOVINOS, Jimmy Valles, URL Address: [facility] [address] [place] [address]- [phone] When:07/13/2022 Comments:f/u in Jul [facility] 05-02-2022 Hospital Discharge instructions Patient Education 03/02/2022 14:01:14 Calorie Counting [...] sure to eat fewer calories than your bodyneeds, you should lose weight. Ask your health care provider what a healthy weight is for you. For calorie counting to work, you will need to eat the right number of calories in a day in order to lose a healthy amount of weight per week. A dietitian can help you determine how many calories youneed in a day and will give you suggestions on how to reach your calorie goal. A healthy amount of weight to lose per week is usually 1 2 lb (0.5 0.9 kg). This usually means thatyour daily calorie intake should be reduced by [...] label. If a food does not have aNutrition Facts label, try to look up the calories online or ask your dietitian for help. Remember that calories are listed per serving. If you choose to have more than one serving of a food, you will have to multiply the calories per serving by the amount of servings you plan to eat. Forexample, the label on a package of bread [...] you how many calories you have left forthe day to meet your goal. What are [...] fat free foods. These foods sometimes have thesame amount of calories or more calories than the full fat versions. They also often have added sugar, starch, or salt, to make up for flavor that was removed with the fat. Find a way of tracking calories that works for you. Get creative. Try different apps or programs ifwriting down calories does not work for you. What are some portion control tips? Know how many calories are in a serving. This will help you know how many servings of a certain food you can have. Use a measuring cup to measure serving sizes. You could also try weighing out portions on a kitchenscale. With time, you will be able to [...] serving size may be smaller than what youare used to eating. Check the source of the calories. Make sure the food you are eating is high in vitamins and proteinand low in saturated and trans fats. Shopping [...] steamed. Stay away from items that are buttered,battered, fried, or served with cream sauce. Items [...] a serving of cooked rice is cup orabout the size of half a baseball. Knowing serving sizes will help you be aware of how much food you are eating at restaurants. The list below tells you how big or small some common portion sizes arebased on everyday objects: ?1 oz 4 stacked [...] label. If a food does not have aNutrition Facts label, try to look up the [...] 10/18/2006 Document Revised: 07/07/2019 Document Reviewed: 09/17/2017 [employer] Patient Education 2020 [employer]. 03/02/2022 14:01:11 Prostatitis Prostatitis Prostatitis is swelling or inflammation of the prostate gland. The prostate is a walnut-sized glandthat is involved in the production of semen. It is located below a man's bladder, in front of the rectum. There are four types of prostatitis: Chronic nonbacterial prostatitis. This is the most common type of prostatitis. It may be associatedwith a viral infection or autoimmune disorder. Acute bacterial prostatitis. This is the least common type of prostatitis. It starts quickly and isusually associated with a bladder infection, high fever, [...] infection from bacteria. Chronic nonbacterial prostatitis may becaused by: Urinary tract infections (UTIs). Nerve damage. A response by the body s disease-fighting system (autoimmune response). Chemicals in the urine. The causes of the other types of prostatitis are usually not known. What are the signs or symptoms? Symptoms of this condition vary depending upon the type of prostatitis. If you have acute bacterialprostatitis, you may experience: Urinary symptoms, such as: [...] with relaxing your pelvic floor muscles, which helpsto relieve pressure on the prostate. Follow these instructions at home: Take hlaq-fcy-tiggdgc and prescription medicines only as told by [...] 10/15/2001 Document Revised: 12/31/2018 Document Reviewed: 07/08/2017 [employer] Patient Education 2020 [employer]. Follow Up Care 02/04/2022 15:37:59 With:SHANIKA VALDOVINOS, Jimmy Valles, URL Address: [facility] [address], [place] [address]- When: Unknown Comments:Will schedule Cysto. [facility] evaluation + Plan note Future Appointments Appointment Date:07/13/2022 03:15:00 PM Scheduled Provider:Jimmy DAUGHERTY MD Location:[facility] Appointment Type:URO Office Visit [facility] evaloonfcf [facility]No [facility] Other Evaluation noteNo assessment information available [facility] Work Phone: Evaluation note* Diagnosis Onset Date Resolution Status Benign prostatic hyperplasia with lower urinary tract symptoms acute Wellness examination noneact carlo [facility] Work Phone: History general Narrative - Reported* Type Description Date Medical History Elevated blood pressure (not hyp ertension) Medical History Overweight Medical History 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 Medical History Acute prostatitis with hematuria Surgical History COLONOSCOPY 2019 Hospitalization History SEE SURGICAL HX [facility] [employer] Other Hospital course Narrative No data available for this section [facility] Summary Purpose Family History Relationship Condition Age at Onset Recorded Date/T bekah Not Specified No pertinent family history Unknown Relationship Condition Age at Onset Recorded Date/T bekah Not Specified No pertinent family history Unknown father Diabetes mellitus Unknown Advance Directives Advance Directive Response Recorded Date/ Time Advance Directives No September 4:10pm Advance Directive Response Recorded Date/ Time Advance Directives No September 5:10pm Chief Complaint and Reason for Visit Chief Complaint Unknown Wellness Reason for Visit Benign prostatic hyp erplasia with lower urinary tract symptoms Wellness examination Additional Source Comments (unrecognized sect ion and content) No Status Records FoundNo Status Records FoundNo Status Records FoundNo Status Records Found INFORMATION SOURCE (unrecogn ized section and content) DATE CREATED AUTHOR 04/14/2022 [facility] DATE CREATED AUTHOR AUTHOR'S LISAIZ ATIVET 05/01/[address] [facility] DATE CREATED AUTHOR AUTHOR'S ORGANIZ ATION 01/18/2023 [facility] [place] [facility] DATE CREATED AUTHOR AUTHOR'S ORGANIZ ATION 11/28/2023 [facility] REASON FOR VISIT (unrecogniz ed section [...] November 25, 2023 End: November 25, 2023 Team Status: Inactive Member Role Status Dates Zachary Rodriguez DO Primary Care Provide r, Attending Provider Active Start: January 25, 2024 End: January 25, 2024 Goals (unrecognized section and content) Goals may [...] BE BASED ON THE PRIMARY CLINICAL RECORDS. [employer] [facility]. provides no warranty or guarantee of the accuracy or completeness of information in this document.
== END 2024-06-07 15:29 | disposition home or self-care (01) ==
LOC: EC 15:28
PROVIDERS: PCP Internal Medicine; Visit Provider Podiatrist Foot & Ankle Surgery
DX: M79.671 Pain in right foot (principal); M24.674 Ankylosis, right foot
CPT/HCPCS: 73630

== ENCOUNTER 2024-09-05 15:09 | Outpatient (OUT) | payer OTHER, SELFPAY ==
--- NOTE | 2024-09-05 | XR_ITS ---
[address] [address] Patient Name: MARIA DE JESUS MEDLEY MRN: [id number] date: 1970 Sex: M Assigned Patient Location: [facility] Current Patient Location: Accession/Order Number: [id number] Exam Date: 09/05/2024 15:15 Report Date: 09/06/2024 09:10 At the request of: MORENA YA Procedure: XR foot RT min 3V PROCEDURE: XR foot RT min 3V COMPARISON: 06/07/2024 HISTORY: RIGHT FOOT PAIN FINDINGS: BONES:No acute fracture or dislocation. Stable fusion first metatarsal-phalangeal joint with no mechanical failure. Incomplete bony bridging. Mild degenerative changes SOFT TISSUES:Negative. No visible soft tissue swelling. EFFUSION:None visible. OTHER: Negative. XR/XR foot RT min 3V IMPRESSION: Stable first metatarsal-phalangeal joint fusion with incomplete bony bridging Electronically authenticated by: ARMANDO ALEXANDER Date: 09/06/2024 09:10
== END 2024-09-05 15:10 | disposition home or self-care (01) ==
LOC: RAD 15:10
PROVIDERS: PCP Internal Medicine; Visit Provider Podiatrist Foot & Ankle Surgery
DX: M79.671 Pain in right foot (principal); M24.674 Ankylosis, right foot
CPT/HCPCS: 73630

== ENCOUNTER 2025-01-23 15:46 | Outpatient (OUT) | payer OTHER, SELFPAY ==
[2025-01-23 16:55] LABS: Basophils Absolute Auto 0.1 10^3/uL (0.0-0.1); Basophils Percent Auto 0.9 % (0.2-2.0); Eosinophils Absolute Auto 0.1 10^3/uL (0.0-0.7); Eosinophils Percent Auto 1.3 % (0.9-7.0); Hematocrit 42.8 % (42.0-54.0); Hemoglobin 14.8 g/dL (14.0-18.0); Immature Granulocytes Abs Auto 0.06 10^3/uL (0.00-0.03); Immature Granulocytes Pct Auto 0.7 % (0.0-0.5); Lymphocytes Absolute Auto 2.2 10^3/uL (1.2-3.8); Lymphocytes Percent Auto 25.5 % (20.5-60.0); Mean Corpuscular HGB Conc 34.6 g/dL (29.9-35.2); Mean Corpuscular Hemoglobin 30.3 pg (25.9-34.0); Mean Corpuscular Volume 87.5 fL (80.0-94.0); Mean Platelet Volume 10.3 fL (9.5-13.5); Monocytes Absolute Auto 0.6 10^3/uL (0.3-0.8); Monocytes Percent Auto 7.1 % (1.7-12.0); Neutrophils Absolute Auto 5.7 10^3/uL (1.4-6.5); Neutrophils Percent Auto 64.5 % (43.0-75.0); Platelet Count 263 10^3/uL (150-450); Red Blood Count 4.89 10^6/uL (4.70-6.10); Red Cell Distribution Width 11.7 % (11.0-15.0); White Blood Count 8.8 10^3/uL (4.0-11.0)
[2025-01-23 17:22] LABS: Prostate Specific Antigen Scrn 0.48 ng/mL (<=4.00)
[2025-01-23 17:24] LABS: Alanine Aminotransferase 34 U/L (16-63); Albumin Globulin Ratio 1.4; Albumin Level 3.9 g/dL (3.4-5.0); Alkaline Phosphatase 51 U/L (46-116); Anion Gap 12.3; Aspartate Amino Transferase 22 U/L (15-37); BUN Creatinine Ratio 9.6; Bilirubin Total 0.8 mg/dL (0.2-1.0); Calcium 8.8 mg/dL (8.5-10.1); Carbon Dioxide 28.4 mmol/L (21.0-32.0); Chloride 105 mmol/L (98-107); Chol HDL Ratio 2.5; Cholesterol 164 mg/dL (<=200); Estimated GFR (African America >60 (>=60 mL/min/1.73m^2); Estimated GFR (Non-African Ame >60 (>=60 mL/min/1.73m^2); Globulin 2.8 g/dL; Glucose 85 mg/dL (74-106); HDL Cholesterol 65 mg/dL (40-60); Potassium 3.7 mmol/L (3.5-5.1); Sodium 142 mmol/L (136-145); Total Protein 6.7 g/dL (6.4-8.2); Triglycerides 77 mg/dL (<=150); VLDL CHOLESTEROL 15.4 mg/dL
== END 2025-01-23 15:47 | disposition home or self-care (01) ==
LOC: LAB 15:47
PROVIDERS: PCP Internal Medicine; Visit Provider Internal Medicine
DX: Z00.00 Encounter for general adult medical examination without abnormal findings (principal); Z12.5 Encounter for screening for malignant neoplasm of prostate
CPT/HCPCS: 36415; 80053; 80061; 85025; 87150; G0103

== ENCOUNTER 2025-10-29 07:06 | Outpatient (OUT) | payer OTHER, SELFPAY ==
--- OUTSIDE RECORDS SUMMARY | 2025-03-21 10:45 | XMS_ITS ---
Author Organization [facility] in [place] Address [address] [place] [address] Care Team Providers Care Product Management Specialist Name Role Phone Zachary Rodriguez DO Primary Care Provider Jose Tamayo [phone] REASON FOR VISIT 3-6 months Encounters Encounter Location Date Provider Diagnosis [facility] (PODIATRY) [address] [place] [address] [place] [address] 03/21/2025 Jose Palomino Plan Of Treatment No Information Progress Notes * GALINDOSergio SOTO MDOB:1970 (55 yo M)Acc No.[id number]:03/21/2025 UNLOCKED PROGRESS NOTE Follow Up Patient: Sergio HUFFMAN :?Jose Palomino DPM, MSDOB:1970???Age: 55 Y???Sex:MaleDate:03/21/2025Phone:[phone]:[address]Pcp:Zachary Rodriguez DO Subjective: * Chief Complaints: * 1 . 3-6 months. * Medical History: Objective: * Vitals: Assessment: Plan: * Treatment: * * Electronic signature of Jose Palomino DPM on 10/29/2025 at 07:09 AM ESTSign off status: PendingVisit Status:?CANC (Cancelled) * Provider: Ralf Palomino DPM, MS Date: 0 03/21/2025 Generated for Printing/Faxing/eTransmitting on:?10/29/2025 07:09 AM EST
--- OUTSIDE RECORDS SUMMARY | 2025-05-31 10:30 | XMS_ITS ---
Author Organization [facility] in [place] Address [address] [place] [address] Care Team Providers Care Race Engine Builder Name Role Phone Zachary Rodriguez DO Primary Care Provider Carlos Huang [phone] REASON FOR VISIT F/u to discuss Testosterone issues Encounters Encounter Location Date Provider Diagnosis [facility] [address] [address] 05/31/2025 Carlos Phelps Plan Of Treatment No Information Progress Notes * Sergio MEDLEY OB:1970 (55 yo M)Acc No.[id number]:05/31/2025 UNLOCKED PROGRESS NOTE Patient:?Sergio MEDLEY :?PENELOPE LaytonOB:1970???Age:55 Y ???Sex:MaleDate:05/31/2025Phone:[phone]:[address]-[address]Pcp:Zachary Rodriguez DO Subjective: * Chief Complaints: * 1 . F/u to discuss Testosterone issues. * Medical History: Objective: * Vitals: Assessment: Plan: * Treatment: * * Electronic signature of Carlos Phelps MD, [id number] on 10/29/2025 at 07:09 AM ESTSign off status: PendingVisit Status:?CANC (Cancelled) * Provider: Bess Phelps MD Date: 0 05/31/2025 Generated for Printing/Faxing/eTransmitting on:?10/29/2025 07:09 AM EST
--- OUTSIDE RECORDS SUMMARY | 2025-10-29 07:09 | XMS_ITS | CCD ---
Author Organization [facility] Care Team Providers Care Judicial Administrative Assistant Name Role Phone ZACHARY RODRIGUEZ Primary Care Physician Zachary Rodriguez Unavailable MEÑO, DR TREVINO Admitting Unavailable BALL, DR TREVINO Attending Unavailable BALL, DR TREVINO Primary Care Unavailable MEÑO, DR TREVINO Consulting Unavailable DAUGHERTY ., DR GONZALEZ Admitting Unavailable DAUGHERTY ., DR GONZALEZ Attending Unavailable BALL, DR TREVINO Primary Care Unavailable BALL, DR TREVINO Consulting Unavailable DAUGHERTY ., DR GONZALEZ Consulting Unavailable ZIEBER, DR CHARLY Valles Consulting Unavailable MEÑO, DR TREVINO Primary Care Unavailable MEÑO, DR TREVINO Admitting Unavailable BALL, DR TREVINO Attending Unavailable BALL, DR TREVINO Consulting Unavailable ZIEBER, DR CHARLY Valles Consulting Unavailable BALL, DR TREVINO Admitting Unavailable BALL, DR TREVINO Attending Unavailable BALL, DR TREVINO Primary Care Unavailable MEÑO, DR TREVINO Consulting Unavailable DONN, DR CHARLY Valles Consulting Unavailable DO Zachary Rodriguez Primary Care Provider DARA Palomino Attending Provider [phone] Zachary Rodriguez Primary Care Unavailable Jose Palomino Attending Jose Cornelius AdmDO Zachary Jaquez Primary Care Provider DARA Palomino Attending Provider [phone] Carlos Phelps Attending Unavailable Zachary Rodriguez Primary Care Unavailable Medications Current Medications MedicationDrug Class(es)DatesSig (Normalized)Sig (Original)cholecalciferol 0.025 mg oral capsule (2 sources)Vitamin DStart: 79-36-6909ecfx 1 capsule by mouth once daily Cholecalciferol (Vitamin D3) 25 mcg (1,000 unit) capsule Active 25 MCG PO Daily January 25, 2024 12:00amSulfamethoxazole / Trimethoprim (2 sources)Dihydrofolate Reductase Inhibitor Antibacterial, Sulfonamide AntimicrobialStart: 92-04-1339mphpmxgvbnceduxw-trimethoprim Refill(s) 0 Start Date: 03/02/22 Status: Orderedtamsulosin hydrochloride 0.4 mg oral capsule (3 sources)alpha-Adrenergic BlockerStart: 16-45-9139xswr 1 capsule by mouth twice dailytamsulosin 0.4 mg Cap 0.4 mg = 1 cap(s), Oral, BID, # 60 cap(s), Refills(s) 6, [id number] 176, cm, 03/02/22 13:33:00 EDT, Height/Length Dosing, 86.1, kg, 03/02/22 13:33:00 EDT, Weight Dosing Start Date: 03/02/22 Status: OrderedStart: 78-17-1595erci 1 capsule by mouth once dailyFlomax 0.4 mg Cap 0.4 mg = 1 cap(s), Oral, Daily, # 30 cap(s), Refills(s) 6, [id number] 176, cm, 11/20/21 14:51:00 EST, Height/Length Dosing, 86, kg, 11/20/21 14:51:00 EST, Weight Dosing Start Date: 11/20/21 Status: Ordered Completed/Discontinued Medications MedicationDrug Class(es)DatesSig (Normalized)Sig (Original)ciprofloxacin 500 mg oral tablet (1 source)Quinolone AntimicrobialStart: 79-02-9336owsu 1 tablet by mouth once dailyCipro 500 mg Tab 500 mg = 1 tab(s), Oral, Daily, Take 1 tablet the day before the procedure and 1 tablet after the procedure, # 2 tab(s), Refills(s) 0, [facility]acy: [facility]/pharmacy #[id number], 176, cm, 03/02/2213:33:00 EDT, Height/Length Dosing, 86.1, kg, 03/02/22 13:33:00 EDT,... Start Date: 03/16/22 Status:Ordered citric acid 75 mg/ml / magnesium oxide 21.9 mg/ml / picosulfate sodium 0.0625 mg/ml oral solution (4 sources)Calculi Dissolution Agent, Anti-coagulantStart: 01-06-2024 End: 68-83-9653eoft 1 mL by mouth twice dailySod Picosulf-Mag Ox-Citric Ac (Clenpiq) 10 mg-3.5 gram- 12 gram/160 mL solution Discontinued 160 MLPO Twice daily January 06, 2024 1:00am January 25, 2024 1:36pmStart: 02-58-9842ieef 160 mL by mouth in the evening, then take 160 mL by mouth twice daily in the evening Clenpiq 10-3.5-12 MG-GM -GM/160ML 160 ML AT 3:00 PM AND 160 ML AT 9:00 PM Orally TWICE A DAY for 1 days PLEASE CHECK ALLERGIES Sep, Active Problems Problem ClassificationProblemDateDocumented DateEpisodic/ChronicCalculus of urinary tract (1 source)Kidney stone; Translations: [Calculus of kidney]Onset: 03-31-2022 EpisodicGenitourinary symptoms and ill-defined conditions (7 sources)Increased frequency of urination; Translations: [Nocturia]12-29-2021 EpisodicHyperplasia of prostate (15 sources)Benign prostatic hypertrophy with outflow obstruction; Translations: [Benign prostatic hyperplasia with lower urinary tract symptoms]Onset: 14-80-1111RezidygAblfydusgeat conditions of male genital organs (5 sources)Chronic prostatitis; Translations: [Chronic prostatitis]Onset: 86-23-3490GqievyzDxjzubaeeqks conditions of male genital organs (4 sources)Acute prostatitis; Translations: [Acute prostatitis]11-20-2021 EpisodicNeoplasms of unspecified nature or uncertain behavior (4 sources)Neoplasm of uncertain behavior of skin; Translations: [Neoplasm of uncertain behavior of skin]94-41-1750VtopzwgsBfyrd and unspecified benign neoplasm (5 sources)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; Translations: [SHANE LIPOMATOUS CLAUDE SKIN SUBQ RT LEG]Onset: 12-18-2022 EpisodicOther and unspecified benign neoplasm (2 sources)Lipoma of right lower limb; Translations: [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]56-02-9909JudicbrqJsjqm circulatory disease (2 sources)Elevated blood-pressure reading without diagnosis of hypertension; Translations: [Elevated blood-pressure reading, without diagnosis of hypertension]EpisodicOther diseases of bladder and urethra (1 source)Male urethral stricture; Translations: [Unspecified urethral stricture, male, unspecified site]Onset: 00-28-8862ZhwhtffdDhvea diseases of bladder and urethra (1 source)Urethral xhepfihcs20-93-1845IhjtzfhnKnbey diseases of kidney and ureters (2 sources)Urinary tract obstruction; Translations: [Other obstructive and reflux uropathy]Onset: 20-87-8488IbhycyfcXjkgc nutritional; endocrine; and metabolic disorders (6 sources)Overweight; Translations: [Overweight]55-62-9638LldrlrcdBekqx nutritional; endocrine; and metabolic disorders (2 sources)Overweight; Translations: [Overweight]EpisodicOther screening for suspected conditions (not mental disorders or infectious disease) (8 sources)Encounter for screening for malignant neoplasm of prostate; Translations: [Patient encounter status]Onset: 11-65-9162AmmxjaynJpugqzn on above:Problem List clean-up per request of Phys. EHR CmteOther skin disorders (4 sources)Localized swelling, mass and lump, right lower limb; Translations: [LOC SWELL MASS LUMP RT LOWER LIMB]Onset: 29-48-2665BsogmkbzWvujeehqzsng (2 sources)Asymptomatic microscopic rstuftkaz35-09-7089 Results Test NameValueInterpretationReference RangeFacilityConsultation/Specialist Note on 34-75-7555Itqbnxretkhe/Specialist Note [id number]#1.00OTGTSelect Medical Specialty Hospital [facility] [id number]: [id number] Received: 11/25/23 Status: SOURahat Req Num: [id number] Spec Type: Surgical Subm Dr: Jose Palomino DPM, MS Tissues: A Bone Fragments - Other than Path Fracture (RT TIBIAL OSTEOPHYTE) Procedures: HE, Gross/Micro L3, Decalcification Age/ Patient Sex Location Account Attending Physician Maria De Jesus Medley 53/M LABELL [id number] Jose Palomino DPM, MS SPEC NUM: [id number] RECD: 11/25/23 STATUS: JONO REWhitley NUM: [id number] STANISLAV: 11/25/[address]: Jose Palomino DPM, MS ENTERED: 11/25/[address] [facility] [address]: Hair,Lab SPEC TYPE: Surgical DEPT: STEFANO NICOLAS ORDERED: ARTEMIO, Gross/Micro L3, Decalcification ORDERED: ARTEMIO Gross/Micro L3, Decalcification Pathological Diagnosis Right tibial osteophyte, resection: Features consistent with osteophyte. Clinical Information Right foot hallux valgus Gross Description Received in formalin labeled with the patient's name, date of and right tibial osteophyte is a 2.5 x 2.2 x 0.6 cm aggregate of pink-yepez bony fragments, with no areas of softening identified. Warning Analyst sections are submitted in one cassette labeled A1. CPT Codes 21975, 64839 Specimen: [id number] Received: 11/25/23 Status: JONO Villa Num: [id number] Spec Type: Surgical Subm Dr: Jose Palomino,DARA, MS Tissues: A Bone Fragments - Other than Path Fracture (RT TIBIAL OSTEOPHYTE) Procedures: ARTEMIO Gross/Micro L3, Decalcification Patient: Maria De Jesus Medley [id number] (Continued) Signed (signature on file) Isacc Beard MD 11/27/23 1132NoMer[facility] The Jewish HospitalUS MUSC_SOFT TISSUE BXon [id number] MUSC_SOFT TISSUE BX Begin Addendum #1 COLLECTED DATE/TIME: 01/08/2023 16:30 EST Final Diagnosis Report for THE [place], [place] ULTRASOUND-GUIDED CORE BIOPSY RIGHT LATERAL THIGH [...] biopsy of the lateral right thigh subcutaneous mass/lipoma/liposarcoma. The patient was instructed to obtain follow up care and biopsy results from the referring physician.NormalThe [facility] CampusUS EXT NON VASC LIMITED RTon 60-93-1053BF EXT NON VASC LIMITED RTEXAMINATION: US EXT NON VASC LIMITED RT HISTORY: [...] Electronically authenticated by: CHARLY POP Date: 2022-12-22 08:[address] [place] [address] AUTO DIFFon 91-58-9668VRIO #0.1 103/ulNormal0.0-0.1The [facility] CampusComment on above:Performed By: #### CBC #### [facility] [address] [place] [address] Dr. Ashley AcostaBasophils/100 WBC (Bld)0.9 %Normal0.2-2.0[facility] Comment on above:Performed By: #### CBC #### [facility] [address] [address] [address] Ashley Shelton #0.2 103/ulNormal0.0-0.7The [facility] CampusComment on above: Performed By: #### CBC #### [facility] [address] [place] [address] Dr. Ashley Andujarosinophils/100 WBC (Bld)1.8 %Normal0.9-7.0The [facility] Comment on above:Performed By: #### CBC #### [facility] [address] [address] [address] Ashley Andujarrythrocyte distribution width (RBC) [Ratio]11.8 %Lggtli31.0-15.0 The [facility] CampusComment on above:Performed By: #### CBC #### [facility] [address] [place] [address] Dr. Ashley AcostaHematocrit (Bld) [Volume fraction]43.3 %Xkjuas22.0-54.0The [facility] CampusComment on above:Performed By: #### CBC #### [facility] [address] [address] [address] Ashley AcostaHemoglobin (Bld) [Mass/Vol]15.1 g/kHEqvfgb81.0-18.0The [facility] CampusComment on above:Performed By: #### CBC #### [facility] [address] [address] [address] Ashley Guzman #0.04 10e3/ulCritically high0.00-0.03The [facility] Comment on above:Performed By: #### CBC #### [facility] [address] [address] [address] Ashley Guzman %0.5 %Normal0.0-0.5The [facility] CampusComment on above: Performed By: #### CBC #### [facility] [address] [address] [address] Ashley Dalton #2.5 103/ulNormal1.2-3.8The [facility] CampusComment on above:Performed By: #### CBC #### [facility] [address] [address] [address] Ashley Brownhocytes/100 WBC (Bld)29.5 %Jpjxgy07.5-60.0The [facility]Point Medical Centerment on above:Performed By: #### CBC #### [facility] [address] [address] [address] Ashley ConcepcionUAL DIFF REQNONormalThe [facility] CampusComment on above: Performed By: #### CBC #### [facility] [address] [address] [address] Ashley Palacio (RBC) [Entitic mass]29.9 mfBluzbu52.9-34.0The [facility] CampusComment on above:Performed By: #### CBC #### [facility] [address] [address] [address] Ashley Palacio (RBC) [Mass/Vol]34.9 g/sFEwrahp75.9-35.2The [facility] HospitalComment on above:Performed By: #### CBC #### [facility] [address] [address] [address] Ashley Macedo (RBC) [Entitic vol]85.7 iRIhraaz98.0-94.0The [facility] CampusComment on above:Performed By: #### CBC #### [facility] [address] [place] [address] Dr. Ashley Douglas #0.6 103/ulNormal0.3-0.8The [facility] CampusComment on above:Performed By: #### CBC #### [facility] [address] [place] [address] Dr. Ashley Quirozocytes/100 WBC (Bld)7.3 %Normal1.7-12.0[facility] on above:Performed By: #### CBC #### [facility] [address] [place] [address] Dr. Ashley Mcgrath #5.1 103/ulNormal1.4-6.5The [facility] CampusComment on above:Performed By: #### CBC #### [facility] [address] [place] [address] Dr. Ashley Koenigutrophils/100 WBC (Bld)60.0 %Clhzqg20.0-75.0The [facility] on above:Performed By: #### CBC #### [facility] [address] [place] [address] Dr. Ashley Pearsonlet mean volume (Bld) [Entitic vol]9.7 fLNormal9.5-13.5The [facility] CampusComment on above:Performed By: #### CBC #### [facility] [address] [place] [address] Dr. Ashley AcostaPLT274 103/lkTtfxmv282-904Esl [facility] CampusComment on above: Performed By: #### CBC #### [facility] [address] [place] [address] Dr. Ashley AcostaRBC5.05 106/ulNormal4.70-6.10The [facility] CampusComment on above:Performed By: #### CBC #### [facility] [address] [address] [address] Ashley AcostaWBC8.5 103/ulNormal4.0-11.0The [facility] CampusComment on above: Performed By: #### CBC #### [facility] [address] [place] [address] Dr. Ashley Contrerashensive Metabolic Panelon 16-49-4769Wvtaaiq [Mass/Vol] 4.698372 g/dL3.4-5.0 g/dLEmpowrNet Other Albumin/Globulin [Mass ratio]1.3 {ratio}NormalEmpowrNet Other Comment on above:Performed By: #### CMP, LIPID #### [facility] [address] [place] [address] Dr. Ashley Goss [Catalytic activity/Vol]57 U/NQjbrqt55-296EfccdEmpowrNet Other Comment on above:Performed By: #### CMP, LIPID #### [facility] [address] [place] [address] Dr. Ashley Damon [Catalytic activity/Vol]31 U/CUblefp10-35BynldEmpowrNet Other Comment on above:Performed By: #### CMP, LIPID #### [facility] [address] [place] [address] Dr. Ashley Lara gap [Moles/Vol]12.2 mmol/LNormalEmpowrNet Other Comment on above:Performed By: #### CMP, LIPID #### [facility] [address] [place] [address] Dr. Ashley Wright [Catalytic activity/Vol]25 U/FAaaiea50-84EoimiEmpowrNet Other Comment on above:Performed By: #### CMP, LIPID #### [facility] [id number] Ashley AcostaCalcium [Mass/Vol]9.1175241 mg/dL8.5-10.1 mg/dLAkron [employer] Other Chloride [Moles/Vol]101 mmol/CRdwuqp93-405Ndbhu [employer] Other Comment on above:Performed By: #### CMP, LIPID #### [facility] [id number] Ashley AcostaCO2 [Moles/Vol]27.53351886 mmol/L21.0-32.0 mmol/LNmadison medical center [employer] Other Creatinine [Mass/Vol]0.35988578 mg/dL0.70-1.30 mg/dL [employer] Other Potassium [Moles/Vol]3.51007776 mmol/L3.5-5.1 mmol/L [employer] Other Protein [Mass/Vol]7.644429 g/dL6.4-8.2 g/dLAkron [employer] Other Urea nitrogen [Mass/Vol]11.1879193 mg/dL7.0-18.0 mg/dL [employer] Other Urea nitrogen/Creatinine [Mass ratio]11.7 mg/mgNormal [employer] Other Comment on above:Performed By: #### CMP, LIPID #### [facility] [id number] Ashley AcostaComprehensive Metabolic Panelsee noteNouniversity of [facility] [employer] Other Comprehensive Metabolic Szgol926 mmol/B708-083 mmol/L [employer] Other Comprehensive Metabolic Panel85 mg/rZ81-874 mg/dLAkron [employer] Other Comprehensive Metabolic Panel>60 mL/min/1.73m2>=60 mL/min/1.78l4Bdgcp Coast [employer] Other Comprehensive Metabolic Panel0.9 mg/dL0.2-1.0 mg/dL [facility] [employer] Other Comprehensive Metabolic Panel3.2 g/dLNoWayne Memorial Hospital [employer] Other LIPID PROFILEon 99-05-0976ZILD-HDL RATIO NORMSEE BELOW NormalSelect Medical Specialty [facility], IncComment on above:Result Comment: 3.3 - 4.4 LOW RISK 4.4 - 7.1 AVERAGE RISK 7.1 - 11.0 MODERATE RISK >11.0 HIGH RISKPerformed By: #### CMP, LIPID #### [facility] [address] [place] [address] Dr. Ashley AcostaCholesterol in LDL [Mass/Vol]120.2 mg/dLKettering HealthComment on above:Performed By: #### CMP, LIPID #### [facility] [address] [place] [address] Dr. Ashley Fontenot NORMAL> or = 60 mg/dl - LOW CARDIOVASCULAR RISK <40 mg/dl - HIGH CARDIOVASCULAR RISKKettering HealthCommymichigan medical center alma on above:Performed By: #### CMP, LIPID #### [facility] [address] [place] [address] Dr. Ashley Dooley CALC NORMALSEE The Surgical Hospital at SouthwoodsComment on above:Result Comment: <100 mg/dl OPTIMAL 100 - 129 mg/dl NEAR OR ABOVE OPTIMAL 130 - 159 mg/dl BORDERLINE HIGH 160 - 189 mg/dl HIGH >190 mg/dl VERY HIGH Performed By: #### CMP, LIPID #### [facility] [address] [address] [address] Ashley AcostaVLDL CALC17.8 mg/dLKettering HealthComment on above: Performed By: #### CMP, LIPID #### [facility] [address] [place] [address] Dr. Ashley AcostaLipid Panelon 36-09-7609Mzidohqijdp [Mass/Vol]194 mg/dLNoal <=200[place] [employer] Other Comment on above:Performed By: #### CMP, LIPID #### [facility] [address] [place] [address] Dr. Ashley AcostaCholesterol in HDL [Mass/Vol]56 mg/fTZbqhsz14-93Rcsho [employer] Other Comment on above:Performed By: #### CMP, LIPID #### [facility] [address] [place] [address] Dr. Ashley Cespedesesterlong.total/Cholesterol in HDL [Mass ratio]3.5 {ratio} NormalProvidence Health [employer] Other Comment on above:Performed By: #### CMP, LIPID #### [facility] [address] [place] [address] Dr. Ashley AcostaTriglyceride [Mass/Vol]89 mg/dLNormal<=150Nouniversity of [facility] [employer] Other Comment on above:Performed By: #### CMP, LIPID #### [facility] [address] [place] [address] Dr. Ashley AcostaLipid Panel> or = 60 mg/dl - LOW CARDIOVASCULAR RISK <40 mg/dl - HIGH CARDIOVASCULAR RISKAkron [employer] Other Lipid PanelSEE BELOWAkron [employer] Other Lipid Avseg739.2 mg/dLAkron [employer] Other Lipid Panel17.8 mg/dLAkron [employer] Other PROF 14(COMP METB)on 48-52-2061Wekowvm [Mass/Vol]4.0 g/dLNormal3.4-5.0The [facility] CampusComment on above:Performed By: #### CMP, LIPID #### [facility] [address] [place] [address] Dr. Ashley AcostaBilirubin [Mass/Vol]0.9 mg/dLNormal0.2-1.0[facility] Comment on above:Performed By: #### CMP, LIPID #### [facility] [address] [place] [address] Dr. Ashley AcostaCalcium [Mass/Vol]9.0 mg/dLNormal8.5-10.1[facility] Comment on above:Performed By: #### CMP, LIPID #### [facility] [address] [place] [address] Dr. Ashley AcostaCO2 [Moles/Vol]27.5 mmol/IJxvkgx74.0-32.0The [facility] Comment on above:Performed By: #### CMP, LIPID #### [facility] [address] [place] [address] Dr. Ashley AcostaCreatinine [Mass/Vol]0.94 mg/dLNormal0.70-1.30The [facility] CampusComment on above:Performed By: #### CMP, LIPID #### [facility] [address] [place] [address] Dr. Ashley AndujarGFR-AF EMIRATI>60Normal>=60The [facility] Main CampusComment on above:Performed By: #### CMP, LIPID #### [facility] [address] [place] [address] Dr. Ashley AndujarGFR-NON AF EMIRATI>60Normal>=60The [facility] CampusComment on above:Performed By: #### CMP, LIPID #### [facility] [address] [place] [address] Dr. Ashley AcostaGlobulin (S) [Mass/Vol]3.2 g/dLNormalThe [facility] CampusComment on above:Performed By: #### CMP, LIPID #### [facility] [address] [place] [address] Dr. Ashley AcostaGlucose [Mass/Vol]85 mg/tBYerazs47-995Zjb [facility] Comment on above:Performed By: #### CMP, LIPID #### [facility] [address] [place] [address] Dr. Ashley AcostaPotassium [Moles/Vol]3.7 mmol/LNormal3.5-5.1The [facility] Comment on above:Performed By: #### CMP, LIPID #### [facility] [address] [place] [address] Dr. Ashley AcostaProtein [Mass/Vol]7.2 g/dLNormal6.4-8.2[facility] Comment on above:Performed By: #### CMP, LIPID #### [facility] [address] [place] [address] Dr. Ashley AcostaSodium [Moles/Vol]137 mmol/NQodgyo574-844Zdw [facility] Comment on above:Performed By: #### CMP, LIPID #### [facility] [address] [place] [address] Dr. Ashley AcostaUrea nitrogen [Mass/Vol]11.0 mg/dLNormal7.0-18.0The [facility] CampusComment on above:Performed By: #### CMP, LIPID #### [facility] [address] [place] [address] Dr. Ashley Kamara for Procedure/Surgeryon 93-40-9920Ukiasns for Procedure/[id number]#1.00CD:127Mem[facility] HospitalAmbulatory Visit Summaryon 37-08-4697Caljcnwckz Visit Summary MARIA DE JESUS MEDLEY :1970 Visit Date:03/31/2022 Ambulatory Visit Instructions Your Diagnosis BPH with urinary obstruction Chronic prostatitis Kidney stone Urethral stricture Other obstructive and reflux uropathy Your Care Team Attending Physician - SHANIKA VALDOVINOS, Jimmy Valles Primary Care Physician - ZACHARY RODRIGUEZ DO This Is Your Medications List ciprofloxacin (Cipro 500 mg Tab) sulfamethoxazole-trimethoprim tamsulosin (tamsulosin 0.4 mg Cap) Procedures Performed Cystoscopy (03/31/2022), Appendectomy, Colonoscopy. Discharge Vitals Heart Rate (Peripheral) 85 Respiratory Rate 16 Blood Pressure 135/82 Height 176.0 cm Height 176 cm Weight 86.0 kg Weight 86 kg BMI 27.76 What to do next Scheduled Follow-Up Appointments Wednesday 3:15 PM EDT With: SHANIKA VALDOVINOS, Jimmy Valles Where: [facility] Educationon 17-07-6419Bwcyojk EducationUrology Benign Prostatic Hyperplasia Benign prostatic hyperplasia (BPH) [...] urine that may remain in your bladder afteryou finish urinating. ? A digital rectal exam. [...] this procedure, a tool is inserted through theopening at the tip of the penis (urethra). [...] procedure uses radio frequencies to destroy and removea small amount of prostate tissue. ? Interstitial laser coagulation (ILC). This procedure uses a laser to destroy and remove a small amount of prostate tissue. ? Transurethral electrovaporization (TUVP). This procedure uses electrodes to destroy and remove a small amount of prostate tissue. ? Prostatic urethral lift. This procedure inserts an implant to push the lobes of the prostate awayfrom the urethra. Follow these instructions at home: ? Take vhee-qzb-kohvwll and prescription medicines only as told by [...] treatment. ? You d (more content not included)...[facility] HospitalU[facility] Office/Clinic Noteon 70-65-0064Iddntxk Office/Clinic NoteChief Complaint Cystoscopy HPI Staff Cystoscopy. Abx taken. [...] denies hematuria, denies discharge, denies urinary frequency, deniesurinary hesitancy, denies nocturia, denies incontinence, denies genital [...] urine The Urethra was dilated to: _ [place] with sounds. Specimens Removed: None Removal: Cystoscope [...] [facility] [address], [place] [address] [phone] Additional Instructions: f/u in Jul w PSA Patient Education Benign Prostatic Hyperplasia Kidney Stones, Imci-iz-Zpqb Libertad Munoz, personally scribed for Dr. Daugherty [...] Tab, 500 mg= 1 tab(s), Oral, Daily sulfamethoxazole-trimethoprim tamsulosin 0.4 mg Cap, 0.4 mg= 1 cap(s), Oral, BID, 6 refills Allergies No Known Medication Allergies Social History Tobacco Never (less than 100 in lifetime) Tobacco Use:. Never Smokeless Tobacco Use:., 11/20/2021 Family History Diabetes clinic: Father. Immunizations Vaccine Date Status Comments SARS-CoV-2 (COV (more content not included)...[facility] Comment on above:Result Comment: Electronically Signed By: SHANIKA VALDOVINOS, Jimmy Miller\Date and Time Signed: 03/31/22 08:10 EDTReminderson 96-68-7432Tzkisgljd From: Libertad Celeste To: EU - Clinical; Sent: 03/16/2022 11:27:10 EDT Show up: 03/24/2022 11:27:00 EDT Subject: Ct scan Due Date/Time: 03/27/2022 11:26:00 EDT Reminder/Recall Hair- Ct scan Abd/Pelvis , Order faxed, they will call pt to schedule after auth approval Pt scheduled for Cysto 03/31/22 CT [facility] Reporton [id number] - CT Report [id number]#1.00CD:127[facility] HospitalCT ABD/PELVIS WO CONon 09-19-7261CD ABD/PELVIS WO CONEXAMINATION: CT ABD/PELVIS WO CON HISTORY: Lower urinary [...] Electronically authenticated by: CHARLY POP Date: 2022-03-19 19:21[facility] HealthPre-Certification Formon 88-66-7964Rrv-Certification Form [id number]#[id number]:127NoMarymount HospitalAmbulatory Visit Summaryon 78-60-6768Njmlukrlkd Visit Summary MARIA DE JESUS MEDLEY :1970 Visit Date:03/02/2022 Ambulatory Visit Instructions Your Diagnosis BPH with urinary obstruction Chronic prostatitis Other obstructive and reflux uropathy Tests Performed Urnls Dip Stick Auto w/o Microscopy POC [address]125 CT Abdomen/Pelvis w/o Contrast -- Results Pending -- Please visit your patient portal for your results or contact your primary care physician. Your Care Team Attending Physician - DAUGHERTY Jimmy VALDOVINOS Primary Care Physician - ZACHARY RODRIGUEZ DO This Is Your Medications List tamsulosin (Flomax 0.4 mg Cap) tamsulosin (tamsulosin 0.4 mg Cap) Contact prescribing physician if questions or concerns sulfamethoxazole-trimethoprim Procedures Performed Appendectomy, Colonoscopy. Discharge Vitals Heart Rate (Peripheral) 83 Respiratory Rate 16 Blood Pressure 123/86 Height 176 cm Height 176.0 cm Weight 86.1 kg Weight 86.1 kg BMI 27.8 What to do next Scheduled Follow-Up Appointments Wednesday 3:15 PM EDT With: Jimmy DAUGHERTY MD [facility] Educationon 75-31-9092Musjxlq EducationInfectious Disease Prostatitis Prostatitis is swelling or inflammation [...] can occur in men of any age butis most common among middle-aged men whose prostate [...] bacteria. Chronic nonbacterial prostatitis may becaused by: ? Urinary tract infections (UTIs). ? Nerve damage. ? A response by the body?s disease-fighting system (autoimmune response). ? Chemicals in the urine. The causes of the other types of prostatitis are usually not known. What are the signs or symptoms? Symptoms of this condition vary depending upon the type of prostatitis. If you have acute bacterialprostatitis, you may experience: ? Urinary symptoms, such [...] Follow these instructions at home: ? Take yfqt-zcx-vqjdgbi and prescription medicines only as told by [...] a sitz bath, sit in warm water thatis deep enough to cover your hips and [...] Document Revised: 12/31/2018 Docum (more content not included)...[facility] HospitalUrology Office/Clinic Noteon 30-49-0443Ictiqwp Office/Clinic NoteChief Complaint F/u for prostatitis HPI Staff Pt is here for f/u to prostatitis. Previous dx of BPH with urinary obstruction, chronic prostatitisand nocturia. PSA done 12/24/21 was 0.81. Pt is currently on antibiotics from his PCP for UTI and hecontinues taking Tamsulosin 0.4mg 1x daily. Dysuria: no [...] denies hematuria, denies discharge, denies urinary frequency, deniesurinary hesitancy, denies nocturia, denies incontinence, denies genital [...] bothersome urinary sx, however previously had symptoms ofburning with urination. Good stream and feels empty. [...] Jimmy Valles, URL [facility] [address] [place] [address]- Additional Instructions: Will schedule Cysto. Patient Education [...] mg= 1 cap(s), Oral, Daily, 6 refills sulfamethoxazole-trimethoprim Allergies No Known Medication Allergies Social History [...] Protein Urine Dipstick: Negative (03/02/22 13:27:00) Specific Coburn Urine Dipstick: 1.025 (03/02/22 13:27:00) Urine Appearance Urine (more content not included)...[facility] HospitalComment on above:Result Comment: Electronically Signed By: Jimmy DAUGHERTY MD\.br\Date and Time Signed: 03/02/22 14:23 EDT\.br\Electronically Co- Signed By: Izzy Stearns.judah\Date and Time Co-Signed: 03/02/22 14:19 EDTLab Reportson [id number] Reports [id number]:127NormalFisher Thomas B. Finan CenterPatient Educationon 01-45-9358Bbahthw EducationInfectious Disease Prostatitis Prostatitis is swelling or inflammation [...] can occur in men of any age butis most common among middle-aged men whose prostate [...] bacteria. Chronic nonbacterial prostatitis may becaused by: ? Urinary tract infections (UTIs). ? Nerve damage. ? A response by the body?s disease-fighting system (autoimmune response). ? Chemicals in the urine. The causes of the other types of prostatitis are usually not known. What are the signs or symptoms? Symptoms of this condition vary depending upon the type of prostatitis. If you have acute bacterialprostatitis, you may experience: ? Urinary symptoms, such [...] Follow these instructions at home: ? Take lnqo-iye-feqnpdd and prescription medicines only as told by [...] a sitz bath, sit in warm water thatis deep enough to cover your hips and [...] Document Revised: 12/31/2018 Docum (more content not included)...[facility] HospitalUrology Office/Clinic Noteon 48-67-6312Demyygw Office/Clinic NoteChief Complaint 6 wee f/u with PSA HPI [...] denies hematuria, denies discharge, denies urinary frequency, deniesurinary hesitancy, denies nocturia, denies incontinence, denies genital [...] therapy, his symptoms returned right he finished theABX Pt's prostatitis is under control with ABX. PSA dropped almost 50% from last visit. Current PSA done 12/24/21 is 0.81 and previous done 11/03/21 was 1.5. 4. Nocturia (R35.1: Nocturia) x1, improved from 11/20/2021 visit. Follow-up With When Contact Information SHANIKA VALDOVINOS, LUZ Haider In 6 months 06/28/2022 EDT [facility] [address], [place] [address]- [phone] Additional Instructions: PSA Patient Education Prostatitis I, [...] vaccine - Not Given Postpone due to refusalNoAultman Orrville HospitalComment on above:Result Comment: Electronically Signed By: Jimmy DAUGHERTY MD\.br\Date and Time Signed: 12/29/21 16:40 EST\.br\Electronically Co-Signed By: Odilia Shah MA\.br\Date and Time Co- Signed: 12/29/21 16:37 ESTLab Reportson [id number] Reports [id number]:127Mem[facility] HospitalFormson [id number]:127 [facility] HospitalPhysician Referralon 44-40-0357Wyotogsyx [id number]:[address] [place], [place] [address]Ambulatory Visit Summaryon 06-00-9469Cfssdydosz Visit Summary MARIA DE JESUS MEDLEY :1970 Visit Date:11/20/2021 Ambulatory Visit Instructions Your Diagnosis Acute prostatitis Nocturia Urinary frequency Urinary urgency Asymptomatic microscopic hematuria BPH with urinary obstruction Elevated PSA, Elevated PSA Other obstructive and reflux uropathy Tests Performed Urnls Dip Stick Auto w/o Microscopy POC 40192 Your Care Team Attending Physician - SHANIKA [...] the Following Appointments Follow Up with SHANIKA VLADOVINOS, LUZ Haider When: In 6 weeks 01/01/2022 EST Why: 6 week f/u w/PSA Where: [facility] [address] , [place] [address]- [phone] Medications What How Much When Instructions New [...] [facility]/pharmacy #[id number]: [address] [place], [place] [phone] Test Results Urnls Dip Stick Auto w/o Microscopy POC 90937 (11/20/2021) Bilirubin Urine Dipstick - Negative Blood Urine Dipstick - 3+ Large Glucose Urine Dipstick - Negative Ketones Urine Dipstick - Negative Leukocytes Urine Dipstick - 3+ Large Nitrite Urine Dipstick - Negative Protein Urine Dipstick - 2+ (100 mg/dl) Specific Coburn Urine Dipstick - 1.025 Urine Appearance Urine [...] associatedwith a viral infection or autoimmune disorder. ? [...] bacteria. Chronic nonbacterial prostatitis may becaused by: ? Urinary tract infections (UTIs). ? Nerve damage. ? A response by the body?s disease-fighting system (autoimmune response). ? Chemicals in the urine. The causes of the other types of prostatitis are usually not known. What are the signs or symptoms? Symptoms of this condition vary depending upon the type of prostatitis. If you have acute bacterialprostatitis, you may experience: ? Urinary symptoms, such [...] is this diagnosed? This (more content not included)...[facility] HospitalAmbulatory Visit Summary MARIA DE JESUS MEDLEY :1970 Visit Date:11/20/2021 Ambulatory Visit Instructions Your Diagnosis Acute prostatitis Nocturia Urinary frequency Urinary urgency Asymptomatic microscopic hematuria BPH with urinary obstruction Elevated PSA, Elevated PSA Other obstructive and reflux uropathy Tests Performed Urnls Dip Stick Auto w/o Microscopy POC 91827 Your Care Team Attending Physician - Jimmy [...] w/PSA Where: [facility] [address] , [place] [phone] Medications What How Much When Instructions New doxycycline (doxycycline hyclate 100 mg Cap) 1 Capsules By Mouth 2 times a day Refills: 1 Pickup at [facility]/pharmacy #[id number] New tamsulosin (Flomax 0.4 mg Cap) 1 Capsules By Mouth Every day Refills: 6 Pickup at [facility]/pharmacy #[id number] Pharmacy Information [facility]/pharmacy #[id number]: [address], [place] [phone] Test Results Urnls Dip Stick Auto w/o Microscopy POC 93206 (11/20/2021) Bilirubin Urine Dipstick - Negative Blood Urine Dipstick - 3+ Large Glucose Urine Dipstick - Negative Ketones Urine Dipstick - Negative Leukocytes Urine Dipstick - 3+ Large Nitrite Urine Dipstick - Negative Protein Urine Dipstick - 2+ (100 mg/dl) Specific Coburn Urine Dipstick - 1.025 Urine Appearance Urine [...] associatedwith a viral infection or autoimmune disorder. ? [...] bacteria. Chronic nonbacterial prostatitis may becaused by: ? Urinary tract infections (UTIs). ? Nerve damage. ? A response by the body?s disease-fighting system (autoimmune response). ? Chemicals in the urine. The causes of the other types of prostatitis are usually not known. What are the signs or symptoms? Symptoms of this condition vary depending upon the type of prostatitis. If you have acute bacterialprostatitis, you may experience: ? Urinary symptoms, such [...] is this diagnosed? This (more content not included)...[facility] Educationon 81-37-4994Bfprbzd EducationInfectious Disease Prostatitis Prostatitis is swelling or inflammation [...] can occur in men of any age butis most common among middle-aged men whose prostate [...] bacteria. Chronic nonbacterial prostatitis may becaused by: ? Urinary tract infections (UTIs). ? Nerve damage. ? A response by the body?s disease-fighting system (autoimmune response). ? Chemicals in the urine. The causes of the other types of prostatitis are usually not known. What are the signs or symptoms? Symptoms of this condition vary depending upon the type of prostatitis. If you have acute bacterialprostatitis, you may experience: ? Urinary symptoms, such [...] Follow these instructions at home: ? Take ecum-jzb-rihffqx and prescription medicines only as told by [...] a sitz bath, sit in warm water thatis deep enough to cover your hips and [...] Document Revised: 12/31/2018 Docum (more content not included)...[facility] HospitalProvider Letteron 11-20-2021 Provider LetterJanuary 2021November 20, 2021 MARIA DE JESUS MEDLEY [address] [place] [id number] MARIA DE JESUS MEDLEY 1970 To Whom It May Concern, Please excuse above patient from work. Date of appointment From: 11/20/2021 To: May Return to Work On: 11/21/2021 Restrictions: _ Comments: _ Sincerely,[facility] HospitalUrology Office/Clinic Noteon 68-87-0457Ogxuyml Office/Clinic NoteChief Complaint Pt is here for possible prostatitis HPI Staff Maria De Jesus is a 51 y.o. male new patient here for possible prostatitis. Referred by Dr. Shane Rodriguez. CurrentPSA 1.5 done on 11/03/21. Previous PSA 0.49 done on 01/30/20. Pt states Dr. Rodriguez treated him with a course of tamsulosin 0.4mg qd #14 and Bactrim DS 800-160 BID #28. Pt states these helped him but sincehix sx have returned. Dysuria: denies Incomplete bladder [...] denies incontinence, denies genital sores, denies decreased libido,and denies erectile dysfunction.,mild urgency Physical Exam Vitals [...] therapy, his symptoms returned right he finished theABX. Large Leuk seen on UA today.Pt will start Doxy 100mg bid #60 with 1 refill. Script will be sent today. Other obstructive and reflux uropathy (N13.8: Other obstructive and reflux uropathy) Orders: doxycycline, 100 mg = 1 cap(s), Oral, BID, # 60 cap(s), Refills(s) 1, Pharmacy: [facility]/pharmacy #[id number],176, cm, 11/20/21 14:51:00 EST, Height/Length Dosing, 86, kg, 11/20/21 14:51:00 EST, Weight Dosing tamsulosin, 0.4 mg = 1 cap(s), Oral, Daily, # 30 cap(s), Refills(s) 6, Pharmacy: [facility]/pharmacy #[id number], 176, cm, 11/20/21 14:51:00 EST, Height/Length Dosing, 86, kg, 11/20/21 14:51:00 EST, Weight Dosing I have reviewed the previous health history for this patient with Dr. Daugherty. f/u in 6 weeks w/PSA Follow-up With When Contact Information Jimmy DAUGHERTY MD, URL In 6 weeks 01/01/2022 EST [facility] [address], [place] [phone] Additional Instructions: 6 week f/u w/PSA Patient Education Prostatitis I, Libertad Celeste, personally scribed for Dr. Daugherty on 11/20/2021 15:47:22. . Documentation recorded by the scribejordan, accurately reflects the services(s) I performed and decisions made by me. Authenticated by Dr. Daugherty on 11/20/2021 15:53:34. Problem List/Past Medical History Ongoing Acute prostatitis Neoplasm of uncertain behavior of skin Overweight Historical No qualifying data Procedure/Surgical History Appendectomy, Col (more content not included)...[facility] HospitalComment on above:Result Comment: Electronically Signed By: Jimmy DAUGHERTY MD\.br\Date and Time Signed: 11/20/21 15:53 EST\.br\Electronically Co- Signed By: Libertad Celeste\.br\Date and Time Co-Signed: 11/20/21 15:47 EST Vital Signs Date TimeVital SignValuePerforming IfancmggnPdgemkuf70-97-7756 15:14-0400Body lvayht108.26 cmF[facility]03-25-2025 15:14-0400Body mass index (BMI) [Ratio]29.4 kg/v7ObybapkqtFostoria City Hospital03-25-2025 15:14-0400Body hagrge48.32 kgFostoria City Hospital03-25-2025 15:14-0400Diastolic blood mydwcjle39 mm[Hg][facility] 2025 15:14-0400Heart rate74 /[facility] 2025 15:14-0400Respiratory rate12 /[facility] 2025 15:14-0400Systolic blood grcfmoar115 mm[Hg][facility]03-26-2024 13:39-0400Body .26 cmDO Zachary Ball Work Phone: [facility]03-26-2024 13:39-0400 Body mass index (BMI) [Ratio]28.9 kg/m2DO Zachary Ball Work Phone: [facility]03-26-2024 13:39-0400 Body gocftr44.9 kgDO Zachary Ball Work Phone: [facility]03-26-2024 13:39-0400 Diastolic blood znkxqpul82 mm[Hg]DO Zachary Ball Work Phone: [facility]03-26-2024 13:39-0400 Respiratory rate12 /minDO Zachary Ball Work Phone: [facility]03-26-2024 13:39-0400 Systolic blood nbbcmiyz362 mm[Hg]DO Zachary Ball Work Phone: [phone]02-14-2023 16:30-0500 Body .26 cmBenjamin Ball Other [place] [employer] Other 02-14-2023 16:30-0500Body mass index (BMI) [Ratio] 29.24 kg/w8Lmyhwlsg Ball Other [place] [employer] Other 02-14-2023 16:30-0500Body elszeq56.81 kgBenjamin Ball Other [place] [employer] Other 02-14-2023 16:30-0500Diastolic blood ymxrzxat48 mm[Hg] Zachary Ball Other [place] [employer] Other 02-14-2023 16:30-0500Respiratory rate12 /minBenjamin Ball Other [place] [employer] Other 02-14-2023 16:30-0500Systolic blood qfaabbtf179 mm[Hg] Zachary Ball Other [facility] [employer] Other 05-31-2022 07:40-0400Blood Pressure LocationPatricTitan Medical [facility] 05-31-2022 07:40-0400Diastolic blood raacexyy25 mm[Hg] Jimmy DAUGHERTY [facility] 05-31-2022 07:40-0400Heart rate85 /minPatricTitan Medical [facility] 05-31-2022 07:40-0400Respiratory rate16 /minPaPivot Acquisition [facility] 05-31-2022 07:40-0400Systolic blood icnbxayf156 mm[Hg] Jimmy DAUGHERTY [facility] 05-02-2022 13:30-0400Blood Pressure LocationPaPivot Acquisition [facility] 05-02-2022 13:30-0400Diastolic blood wuwilhkq39 mm[Hg] Jimmy tado [facility] 05-02-2022 13:30-0400Heart rate83 /minPaPivot Acquisition [facility] 05-02-2022 13:30-0400Respiratory rate16 /minPatrick SHANIKA [facility] 05-02-2022 13:30-0400Systolic blood mm[Hg] Jimmy DAUGHERTY [facility] Encounters Encounter DateEncounter TypeCare ProviderFacilityStart: 84-77-1342jaxuhhopib Carlos Martinezcility: SURG CLINICStart: 2025 End: 33-74-3479udicgntctoEgnluxccyGuernsey Memorial Hospital Work Phone: Start: 2025 End: 73-51-0449Mxqluontb for general adult medical examination without abnormal findingsUK Healthcaretart: 2025 End: 85-69-8146Crkvmxy encounter procedureUnc Health [facility] Work Phone: Start: 01-25-2024 End: 68-28-0761ybhjkxsupiUS Zachary Rodriguez Work Phone: [facility] Work Phone: Start: 01-25-2024 End: 30-67-5071Qgqtlipca for general adult medical examination without abnormal findingsDO Zachary Rodriguez Work Phone: [facility] Healthcare[facility]art: 01-25-2024 End: 62-95-9471Dgjsfjr encounter procedureDO Zachary Rodriguez Work Phone: [facility] Work Phone: Start: 11-25-2023 End: 54-11-4308nuvvinccfcPensfujv BallFacility:[facility] Start: 11-25-2023 End: 16-03-3988yuzmokphotKY Zachary Rodriguez Work Phone: [facility] Work Phone: Start: 11-25-2023 End: 63-70-6328Ovfpntzz ReferredDO Zachary Rodriguez Work Phone: [facility] Spec Hair HospStart: 01-08-2023 End: 33-19-5918zbxwowevpqUW ZACHARY RODRIGUEZFacility:S7Tezmm: 51-91-9294Nyugvcqrq for general adult medical examination without abnormal findingsDR ZACHARY RODRIGUEZ [facility] Hospitaltart: 12-18-2022 End: 63-94-0110yldbqvsgehUA ZACHARY MEÑOFacility:L9Uwbfl: 12-16-2022 End: 20-66-3150gmaomtmhkhCvdkbduh Ball Other [place] [employer] Other Start: 68-79-7387Jkymrxvah encounterBehieu Rodriguez Medical ClinicStart: 12-15-2022 End: 91-92-5330ozhsbdsdmlUW ZACHARY RODRIGUEZAkron [employer] Other Start: 12-15-2022 End: 56-49-6796Eaggumjlp for general adult medical examination without abnormal findingsBehieu Rodriguez Medical ClinicStart: 70-58-0849Mgvsgnil preventive med est patient 40-64yrsBehieu Rodriguez Medical ClinicStart: 03-31-2022 End: 87-29-3326Belppup encounter procedurePajuan DAUGHERTY [facility] Start: 03-19-2022 End: 38-75-7141tfvinzrwvnMY JIMMY DAUGHERTY .Facility:Y0Asiyo: 03-02-2022 End: 03-44-1311Zcepujc encounter procedureJimmy DAUGHERTY [facility] Procedures DateProcedureProcedure DetailPerforming ClinicianStart: 29-30-8492TKO screening DR ZACHARY Ardon on above:Performed By: #### PSASC #### [facility] [address] [address] [address] Ashley Sun: 06-67-5477AjjeijrwfpWubcszt WATERS appendectomyPatrick DAUGHERTY ColonoscopyPajuan DAUGHERTY Plan of Treatment DateCare ActivityDetailAuthorComprehensive metabolic 1999 panel - Serum or PlasmaFostoria City HospitalComprehensive metabolic 2000 panel - Serum or PlasmaMayo Clinic Florida Immunizations Immunization DateImmunizationNotesCare ProviderFacilityNEGATED: Highlighted row has not occurred!69-78-1446IQQT-CoV-2 (COVID-19) Ad26 vaccine, recombinant Jimmy DAUGHERTY [facility] Payers DatePayer CategoryPayerPolicy [id number] 2..[id number] 2..1.423008.3.57[id number] 2..1.567268.3.57[id number] 2..1.705837.3.57[id number] 2..1.081222.3.57[id number] 2..1.348183.3.57[id number] 2..1.137520.19 [id number] 2.16.840.1.172305.3.579.2.531Unknown Regular Mzjdfnabd5925 [id number] Social History DateTypeDetailFacilityStart: 11-20-2021 End: 44-16-3045Gpsdxzf smoking statusNever smoked tobacco (finding)[facility] Tobacc smoking statusNeverExec[facility] sex Assigned At [facility] start: 66-94-7007Rfw Assigned At [facility]tart: 73-68-4430Tqblcxq smoking status NHISUnknown if ever smokedUK Healthcaretart: 82-51-4165DxfZznh (finding) [facility] Evaluation note 12-15-2022 Note Date & JmacKmsmPjmngumf70-86-2714 Evaluation note* Encounter Date Diagnosis Assessment Notes Treatment Notes Treatment Clinical Notes Dec, Wellness examination (ICD-10 - Z 00.00) Healthy diet and exercise. Reviewed age-appropriate preventive testing recommended. Dec,Nocturia (ICD-10 - R35.1) Dec,enign prostatic hyperplasia with lower urinary tract symptoms (ICD- 10 - N40.1)Yearly PSA Dec,Overweight (BMI 25.0-29.9) (ICD-10 - E66.3)This patient has been instructed on a low-fat, high-fiber diet. They are instructed to reduce calori es, portion sizes and snacks. It is recommended that they exercise for 30 minutes, 3-5 times weekly. 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 Follow these instructions at home: Take xjzz-vtz-bfzvtyz and prescription medicines only as told by [...] 10/18/2006 Document Revised: 09/12/2019 Document Reviewed: 11/22/2017 [employer] Patient Education 2020 [employer] 03/31/2022 07:56:52 Kidney Stones, Sxga-yv-Awms Kidney Stones Kidney stones are rock-like masses [...] Follow these instructions at home: Medicines Take kfmi-dmo-enidizx and prescription medicines only as told by [...] 04/05/2009 Document Revised: 03/05/2020 Document Reviewed: 03/05/2020 [employer] Patient Education 2020 [employer] Follow Up Care 03/16/2022 11:12:01 With:SHANIKA VALDOVINOS, Jimmy Valles, URL Address: [facility] [address] [place] [phone] When:07/13/2022 Comments:f/u in Jul [facility] Hospital Discharge instructions 03-02-2022 Note Date & FukcUyzcQdrbogdw33-21-8319 Hospital Discharge instructions Patient Education 03/02/2022 14:01:14 [...] 10/18/2006 Document Revised: 07/07/2019 Document Reviewed: 09/17/2017 [employer] Patient Education 2020 Feedback-Machine. 03/02/2022 14:01:11 Prostatitis Prostatitis Prostatitis is swelling [...] prostate. Follow these instructions at home: Take fozp-lkj-wfcyfyw and prescription medicines only as told by [...] 10/15/2001 Document Revised: 12/31/2018 Document Reviewed: 07/08/2017 [employer] Patient Education 2020 Feedback-Machine. Follow Up Care 02/04/2022 15:37:59 With:SHANIKA VALDOVINOS, Jimmy Valles, URL Address: [facility] [address], [place] [address]- When: Unknown Comments:Will schedule Cysto. [facility] Evaluation + Plan note Note Date & TypeNoteFacilityEvaluation + Plan note Future Appointments Appointment Date:07/13/2022 03:15:00 PM Scheduled Provider:Jimmy DAUGHERTY MD Location:[facility] Appointment Type:URO Office Visit [facility] Evaluation note Note Date & TypeNoteFacilityEvaluation noteNo InformationN[facility] [employer] Other Evaluation note Note Date & TypeNoteFacilityEvaluation noteNo assessment information available [facility] Work Phone: Evaluation note Note Date & TypeNoteFacilityEvaluation note* Diagnosis Onset Date Resolution Status Benign prostatic hyperplasia with lower urinary tract symptoms acuteWellness examinationnoneactive [facility] Work Phone: Evaluation note Note Date & TypeNoteFacilityEvaluation note* Diagnosis Onset Date Resolution Status Admit Date Benign prostatic hyperplasia with lower urinary tract symptoms acuteMarch 2024 3:06pmOverweightacuteMarch 2024 3:06pmScreening PSA (prostate specific antigen)acuteMarch 2024 3:06pmWellness examination noneactiveMarch 2024 3:06pm [facility] Work Phone: History general Narrative - Reported Note Date & TypeNoteFacilityHistory general Narrative - Reported* Type Description Date Medical History Elevated blood pressure (not hyp ertension) Medical HistoryOverweightMedical HistoryNeoplasm of uncertain behavior of skin Medical HistoryAcute prostatitis with hematuriaSurgical [id number] Hospitalization HistorySEE SURGICAL [facility] Other Hospital course Narrative Note Date & TypeNoteFacilityHospital course Narrative No data available for this section [facility] Summary Purpose Family History No Family History Records Found Relationship Condition Age at Onset Recorded Date/T bekah Not Specified No pertinent family history Unknown Relationship Condition Age at Onset Recorded Date/T bekah Not Specified No pertinent family history Unknown fatherDiabetes mellitusUnknown Advance Directives No Advanced Directives Records Found Advance Directive Response Recorded Date/ Time Advance Directives No September 4:10pm Advance Directive Response Recorded Date/ Time Advance Directives No September 5:10pm Chief Complaint and Reason for Visit Chief Complaint Admit Date Wellness 2025 3:0 6pm Reason for Visit Admit Date Benign prostatic hyperplasia with lower urinary tract symptoms 2025 3:06pm Overweight 2025 3:0 6pm Screening PSA (prostate specific antigen ) 2025 3:06pm Wellness examination 2025 3: 06pm Chief Complaint Unknown WellnessReason for VisitBenign prostatic hyperplasia with lower urinary tract symptoms Wellness examination Additional Source Comments (unrecognized sect ion and content) No Status Records FoundNo Status Records FoundNo Status Records FoundNo Status Records Found INFORMATION SOURCE (unrecogn ized section and content) DATE CREATED AUTHOR 04/14/2022 [facility] DATE CREATED AUTHOR AUTHOR'S ORGANIZ ATION 01/18/2023 [facility] DATE CREATED AUTHOR AUTHOR'S ORGANIZ ATION 11/28/2023 [facility] DATE CREATED AUTHOR AUTHOR'S ORGANIZ ATION 06/03/2025 [facility] REASON FOR VISIT (unrecogniz ed section and content) wellnessLab Results Care Teams (unrecognized sec tion and content) Team Status: Active Member Role Status Dates Zachary Rodriguez , DO Primary Care Provider Active Team Status: Inactive Member Role Status Dates Zachary Rodriguez , DO Primary Care Provider Active Start: November 25, 2023 End: November 25fam Palomino DPM MSAttending ProviderActiveStart: November 25, 2023 End: November 25, 2023 Team Status: Inactive Member Role Status Dates Zachary Rodriguez , DO Primary Care Provide r, Attending Provider Active Start: January 25, 2024 End: January 25, 2024 Team Status: Inactive Member Role Status Dates Zachary Rodriguez , DO Primary Care Provide r, Attending Provider Active Start: 2025 End: 2025 Goals (unrecognized section and content) Goals may [...] BE BASED ON THE PRIMARY CLINICAL RECORDS. [facility] Tour Desk [facility]. provides no warranty or guarantee of the accuracy or completeness of information in this document.
--- OUTSIDE RECORDS SUMMARY | 2025-10-29 07:10 | XMS_ITS | Clinical Summary ---
Author Organization [facility] Healthcare Address [address] [place] [address] Care Team Providers Care Receiver Name Role Phone Unavailable Primary Care Provider Unavailabl e Social History Tobacco UseTypesPacks/DayYears UsedDateSmoking Tobacco: Never AssessedSex and Gender InformationValueDate RecordedSex Assigned at BirthNot on fileLegal Sex Male01/13/2023 8:08 PM EDTGender IdentityNot on fileSexual OrientationNot on file Last Filed Vital Signs Vital SignReadingTime TakenCommentsBlood Pressure--Pulse--Temperature-- Respiratory Rate--Oxygen Saturation--Inhaled Oxygen Concentration--Baxdmx36.9 kg (185 lb)12/06/2017 12:00 PM KIIEelvtz217.3 cm (5' 9 )03/04/2023 12:00 PM EDTBody Mass Index27.32012/06/2017 12:00 PM EST Plan of Treatment Not on file Insurance * Guarantor: Sergio Walker TypeRelation to PatientDate of BirthPhone Billing AddressPersonal/NihcmdXrmx1970 [address] [address]
--- OUTSIDE RECORDS SUMMARY | 2025-10-29 07:10 | XMS_ITS | Patient Health Record ---
Author Organization [facility] [place] Address [address] [place] [address] Care Team Providers Care Electrical Engineering Director Name Role Phone Zachary Rodriguez DO Primary Care Provider Unavaila Carlos Thomas Unavailable [phone] Jose Palomino Unavailable [phone] Allergies Allergen (clinical drug ingredient) Drug/Non Drug Allergy documented on EMR Reaction Allergy Type Onset Date Status antibiotic does not know name (uncoded)rashAllergyActive Reason For Referral No Information Medications Medication SIG (Take, Route, Frequency, Duration) Notes Start Date End Date Status [facility] D3 25 MCG (1000 UT) TAKE 3 CAPSULES BY MOUTH EVERY DAY FOR 90 DAYS; Duration: 90 ActiveTadalafil 20 mgTAKE 1 TABLET BY MOUTH NEEDED; Duration: 30Active Social History Tobacco Use: Social History Observation Description Date Details (start date - stop date) Never Smoker NA - NA Tobacco Use/Smoking Question Answer Notes Patient is a nonsmoker Alcohol Screen (Audit-C) Question Answer Notes Did you have a drink containing alcohol in the p ast year? 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)Activeconfirmed ProblemAcquired hallux valgus (69429759)Hallux valgus (acquired), right foot (M20.11)ActiveconfirmedProblemAcquired hallux rigidus (4737640)Hallux rigidus, right foot (M20.21)ActiveconfirmedProblemArthralgia of the ankle and/or foot (014633166)Pain in right ankle and joints of right foot (M25.571)Activeconfirmed ProblemPseudarthrosis after fusion or arthrodesis (177199635)Pseudarthrosis after fusion or arthrodesis (M96.0)ActiveconfirmedProblemErectile dysfunction (disorder) (291889779)Male erectile dysfunction, unspecified (N52.9)Active confirmedProblemFracture malunion (672520551)Displaced oblique fracture of shaft of left tibia, subsequent encounter for closed fracture with malunion (S82.232P) Activeconfirmed Plan Of Treatment Pending Test Test Name Order Date XR Abdomen AP (1 view) (KUB) * 2 XR Foot RT (3 views) * 06/07/2024 PSA, TOTAL 10/15/2022 XR foot RT min 3V 10/12/2023 XR foot RT min 3V 09/06/2024 Insurance Providers Payer Name Payer Address Payer Phone Subscriber Number Group Number Insured Name Patient Relationship to Insured Coverage Start Date Coverage End Date O [address] [place], [place] [id number] Sergio Walker Self - patient is the insured 4 [facility] [place] [address] [phone], ChadSelf - patient is the [id number] 2023 Medical (General) History Medical History History ICD Code Prostatitis Stricture of urethral meatus in male, unspecified stricture typeN35.911Elevated PSAR97.20History of kidney sbtrgcI34.442Surgical History Surgery Date(Month/Year) Right foot 1st MPJ fusion, a nkle arthroscopy, ankle arthrotomy with anterior tibial cheilectomy 11/25/2023 Appendectomy 07/1992
--- NOTE | 2025-10-29 07:26 | XR_ITS ---
The [address] [address] Patient Name: MARIA DE JESUS MEDLEY MRN: [id number] date: 1970 Sex: M Assigned Patient Location: [facility] Current Patient Location: [facility] Accession/Order Number: [id number] Exam Date: 10/29/2025 07:20 Report Date: 10/29/2025 10:00 At the request of: MORENA YA DPShandra Procedure: XR foot RT min 3V RIGHT FOOT - 3 views CLINICAL DATA: Follow-up postoperative changes COMPARISON: 09/05/2024 Weightbearing AP, lateral and oblique views were obtained. There is redemonstration of a dorsal plate and multiple screws traversing the first metatarsal phalangeal joint. This is unchanged. There is interval bony fusion of the underlying joint. There is no acute fracture or dislocation. There are no significant soft tissue abnormalities. XR/XR foot RT min 3V IMPRESSION: POSTOPERATIVE CHANGES AT THE FIRST TOE, DESCRIBED. NO ACUTE BONY FINDINGS. Impression dictated by: Cecilia Browne M.D. 10/29/2025 10:00 AM Dictation Location: [place] [address] Electronically authenticated by: [id number] Y Date: 10/29/2025 10:00
== END 2025-10-29 07:07 | disposition home or self-care (01) ==
LOC: RAD 07:06
PROVIDERS: PCP Internal Medicine; Visit Provider Podiatrist Foot & Ankle Surgery
DX: M79.671 Pain in right foot (principal); Z98.890 Other specified postprocedural states
CPT/HCPCS: 73630